=== PATIENT | male | born 1940 | race Caucasian/White ===

== ENCOUNTER 2018-01-26 18:26 | Emergency (ER) | payer BC, MEDICARE ==
[2018-01-26 19:43] LABS: Urine Appearance Clear; Urine Blood 3+ (Negative); Urine Color Yellow; Urine Ketones Negative (Negative); Urine Protein Negative (Negative); Urine Specific Gravity 1.011 (1.010-1.030); Urine Urobilinogen Negative (Negative)
[2018-01-26] MEDS ORDERED: Sulfamethox/Trimethoprim DS 800/160* TAB PO ONE ×2 (20:37→20:38)
[2018-01-26 21:25] VITALS: BP 143/79
--- NOTE | 2018-01-26 21:58 | ED ---
Farzaneh Crandall Edward, scribed for Carl Bowden MD on 01/26/18 at 2028 . GI/ HPI - HPI Summary HPI Summary: 77 y/o male presents to the ED c/o blood in urine 1x at around 16:30 today. Pt urinated 3x since then - lots of blood the first time, less blood the second and third times. This morning during urination pt states he may have noticed a small clot in his urine. PMHx enlarged prostate. Denies burning with urination today. Denies other pain. 3 years ago the pt had a similar episode; none since then. - History of Current Complaint Chief Complaint: EDGeneral Time Seen by Provider: 01/26/18 20:20 Stated Complaint: BLOOD IN URINE Hx Obtained From: Patient Onset/Duration: Started Hours Ago Timing: Intermittent - 3x Pain Intensity: 0 Associated Signs and Symptoms: Positive: Other: - Blood in urine - Allergy/Home Medications Allergies/Adverse Reactions: Allergies Allergy/AdvReac Type Severity Reaction Status Date / Time No Known Allergies Allergy Verified 01/16/15 19:46 Home Medications: Home Medications Metoprolol Tartrate TAB* [Lopressor TAB*] 50 mg PO BEDTIME 01/26/18 [History Confirmed 01/26/18] Pantoprazole TAB (NF) [Protonix TAB (NF)] 40 mg PO DAILY 01/26/18 [History Confirmed 01/26/18] Simvastatin (NF) [Zocor (NF)] 40 mg PO DAILY 01/26/18 [History Confirmed ] Tamsulosin CAP* [Flomax CAP*] 0.4 mg PO DAILY 01/26/18 [History Confirmed ] PMH/Surg Hx/FS Hx/Imm Hx Previously Healthy: No Cardiovascular History: Reports: Hx Hypercholesterolemia, Hx Hypertension, Hx Syncope GI History: Reports: Hx Gastroesophageal Reflux Disease History: Reports: Hx Benign Prostatic Hyperplasia Musculoskeletal History: Reports: Hx Back Problems, Hx Gout, Hx Scoliosis Sensory History: Reports: Hx Contacts or Glasses Opthamlomology History: Reports: Hx Contacts or Glasses - Surgical History Surgery Procedure, Year, and Place: CARDIAC STENT x1 about 2001 Infectious Disease History: No Infectious Disease History: Denies: Traveled Outside the [place] in Last 30 Days - Family History Known Family History: Positive: Cardiac Disease, Other - Parkinson's (father), breast CA (mother), "bone CA" (father) - Social History Alcohol Use: Weekly Hx Substance Use: No Substance Use Type: Reports: None Smoking Status (MU): Current Every Day Smoker Type: Cigarettes Amount Used/How Often: 1 PPD Length of Time of Smoking/Using Tobacco: about 46 years Have You Smoked in the Last Year: Yes Review of Systems Constitutional: Negative Eyes: Negative ENT: Negative Cardiovascular: Negative Respiratory: Negative Gastrointestinal: Negative Positive: other - blood in urine. Negative: burning Musculoskeletal: Negative Skin: Negative Neurological: Negative Psychological: Normal All Other Systems Reviewed And Are Negative: Yes Physical Exam Triage Information Reviewed: Yes Vital Signs On Initial Exam: Initial Vitals Temp Pulse Resp BP Pulse Ox 98.0 F 68 18 179/75 97 01/26/18 18:47 01/26/18 18:47 01/26/18 18:47 01/26/18 18:47 01/26/18 18:47 Vital Signs Reviewed: Yes Appearance: Positive: Well-Appearing, No Pain Distress Skin: Positive: Warm, Skin Color Reflects Adequate Perfusion, Dry Head/Face: Positive: Normal Head/Face Inspection Eyes: Positive: EOMI, IVETT ENT: Positive: Normal ENT inspection Neck: Positive: Supple, Nontender Respiratory/Lung Sounds: Positive: Clear to Auscultation, Breath Sounds Present Cardiovascular: Positive: RRR Abdomen Description: Positive: Nontender, Soft. Negative: CVA Tenderness (R), CVA Tenderness (L) Bowel Sounds: Positive: Present Male Genital Exam: Positive: Other - Penis and urethra are non-tender. There is no blood on the penis.. Negative: Testicular Tenderness (R), Testicular Tenderness (L) Musculoskeletal: Positive: Normal, Strength/ROM Intact Neurological: Positive: Sensory/Motor Intact, Alert, Oriented to Person Place, Time Psychiatric: Positive: Affect/Mood Appropriate Diagnostics - Vital Signs Vital Signs Temp Pulse Resp BP Pulse Ox 01/26/18 18:47 98.0 F 68 18 179/75 97 - Laboratory Lab Results: Lab Results 01/26/18 Range/Units 19:14 Urine Color Yellow Urine Appearance Clear Urine pH 6.0 (5-9) Ur Specific [place] 1.011 (1.010-1.030) Urine Protein Negative (Negative) Urine Ketones Negative (Negative) Urine Blood 3+ A (Negative) Urine Nitrate Negative (Negative) Urine Bilirubin Negative (Negative) Urine Urobilinogen Negative (Negative) Ur Leukocyte Esterase Negative (Negative) Urine WBC (Auto) Absent (Absent) Urine RBC (Auto) 3+(>10/hpf) A (Absent) Urine Bacteria Absent (Absent) Urine Glucose Negative (Negative) Lab Statement: Any lab studies that have been ordered have been reviewed, and results considered in the medical decision making process. GIGU Course/Dx - Course Course Of Treatment: NO PAIN, NO DIFFICULTY URINATING, NO FEVER. IN THE ED, THE URINE HAD A SMALL AMOUNT OF BLOOD WITHOUT CLOTS. DISCUSSED EVALUATION OF HEMATURIA WITH THE PATIENT. HE SEES UROLOGY THROUGH [place]. AT THIS TIME, THE PLAN IS TO TREAT WITH ABX AND CLOSE F/U WITH UROLOGY; RETURN TO ED IF WORSE. - Diagnoses Provider Diagnoses: Hematuria Discharge - Sign-Out/Discharge Documenting (check all that apply): Discharge/Admit/Transfer - Discharge Plan Condition: Stable Disposition: HOME Prescriptions: Sulfamethox/Trimethoprim DS* [Bactrim DS 800/160 TAB*] 1 tab PO BID #26 tab Patient Education Materials: Hematuria (ED) Referrals: Smiley Loyd MD [Primary Care Provider] - Additional Instructions: FOLLOW UP WITH YOUR PRIMARY CARE DOCTOR AND UROLOGIST. DRINK PLENTY OF WATER. RETURN TO THE EMERGENCY DEPARTMENT FOR ANY WORSENING OF YOUR CONDITION; PAIN, FEVER, YOU ARE UNABLE TO URINATE, YOU FEEL ILL OR QUESTIONS OR CONCERNS. - Billing Disposition and Condition Condition: STABLE Disposition: Home The documentation as recorded by the Farzaneh erickson Edward accurately reflects the service I personally performed and the decisions made by me, Carl Bowden MD.
== END 2018-01-26 21:23 | disposition home or self-care (01) ==
LOC: ED 18:26
DX: R31.9 Hematuria, unspecified (principal); E78.00 Pure hypercholesterolemia, unspecified; I10 Essential (primary) hypertension; K21.9 Gastro-esophageal reflux disease without esophagitis; N40.0 Benign prostatic hyperplasia without lower urinary tract symptoms; M41.9 Scoliosis, unspecified; Z95.5 Presence of coronary angioplasty implant and graft; Z82.49 Family history of ischemic heart disease and other diseases of the circulatory system; Z82.0 Family history of epilepsy and other diseases of the nervous system; Z80.3 Family history of malignant neoplasm of breast; Z80.8 Family history of malignant neoplasm of other organs or systems; F17.210 Nicotine dependence, cigarettes, uncomplicated
CPT/HCPCS: 81003; 81015; 87086; 99282; A9270-GY

== ENCOUNTER 2018-02-22 21:19 | Emergency (ER) | payer MEDICARE, OTHER ==
[2018-02-22 21:36] VITALS: BP 150/81
--- NOTE | 2018-02-22 21:55 | UC ---
Dental HPI - HPI Summary HPI Summary: This is georgina Nathan documenting for attending Ana María Conroy MD. This patient is a 77 year old M presenting to [facility] with a chief complaint of dental pain in his bottom left canine since a few weeks ago. The patient reports that the pain worsened today. The patient rates the pain 7/10 in severity. Symptoms aggravated by eating. Symptoms alleviated by nothing. Patient denies shortness of breath, chest pain, or difficulty swallowing. The patient reports that he has been taking aleve and rinsing his mouth with salt water. Patient has hx of HTN, HCL, and multiple MIs s/p stent placement . The patient reports that he takes Protonix, ASA, Flomax, and HCL medication. Patient notes he has regular dentist. - History of Current Complaint Chief Complaint: UCDentalProblem Stated Complaint: DENTAL COMPLAINT Time Seen by Provider: 02/22/18 21:46 Hx Obtained From: Patient Onset/Duration: Gradual Onset, Lasting Weeks, Still Present, Worse Since - today Severity: Moderate Pain Intensity: 7 Pain Scale Used: 0-10 Numeric Aggravating Factor(s): Nothing Alleviating Factor(s): Nothing - Allergies/Home Medications Allergies/Adverse Reactions: Allergies Allergy/AdvReac Type Severity Reaction Status Date / Time No Known Allergies Allergy Verified 01/16/15 19:46 Home Medications: Home Medications Naproxen Sodium [Aleve] 02/22/18 [History] PMH/Surg Hx/FS Hx/Imm Hx Previously Healthy: Yes Other Endocrine History: negative Cardiovascular History: Hypertension, Myocardial Infarction, Other - HCL Other Cardiovascular History: hyperlipidemia Other Respiratory History: negative Other GI/ History: negative Other Neurological History: negative Other Psychological History: negative Other Cancer History: negative - Surgical History Surgical History: Yes Surgery Procedure, Year, and Place: CARDIAC STENT x1 about 2001 - Family History Known Family History: Positive: Cardiac Disease, Other - Parkinson's (father), breast CA (mother), "bone CA" (father) - Social History Alcohol Use: Weekly Substance Use Type: None Smoking Status (MU): Heavy Every Day Tobacco Smoker Type: Cigarettes Amount Used/How Often: 1 PPD Length of Time of Smoking/Using Tobacco: about 46 years Have You Smoked in the Last Year: Yes Household Exposure Type: Cigarettes - Immunization History Most Recent Tetanus Shot: unknown Most Recent Pneumonia Vaccination: unknown if ever Review of Systems Constitutional: Negative - negative fever Skin: Negative Eyes: Negative ENT: Dental Pain - bottom left canine Respiratory: Negative - negative shortness of breath Cardiovascular: Negative - negative chest pain Gastrointestinal: Negative Genitourinary: Negative Motor: Negative Neurovascular: Negative Musculoskeletal: Negative Neurological: Negative Psychological: Negative Is Patient Immunocompromised?: No All Other Systems Reviewed And Are Negative: Yes Physical Exam - Summary Physical Exam Summary: Appearance: Well-Appearing, No Pain Distress, Well-Nourished Eyes: conjunctiva clear, no discharge ENT: Hearing grossly normal, no muffled/hoarse voice. Lower jaw left canine tender to slight touch and manipulation, it is discolored with caries, all of the teeth behind it had been removed. Gingiva does not appear significantly swollen or erythematous. Ears have a lot of wax but patient declined irrigation , TM not visualized bilaterally No pharyngeal erythema or exudates. Neck: Normal, Supple Respiratory/Lung Sounds: Lungs clear, Normal breath sounds, No respiratory distress, No accessory muscle use Cardiovascular: RRR, No murmur Abdomen: Nontender, Soft, no guarding, not distended Bowel Sounds: Present Musculoskeletal: Normal Neurological: Alert, muscle tone normal Psychiatric:Normal, age appropriate behavior Skin: Normal, Warm, Dry, Normal color Triage Information Reviewed: Yes Vital Signs: Initial Vital Signs Temp 98.4 F 02/22/18 21:31 Pulse 66 02/22/18 21:31 Resp 16 02/22/18 21:31 BP 150/81 02/22/18 21:31 Pulse Ox 95 02/22/18 21:31 Vital Signs Reviewed: Yes Dental Complaint Course/Dx - Course Course Of Treatment: During the visit today, we discussed the findings and further plan. I will prescribe the medication to the pharmacy . He will follow up with his dentist in [place]. Patient expressed understanding . - Differential Dx/Diagnosis Differential Diagnosis/Dx: Dental Abscess Provider Diagnoses: pulpitis. dental caries Discharge - Sign-Out/Discharge Documenting (check all that apply): Patient Departure - Discharge Plan Condition: Stable Disposition: HOME Prescriptions: Amoxicillin/Clavulanate TAB* [Augmentin TAB 875*] 875 mg PO BID 10 Days #20 tab Chlorhexidine MW 0.12% 473ML* [Peridex Mouth Wash 0.12%] 0.12 % MT BID #1 emperatriz Patient Education Materials: Dental Abscess (ED), Toothache (ED) Referrals: Smiley Loyd MD [Primary Care Provider] - Hira Clemente DDS [Other] - 3 Days Additional Instructions: Please start taking the medication as prescribed to the pharmacy . Follow up with your dentst in 2 - 3 days. Return to Urgent care / ER if symptoms get worse. - Billing Disposition and Condition Condition: STABLE Disposition: Home
[2018-02-22] MEDS ORDERED: Amoxicillin/Clavulanate TAB* 875 MG PO ONE (21:57)
== END 2018-02-22 22:15 | disposition home or self-care (01) ==
LOC: UCEAST 21:19
DX: K04.01 Reversible pulpitis (principal); K02.9 Dental caries, unspecified; I25.2 Old myocardial infarction; I10 Essential (primary) hypertension; E78.5 Hyperlipidemia, unspecified; Z95.5 Presence of coronary angioplasty implant and graft; F17.210 Nicotine dependence, cigarettes, uncomplicated
CPT/HCPCS: 99212; A9270-GY; G0463

== ENCOUNTER 2018-05-21 09:40 | Inpatient (IN) | payer MEDICARE ==
[2018-05-21] MEDS ORDERED: NS 0.9% 1000 ML* 2,000 ML IV ONE (10:18)
--- NOTE | 2018-05-21 10:28 | ED ---
Abdominal Pain/Male - HPI Summary HPI Summary: This patient is a 77 year old M presenting to [facility] accompanied by with a chief complaint of lower abd cramping that began approximately one month ago. The patient rates the pain 6/10 in severity. Symptoms aggravated by Miralax and phenazopyridine. Symptoms alleviated by bowel movements. Patient reports diarrhea, recent weight gain, SOB, and occasional anal pain upon urination. reports the patient being pale, shaky, and weak, with bilateral feet edema. Patient denies CP, headache, vomiting, and fever. Patient has been using over the counter stool softeners due to his difficulty producing a BM. Patient states that the pain began upon travel to [place]. Patient states he returned from [place] on 04/18/2018, and at that point he weighed 198 lb. He reports he now weights 211 lbs. Patient reports he has a history of an enlarged prostate and hemorrhoids. Patient states he saw his primary care for these symptoms and had a BP of 140/92 at that point. He reports that he saw his urologist at [place] (Dr. Albarado) for his enlarged prostate and was prescribed Finasteride with great results. Pt states he has had cystoscopy by Dr. Albarado and no cancer was noted. Patient states that he has not been taking his Miralax and phenzopyridine prescribed by Dr. Smiley Loyd, his PCP, because he feels these medications made the abdominal pain worse. Vital signs while in room: HR 61 bpm, BP 230/92, and O2 sat 93%. Home Medications Medication Instructions Recorded Confirmed Type Aspirin TAB* [Aspirin 325 MG TAB*] 325 mg PO DAILY 01/16/15 05/21/18 History Metoprolol Tartrate TAB* 25 mg PO BID 01/26/18 05/21/18 History [Lopressor TAB*] Pantoprazole TAB (NF) [Protonix 40 mg PO DAILY 01/26/18 05/21/18 History TAB (NF)] Simvastatin (NF) [Zocor (NF)] 40 mg PO DAILY 01/26/18 05/21/18 History Tamsulosin CAP* [Flomax CAP*] 0.4 mg PO DAILY 01/26/18 05/21/18 History Amoxicillin/Clavulanate TAB* 875 mg PO BID 10 Days #20 tab 02/22/18 05/21/18 Rx [Augmentin TAB 875*] Finasteride 5 mg PO DAILY 05/21/18 05/21/18 History Phenazopyridine 200 mg (NF) 200 mg PO TID 05/21/18 05/21/18 History Polyethylene Glycol 1 pkt PO DAILY 05/21/18 05/21/18 History - History of Current Complaint Chief Complaint: EDAbdPain Stated Complaint: CONSTIPATION/HEMROIDS/PROSTATE ISSUES Time Seen by Provider: 05/21/18 10:11 Hx Obtained From: Patient, Family/Jewel Bearing Broacher - Onset/Duration: Sudden Onset, Lasting Weeks, Still Present Timing: Constant Severity Initially: Moderate Severity Currently: Moderate Pain Intensity: 6 Pain Scale Used: 0-10 Numeric Location: Other - Lower abdomen Radiates: No Character: Dull Aggravating Factor(s): Other: - Miralax and phenazopyridine Alleviating Factor(s): Bowel Movement Associated Signs And Symptoms: Positive: Diarrhea, Other - Positive recent weight gain, SOB, and occasional anal pain upon urination, pallor, shakiness, weakness, bilateral feet edema. Negative CP, headache, vomiting, and fever - Allergies/Home Medications Allergies/Adverse Reactions: Allergies Allergy/AdvReac Type Severity Reaction Status Date / Time No Known Allergies Allergy Verified 05/21/18 10:31 Home Medications: Home Medications Finasteride 5 mg PO DAILY 05/21/18 [History Confirmed 05/21/18] Phenazopyridine 200 mg (NF) 200 mg PO TID 05/21/18 [History Confirmed 05/21/18] Polyethylene Glycol 1 pkt PO DAILY 05/21/18 [History Confirmed 05/21/18] PMH/Surg Hx/FS Hx/Imm Hx Previously Healthy: No Cardiovascular History: Reports: Hx Hypercholesterolemia, Hx Hypertension, Hx Syncope GI History: Reports: Hx Gastroesophageal Reflux Disease History: Reports: Hx Benign Prostatic Hyperplasia Musculoskeletal History: Reports: Hx Back Problems, Hx Gout, Hx Scoliosis Sensory History: Reports: Hx Contacts or Glasses Opthamlomology History: Reports: Hx Contacts or Glasses - Surgical History Surgery Procedure, Year, and Place: CARDIAC STENT x1 about 2001 Hx Anesthesia Reactions: No Infectious Disease History: No Infectious Disease History: Denies: Traveled Outside the [place] in Last 30 Days - Family History Known Family History: Positive: Cardiac Disease, Other - Parkinson's (father), breast CA (mother), "bone CA" (father) - Social History Occupation: Employed Full-time Lives: With Family Alcohol Use: Weekly Hx Substance Use: No Substance Use Type: Reports: None Hx Tobacco Use: Yes Smoking Status (MU): Heavy Every Day Tobacco Smoker Type: Cigarettes Amount Used/How Often: 1 PPD Length of Time of Smoking/Using Tobacco: about 46 years Have You Smoked in the Last Year: Yes Review of Systems Positive: Other - Positive pallor and shakiness. Negative: Fever Negative: Chest Pain Positive: Shortness Of Breath Positive: Abdominal Pain, Diarrhea, Other - Positive recent weight gain and anal pain. Negative: Vomiting Positive: other - BPH, nocturia Skin: Negative Positive: Weakness. Negative: Headache Psychological: Normal All Other Systems Reviewed And Are Negative: Yes Physical Exam - Summary Physical Exam Summary: Appearance: Well-appearing, moderate pain distress, well-nourished, hypertensive Skin: Warm, color reflects adequate perfusion, dry Head: Normal Head/Face inspection, atraumatic Eyes: Conjunctiva clear ENT: Normal inspection Neck: Supple, no nodes, no JVD Respiratory: Lungs clear, normal breath sounds, no respiratory distress, SOB with minimal exertion Cardio: RRR, No murmur, pulses normal, brisk capillary refill Abdomen: Soft, nontender, nondistended, no masses Bowel sounds: Present Musculoskeletal: Strength Intact/ROM intact, no calf tenderness, 2+ pitting edema Rectal Exam: TALON Hernández present as a motorcoach driver for rectal exam. External hemorrhoids nonthrombosed and not bleeding. Enlarged prostate without nodularity. No stool in vault, mucous sent for guaiac testing, and is guaiac neg. exam: circumcised male, testes descended bilat without masses or tenderness, no scrotal swelling. Psychological: Normal Neuro: Alert, muscle tone normal, no focal deficit Triage Information Reviewed: Yes Vital Signs On Initial Exam: Initial Vitals Temp Pulse Resp BP Pulse Ox 98.4 F 61 14 196/81 94 05/21/18 10:08 05/21/18 10:08 05/21/18 10:08 05/21/18 10:08 05/21/18 10:08 Vital Signs Reviewed: Yes Procedures - Procedure Summary Procedure Summary: 16 [place] Mesa catheter insertion: without resistant and without trauma upon first attempt via sterile technique and with insertion of 6 ml lidocaine gel into urethral meatus prior to insertion. Clear yellow urine began to drain. 1600 cc were collected and the catheter was clamped due to bladder spasms and pain. Catheterized urine sample sent for culture (in addition to voided specimen that was sent prior). Diagnostics - Vital Signs Vital Signs Temp Pulse Resp BP Pulse Ox 05/21/18 10:08 98.4 F 61 14 196/81 94 - Laboratory Result Diagrams: 05/21/18 10:34 05/21/18 21:39 Lab Statement: Any lab studies that have been ordered have been reviewed, and results considered in the medical decision making process. - Radiology CXR Radiology Interpretation Completed By: Radiologist Summary of Radiographic Findings: CXR reveals, per radiologist, findings suggestive of congestive heart failure. ED physician has reviewed this radiology report. - CT CT Abdomen and Pelvis CT Interpretation Completed By: Radiologist - note: CT done prior to insertion of mesa Summary of CT Findings: CT abdomen and pelvis reveals, per radiologist, 1. SMALL TO MODERATE SIZE BILATERAL PLEURAL EFFUSIONS. 2. MARKEDLY DISTENDED URINARY BLADDER AND MILD TO MODERATE GRADE BILATERAL HYDRONEPHROSIS WHICH APPEARS SECONDARY TO A MARKEDLY ENLARGED PROSTATE GLAND. THERE IS ALSO DIFFUSE THICKENING OF THE WALL OF THE URINARY BLADDER WHICH IS LIKELY SECONDARY TO HYPERTROPHY AND CHRONIC OUTLET OBSTRUCTION. 3. CHOLELITHIASIS WITHOUT EVIDENCE FOR ACUTE CHOLECYSTITIS. ED physician has reviewed this radiology report. - EKG 1026 Cardiac Rate: Bradycardia EKG Rhythm: Sinus Rhythm - 56 BPM Ectopy: None EKG Comparison: No Significant Change - Since 04/17/2016 Summary of EKG Findings: An EKG at 1026 reveals sinus dion 56 with nml AV/IV CT , nml QTc, and normal axis. No acute changes no change compared with 04/17/16 Re-Evaluation - Re-Evaluation First Eval Re-Evaluation Time: 11:28 Change: Unchanged Comment: No CP. He still has SOB at rest. Hes been advised of his abnormal labs and admission Second Eval Re-Evaluation Time: 12:05 Change: Unchanged Comment: Patient is having a BM and we will send a stool sample Third Eval Re-Evaluation Time: 13:30 Change: Improved Comment: 16 F coude catheter inserted via sterile technique without difficulty upon first attempt, and with return of clear yellow urine, after consult with Dr. Velez. Mesa clamped due to bladder spasms and pain after 1600 cc urine drained in minutes. Morphine 4mg IV given for pain with some relief. Abdominal Pain Fem Course/Dx - Course Course Of Treatment: This patient is a 77 year old M presenting to [facility] accompanied by with a chief complaint of lower abd cramping that began approximately one month ago. Physical Exam Findings: RN Betty present as a motorcoach driver for rectal exam. External hemorrhoids and enlarged prostate. 2+ pitting edema, SOB with minimal exertion. : normal circumcised male. An EKG at 1026 reveals sinus dion 56 with nml AV/IV CT, nml QTc, and normal axis. No acute changes no change compared with 04/17/16. CXR reveals, per radiologist, findings suggestive of congestive heart failure. CT abdomen and pelvis reveals, per radiologist, 1. SMALL TO MODERATE SIZE BILATERAL PLEURAL EFFUSIONS. 2. MARKEDLY DISTENDED URINARY BLADDER AND MILD TO MODERATE GRADE BILATERAL HYDRONEPHROSIS WHICH APPEARS SECONDARY TO A MARKEDLY ENLARGED PROSTATE GLAND. THERE IS ALSO DIFFUSE THICKENING OF THE WALL OF THE URINARY BLADDER WHICH IS LIKELY SECONDARY TO HYPERTROPHY AND CHRONIC OUTLET OBSTRUCTION. 3. CHOLELITHIASIS WITHOUT EVIDENCE FOR ACUTE CHOLECYSTITIS. Bloodwork and UA obtained. Bladder scan done post void shows volume greater than 1000cc. Second bladder scan done again post void and just prior to coude catheter insertion shows volume greater than 1000cc. In the ED course the patient was given Aspirin , Finasteride, fluids, lidocaine ge for insertion of mesa, Lopressor, Morphine , and Tamsulosin. New onset renal failure noted since 2016. Elevated BNP and CXR with CHF, will cancel hydration with IV fluids. Contrast for CT abdomen and pelvis will be given orally only due to new onset renal failure (creat 4.8). Consult with Dr. Blum (hospitalist) at 1203. She recommends a bladder scan and evaluation for urinary retention. Consult with Dr. Velez (urology) at 1242. He recommends 16F coude Mesa, preferably before the CT scan, which was inserted after CT completed. Consult with Dr. Blum (hospitalist) at 2665. She agrees to admit patient for further evaluation. The patient is agreeable with this plan. - Diagnoses Differential Diagnosis/HQI/PQRI: Benign Prostatic Hyperplasia, Diverticulitis, Ischemic Bowel, Prostatitis, Ureteral Stone, Urinary Tract Infection, Other - colitis Provider Diagnoses: Bilateral hydronephrosis, Acute urinary retention, Abdominal pain, Acute kidney injury, CHF (congestive heart failure), Diarrhea, Hypertension, poor control - Provider Notifications Discussed Care Of Patient With: Mikala Blum Time Discussed With Above Provider: 12:03 Instructed by Provider To: Other - Consult with Dr. Blum (hospitalist) at 1203. She recommends a bladder scan and evaluation for urinary retention. Consult with Dr. Velez (urology) at 1242. He recommends 16 [place] coude Mesa, preferably before the CT scan. Consult with Dr. Blum (hospitalist) at 1345. She agrees to admit patient for further evaluation. Discharge - Sign-Out/Discharge Documenting (check all that apply): Patient Departure - Admit to [facility] - Discharge Plan Condition: Stable Disposition: ADMITTED TO [facility] - Billing Disposition and Condition Condition: STABLE Disposition: Admitted to [facility] - Attestation Statements Document Initiated by Scribe: Yes Documenting Scribe: Rosalie Acuña Provider For Whom Billye is Documenting (Include Credential): Dr. Charisse Lauren MD Scribe Attestation: Rosalie Crandall, scribed for Dr. Charisse Lauren MD on 05/22/18 at 0314. Scribe Documentation Reviewed: Yes Provider Attestation: The documentation as recorded by the Rosalie erickson accurately reflects the service I personally performed and the decisions made by me, Dr. Charisse Lauren MD
[2018-05-21 10:47] LABS: ABS Basophils 0.1 10^3/ul (0-0.2); ABS Eosinophils 0.4 10^3/ul (0-0.6); ABS Lymphocytes 1.2 10^3/ul (1.0-4.8); ABS Monocytes 0.9 10^3/ul (0-0.8); ABS Neutrophils 9.6 10^3/ul (1.5-7.7); ABS Nucleated RBC 0 10^3/ul; Eosinophil % 3.5 % (0-6); Hematocrit 38 % (42-52); Hemoglobin 12.8 g/dl (14.0-18.0); Lymphocyte % 9.9 % (25-47); Mean Corpuscular HGB Conc 34 g/dl (31-36); Mean Corpuscular Hemoglobin 30 pg (27-31); Mean Corpuscular Volume 89 fL (80-94); Mean Platelet Volume 9.5 um3 (7.4-10.4); Nucleated Red Blood Cells % 0; Platelet Count 202 10^3/ul (150-450); Red Cell Distribution Width 14 % (10.5-15); White Blood Count 12.3 10^3/ul (3.5-10.8)
--- OUTSIDE RECORDS SUMMARY | 2018-05-21 10:52 | XMS REPORT | Continuity of Care Document ---
:1940 External Reference #:[id number] Author Name Roseann Pedro Care Team Providers Name Role Phone Smiley Loyd MD Primary Care Physician Unavailable Payers Type Date Identification Numbers Payment Provider Subscriber Effective: Policy Number: [id number] [employer] Faustino Morales 2017 PayID: [id number] [address] [address] [place] [address] Advance Directives Description No Information Available Problems Date Description Provider Status Onset: 12/28/2010 Hyperlipidemia Smiley Loyd M.D. Active Onset: 12/28/2010 Coronary arteriosclerosis Smiley Loyd M.D. 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 Active Onset: 03/23/2011 Cellulitis Ambrocio Lynn MD Active Family History Date Family Member(s) Problem(s) Comments General Diabetes Mellitus, II General Hypertension General Bladder Cancer General Lymphoma General Kidney Stones Father Diabetes Type 2 Father Hypertension Father Hyperlipidemia Father Heart Disease First Son Throat Cancer Social History Type Date Description Comments Sex Unknown Marital Status Tobacco Use Start: Unknown Current Cigarette Smoker 1 Pack Daily Tobacco Use Start: Unknown attempting to quit ETOH Use Occasionally consumes alcohol Recreational Drug Use Denies Drug Use Tobacco Use Start: Unknown Patient is a current smoker, smokes every day Smoking Status Reviewed: 06/22/17 Patient is a current smoker, smokes every day Allergies, Adverse Reactions, Alerts Date Description Reaction Status Severity Comments 12/28/2010 NKDA Active 08/16/2005 Nka Active Medications Medication Date Status Form Strength Qnty SIG Indications Ordering Provider Miralax 05/17/ Active Packet 3350NF 36uni 17 gms in K59.00 Smiley 2017 ts 8 oz h2o Gauss, every day M.D. as needed Phenazopyridine 05/17/ Active Tablets 200mg 30tab 1 tablet R30.0 Smiley HCL 2018 s 3x aday Ishuss, for 3 days M.D. Proctosol HC 05/10/ Active Cream 2.5% 28.35 apply to K64.9 Smiley 2017 0gm affected Gauss, area after M.D. bowel movements and as needed Amoxicillin 05/10/ Active Tablets 500mg 14tab 1 by mouth J20.9 Smiley 2017 s two times Gauss, a day M.D. Sildenafil 01/02/ Active Tablets 50mg 6tabs take 1 Smiley Citrate 2018 tablet if Gauss, needed as M.D. directed Pantoprazole 09/08/ Active Tablets DR 40mg 90tab take 1 Smiley Sodium 2009 s tablet Ishuss, daily M.D. Simvastatin 04/28/ Active Tablets 40mg 90tab take 1 E78.5 Smiley 2008 s tablet Ishuss, daily (max M.D. daily dose: 1 tablet) mdd 1 Metoprolol 03/26/ Active Tablets 50mg 90tab take Smiley Tartrate 2008 s one-half Evert, (07/26) M.DDebra tablet twice a day Asp 08/16/ Active Tablets 325mg 1 po qd Smiley 2005 Belkys Loyd Flomax / Active Capsules 0.4mg 90cap 1 po qd Anthony, 0000 s Sebas Finasteride / Active Tablets 5mg 1 by mouth Unknown 0000 every day Azithromycin 06/22/ Hx Tablets 250mg 6tabs 2 by mouth J02.9 Smiley 2016 - , 1 Evert, 07/06/ by mouth M.D. 2016 day 2 thru 5 Cephalexin 04/07/ Hx Capsules 500mg 14cap 1 by mouth L03.114 Smiley 2016 twice a Evert, 07/06/ day with M.D. 2017 food Azithromycin 04/22/ Hx Tablets 250mg 6tabs 2 by mouth J02.9 Smiley 2015 - today, 1 Evert, 04/07/ by mouth M.D. 2016 day 2 thru 5 Zithromax 03/03/ Hx Tablets 250mg 6pill 2 by mouth Ambrocio 2015 - day 1, 1 MD Leah 04/22/ by mouth 2015 every day x days 2-5 Amoxicillin/Clavu 02/25/ Hx Tablets 875-125mg 14tab 1 by mouth J20.9 Smiley lanate Potassium 2016 - s twice a Evert, 03/03/ day M.D. 2016 Flagyl 01/16/ Hx Tablets 500mg 1 by mouth Unknown 2015 - three 01/14/ times a 2016 day Ciprofloxacin HCL 01/16/ Hx Tablets 500mg 1 by mouth Unknown 2015 - twice a 01/26/ day 2014 Amoxicillin 04/10/ Hx Capsules 500mg 14cap 1 tablets 461.9 Smiley 2013 - s by mouth Evert, 01/21/ twice a M.D. 2014 day Amoxicillin 04/19/ Hx Capsules 250mg 30cap 1 po tid 462 Smiley 2012 - s Evert, 06/19/ M.D. 2012 Sulfamethoxazole/ 06/06/ Hx Tablets 800-160mg 30tab 1 po bid 599.70 Smiley Trimethoprim DS 2011 - s Evert, 07/10/ M.D. 2011 Azithromycin 05/25/ Hx Tablets 250mg 6tabs 2 po 465.8 Smiley 2011 - , 1 Evert, 06/06/ po day 2 M.D. 2012 thru 5 Keflex 04/06/ Hx Capsules 500mg 21cap 1 po tid 682.90 Smiley 2010 - s Evert, 07/07/ M.D. 2010 Bactrim DS 04/01/ Hx Tablets 800-160mg 14tab 1 po bid 682.90 Smiley 2010 - s Evert, 04/06/ M.D. 2011 Indomethacin 04/01/ Hx Capsules 50mg 30cap 1 po tid 274.90 Smiley 2010 - s with food Evert, 07/10/ prn M.DDebra 2012 Levaquin 03/23/ Hx Tablets 500mg 10tab 1 po qd Ambrocio 2010 - s MD Leah 2010 Amoxicillin 08/15/ Hx Tablets 500mg 20tab 1 po bid 462 Smiley 2009 - s Evert, 12/26/ M.D. 2009 Indomethacin 01/31/ Hx Capsules 25mg 20cap 1 po tid 274.9 Smiley 2008 - s with food Evert, 08/15/ prn foot M.D. 2009 pain Erythromycin Base 10/19/ Hx Tablets 500mg 20tab 1 PO bid 462 Smiley Enteric Coated 2006 - s Evert, 01/22/ M.D. 2007 Amoxicillin 08/17/ Hx Tablets 500mg 15tab 1 po bid 460.00 Smiley 2006 - s Evert, 09/21/ M.D. 2007 Lopressor 09/29/ Hx Tablets 50mg 50tab 1/2 po bid Smiley 2005 - s Evert, 06/26/ M.D. 2008 Lipitor 08/17/ Hx Tablets 20mg 90tab 1/2 tab po 272.4 Smiley 2005 - s qd Evert, M.D. 2008 Lipitor 08/16/ Hx Tablets 10mg 90tab 1 po qd Smiley 2006 - s Evert, 08/17/ M.D. 2005 Protonix 08/16/ Hx Tablets 40mg 90tab 1 po qd Smiley 2005 - s Evert, 06/26/ M.D. 2009 Viagra 08/16/ Hx Tablets 50mg 6tabs take 1 Smiley 2005 - tablet if Evert, as M.D. 2017 directed Lopressor 07/01/ Hx Tablets 25mg 180ta 1 po bid Smiley 2004 - bs Evert, 09/29/ M.DDebra 2005 Immunizations CPT Code Status Date Vaccine Lot # [id number] Given 06/22/2017 Influenza Virus (Afluria) Split Virus 3 Years Of Age And Older Q2035 Given 06/22/2017 Influenza Virus (Afluria) Split Virus 3 Years [id number] Of Age And Older Q2037 Given 07/16/2015 Influenza Vaccine (Fluvirin) 3 Years Of Age Or [id number] Older Q2036 Given 07/08/2014 Flulaval [id number] Given 07/08/2014 Pneumovax Polyvalent Inj Im [id number] Q2038 Given 04/19/2013 Influenza Vaccine (Fluzone) Administered Age 3 And Older [id number] Given 04/13/2012 Influenza Vaccine (Fluvirin) 3 Years Of Age Or Older [id number] Given 04/13/2012 Influenza Vaccine (Fluvirin) 3 Years Of Age Or [id number] Older Q2036 Given 04/01/2011 Flulaval [id number] Given 06/29/2010 Influenza Vaccine [id number] Given 04/20/2006 Influenza Vaccine [id number] Vital Signs Date Vital Result Comment 05/17/2018 10:38am BP Systolic 148 mmHg BP Diastolic 80 mmHg Heart Rate 66 /min Height 72 inches 6'0" Weight 214.00 lb BMI (Body Mass Index) 29.0 kg/m2 O2 % BldC Oximetry 92 % 05/10/2018 2:52pm BP Systolic 160 mmHg BP Diastolic 94 mmHg Heart Rate 60 /min Height 72 inches 6'0" Weight 213.00 lb BMI (Body Mass Index) 28.9 kg/m2 O2 % BldC Oximetry 95 % 01/02/2018 10:39am BP Systolic 128 mmHg BP Diastolic 68 mmHg Heart Rate 64 /min Respiratory Rate 18 /min Height 72 inches 6'0" Weight 213.00 lb BMI (Body Mass Index) 28.9 kg/m2 O2 % BldC Oximetry 94 % 07/06/2017 11:17am BP Systolic 144 mmHg BP Diastolic 70 mmHg Heart Rate 76 /min Respiratory Rate 18 /min Height 72 inches 6'0" Weight 201.00 lb BMI (Body Mass Index) 27.3 kg/m2 06/22/2017 3:27pm BP Systolic 160 mmHg BP Diastolic 84 mmHg Body Temperature 97.7 F Height 72 inches 6'0" Weight 201.00 lb BMI (Body Mass Index) 27.3 kg/m2 04/07/2017 10:43am BP Systolic 138 mmHg BP Diastolic 64 mmHg Height 69 inches 5'9" Weight 208.00 lb BMI (Body Mass Index) 30.7 kg/m2 01/10/2017 10:38am BP Systolic 118 mmHg BP Diastolic 68 mmHg Height 71 inches 5'11" Weight 214.00 lb BMI (Body Mass Index) 29.8 kg/m2 09/20/2016 2:35pm BP Systolic 140 mmHg BP Diastolic 80 mmHg Body Temperature 98.1 F 07/12/2016 11:31am BP Systolic 142 mmHg BP Diastolic 80 mmHg Height 70 inches 5'10" Weight 219.00 lb BMI (Body Mass Index) 31.4 kg/m2 04/22/2016 10:46am BP Systolic 140 mmHg BP Diastolic 70 mmHg Body Temperature 97.4 F Height 70 inches 5'10" Weight 212.00 lb BMI (Body Mass Index) 30.4 kg/m2 03/03/2016 8:47am BP Systolic 130 mmHg BP Diastolic 80 mmHg 02/26/2016 11:16am BP Systolic 120 mmHg BP Diastolic 60 mmHg Body Temperature 98.6 F 01/15/2016 11:02am BP Systolic 122 mmHg BP Diastolic 64 mmHg Height 70 inches 5'10" Weight 212.00 lb BMI (Body Mass Index) 30.4 kg/m2 07/16/2015 1:41pm BP Systolic 140 mmHg BP Diastolic 80 mmHg Height 70 inches 5'10" Weight 210.00 lb BMI (Body Mass Index) 30.1 kg/m2 01/21/2015 1:34pm BP Systolic 150 mmHg BP Diastolic 86 mmHg Height 70 inches 5'10" Weight 213.00 lb BMI (Body Mass Index) 30.6 kg/m2 01/06/2015 11:47am BP Systolic 136 mmHg BP Diastolic 70 mmHg Height 70 inches 5'10" Weight 216.00 lb BMI (Body Mass Index) 31.0 kg/m2 07/08/2014 1:44pm BP Systolic 126 mmHg BP Diastolic 66 mmHg Height 70 inches 5'10" Weight 219.00 lb BMI (Body Mass Index) 31.4 kg/m2 04/10/2014 11:26am BP Systolic 146 mmHg BP Diastolic 80 mmHg Body Temperature 97.0 F 01/14/2014 11:48am BP Systolic 114 mmHg BP Diastolic 70 mmHg Height 70 inches 5'10" Weight 217.00 lb BMI (Body Mass Index) 31.1 kg/m2 07/11/2013 11:25am BP Systolic 130 mmHg BP Diastolic 80 mmHg Height 70 inches 5'10" Weight 230.00 lb BMI (Body Mass Index) 33.0 kg/m2 04/19/2013 1:32pm BP Systolic 120 mmHg BP Diastolic 82 mmHg Body Temperature 98.5 F 01/08/2013 11:01am BP Systolic 130 mmHg BP Diastolic 78 mmHg Height 70 inches 5'10" Weight 232.00 lb BMI (Body Mass Index) 33.3 kg/m2 07/10/2012 10:45am BP Systolic 134 mmHg BP Diastolic 80 mmHg Height 70 inches 5'10" Weight 231.00 lb BMI (Body Mass Index) 33.1 kg/m2 06/06/2012 1:33pm BP Systolic 140 mmHg BP Diastolic 80 mmHg Body Temperature 98.4 F 05/25/2012 10:44am BP Systolic 130 mmHg BP Diastolic 70 mmHg Body Temperature 98.4 F 01/10/2012 10:54am BP Systolic 136 mmHg BP Diastolic 80 mmHg Height 71 inches 5'11" Weight 229.00 lb BMI (Body Mass Index) 31.9 kg/m2 07/07/2011 11:24am BP Systolic 130 mmHg BP Diastolic 72 mmHg Height 71 inches 5'11" Weight 231.00 lb BMI (Body Mass Index) 32.2 kg/m2 04/01/2011 11:36am BP Systolic 118 mmHg BP Diastolic 68 mmHg Height 71 inches 5'11" Weight 225.00 lb BMI (Body Mass Index) 31.4 kg/m2 03/23/2011 1:32pm BP Systolic 124 mmHg BP Diastolic 70 mmHg Body Temperature 97.6 F Height 71 inches 5'11" Weight 225.00 lb BMI (Body Mass Index) 31.4 kg/m2 12/28/2010 11:15am BP Systolic 124 mmHg BP Diastolic 62 mmHg Height 71 inches 5'11" Weight 229.00 lb BMI (Body Mass Index) 31.9 kg/m2 06/29/2010 10:42am BP Systolic 128 mmHg BP Diastolic 80 mmHg Weight 225.00 lb 12/25/2009 11:26am BP Systolic 122 mmHg BP Diastolic 64 mmHg Height 71 inches 5'11" Weight 225.00 lb BMI (Body Mass Index) 31.4 kg/m2 06/26/2009 10:34am BP Systolic 122 mmHg BP Diastolic 60 mmHg Weight 225.00 lb 12/26/2008 11:40am BP Systolic 130 mmHg BP Diastolic 76 mmHg Height 71 inches 5'11" Weight 225.00 lb BMI (Body Mass Index) 31.4 kg/m2 08/15/2008 10:43am BP Systolic 164 mmHg BP Diastolic 92 mmHg Height 71 inches 5'11" Weight 223.00 lb BMI (Body Mass Index) 31.1 kg/m2 02/21/2008 12:01pm BP Systolic 130 mmHg BP Diastolic 70 mmHg Height 71 inches 5'11" 02/01/2008 10:53am BP Systolic 128 mmHg BP Diastolic 84 mmHg Body Temperature 98.8 F Height 71 inches 5'11" 08/15/2007 10:40am BP Systolic 142 mmHg BP Diastolic 78 mmHg Height 71 inches 5'11" Weight 220.00 lb BMI (Body Mass Index) 30.7 kg/m2 02/14/2007 10:02am BP Systolic 130 mmHg BP Diastolic 78 mmHg Height 71 inches 5'11" Weight 222.00 lb BMI (Body Mass Index) 31.0 kg/m2 10/19/2006 12:45pm BP Systolic 124 mmHg BP Diastolic 70 mmHg Body Temperature 97.3 F Height 71 inches 5'11" Weight 226.00 lb BMI (Body Mass Index) 31.5 kg/m2 08/17/2006 10:20am BP Systolic 142 mmHg BP Diastolic 76 mmHg Height 71 inches 5'11" Weight 221.00 lb BMI (Body Mass Index) 30.8 kg/m2 04/20/2006 10:27am BP Systolic 144 mmHg BP Diastolic 84 mmHg Height 71 inches 5'11" Weight 222.00 lb BMI (Body Mass Index) 31.0 kg/m2 04/13/2006 11:14am BP Systolic 142 mmHg BP Diastolic 80 mmHg Height 71 inches 5'11" Weight 222.00 lb BMI (Body Mass Index) 31.0 kg/m2 02/15/2006 9:56am BP Systolic 142 mmHg BP Diastolic 86 mmHg Height 71 inches 5'11" Weight 224.00 lb BMI (Body Mass Index) 31.2 kg/m2 11/15/2005 9:56am BP Systolic 120 mmHg BP Diastolic 84 mmHg Height 71 inches 5'11" Weight 228.00 lb BMI (Body Mass Index) 31.8 kg/m2 08/17/2005 10:33am BP Systolic 140 mmHg BP Diastolic 84 mmHg Height 71 inches 5'11" Weight 227.00 lb BMI (Body Mass Index) 31.7 kg/m2 Results Test Date Facility Test Result H/L Range Note Urinalysis Profile 01/26/2018 [facility] Urine Color Yellow [address] [place] [address] [phone] Urine Appearance Clear Urine Specific [place] 1.011 1.010-1.030 Urine pH 6.0 5-9 Urine Urobilinogen Negative Negative Urine Ketones Negative Negative Urine Protein Negative Negative Urine Leukocytes Negative Negative Urine Blood 3+ Negative Urine Nitrite Negative Negative Urine Bilirubin Negative Negative Urine Glucose Negative Negative Urine White Blood Cell Absent Absent Urine Red Blood Cell 3+(>10/hpf) Absent Urine Bacteria Absent Absent Urine Culture And 01/26/2018 [facility] Experience Urine Culture SEE RESULT [address] [address] [phone] CBC W/ Diff & PLT 12/26/2017 [facility] WBC 9.3 3.8-[address] thous/L .8 [place] [address] [phone] RBC 5.46 mill/L 4.20-5.80 Hemoglobin 16.4 g/dL 13.2-17.1 Hematocrit 49.5 % 38.5-50.0 MCV 90.6 FL 80.0-100.0 MCH 30.1 pg 27.0-33.0 MCHC 33.2 g/dL 32.0-36.0 RDW 14.1 % 11.0-15.0 Platelet Count 216 thous/L 140-400 Platelet Sufficiency PENDING MPV 9.4 FL 7.5-12.5 Neutrophils,Absolute 6480 cells/L 2221-8152 Bands,Absolute PENDING Metamyelocytes,Absolute PENDING Myelocytes,Absolute PENDING Promyelocytes,Absolute PENDING Lymphocytes,Absolute 1730 cells/L 850-3900 Monocytes,Absolute 700 cells/L 200-950 Eosinophils,Absolute 370 cells/L 15-500 Basophils,Absolute 30 cells/L 0-200 Blast Cells,Absolute PENDING Nucleated RBC,Absolute PENDING Total Neutrophils,% 70 % 40-75 Bands,% PENDING Metamyelocytes,% PENDING Myelocytes,% PENDING Promyelocytes,% PENDING Total Lymphocytes,% 19 % 12-47 Monocytes,% 8 % 4-12 Eosinophils,% 4 % 0-4 Basophils,% 0 % 0-1 2 Blasts,% PENDING Nucleated RBC PENDING RBC Morphology PENDING Anisocytosis PENDING Poikilocytosis PENDING Microcytosis PENDING Macrocytosis PENDING Polychromasia PENDING Hypochromasia PENDING Target Cells PENDING Basophilic Stippling PENDING Comment PENDING Basic Metabolic Panel 12/26/2017 [facility] Sodium 140 mmol/L 135-[address] [place] [address] [phone] Potassium 4.5 mmol/L 3.5-5.3 Chloride 107 mmol/L 98-110 Carbon Dioxide 26 mmol/L 20-31 Calcium 9.5 mg/dL 8.6-10.3 Glucose 105 mg/dL High 65-99 3 Urea Nitrogen (BUN) 16 mg/dL 7-25 Creatinine 0.85 mg/dL 0.70-1.18 4 BUN/Creatinine Ratio 19.2 6-22 Egfr Non-Afr. Peruvian 85 ML/MIN/1.73M2 > Or=60 Egfr 99 ML/MIN/1.73M2 > Or=60 Lipid Panel 12/26/2017 [facility] Cholesterol 128 mg/dL <199 [address] [place] [address] [phone] HDL Cholesterol 25 mg/dL Low >40 Cholesterol/HDL Ratio 5.1 CALC High <5.0 LDL Chol,Calculated 80 mg/dL 0-100 5 Triglycerides 131 mg/dL <150 Non-HDL Cholesterol 104 mg/dL <130 6 CBC W/ Diff & PLT 06/22/2017 [facility] WBC 12.0 thous/L High 3.8-10.8 7 [address] [place] [address] [phone] RBC 5.69 mill/L 4.20-5.80 Hemoglobin 16.4 g/dL 13.2-17.1 Hematocrit 50.5 % High 38.5-50.0 MCV 88.8 FL 80.0-100.0 MCH 28.8 pg 27.0-33.0 MCHC 32.4 g/dL 32.0-36.0 RDW 14.4 % 11.0-15.0 Platelet Count 215 thous/L 140-400 Platelet Sufficiency NORMAL Normal MPV 9.4 FL 7.5-12.5 Neutrophils,Absolute 8840 cells/L High 8559-5807 Bands,Absolute PENDING Metamyelocytes,Absolute PENDING Myelocytes,Absolute PENDING Promyelocytes,Absolute PENDING Lymphocytes,Absolute 1680 cells/L 850-3900 Monocytes,Absolute 850 cells/L 200-950 Eosinophils,Absolute 550 cells/L High 15-500 Basophils,Absolute 50 cells/L 0-200 Blast Cells,Absolute PENDING Nucleated RBC,Absolute PENDING Total Neutrophils,% 74 % 40-75 Bands,% PENDING Metamyelocytes,% PENDING Myelocytes,% PENDING Promyelocytes,% PENDING Total Lymphocytes,% 14 % 12-47 Monocytes,% 7 % 4-12 Eosinophils,% 5 % High 0-4 Basophils,% 0 % 0-1 8 Blasts,% PENDING Nucleated RBC PENDING RBC Morphology NORMAL Anisocytosis PENDING Poikilocytosis PENDING Microcytosis PENDING Macrocytosis PENDING Polychromasia PENDING Hypochromasia PENDING Target Cells PENDING Basophilic Stippling PENDING Comment PENDING Basic Metabolic Panel 06/22/2017 [facility] Sodium 141 mmol/L 135-[address] [place] [address] [phone] Potassium 4.3 mmol/L 3.5-5.3 Chloride 105 mmol/L 98-110 Carbon Dioxide 29 mmol/L 20-31 Calcium 9.2 mg/dL 8.6-10.3 Glucose 98 mg/dL 65-99 9 Urea Nitrogen (BUN) 16 mg/dL 7-25 Creatinine 0.90 mg/dL 0.70-1.18 10 BUN/Creatinine Ratio 17.8 6-22 Egfr Non-Afr. Peruvian 84 ML/MIN/1.73M2 > Or=60 Egfr 97 ML/MIN/1.73M2 > Or=60 Lipid Panel 06/22/2017 [facility] Cholesterol 145 mg/dL <[address] [place] [address] [phone] HDL Cholesterol 25 mg/dL Low >40 Cholesterol/HDL Ratio 5.8 CALC High <5.0 LDL Chol,Calculated 97 mg/dL 0-100 11 Triglycerides 125 mg/dL <150 Non-HDL Cholesterol 119 mg/dL <130 12 Lipid Panel 01/04/2017 [facility] Cholesterol 128 mg/dL 125-[address] [place] [address] [phone] HDL Cholesterol 25 mg/dL Low > Or=40 Cholesterol/HDL Ratio 5.1 High < Or=5.0 LDL Chol,Calculated 72 mg/dL <130 13 Triglycerides 155 mg/dL High <150 Non-HDL Cholesterol 103 mg/dL 14 Laboratory test 01/04/2017 [facility] PSA,Total 5.6 NG/ML High < Or=4.0 [address] [place] [address] [phone] CBC W/ Diff & PLT 01/04/2017 [facility] WBC 12.9 High 3.8-10.[address] thous/[place] [address] [phone] RBC 5.62 mill/L 4.20-5.80 Hemoglobin 16.4 g/dL 13.2-17.1 Hematocrit 51.0 % High 38.5-50.0 MCV 90.8 FL 80.0-100.0 MCH 29.1 pg 27.0-33.0 MCHC 32.1 g/dL 32.0-36.0 RDW 14.8 % 11.0-15.0 Platelet Count 200 thous/L 140-400 Platelet Sufficiency PENDING MPV 9.6 FL 7.5-12.5 Neutrophils,Absolute 9740 cells/L High [phone] Bands,Absolute PENDING Metamyelocytes,Absolute PENDING Myelocytes,Absolute PENDING Promyelocytes,Absolute PENDING Lymphocytes,Absolute 1840 cells/L 850-3900 Monocytes,Absolute 760 cells/L 200-950 Eosinophils,Absolute 560 cells/L High 15-500 Basophils,Absolute 40 cells/L 0-200 Blast Cells,Absolute PENDING Nucleated RBC,Absolute PENDING Total Neutrophils,% 75 % 40-75 Bands,% PENDING Metamyelocytes,% PENDING Myelocytes,% PENDING Promyelocytes,% PENDING Total Lymphocytes,% 14 % 12-47 Monocytes,% 6 % 4-12 Eosinophils,% 4 % 0-4 Basophils,% 0 % 0-1 16 Blasts,% PENDING Nucleated RBC PENDING RBC Morphology PENDING Anisocytosis PENDING Poikilocytosis PENDING Microcytosis PENDING Macrocytosis PENDING Polychromasia PENDING Hypochromasia PENDING Target Cells PENDING Basophilic Stippling PENDING Comment PENDING Basic Metabolic Panel 01/04/2017 [facility] Sodium 140 mmol/L 135-[address] [place], [place] [address] [phone] Potassium 4.5 mmol/L 3.5-5.3 Chloride 108 mmol/L 98-110 Carbon Dioxide 25 mmol/L 20-31 Calcium 9.1 mg/dL 8.6-10.3 Glucose 105 mg/dL High 65-99 17 Urea Nitrogen 23 mg/dL 7-25 Creatinine 0.99 mg/dL 0.70-1.18 18 BUN/Creatinine Ratio 22.8 High 6-22 Egfr Non-Afr. Peruvian 75 ML/MIN/1.73M2 > Or=60 Egfr 87 ML/MIN/1.73M2 > Or=60 CBC Auto Diff 04/17/2016 [facility]ual Experience White Blood 8.8 10^3/uL 3.5-10.[address] [place], [place] [id number] [phone] Red Blood Count 5.70 10^6/uL High 4.0-5.4 Hemoglobin 16.5 g/dL 14.0-18.0 Hematocrit 49 % 42-52 Mean Corpuscular Volume 86 fL 80-94 Mean Corpuscular Hemoglobin 29 pg 27-31 Mean Corpuscular HGB Conc 34 g/dL 31-36 Red Cell Distribution Width 14 % 10.5-15 Platelet Count 201 10^3/uL 150-450 Mean Platelet Volume 9 um3 7.4-10.4 Abs Neutrophils 5.0 10^3/uL 1.5-7.7 Abs Lymphocytes 2.3 10^3/uL 1.0-4.8 Abs Monocytes 0.7 10^3/uL 0-0.8 Abs Eosinophils 0.6 10^3/uL 0-0.6 Abs Basophils 0.1 10^3/uL 0-0.2 Abs Nucleated RBC 0 10^3/uL Granulocyte % 57.2 % 38-83 Lymphocyte % 26.6 % 25-47 Monocyte % 7.9 % 1-9 Eosinophil % 6.9 % High 0-6 Basophil % 1.4 % 0-2 Nucleated Red Blood Cells % 0 Comp Metabolic Panel 04/17/2016 [facility] Sodium 136 mmol/L [phone] [place] [address] [phone] Potassium 4.0 mmol/L 3.5-5.0 Chloride 104 mmol/L 101-111 Co2 Carbon Dioxide 26 mmol/L 22-32 Anion Gap 6 mmol/L 2-11 Glucose 89 mg/dL 70-100 Blood Urea Nitrogen 17 mg/dL 6-24 Creatinine 0.89 mg/dL 0.67-1.17 BUN/Creatinine Ratio 19.1 8-20 Calcium 9.0 mg/dL 8.6-10.3 Total Protein 6.8 g/dL 6.4-8.9 Albumin 3.7 g/dL 3.2-5.2 Globulin 3.1 g/dL 2-4 Albumin/Globulin Ratio 1.2 1-3 Total Bilirubin 0.30 mg/dL 0.2-1.0 Alkaline Phosphatase 68 U/L 34-104 Alt 17 U/L 7-52 Ast 18 U/L 13-39 Egfr Non- 83.8 >60 Egfr 107.8 >60 19 Laboratory test 04/17/2016 Actual Experience Troponin I 0.00 ng/mL < 0.03 [address] [place] [address] [phone] CBC Auto Diff 02/27/2016 Actual Experience White Blood 18.2 High 3.5- 10.[address] Count 10^3/[place] [address] [phone] Red Blood Count 5.99 10^6/uL High 4.0-5.4 Hemoglobin 17.0 g/dL 14.0-18.0 Hematocrit 52 % 42-52 Mean Corpuscular Volume 86 fL 80-94 Mean Corpuscular Hemoglobin 28 pg 27-31 Mean Corpuscular HGB Conc 33 g/dL 31-36 Red Cell Distribution Width 14 % 10.5-15 Platelet Count 224 10^3/uL 150-450 Mean Platelet Volume 9 um3 7.4-10.4 Abs Neutrophils 15.5 10^3/uL High 1.5-7.7 Abs Lymphocytes 1.5 10^3/uL 1.0-4.8 Abs Monocytes 1.0 10^3/uL High 0-0.8 Abs Eosinophils 0.2 10^3/uL 0-0.6 Abs Basophils 0.1 10^3/uL 0-0.2 Abs Nucleated RBC 0.01 10^3/uL Granulocyte % 84.7 % High 38-83 Lymphocyte % 8.4 % Low 25-47 Monocyte % 5.3 % 1-9 Eosinophil % 1.2 % 0-6 Basophil % 0.4 % 0-2 Nucleated Red Blood Cells % 0.1 Urinalysis Profile 02/27/2016 [facility] Experience Urine Color Yellow 21 [address] [place] [address] [phone] Urine Appearance Clear Urine Specific [place] > 1.060 High 1.010-1.030 Urine pH 6.0 5-9 Urine Urobilinogen Negative Negative Urine Ketones Negative Negative Urine Protein Negative Negative Urine Leukocytes Negative Negative Urine Blood Negative Negative Urine Nitrite Negative Negative Urine Bilirubin Negative Negative Urine Glucose Negative Negative Laboratory test 02/27/2016 [facility]ual Experience Activated 28.9 26.0- 36.3 finding [facility] [place] [address] Thrombo Time [phone] Laboratory test 02/27/2016 Actual Experience Lactic Acid 0.9 mmol/L 0.5-2.0 22 finding [address] [place] [address] [phone] Comp Metabolic 02/27/2016 [facility]ual Experience Sodium 137 mmol/L 133- 145 Panel [address] [place] [address] [phone] Potassium 3.7 mmol/L 3.5-5.0 Chloride 106 mmol/L 101-111 Co2 Carbon Dioxide 23 mmol/L 22-32 Anion Gap 8 mmol/L 2-11 Glucose 120 mg/dL High 70-100 Blood Urea Nitrogen 15 mg/dL 6-24 Creatinine 0.86 mg/dL 0.67-1.17 BUN/Creatinine Ratio 17.4 8-20 Calcium 8.8 mg/dL 8.6-10.3 Total Protein 6.7 g/dL 6.4-8.9 Albumin 3.6 g/dL 3.2-5.2 Globulin 3.1 g/dL 2-4 Albumin/Globulin Ratio 1.2 1-3 Total Bilirubin 0.50 mg/dL 0.2-1.0 Alkaline Phosphatase 63 U/L 34-104 Alt 14 U/L 7-52 Ast 15 U/L 13-39 Egfr Non- 87.2 >60 Egfr 112.1 >60 23 Laboratory test finding 02/27/2016 Actual Experience Lipase 20 U/L 11.0-82.0 24 [address] [place] [address] [phone] Troponin I 0.00 ng/mL <0.03 25 Creatine Kinase 62 U/L 10-223 26 C Reactive Protein 12.50 mg/L High < 5.00 27 Myoglobin 36.7 ng/mL 17.4-105.7 28 Inr/Protime 02/27/2016 Actual Experience Inr 1.12 High 0.89-1.11 [address] [place] [address] [phone] Laboratory test 02/27/2016 Actual Experience B Type 141 High 29 finding 1129 [facility] Natriuretic pg/[place] [address] Peptide [phone] CKMB 02/27/2016 Actual Experience CKMB ng/mL 3.1 0.6-6.[address] [facility] [address] ng/[place] [address] [phone] CBC W/ Diff & 01/05/2016 [facility] WBC 10.1 3.8-10.[address] [place] [address] L [phone] RBC 5.71 mill/L 4.20-5.80 Hemoglobin 16.3 g/dL 13.2-17.1 Hematocrit 51.2 % High 38.5-50.0 MCV 89.6 FL 80.0-100.0 MCH 28.5 pg 27.0-33.0 MCHC 31.8 g/dL Low 32.0-36.0 RDW 14.2 % 11.0-15.0 Platelet Count 219 thous/L 140-400 Platelet Sufficiency PENDING MPV 9.6 FL 7.5-11.5 Neutrophils,Absolute 7100 cells/L 5756-9392 Bands,Absolute PENDING Metamyelocytes,Absolute PENDING Myelocytes,Absolute PENDING Promyelocytes,Absolute PENDING Lymphocytes,Absolute 1930 cells/L 850-3900 Monocytes,Absolute 600 cells/L 200-950 Eosinophils,Absolute 400 cells/L 15-500 Basophils,Absolute 30 cells/L 0-200 Blast Cells,Absolute PENDING Nucleated RBC,Absolute PENDING Total Neutrophils,% 71 % 40-75 Bands,% PENDING Metamyelocytes,% PENDING Myelocytes,% PENDING Promyelocytes,% PENDING Total Lymphocytes,% 19 % 12-47 Monocytes,% 6 % 4-12 Eosinophils,% 4 % 0-4 Basophils,% 0 % 0-1 30 Blasts,% PENDING Nucleated RBC PENDING RBC Morphology PENDING Anisocytosis PENDING Poikilocytosis PENDING Microcytosis PENDING Macrocytosis PENDING Polychromasia PENDING Hypochromasia PENDING Target Cells PENDING Basophilic Stippling PENDING Comment PENDING BMP W/O Egfr 01/05/2016 [facility] Sodium 140 mmol/L 135-[address] [place] [address] [phone] Potassium 4.6 mmol/L 3.5-5.3 Chloride 105 mmol/L 98-110 Carbon Dioxide 25 mmol/L 19-30 Calcium 9.3 mg/dL 8.6-10.3 Glucose 108 mg/dL High 65-99 31 Urea Nitrogen 17 mg/dL 7-25 Creatinine 0.95 mg/dL 0.70-1.18 32 BUN/Creatinine Ratio 17.9 6-22 Lipid Panel 01/05/2016 [facility] Cholesterol 129 mg/dL 125-[address] [place] [address] [phone] HDL Cholesterol 20 mg/dL Low > Or=40 Cholesterol/HDL Ratio 6.5 High < Or=5.0 LDL Chol,Calculated 65 mg/dL <130 33 Triglycerides 218 mg/dL High <150 Non-HDL Cholesterol 110 mg/dL 34 Laboratory test 01/05/2016 [facility] PSA,Total 4.9 NG/ML High < Or=4.0 [address] [place], [place] [id number] [phone] TSH & T4,Free 01/05/2016 [facility] TSH 1.98 mIU/L 0.40-4.[address] [place], [place] [id number] [phone] T4,Free 1.1 ng/dL 0.8-1.8 CBC Auto 01/16/2015 [facility] White Blood 21.7 10^3/uL High 4.8-10.[address] [place], [place] [id number] [phone] Red Blood Count 6.64 10^6/uL High 4.0-5.4 Hemoglobin 19.4 g/dL High 14.0-18.0 Hematocrit 60 % High 42-52 Mean Corpuscular Volume 90 fL 80-94 Mean Corpuscular Hemoglobin 29 pg 27-31 Mean Corpuscular HGB Conc 32 g/dL 31-36 Red Cell Distribution Width 14 % 10.5-15 Platelet Count 268 10^3/uL 150-450 Mean Platelet Volume 9 um3 7.4-10.4 Abs Neutrophils 19.0 10^3/uL High 1.5-7.7 Abs Lymphocytes 1.6 10^3/uL 1.0-4.8 Abs Monocytes 0.9 10^3/uL High 0-0.8 Abs Eosinophils 0.1 10^3/uL 0-0.6 Abs Basophils 0.1 10^3/uL 0-0.2 Abs Nucleated RBC 0.01 10^3/uL Comp Metabolic Panel 01/16/2015 [facility] Sodium 138 mmol/L [phone] [place] [address] [phone] Potassium 3.7 mmol/L 3.5-5.0 Chloride 104 mmol/L 101-111 Co2 Carbon Dioxide 26 mmol/L 22-32 Anion Gap 8 mmol/L 2-11 Glucose 105 mg/dL High 70-100 Blood Urea Nitrogen 16 mg/dL 6-24 Creatinine 1.18 mg/dL High 0.67-1.17 BUN/Creatinine Ratio 13.6 8-20 Calcium 9.4 mg/dL 8.6-10.3 Total Protein 7.3 g/dL 6.4-8.9 Albumin 4.1 g/dL 3.2-5.2 Globulin 3.2 g/dL 2-4 Albumin/Globulin Ratio 1.3 1-3 Total Bilirubin 0.50 mg/dL 0.2-1.0 Alkaline Phosphatase 79 U/L 34-104 Alt 14 U/L 7-52 Ast 16 U/L 13-39 Egfr Non- 60.7 >60 Egfr 78.0 >60 36 Laboratory test finding 01/16/2015 [facility] Lipase 20 U/L 11.0-82.0 [facility] [place] [address] [phone] Troponin I 0.00 ng/mL <0.03 37 C Reactive Protein 6.72 mg/L High < 5.00 38 Manual Differential 01/16/2015 [facility] Immature 20 % High 0- 9 [facility] [place] [address] [phone] Neutrophil % 75 % 38-83 Band % 20 % High 0-8 Lymphocytes % 2 % Low 25-47 Monocytes % 1 % 0-13 Eosinophils % 1 % 0-6 Reactive Lymph % 1 % 0-6 RBC Morphology Normal Normal Laboratory test 01/16/2015 [facility] Lactic Acid 1.4 mmol/L 0.5-2.2 39 finding [address] [place] [address] [phone] Urinalysis 01/16/2015 [facility] Urine Color Yellow Profile [address] [place] [address] [phone] Urine Appearance Cloudy Urine Specific [place] 1.026 1.010-1.030 Urine pH 5.0 5-9 Urine Urobilinogen Negative Negative Urine Ketones Trace Negative Urine Protein Negative Negative Urine Leukocytes Negative Negative Urine Blood Negative Negative Urine Nitrite Negative Negative Urine Bilirubin Negative Negative Urine Glucose Negative Negative BMP W/O Egfr 12/30/2014 [facility] Sodium 140 mmol/L 135-[address] [place] [address] [phone] Potassium 4.7 mmol/L 3.5-5.3 Chloride 108 mmol/L 98-110 Carbon Dioxide 23 mmol/L 19-30 Calcium 8.9 mg/dL 8.6-10.3 Glucose 100 mg/dL High 65-99 40 Urea Nitrogen 18 mg/dL 7-25 Creatinine 0.94 mg/dL 0.70-1.18 41 BUN/Creatinine Ratio 19.4 6-22 Lipid Panel 12/30/2014 [facility] Cholesterol 147 mg/dL 125-[address] [place] [address] [phone] HDL Cholesterol 27 mg/dL Low > Or=40 Cholesterol/HDL Ratio 5.4 High < Or=5.0 LDL Chol,Calculated 84 mg/dL <130 42 Triglycerides 178 mg/dL High <150 Non-HDL Cholesterol 120 mg/dL 43 Hepatic Function 12/30/2014 [facility] Alkaline Phosphatase 76 U/L 40- [address] [place] [address] [phone] Ast 17 U/L 10-35 Alt 16 U/L 9-46 Bilirubin,Total 0.4 mg/dL 0.2-1.2 Bilirubin,Direct 0.1 mg/dL < Or=0.2 Protein,Total 6.6 g/dL 6.1-8.1 Albumin 3.7 g/dL 3.6-5.1 Globulin,Calculated 2.9 g/dL 1.9-3.7 A/G Ratio 1.3 1.0-2.5 CBC W/ Diff & PLT 12/30/2014 [facility] WBC 11.4 thous/L High 3.8-10.[address] [place] [address] [phone] RBC 5.51 mill/L 4.20-5.80 Hemoglobin 16.2 g/dL 13.2-17.1 Hematocrit 49.7 % 38.5-50.0 MCV 90.2 FL 80.0-100.0 MCH 29.4 pg 27.0-33.0 MCHC 32.6 g/dL 32.0-36.0 RDW 14.4 % 11.0-15.0 Platelet Count 202 thous/L 140-400 Platelet Sufficiency PENDING MPV 10.3 FL 7.5-11.5 Neutrophils,Absolute 8470 cells/L High [phone] Bands,Absolute PENDING Metamyelocytes,Absolute PENDING Myelocytes,Absolute PENDING Promyelocytes,Absolute PENDING Lymphocytes,Absolute 1670 cells/L 850-3900 Monocytes,Absolute 740 cells/L 200-950 Eosinophils,Absolute 480 cells/L 15-500 Basophils,Absolute 30 cells/L 0-200 Blast Cells,Absolute PENDING Nucleated RBC,Absolute PENDING Total Neutrophils,% 74 % Not Established Bands,% PENDING Metamyelocytes,% PENDING Myelocytes,% PENDING Promyelocytes,% PENDING Total Lymphocytes,% 15 % Not Established Monocytes,% 7 % Not Established Eosinophils,% 4 % Not Established Basophils,% 0 % Not Established Blasts,% PENDING Nucleated RBC PENDING RBC Morphology PENDING Anisocytosis PENDING Poikilocytosis PENDING Microcytosis PENDING Macrocytosis PENDING Polychromasia PENDING Hypochromasia PENDING Target Cells PENDING Basophilic Stippling PENDING Comment PENDING Laboratory test 12/30/2014 [facility] PSA,Total 4.8 NG/ML High 0.0-4.0 [address] [place] [address] [phone] BMP W/O Egfr 01/07/2014 [facility] Sodium 141 mmol/L 135-[address] [place] [address] [phone] Potassium 4.3 mmol/L 3.5-5.3 Chloride 107 mmol/L 98-110 Carbon Dioxide 25 mmol/L 19-30 Calcium 9.1 mg/dL 8.6-10.3 Glucose 108 mg/dL High 65-99 46 Urea Nitrogen 13 mg/dL 7-25 Creatinine 0.91 mg/dL 0.70-1.18 47 BUN/Creatinine Ratio 14.2 6-22 Laboratory test 01/07/2014 [facility] Direct LDL 77 mg/dL <130 [address] [place] [address] [phone] BMP W/O Egfr 06/27/2013 [facility] Sodium 139 mmol/L 135-[address] [place] [address] [phone] Potassium 4.8 mmol/L 3.5-5.3 Chloride 106 mmol/L 98-110 Carbon Dioxide 23 mmol/L 19-30 Calcium 8.9 mg/dL 8.6-10.3 Glucose 103 mg/dL High 65-99 49 Urea Nitrogen 18 mg/dL 7-25 Creatinine 0.90 mg/dL 0.70-1.18 50 BUN/Creatinine Ratio 19.6 6-22 CBC W/ Diff & PLT 06/27/2013 [facility] WBC 8.4 thous/L 3.8-10.[address] [place] [address] [phone] RBC 5.80 mill/L 4.20-5.80 Hemoglobin 16.3 g/dL 13.2-17.1 Hematocrit 50.4 % High 38.5-50.0 MCV 87.0 FL 80.0-100.0 MCH 28.1 pg 27.0-33.0 MCHC 32.3 g/dL 32.0-36.0 RDW 14.2 % 11.0-15.0 Platelet Count 194 thous/L 140-400 Neutrophils,Absolute 5670 cells/L 5209-4723 Lymphocytes,Absolute 1680 cells/L 850-3900 Monocytes,Absolute 570 cells/L 200-950 Eosinophils,Absolute 470 cells/L 15-500 Basophils,Absolute 30 cells/L 0-200 Total Neutrophils,% 67 % 38-80 Total Lymphocytes,% 20 % 15-49 Monocytes,% 7 % 0-13 Eosinophils,% 6 % 0-8 Basophils,% 0 % 0-2 Laboratory test finding 06/27/2013 [facility] Direct LDL 91 mg/dL <130 51 [address] [facility] [address] [phone] Laboratory test finding 12/25/2012 [facility] Direct LDL 73 mg/dL <[address] [place], [place] [address] [phone] Glucose 110 mg/dL High 65-99 53 BMP W/O Egfr 07/05/2012 [facility] Sodium 140 mmol/L 135-[address] [place], [place] [id number] [phone] Potassium 4.7 mmol/L 3.5-5.3 Chloride 107 mmol/L 98-110 Carbon Dioxide 26 mmol/L 21-33 Calcium 9.2 mg/dL 8.6-10.3 Glucose 104 mg/dL High 65-99 54 Urea Nitrogen 22 mg/dL 7-25 Creatinine 0.96 mg/dL 0.70-1.25 55 BUN/Creatinine Ratio 22.5 High 6-22 CBC W/ Diff & PLT 07/05/2012 [facility] WBC 8.9 thous/L 3.8-10.[address] [place], [place] [address] [phone] RBC 5.63 mill/L 4.20-5.80 Hemoglobin 16.8 g/dL 13.2-17.1 Hematocrit 49.5 % 38.5-50.0 MCV 87.9 FL 80.0-100.0 MCH 29.8 pg 27.0-33.0 MCHC 33.9 g/dL 32.0-36.0 RDW 14.2 % 11.0-15.0 Platelet Count 204 thous/L 140-400 Neutrophils,Absolute 5730 cells/L 7636-9067 Lymphocytes,Absolute 1930 cells/L 850-3900 Monocytes,Absolute 680 cells/L 200-950 Eosinophils,Absolute 480 cells/L 15-500 Basophils,Absolute 70 cells/L 0-200 Total Neutrophils,% 64 % 38-80 Total Lymphocytes,% 22 % 15-49 Monocytes,% 8 % 0-13 Eosinophils,% 5 % 0-8 Basophils,% 1 % 0-2 Laboratory test 07/05/2012 [facility] Direct LDL 88 mg/dL <130 [address] [place] [address] [phone] Culture,Urine,Voided 06/06/2012 [facility] Source URINE-CLEAN [address] CATC <[place] [address] NOTE> [phone] Final Report (SEE NOTE) 58 Laboratory 01/03/2012 [facility] LDL Cholesterol,Direct 93 mg/dL <130 59 test finding [address] [place] [address] [phone] Hepatic 06/30/2011 [facility] Alkaline Phosphatase 95 U/L 40-115 Function Panel [address] [place] [address] [phone] Ast 16 U/L 10-35 Alt 18 U/L 9-60 Bilirubin,Total 0.4 mg/dL 0.2-1.2 Bilirubin,Direct 0.1 mg/dL < Or=0.2 Protein,Total 6.7 g/dL 6.2-8.3 Albumin 4.2 g/dL 3.6-5.1 Globulin,Calculated 2.5 g/dL 2.1-3.7 A/G Ratio 1.6 1.0-2.1 CBC W/ Diff & PLT 06/30/2011 [facility] WBC 10.3 thous/L 3.8-10.[address] [place] [address] [phone] RBC 5.63 mill/L 4.20-5.80 Hemoglobin 16.7 g/dL 13.2-17.1 Hematocrit 50.0 % 38.5-50.0 MCV 88.9 FL 80.0-100.0 MCH 29.7 pg 27.0-33.0 MCHC 33.5 g/dL 32.0-36.0 RDW 14.3 % 11.0-15.0 Platelet Count 203 thous/L 140-400 Neutrophils,Absolute 6930 cells/L 7473-3898 Lymphocytes,Absolute 2040 cells/L 850-3900 Monocytes,Absolute 640 cells/L 200-950 Eosinophils,Absolute 580 cells/L High 15-500 Basophils,Absolute 60 cells/L 0-200 Total Neutrophils,% 68 % 38-80 Total Lymphocytes,% 20 % 15-49 Monocytes,% 6 % 0-13 Eosinophils,% 6 % 0-8 Basophils,% 1 % 0-2 Laboratory test 06/30/2011 [facility] PSA,Total 2.8 NG/ML 0.0-4.0 [address] [place] [address] [phone] Basic Metabolic Panel 06/30/2011 [facility] Sodium 139 mmol/L 135-[address] [place] [address] [phone] Potassium 4.9 mmol/L 3.5-5.3 Chloride 104 mmol/L 98-110 Carbon Dioxide 28 mmol/L 21-33 Calcium 9.3 mg/dL 8.6-10.2 Glucose 103 mg/dL High 65-99 61 Urea Nitrogen 17 mg/dL 7-25 Creatinine 0.98 mg/dL 0.76-1.46 BUN/Creatinine Ratio 17.8 6-22 Egfr Non-Afr. Peruvian 79 ML/MIN/1.73M2 > Or=60 Egfr 91 ML/MIN/1.73M2 > Or=60 Laboratory 06/30/2011 [facility] LDL Cholesterol,Direct 75 mg/dL <130 62 test finding [address] [place] [address] [phone] Laboratory 12/22/2010 [facility] Cholesterol 137 125-200 test finding [address] mg/dL [place], [place] [id number] [phone] LDL Cholesterol,Direct 80 mg/dL <130 63 HDL Cholesterol 24 mg/dL Low > Or=40 Triglycerides 206 mg/dL High <150 TSH & T4,Free 06/16/2010 [facility] TSH,3RD 1.37 mIU/L 0.40-4.[address] [place] [address] [phone] T4,Free 1.1 ng/dL 0.8-1.8 Basic Metabolic Panel 06/16/2010 [facility] Sodium 140 mmol/L 135-[address] [place] [address] [phone] Potassium 4.8 mmol/L 3.5-5.3 Chloride 104 mmol/L 98-110 Carbon Dioxide 27 mmol/L 21-33 Calcium 9.3 mg/dL 8.6-10.2 Glucose 106 mg/dL High 65-99 64 Urea Nitrogen 14 mg/dL 7-25 Creatinine 1.08 mg/dL 0.76-1.46 BUN/Creatinine Ratio 13.2 6-22 Egfr Non-Afr. Peruvian >60 ML/MIN/1.73M2 > Or=60 Egfr >60 ML/MIN/1.73M2 > Or=60 CBC W/ Diff & PLT 06/16/2010 [facility] WBC 9.7 thous/L 3.8-10.8 [address] [facility] [facility] [address] [phone] RBC 5.61 mill/L 4.20-5.80 Hemoglobin 16.7 g/dL 13.2-17.1 Hematocrit 50.0 % 38.5-50.0 MCV 89.2 FL 80.0-100.0 MCH 29.9 pg 27.0-33.0 MCHC 33.5 g/dL 32.0-36.0 RDW 14.1 % 11.0-15.0 Platelet Count 224 thous/L 140-400 Platelet Sufficiency NORMAL Normal Neutrophils,Absolute 6360 cells/L 1761-7312 Bands,Absolute DNR cells/L 0-750 Metamyelocytes,Absolute DNR cells/L 0 Myelocytes,Absolute DNR cells/L 0 Promyelocytes,Absolute DNR cells/L 0 Lymphocytes,Absolute 1830 cells/L 850-3900 Monocytes,Absolute 590 cells/L 200-950 Eosinophils,Absolute 910 cells/L High 15-500 Basophils,Absolute 60 cells/L 0-200 Blast Cells,Absolute DNR cells/L 0 Nucleated RBC,Absolute DNR cells/L 0 Total Neutrophils,% 65 % 38-80 Bands,% DNR % 0-10 Metamyelocytes,% DNR % Myelocytes,% DNR % Promyelocytes,% DNR % Total Lymphocytes,% 19 % 15-49 Monocytes,% 6 % 0-13 Eosinophils,% 9 % 0-8 Basophils,% 1 % 0-2 Blasts,% DNR % Nucleated RBC DNR /100WBC 0 RBC Morphology NORMAL Anisocytosis DNR Poikilocytosis DNR Microcytosis DNR Macrocytosis DNR Polychromasia DNR Hypochromasia DNR Target Cells DNR Basophilic Stippling DNR Comment DNR Lipid Panel 06/16/2010 [facility] Cholesterol 138 mg/dL 125-200 [address] [place] [address] [phone] HDL Cholesterol 25 mg/dL Low > Or=40 Cholesterol/HDL Ratio 5.5 High < Or=5.0 LDL Chol,Calculated 75 mg/dL <130 65 Triglycerides 189 mg/dL High <150 Hepatic Function 06/16/2010 [facility] Alkaline Phosphatase 85 U/L 40- [address] [place] [address] [phone] Ast 21 U/L 10-35 Alt 19 U/L 9-60 Bilirubin,Total 0.4 mg/dL 0.2-1.2 Bilirubin,Direct 0.1 mg/dL < Or=0.2 Protein,Total 6.5 g/dL 6.2-8.3 Albumin 4.0 g/dL 3.6-5.1 Globulin,Calculated 2.5 g/dL 2.1-3.7 A/G Ratio 1.6 1.0-2.1 Laboratory test finding 02/20/2010 [facility] CK 67 U /L 26-[address] [place] [address] [phone] Troponin-I 0.0 NG/ML 0.0-0.6 66 Laboratory test finding 02/19/2010 [facility] CK 53 U /L 26-[address] [place] [address] [phone] Troponin-I 0.1 NG/ML 0.0-0.6 67 Basic Metabolic 02/19/2010 [facility] Glucose 136 mg/ dL High 76-[address] [place] [address] [phone] BUN 17 mg/dL 5-23 Creatinine 1.0 mg/dL 0.5-1.4 Glom Filtration Rate, Estimate >60 mL/min >60 If >60 mL/min >60 68 BUN/Creat 17.0 Sodium 139 mEq/L 136-145 Potassium 3.9 mEq/L 3.5-5.1 Chloride 104 mEq/L 98-107 Carbon Dioxide 28 mEq/L 21-32 Anion Gap 11 mEq/L 8-16 Calcium 8.8 mg/dL 8.5-10.1 Laboratory test finding 02/19/2010 [facility] CK 73 U /L 26-[address] [place] [address] [phone] Troponin-I 0.0 NG/ML 0.0-0.6 69 CBS W/Automated 02/19/2010 [facility] White Blood 11.1 K/uL High 3.4-10.[address] [place] [address] [phone] Red Blood Count 5.82 M/uL High 4.20-5.80 Hemoglobin 17.0 gm/dL 12.8-17.0 Hematocrit 49.4 % High 38.0-48.0 Mean Cell Volume 84.9 fl 80.0-96.0 Mean Corpuscular HGB 29.2 pg 27.0-33.0 Mean Corpuscular HGB Conc 34.4 g/dL 31.7-36.0 Platelet Count 224 K/uL 150-400 Red Cell Distri Width %CV 14.0 % 11.6-15.8 Mean Platelet Volume 9.9 fL 6.6-10.6 Neut% 66.5 % 33.0-73.0 Lymph % 20.8 % 17.0-56.0 [place] % 7.4 % 0.0-10.0 Eo% 4.9 % 0.0-5.0 Bas% 0.4 % 0.1-1.0 Neut# 7.4 K/uL High 1.8-7.0 Lymph # 2.3 K/uL 1.2-4.0 [place] # 0.8 K/uL High 0.0-0.6 Eos # 0.5 K/uL 0.0-0.5 Baso # 0.0 K/uL Low 0.1-0.2 Red Cell Distri Width SD 43 fl 36-51 Laboratory test 02/19/2010 [facility] Magnesium 2.0 mg/dL 1.7-2.[address] [place] [address] [phone] Protime 02/19/2010 [facility] Protime 14.2 seconds 11.7-15.[address] [place] [address] [phone] Inr 1.1 0.8-1.2 70 Laboratory test 02/19/2010 [facility] Act Partial 29.7 23.4-37.4 [address] [place] [address] [phone] Lipid Panel 12/15/2009 [facility] Cholesterol 139 mg/dL 125-200 [address] [place] [address] [phone] HDL Cholesterol 26 mg/dL Low > Or=40 Triglycerides 173 mg/dL High <150 Cholesterol/HDL Ratio 5.3 High < Or=5.0 LDL Chol,Calculated 78 mg/dL <130 72 CBC W/ Diff & PLT 06/12/2009 [facility] WBC 8.4 thous/L 3.8-10.[address] [place] [address] [phone] RBC 5.93 mill/L High 4.20-5.80 Hemoglobin 17.2 g/dL High 13.2-17.1 Hematocrit 51.6 % High 38.5-50.0 MCV 86.9 FL 80.0-100.0 MCH 28.9 pg 27.0-33.0 MCHC 33.3 g/dL 32.0-36.0 RDW 14.1 % 11.0-15.0 Platelet Count 214 thous/L 140-400 Platelet Sufficiency NORMAL Normal Neutrophils,Absolute 5430 cells/L 7570-6386 Bands,Absolute DNR cells/L 0-750 Metamyelocytes,Absolute DNR cells/L 0 Myelocytes,Absolute DNR cells/L 0 Promyelocytes,Absolute DNR cells/L 0 Lymphocytes,Absolute 1890 cells/L 850-3900 Monocytes,Absolute 620 cells/L 200-950 Eosinophils,Absolute 390 cells/L 15-500 Basophils,Absolute 40 cells/L 0-200 Blast Cells,Absolute DNR cells/L 0 Nucleated RBC,Absolute DNR cells/L 0 Total Neutrophils,% 65 % 38-80 Bands,% DNR % 0-10 Metamyelocytes,% DNR % Myelocytes,% DNR % Promyelocytes,% DNR % Total Lymphocytes,% 23 % 15-49 Monocytes,% 7 % 0-13 Eosinophils,% 5 % 0-8 Basophils,% 0 % 0-2 Blasts,% DNR % Nucleated RBC DNR /100WBC 0 RBC Morphology NORMAL Anisocytosis DNR Poikilocytosis DNR Microcytosis DNR Macrocytosis DNR Polychromasia DNR Hypochromasia DNR Target Cells DNR Basophilic Stippling DNR Comment DNR Basic Metabolic Panel 06/12/2009 [facility] Sodium 139 mmol/L 135-[address] [place] [address] [phone] Potassium 4.8 mmol/L 3.5-5.3 Chloride 103 mmol/L 98-110 Carbon Dioxide 25 mmol/L 21-33 Calcium 9.7 mg/dL 8.6-10.2 Glucose 102 mg/dL High 65-99 73 Urea Nitrogen 18 mg/dL 7-25 Creatinine 1.12 mg/dL 0.76-1.46 BUN/Creatinine Ratio 16.1 6-22 Egfr Non-Afr. Peruvian >60 ML/MIN/1.73M2 > Or=60 Egfr >60 ML/MIN/1.73M2 > Or=60 Hepatic Function 06/12/2009 [facility] Alkaline Phosphatase 96 U/L 40- [address] [place] [address] [phone] Ast 20 U/L 10-35 Alt 20 U/L 9-60 Bilirubin,Total 0.5 mg/dL 0.2-1.2 Bilirubin,Direct 0.1 mg/dL < Or=0.2 Protein,Total 7.3 g/dL 6.2-8.3 Albumin 4.3 g/dL 3.6-5.1 Globulin,Calculated 3.0 g/dL 2.1-3.7 A/G Ratio 1.4 1.0-2.1 Lipid Panel 06/12/2009 [facility] Cholesterol 164 mg/dL 125-[address] [place] [address] [phone] HDL Cholesterol 28 mg/dL Low > Or=40 Cholesterol/HDL Ratio 5.9 High < Or=5.0 LDL Chol,Calculated 93 mg/dL <130 74 Triglycerides 213 mg/dL High <150 Laboratory test 12/12/2008 [facility] Creatine 191 U/L 44-[address] Kinase,[place] [address] [phone] Lipid Panel 12/12/2008 [facility] Cholesterol 153 mg/dL 125-[address] [place] [address] [phone] HDL Cholesterol 25 mg/dL Low > Or=40 Cholesterol/HDL Ratio 6.1 High < Or=5.0 LDL Chol,Calculated 75 mg/dL <130 75 Triglycerides 267 mg/dL High <150 Hepatic Function 12/12/2008 [facility] Alkaline Phosphatase 82 U/L 40- 115 Panel [address] [id number] [phone] Ast 20 U/L 10-35 Alt 19 U/L 9-60 Bilirubin,Total 0.4 mg/dL 0.2-1.2 Bilirubin,Direct 0.1 mg/dL < Or=0.2 Protein,Total 6.9 g/dL 6.2-8.3 Albumin 4.1 g/dL 3.6-5.1 Globulin,Calculated 2.8 g/dL 2.1-3.7 A/G Ratio 1.4 1.0-2.1 CBC W/ Diff & PLT 08/07/2008 [facility] WBC 8.8 thous/L 3.8-10.8 [address] [place] [address] [phone] RBC 5.87 mill/L High 4.20-5.80 Hemoglobin 17.1 g/dL 13.2-17.1 Hematocrit 49.6 % 38.5-50.0 MCV 84.5 FL 80.0-100.0 MCH 29.1 pg 27.0-33.0 MCHC 34.5 g/dL 32.0-36.0 RDW 14.2 % 11.0-15.0 Platelet Count 246 thous/L 140-400 Platelet Sufficiency NORMAL Normal Neutrophils,Absolute 5150 cells/L 8370-7517 Bands,Absolute DNR cells/L 0-750 Metamyelocytes,Absolute DNR cells/L 0 Myelocytes,Absolute DNR cells/L 0 Promyelocytes,Absolute DNR cells/L 0 Lymphocytes,Absolute 2120 cells/L 850-3900 Monocytes,Absolute 880 cells/L 200-950 Eosinophils,Absolute 550 cells/L High 15-500 Basophils,Absolute 140 cells/L 0-200 Blast Cells,Absolute DNR cells/L 0 Nucleated RBC,Absolute DNR cells/L 0 Total Neutrophils,% 58 % 38-80 Bands,% DNR % 0-10 Metamyelocytes,% DNR % Myelocytes,% DNR % Promyelocytes,% DNR % Total Lymphocytes,% 24 % 15-49 Monocytes,% 10 % 0-13 Eosinophils,% 6 % 0-8 Basophils,% 2 % 0-2 Blasts,% DNR % Nucleated RBC DNR /100WBC 0 RBC Morphology NORMAL Anisocytosis DNR Poikilocytosis DNR Microcytosis DNR Macrocytosis DNR Polychromasia DNR Hypochromasia DNR Target Cells DNR Basophilic Stippling DNR Comment DNR Basic Metabolic Panel 08/07/2008 [facility] Sodium 140 mmol/L 135-[address] [place], [place] [id number] [phone] Potassium 4.9 mmol/L 3.5-5.3 Chloride 105 mmol/L 98-110 Carbon Dioxide 29 mmol/L 21-33 Calcium 9.6 mg/dL 8.6-10.2 Glucose 94 mg/dL 65-99 76 Urea Nitrogen 17 mg/dL 7-25 Creatinine 1.03 mg/dL 0.50-1.30 BUN/Creatinine Ratio 16.8 6-22 Egfr Non-Afr. Peruvian >60 ML/MIN/1.73M2 > Or=60 Egfr >60 ML/MIN/1.73M2 > Or=60 TSH & T4,Free 08/07/2008 [facility] TSH,3RD 1.92 mU/L 0.40-4.[address] [place], [place] [id number] [phone] T4,Free 1.1 ng/dL 0.8-1.8 Lipid Panel 08/07/2008 [facility] Cholesterol 145 mg/dL 125-[address] [place], [place] [id number] [phone] HDL Cholesterol 29 mg/dL Low > Or=40 Triglycerides 168 mg/dL High <150 Cholesterol/HDL Ratio 5.0 < Or=5.0 LDL Chol,Calculated 82 mg/dL <130 77 Lipid Panel 01/30/2008 [facility] Cholesterol 147 mg/dL 125-[address] [facility]. [place], [place] [id number] [phone] HDL Cholesterol 30 mg/dL Low > Or=40 78 Cholesterol/HDL Ratio 4.9 < Or=5.0 LDL Chol,Calculated 86 mg/dL <130 79 Triglycerides 153 mg/dL High <150 Hepatic Function 01/30/2008 [facility] Alkaline Phosphatase 86 U/L 40- 115 Panel [address] [facility]. [place], [place] [id number] [phone] Ast 19 U/L 10-35 Alt 19 U/L 9-60 Bilirubin,Total 0.4 mg/dL 0.2-1.2 Bilirubin,Direct 0.1 mg/dL < Or=0.2 Protein,Total 6.8 g/dL 6.2-8.3 Albumin 3.9 g/dL 3.6-5.1 Globulin,Calculated 2.9 g/dL 2.1-3.7 A/G Ratio 1.4 1.0-2.1 CBC W/ Diff & PLT 08/01/2007 [facility] WBC 9.9 thous/L 3.8-10.[address] [facility]. [place], [place] [id number] [phone] RBC 5.85 mill/L High 4.20-5.80 Hemoglobin 16.5 g/dL 13.2-17.1 Hematocrit 49.7 % 38.5-50.0 MCV 85.0 FL 80.0-100.0 MCH 28.2 pg 27.0-33.0 MCHC 33.2 g/dL 32.0-36.0 RDW 14.1 % 11.0-15.0 Platelet Count 264 thous/L 140-400 Platelet Sufficiency NORMAL Normal Neutrophils,Absolute 6720 cells/L [phone] Bands,Absolute DNR cells/L 0-750 Metamyelocytes,Absolute DNR cells/L 0 Myelocytes,Absolute DNR cells/L 0 Promyelocytes,Absolute DNR cells/L 0 Lymphocytes,Absolute 2030 cells/L 850-3900 Monocytes,Absolute 690 cells/L 200-950 Eosinophils,Absolute 460 cells/L 15-500 Basophils,Absolute 50 cells/L 0-200 Blast Cells,Absolute DNR cells/L 0 Nucleated RBC,Absolute DNR cells/L 0 Total Neutrophils,% 68 % 38-80 Bands,% DNR % 0-10 Metamyelocytes,% DNR % Myelocytes,% DNR % Promyelocytes,% DNR % Total Lymphocytes,% 20 % 15-49 Monocytes,% 7 % 0-13 Eosinophils,% 5 % 0-8 Basophils,% 0 % 0-2 Blasts,% DNR % Nucleated RBC DNR /100WBC 0 RBC Morphology NORMAL Anisocytosis DNR Poikilocytosis DNR Microcytosis DNR Macrocytosis DNR Polychromasia DNR Hypochromasia DNR Target Cells DNR Basophilic Stippling DNR Comment DNR Lipid Panel 08/01/2007 [facility] Cholesterol 162 mg/dL 125-[address] [place] [address] [phone] HDL Cholesterol 24 mg/dL Low > Or=40 80 Cholesterol/HDL Ratio 6.8 High < Or=5.0 LDL Chol,Calculated 103 mg/dL <130 81 Triglycerides 173 mg/dL High <150 TSH & T4,Free 08/01/2007 [facility] TSH,3RD 1.34 mU/L 0.40-4.[address] [place] [address] [phone] T4,Free 1.1 ng/dL 0.8-1.8 Basic Metabolic Panel 08/01/2007 [facility] Sodium 139 mmol/L 135-[address] [place] [address] [phone] Potassium 4.9 mmol/L 3.5-5.3 Chloride 106 mmol/L 98-110 Carbon Dioxide 28 mmol/L 21-33 Calcium 9.3 mg/dL 8.6-10.2 Glucose 106 mg/dL High 65-99 82 Urea Nitrogen 18 mg/dL 7-25 Creatinine 1.09 mg/dL 0.50-1.30 BUN/Creatinine Ratio 16.2 6-22 Egfr Non-Afr. Peruvian >60 ML/MIN/1.7 > Or=60 Egfr >60 ML/MIN/1.7 > Or=60 Basic Metabolic Panel 08/03/2006 [facility] Sodium 140 mmol/L 135-[address] [place] [address] [phone] Potassium 4.6 mmol/L 3.5-5.3 Chloride 104 mmol/L 98-110 Carbon Dioxide 31 mmol/L 21-33 Calcium 9.6 mg/dL 8.5-10.4 Glucose 105 mg/dL High 65-99 83 Urea Nitrogen 12 mg/dL 7-25 Creatinine 1.0 mg/dL 0.5-1.4 BUN/Creatinine Ratio 11.8 6-25 GFR Estimated >60 ML/MIN/1.7 >59 84 Lipid Panel 08/03/2006 [facility] Cholesterol 166 mg/dL <200 [address] [facility] [place], [place] [id number] [phone] HDL Cholesterol 25 mg/dL Low >40 85 Triglycerides 214 mg/dL High <150 Cholesterol/HDL Ratio 6.6 High <5.0 LDL Chol,Calculated 98 mg/dL <130 86 CBC W/ Diff & PLT 08/03/2006 [facility] WBC 10.6 thous/L 3.8-10.8 [address] [place] [address] [phone] RBC 5.86 mill/L High 4.20-5.80 Hemoglobin 16.8 g/dL 13.2-17.1 Hematocrit 49.5 % 38.5-50.0 MCV 84.4 FL 80.0-100.0 MCH 28.7 pg 27.0-33.0 MCHC 34.0 g/dL 32.0-36.0 RDW 14.5 % 11.0-15.0 Platelet Count 259 thous/L 140-400 Platelet Sufficiency NORMAL Normal Neutrophils,Absolute 7120 cells/L 7765-7086 Bands,Absolute DNR cells/L 0-750 Metamyelocytes,Absolute DNR cells/L 0 Myelocytes,Absolute DNR cells/L 0 Promyelocytes,Absolute DNR cells/L 0 Lymphocytes,Absolute 2170 cells/L 850-3900 Monocytes,Absolute 730 cells/L 200-950 Eosinophils,Absolute 540 cells/L High 15-500 Basophils,Absolute 70 cells/L 0-200 Blast Cells,Absolute DNR cells/L 0 Nucleated RBC,Absolute DNR cells/L 0 Total Neutrophils,% 67 % 38-80 Bands,% DNR % 0-10 Metamyelocytes,% DNR % Myelocytes,% DNR % Promyelocytes,% DNR % Total Lymphocytes,% 20 % 15-49 Monocytes,% 7 % 0-13 Eosinophils,% 5 % 0-8 Basophils,% 1 % 0-2 Blasts,% DNR % Nucleated RBC DNR /100WBC 0 RBC Morphology NORMAL Anisocytosis DNR Poikilocytosis DNR Microcytosis DNR Macrocytosis DNR Polychromasia DNR Hypochromasia DNR Target Cells DNR Basophilic Stippling DNR Comment DNR Lipid Panel 02/08/2006 [facility] Cholesterol 155 mg/dL <[address] [facility] [address] [phone] HDL Cholesterol 26 mg/dL Low >40 87 Triglycerides 199 mg/dL High <150 Cholesterol/HDL Ratio 6.0 High <5.0 LDL Chol,Calculated 89 mg/dL <130 88 Hepatic Function 02/08/2006 [facility] Alkaline Phosphatase 99 U/L 20- 125 Panel [address] [place] [address] [phone] Ast 17 U/L 3-50 Alt 16 U/L 3-60 Bilirubin,Total 0.3 mg/dL 0.2-1.5 Bilirubin,Direct 0.1 mg/dL 0.0-0.3 Protein,Total 6.8 g/dL 6.0-8.3 Albumin 4.0 g/dL 3.2-4.6 Basic Metabolic Panel 08/06/2005 [facility] Sodium 141 mmol/L 135-146 [address] [place] [address] [phone] Potassium 5.2 mmol/L 3.5-5.3 Chloride 107 mmol/L 98-110 Carbon Dioxide 20 mmol/L Low 21-33 Calcium 9.4 mg/dL 8.5-10.4 Glucose 99 mg/dL 65-99 89 Urea Nitrogen 18 mg/dL 7-25 Creatinine 1.1 mg/dL 0.5-1.4 BUN/Creatinine Ratio 17.1 6-25 GFR Estimated >60 ML/MIN/1.7 >59 90 CBC W/ Diff & PLT 08/06/2005 [facility] WBC 10.1 thous/L 3.8-10.8 6 [place] [address] [phone] RBC 6.15 mill/L High 4.20-5.80 Hemoglobin 17.2 g/dL High 13.2-17.1 Hematocrit 51.9 % High 38.5-50.0 MCV 84.4 FL 80.0-100.0 MCH 28.0 pg 27.0-33.0 MCHC 33.2 g/dL 32.0-36.0 RDW 14.6 % 11.0-15.0 Platelet Count 274 thous/L 140-400 Platelet Sufficiency NORMAL Neutrophils,Absolute 6850 cells/L 4638-4954 Bands,Absolute DNR cells/L 0-750 Metamyelocytes,Absolute DNR cells/L 0 Myelocytes,Absolute DNR cells/L 0 Promyelocytes,Absolute DNR cells/L 0 Lymphocytes,Absolute 1890 cells/L 850-3900 Monocytes,Absolute 560 cells/L 200-950 Eosinophils,Absolute 770 cells/L High 15-500 Basophils,Absolute 30 cells/L 0-200 Blast Cells,Absolute DNR cells/L 0 Nucleated RBC,Absolute DNR cells/L 0 Total Neutrophils,% 67 % 38-80 Bands,% DNR % 0-10 Metamyelocytes,% DNR % Myelocytes,% DNR % Promyelocytes,% DNR % Total Lymphocytes,% 19 % 15-49 Monocytes,% 6 % 0-13 Eosinophils,% 8 % 0-8 Basophils,% 0 % 0-2 Blasts,% DNR % Nucleated RBC DNR /100WBC 0 RBC Morphology NORMAL Anisocytosis DNR Poikilocytosis DNR Microcytosis DNR Macrocytosis DNR Polychromasia DNR Hypochromasia DNR Target Cells DNR Basophilic Stippling DNR Lipid Panel 08/06/2005 [facility] Cholesterol 168 mg/dL <200 [address] [facility] [place] [address] [phone] HDL Cholesterol 27 mg/dL Low >40 91 Triglycerides 153 mg/dL High <150 Cholesterol/HDL Ratio 6.2 High <5.0 LDL Chol,Calculated 110 mg/dL <130 92 Laboratory test 08/06/2005 [facility] PSA,Total 2.3 NG/ML 0.0-4.0 [address] [place] [address] Medicare [phone] TSH 1.31 mU/L 0.40-5.50 1 SEE RESULT BELOW Name: FAUSTINO MORALES : [address]: Carl Bowden MD Acct: [id number] Unit: [id number] AGE: 77 Location: ED Re01/26/18 SEX: M Status: DEP ER SPEC: [id number] MARIJA: 01/26/[address]: Carl Bowden MD REQ: [id number] RECD: 01/26/18 STATUS: ALETA BONE DR: Smiley Loyd MD _ SOURCE: URINE SPDESC: ORDERED: Urine Culture Procedure Result Reported Site Urine Culture Final 01/27/18- 1709 ML No Growth (<1,000 CFU/mL) * - Main Lab . END OF REPORT DEPARTMENT OF PATHOLOGY, [address] [place] [address] Jeyson Lloyd M.D. Director [facility] # [id number] 2 Relative blood cell counts (%) should be compared with absolute cell counts (cells/mcL). Relative counts may not be clinically meaningful if the absolute count of one or more cell type is decreased. Reference ranges for relative cell counts derived from: A Manual of Laboratory and Diagnostics Tests, 9th Ed, [employer], 2015. Pediatric Reference Intervals, 7th Ed, [employer], 2011. 3 GLUCOSE REFERENCE RANGE BASED ON FASTING SPECIMEN. 4 The upper reference limit for Creatinine is approximately 13% higher for people identified as -Peruvian. 5 LDL-C is now calculated using the Jac-Spain calculation, which is a validated novel method providing better accuracy than the Friedewald equation in the estimation of LDL-C. Jac SS et al.SUBHA.2013;310(19):8852-7344 Desirable range <100 mg/dL for primary prevention; <70 mg/dL for patients with CHD or diabetic patients with >or=2 CHD risk factors. For additional information, please refer to http://education.Okan/faq/KEF475(This link is being provided for informational/educational purposes only.) 6 For patients with diabetes plus 1 major ASCVD risk factor, treating to a non-HDL-C goal of <100 mg/dL (LDL-C of <70 mg/ dL) is considered a therapeutic option. 7 FASTING 8 Relative blood cell counts (%) should be compared with absolute cell counts (cells/mcL). Relative counts may not be clinically meaningful if the absolute count of one or more cell type is decreased. Reference ranges for relative cell counts derived from: A Manual of Laboratory and Diagnostics Tests, 9th Ed, [employer], 2015. Pediatric Reference Intervals, 7th Ed, [employer], 2011. 9 GLUCOSE REFERENCE RANGE BASED ON FASTING SPECIMEN. 10 The upper reference limit for Creatinine is approximately 13% higher for people identified as -Peruvian. 11 LDL-C is now calculated using the Jac-Spain calculation, which is a validated novel method providing better accuracy than the Friedewald equation in the estimation of LDL-C. Jac GREENBERG et al.SUBHA.2013;310(19):7177-2267 (http://[employer].Okan/faq/OSU264) Desirable range <100 mg/dL for patients with CHD or Diabetes and <70 mg/dL for Diabetic patients with known heart disease 12 For patients with diabetes plus 1 major ASCVD risk factor, treating to a non-HDL-C goal of <100 mg/dL (LDL-C of <70 mg/ dL) is considered a therapeutic option. 13 LDL-CHOLESTEROL RISK CATEGORY* GOAL VERY HIGH (E.G. DIABETES + CVD) <70 MG/DL HIGH (DIABETICS; CHD RISK EQUIVALENTS) <100 MG/DL MODERATELY HIGH (MULTIPLE(2+) RISK FACTORS) <130 MG/DL 0 TO 1 RISK FACTORS <160 MG/DL * NCEP REPORT. CIRCULATION 2004; 110: [phone] 14 Target for non-HDL cholesterol is 30 mg/dL higher than LDL cholesterol target. 15 The total PSA value from this assay system is standardized against the WHO standard. The test result will be approximately 20% lower when compared to the equimolar-standardized total PSA (Dani Heide). Comparison of serial PSA results should be interpreted with this fact in mind. This test was performed using the Siemens chemiluminescent method. Values obtained from different assay methods be used interchangeably. PSA levels, regardless of value, should not be interpreted as absolute evidence of the presence or absence of disease. 16 Relative blood cell counts (%) should be compared with absolute cell counts (cells/mcL). Relative counts may not be clinically meaningful if the absolute count of one or more cell type is decreased. Reference ranges for relative cell counts derived from: A Manual of Laboratory and Diagnostics Tests, 9th Ed, [employer], 2015. Pediatric Reference Intervals, 7th Ed, [facility] Press, 2011. 17 GLUCOSE REFERENCE RANGE BASED ON FASTING SPECIMEN. 18 The upper reference limit for Creatinine is approximately 13% higher for people identified as -Peruvian. 19 Because ethnic data is not always readily available, this report includes an eGFR for both -Americans and non- Americans. The National Kidney Disease Education Program (NKDEP) does not endorse the use of the MDRD equation for patients that are not between the ages of 18 and 70, are , have extremes of body size, muscle mass, or nutritional status, or are non- or non-. According to the National Kidney Foundation, irrespective of diagnosis, the stage of the disease is based on the level of kidney function: Stage Description GFR(mL/min/1.73 m(2)) 1 Kidney damage with normal or decreased GFR 90 2 Kidney damage with mild decrease in GFR 60-89 3 Moderate decrease in GFR 30-59 4 Severe decrease in GFR 15-29 5 Kidney failure <15 (or dialysis) 20 Reference Range and Interpretation: TnI (ng/mL) Interpretation Less Than 0.03 ng/mL Not supportive of diagnosis of MA 0.03 - 0.50 ng/mL Indeterminate: suggest serial studies if clinically indicated. Greater than 0.5 ng/mL Consistent with diagnosis of MA 21 CORRECTING 22 [facility] Severe Sepsis and Septic Shock Management Bundle Measure requires all lactic acids initially measuring >2.0 mmol/L be repeated. 23 Because ethnic data is not always readily available, this report includes an eGFR for both -Americans and non- Americans. The National Kidney Disease Education Program (NKDEP) does not endorse the use of the MDRD equation for patients that are not between the ages of 18 and 70, are , have extremes of body size, muscle mass, or nutritional status, or are non- or non-. According to the National Kidney Foundation, irrespective of diagnosis, the stage of the disease is based on the level of kidney function: Stage Description GFR(mL/min/1.73 m(2)) 1 Kidney damage with normal or decreased GFR 90 2 Kidney damage with mild decrease in GFR 60-89 3 Moderate decrease in GFR 30-59 4 Severe decrease in GFR 15-29 5 Kidney failure <15 (or dialysis) 24 CORRECTING 25 Reference Range and Interpretation: TnI (ng/mL) Interpretation Less Than 0.03 ng/mL Not supportive of diagnosis of MA 0.03 - 0.50 ng/mL Indeterminate: suggest serial studies if clinically indicated. Greater than 0.5 ng/mL Consistent with diagnosis of MA 26 CORRECTING 27 Acute inflammation: >10.00 28 CORRECTING 29 >100 to <200 pg/mL: likely compensated congestive heart failure (CHF) 200 to 400 pg/mL: likely moderate CHF >400 pg/mL: likely moderate to severe CHF 30 Relative blood cell counts (%) should be compared with absolute cell counts (cells/mcL). Relative counts may not be clinically meaningful if the absolute count of one or more cell type is decreased. Reference ranges for relative cell counts derived from: A Manual of Laboratory and Diagnostics Tests, 9th Ed, [employer], 2015. Pediatric Reference Intervals, 7th Ed, [employer], 2011. 31 GLUCOSE REFERENCE RANGE BASED ON FASTING SPECIMEN. 32 The upper reference limit for Creatinine is approximately 13% higher for people identified as -Peruvian. 33 LDL-CHOLESTEROL RISK CATEGORY* GOAL VERY HIGH (E.G. DIABETES + CVD) <70 MG/DL HIGH (DIABETICS; CHD RISK EQUIVALENTS) <100 MG/DL MODERATELY HIGH (MULTIPLE(2+) RISK FACTORS) <130 MG/DL 0 TO 1 RISK FACTORS <160 MG/DL * NCEP REPORT. CIRCULATION 2004; 110: 227-239 34 Target for non-HDL cholesterol is 30 mg/dL higher than LDL cholesterol target. 35 THIS TEST WAS PERFORMED USING THE SIEMENS CHEMILUMINESCENT METHOD. VALUES OBTAINED FROM DIFFERENT ASSAY METHODS CANNOT BE USED INTERCHANGEABLY. PSA LEVELS, REGARDLESS OF VALUE, SHOULD NOT BE INTERPRETED ABSOLUTE EVIDENCE OF THE PRESENCE OR ABSENCE OF DISEASE. 36 Because ethnic data is not always readily available, this report includes an eGFR for both -Americans and non- Americans. The National Kidney Disease Education Program (NKDEP) does not endorse the use of the MDRD equation for patients that are not between the ages of 18 and 70, are , have extremes of body size, muscle mass, or nutritional status, or are non- or non-. According to the National Kidney Foundation, irrespective of diagnosis, the stage of the disease is based on the level of kidney function: Stage Description GFR(mL/min/1.73 m(2)) 1 Kidney damage with normal or decreased GFR 90 2 Kidney damage with mild decrease in GFR 60-89 3 Moderate decrease in GFR 30-59 4 Severe decrease in GFR 15-29 5 Kidney failure <15 (or dialysis) 37 Reference Range and Interpretation: TnI (ng/mL) Interpretation Less Than 0.03 ng/mL Not supportive of diagnosis of MA 0.03 - 0.50 ng/mL Indeterminate: suggest serial studies if clinically indicated. Greater than 0.5 ng/mL Consistent with diagnosis of MA 38 Acute inflammation: >10.00 39 CEE IN ED NOTIFIED NEED TO COLLECT NARVAEZ TUBE 1705 40 GLUCOSE REFERENCE RANGE BASED ON FASTING SPECIMEN. 41 The upper reference limit for Creatinine is approximately 13% higher for people identified as -Peruvian. 42 LDL-CHOLESTEROL RISK CATEGORY* GOAL VERY HIGH (E.G. DIABETES + CVD) <70 MG/DL HIGH (DIABETICS; CHD RISK EQUIVALENTS) <100 MG/DL MODERATELY HIGH (MULTIPLE(2+) RISK FACTORS) <130 MG/DL 0 TO 1 RISK FACTORS <160 MG/DL * NCEP REPORT. CIRCULATION 2004; 110: 227-239 43 Target for non-HDL cholesterol is 30 mg/dL higher than LDL cholesterol target. 44 THIS TEST WAS PERFORMED USING THE SIEMENS CHEMILUMINESCENT METHOD. VALUES OBTAINED FROM DIFFERENT ASSAY METHODS CANNOT BE USED INTERCHANGEABLY. PSA LEVELS, REGARDLESS OF VALUE, SHOULD NOT BE INTERPRETED ABSOLUTE EVIDENCE OF THE PRESENCE OR ABSENCE OF DISEASE. 45 FASTING 46 GLUCOSE REFERENCE RANGE BASED ON FASTING SPECIMEN. 47 The upper reference limit for Creatinine is approximately 13% higher for people identified as -Peruvian. 48 LDL-CHOLESTEROL RISK CATEGORY* GOAL VERY HIGH (E.G. DIABETES + CVD) <70 MG/DL HIGH (DIABETICS; CHD RISK EQUIVALENTS) <100 MG/DL MODERATELY HIGH (MULTIPLE(2+) RISK FACTORS) <130 MG/DL 0 TO 1 RISK FACTORS <160 MG/DL * NCEP REPORT. CIRCULATION 2004; 110: 227-239 49 GLUCOSE REFERENCE RANGE BASED ON FASTING SPECIMEN. 50 The upper reference limit for Creatinine is approximately 13% higher for people identified as -Peruvian. 51 LDL-CHOLESTEROL RISK CATEGORY* GOAL VERY HIGH (E.G. DIABETES + CVD) <70 MG/DL HIGH (DIABETICS; CHD RISK EQUIVALENTS) <100 MG/DL MODERATELY HIGH (MULTIPLE(2+) RISK FACTORS) <130 MG/DL 0 TO 1 RISK FACTORS <160 MG/DL * NCEP REPORT. CIRCULATION 2004; 110: 227-239 52 LDL-CHOLESTEROL RISK CATEGORY* GOAL VERY HIGH (E.G. DIABETES + CVD) <70 MG/DL HIGH (DIABETICS; CHD RISK EQUIVALENTS) <100 MG/DL MODERATELY HIGH (MULTIPLE(2+) RISK FACTORS) <130 MG/DL 0 TO 1 RISK FACTORS <160 MG/DL * NCEP REPORT. CIRCULATION 2004; 110: 227-239 53 GLUCOSE REFERENCE RANGE BASED ON FASTING SPECIMEN. 54 GLUCOSE REFERENCE RANGE BASED ON FASTING SPECIMEN. 55 The upper reference limit for Creatinine is approximately 13% higher for people identified as -Peruvian. 56 LDL-CHOLESTEROL RISK CATEGORY* GOAL VERY HIGH (E.G. DIABETES + CVD) <70 MG/DL HIGH (DIABETICS; CHD RISK EQUIVALENTS) <100 MG/DL MODERATELY HIGH (MULTIPLE(2+) RISK FACTORS) <130 MG/DL 0 TO 1 RISK FACTORS <160 MG/DL * NCEP REPORT. CIRCULATION 2004; 110: 227-239 57 URINE-CLEAN CATCH 58 NO GROWTH 59 LDL-CHOLESTEROL RISK CATEGORY* GOAL VERY HIGH (E.G. DIABETES + CVD) <70 MG/DL HIGH (DIABETICS; CHD RISK EQUIVALENTS) <100 MG/DL MODERATELY HIGH (MULTIPLE(2+) RISK FACTORS) <130 MG/DL 0 TO 1 RISK FACTORS <160 MG/DL * NCEP REPORT. CIRCULATION 2004; 110: [phone] 60 THIS TEST WAS PERFORMED USING THE SIEMENS CHEMILUMINESCENT METHOD. VALUES OBTAINED FROM DIFFERENT ASSAY METHODS CANNOT BE USED INTERCHANGEABLY. PSA LEVELS, REGARDLESS OF VALUE, SHOULD NOT BE INTERPRETED ABSOLUTE EVIDENCE OF THE PRESENCE OR ABSENCE OF DISEASE. 61 GLUCOSE REFERENCE RANGE BASED ON FASTING SPECIMEN. 62 LDL-CHOLESTEROL RISK CATEGORY* GOAL VERY HIGH (E.G. DIABETES + CVD) <70 MG/DL HIGH (DIABETICS; CHD RISK EQUIVALENTS) <100 MG/DL MODERATELY HIGH (MULTIPLE(2+) RISK FACTORS) <130 MG/DL 0 TO 1 RISK FACTORS <160 MG/DL * NCEP REPORT. CIRCULATION 2004; 110: 227-239 63 LDL-CHOLESTEROL RISK CATEGORY* GOAL VERY HIGH (E.G. DIABETES + CVD) <70 MG/DL HIGH (DIABETICS; CHD RISK EQUIVALENTS) <100 MG/DL MODERATELY HIGH (MULTIPLE(2+) RISK FACTORS) <130 MG/DL 0 TO 1 RISK FACTORS <160 MG/DL * NCEP REPORT. CIRCULATION 2004; 110: 227-239 64 GLUCOSE REFERENCE RANGE BASED ON FASTING SPECIMEN. 65 LDL-CHOLESTEROL RISK CATEGORY* GOAL VERY HIGH (E.G. DIABETES + CVD) <70 MG/DL HIGH (DIABETICS; CHD RISK EQUIVALENTS) <100 MG/DL MODERATELY HIGH (MULTIPLE(2+) RISK FACTORS) <130 MG/DL 0 TO 1 RISK FACTORS <160 MG/DL * NCEP REPORT. CIRCULATION 2004; 110: 227-239 66 0 - 0.6 NG/ML: NO EVIDENCE OF MYOCARDIAL INJURY 0.7 - 1.5 NG/ML: MILD ELEVATION, SUGGESTING POSSIBLE MYOCARDIAL INJURY > 1.5 NG/ML: CONSISTENT WITH MYOCARDIAL INJURY 67 0 - 0.6 NG/ML: NO EVIDENCE OF MYOCARDIAL INJURY 0.7 - 1.5 NG/ML: MILD ELEVATION, SUGGESTING POSSIBLE MYOCARDIAL INJURY > 1.5 NG/ML: CONSISTENT WITH MYOCARDIAL INJURY 68 Note: Persistent reduction for 3 months or more in an eGFR <60 mL/min/1.73 m2 defines CKD. Patients with eGFR values >/=60 mL/min/1.73 m2 may also have CKD if evidence of persistent proteinuria is present. The original MDRD equation for estimated GFR is not valid for patients less than 18 years of age. Additional information may be found at www.kdoqi.org. 69 0 - 0.6 NG/ML: NO EVIDENCE OF MYOCARDIAL INJURY 0.7 - 1.5 NG/ML: MILD ELEVATION, SUGGESTING POSSIBLE MYOCARDIAL INJURY > 1.5 NG/ML: CONSISTENT WITH MYOCARDIAL INJURY 70 THERAPEUTIC INR RANGE: 2.0 - 3.0 DVT, Pulmonary embolus, prophylaxis against venous thrombosis or systemic embolization in high risk patients. 2.5 - 3.5 Mechanical heart valves 71 QUERY: Anticoagulant Therapy? QUERY: Date of Last Dose: QUERY: Time of Last Dose: 72 LDL-CHOLESTEROL RISK CATEGORY* GOAL VERY HIGH (E.G. DIABETES + CVD) <70 MG/DL HIGH (DIABETICS; CHD RISK EQUIVALENTS) <100 MG/DL MODERATELY HIGH (MULTIPLE(2+) RISK FACTORS) <130 MG/DL 0 TO 1 RISK FACTORS <160 MG/DL * NCEP REPORT. CIRCULATION 2004; 110: 227-239 73 GLUCOSE REFERENCE RANGE BASED ON FASTING SPECIMEN. 74 LDL-CHOLESTEROL RISK CATEGORY* GOAL VERY HIGH (E.G. DIABETES + CVD) <70 MG/DL HIGH (DIABETICS; CHD RISK EQUIVALENTS) <100 MG/DL MODERATELY HIGH (MULTIPLE(2+) RISK FACTORS) <130 MG/DL 0 TO 1 RISK FACTORS <160 MG/DL * NCEP REPORT. CIRCULATION 2004; 110: 227-239 75 LDL-CHOLESTEROL RISK CATEGORY* GOAL VERY HIGH (E.G. DIABETES + CVD) <70 MG/DL HIGH (DIABETICS; CHD RISK EQUIVALENTS) <100 MG/DL MODERATELY HIGH (MULTIPLE(2+) RISK FACTORS) <130 MG/DL 0 TO 1 RISK FACTORS <160 MG/DL * NCEP REPORT. CIRCULATION 2004; 110: 227-239 76 GLUCOSE REFERENCE RANGE BASED ON FASTING SPECIMEN. 77 LDL-CHOLESTEROL RISK CATEGORY* GOAL VERY HIGH (E.G. DIABETES + CVD) <70 MG/DL HIGH (DIABETICS; CHD RISK EQUIVALENTS) <100 MG/DL MODERATELY HIGH (MULTIPLE(2+) RISK FACTORS) <130 MG/DL 0 TO 1 RISK FACTORS <160 MG/DL * NCEP REPORT. CIRCULATION 2004; 110: 227-239 78 HDL REFERENCE RANGES ADULTS (20 YEARS & OLDER) DESIRABLE: > OR=60 MG/DL HIGHER RISK: <40 MG/DL 79 LDL-CHOLESTEROL RISK CATEGORY* GOAL VERY HIGH (E.G. DIABETES + CVD) <70 MG/DL HIGH (DIABETICS; CHD RISK EQUIVALENTS) <100 MG/DL MODERATELY HIGH (MULTIPLE(2+) RISK FACTORS) <130 MG/DL 0 TO 1 RISK FACTORS <160 MG/DL * NCEP REPORT. CIRCULATION 2004; 110: 227-239 80 HDL REFERENCE RANGES ADULTS (20 YEARS & OLDER) DESIRABLE: > OR=60 MG/DL HIGHER RISK: <40 MG/DL 81 LDL-CHOLESTEROL RISK CATEGORY* GOAL VERY HIGH (E.G. DIABETES + CVD) <70 MG/DL HIGH (DIABETICS; CHD RISK EQUIVALENTS) <100 MG/DL MODERATELY HIGH (MULTIPLE(2+) RISK FACTORS) <130 MG/DL 0 TO 1 RISK FACTORS <160 MG/DL * NCEP REPORT. CIRCULATION 2004; 110: 227-239 82 GLUCOSE REFERENCE RANGE BASED ON FASTING SPECIMEN. 83 GLUCOSE REFERENCE RANGE BASED ON FASTING SPECIMEN. 84 THE GFR ESTIMATE IS NOT ADJUSTED FOR RACE, IF THE PATIENT RACE IS -CONGOLESE, THE GFR ESTIMATE MUST BE MULTIPLIED BY A FACTOR OF 1.21. 85 HDL REFERENCE RANGES ADULTS (20 YEARS & OLDER) DESIRABLE: > OR=60 MG/DL HIGHER RISK: <40 MG/DL 86 LDL-CHOLESTEROL RISK CATEGORY* GOAL VERY HIGH (E.G. DIABETES + CVD) <70 MG/DL HIGH (DIABETICS; CHD RISK EQUIVALENTS) <100 MG/DL MODERATELY HIGH (MULTIPLE(2+) RISK FACTORS) <130 MG/DL 0 TO 1 RISK FACTORS <160 MG/DL * NCEP REPORT. CIRCULATION 2004; 110: 227-239 87 HDL REFERENCE RANGES ADULTS (20 YEARS & OLDER) DESIRABLE: > OR=60 MG/DL HIGHER RISK: <40 MG/DL 88 LDL-CHOLESTEROL RISK CATEGORY* GOAL VERY HIGH (E.G. DIABETES + CVD) <70 MG/DL HIGH (DIABETICS; CHD RISK EQUIVALENTS) <100 MG/DL MODERATELY HIGH (MULTIPLE(2+) RISK FACTORS) <130 MG/DL 0 TO 1 RISK FACTORS <160 MG/DL * NCEP REPORT. CIRCULATION 2004; 110: 227-239 89 GLUCOSE REFERENCE RANGE BASED ON FASTING SPECIMEN. 90 THE GFR ESTIMATE IS NOT ADJUSTED FOR RACE, IF THE PATIENT'S RACE IS -CONGOLESE, THE GFR ESTIMATE MUST BE MULTIPLIED BY A FACTOR OF 1.21. 91 HDL REFERENCE RANGES ADULTS (20 YEARS & OLDER) DESIRABLE: > OR=60 MG/DL HIGHER RISK: <40 MG/DL 92 LDL-CHOLESTEROL RISK CATEGORY* GOAL VERY HIGH (E.G. DIABETES + CVD) <70 MG/DL HIGH (DIABETICS; CHD RISK EQUIVALENTS) <100 MG/DL MODERATELY HIGH (MULTIPLE(2+) RISK FACTORS) <130 MG/DL 0 TO 1 RISK FACTORS <160 MG/DL * NCEP REPORT. CIRCULATION 2004; 110: 227-239 93 PSA VALUES FROM DIFFERENT ASSAY METHODS CANNOT BE USED INTERCHANGEABLY. THIS ASSAY WAS PERFORMED USING THE JASMINE CHEMILUMINESCENCE METHOD. Procedures Date Code Description Status 06/22/2017 43622 EKG-Tracing & Report Completed 07/05/2016 95684 EKG-Tracing & Report Completed 06/30/2016 83225 Non-Invcorrotid/Comp /Bilat Study Completed 06/30/2016 94163 Echocardiography Completed 07/10/2015 52104 EKG-Tracing & Report Completed 07/08/2015 20634 Non-Invcorrotid/Comp /Bilat Study Completed 07/08/2015 36269 Echocardiography Completed 06/27/2014 83666 EKG-Tracing & Report Completed 06/26/2014 73925 Holter Monitor Office Completed 06/25/2014 98158 Non-Invcorrotid/Comp /Bilat Study Completed 06/25/2014 11242 Echocardiography Completed 06/27/2013 07856 EKG-Tracing & Report Completed 06/25/2013 59213 Echocardiography Completed 06/25/2013 90817 Non-Invcorrotid/Comp /Bilat Study Completed 07/06/2012 58607 Non-Invcorrotid/Comp /Bilat Study Completed 07/06/2012 62374 Echocardiography Completed 07/05/2012 42858 EKG-Tracing & Report Completed 06/30/2011 03853 Non-Invcorrotid/Comp /Bilat Study Completed 06/30/2011 16702 Echocardiography Completed 06/30/2011 15950 EKG-Tracing & Report Completed 06/17/2010 56064 Non-Invcorrotid/Comp /Bilat Study Completed 06/17/2010 61449 Echocardiography Completed 06/16/2010 01060 Holter Monitor Office Completed 06/16/2010 00270 EKG-Tracing & Report Completed 06/12/2009 84738 Holter Monitor Office Completed 06/12/2009 01915 EKG-Tracing & Report Completed 06/10/2009 36441 Echocardiography Completed 06/10/2009 07112 Non-Invcorrotid/Comp /Bilat Study Completed 08/07/2008 25071 EKG-Tracing & Report Completed 07/30/2008 11438 Non-Invcorrotid/Comp /Bilat Study Completed 07/30/2008 98769 Doppler/ECHO Completed 07/30/2008 08084 ECHO-2D W/Wo M-Mode Completed 01/30/2008 33135 PFT Evaluation Completed 08/01/2007 68788 EKG-Tracing & Report Completed 07/27/2007 85732 Non-Invcorrotid/Comp /Bilat Study Completed 07/27/2007 17874 Doppler Color Flow Velocity Completed 07/27/2007 99188 Doppler/ECHO Completed 07/27/2007 10271 ECHO-2D W/Wo M-Mode Completed 08/03/2006 58204 EKG-Tracing & Report Completed 08/03/2006 41130 ECHO-2D W/Wo M-Mode Completed 08/03/2006 13406 Doppler/ECHO Completed 08/03/2006 10178 Doppler Color Flow Velocity Completed 08/03/2006 88390 Non-Invcorrotid/Comp /Bilat Study Completed 11/15/2005 29407 Spirometry Graphic Record/Max Voluntary Vent Completed 08/06/2005 70138 Spirometry Graphic Record/Max Voluntary Vent Completed 08/06/2005 88386 PVR-Atrerial Study Completed 08/06/2005 50207 Holter Monitor Office Completed 08/06/2005 65395 EKG-Tracing & Report Completed 08/04/2005 60708 Non-Invcorrotid/Comp /Bilat Study Completed 08/04/2005 11020 Doppler Color Flow Velocity Completed 08/04/2005 01668 Doppler/ECHO Completed 08/04/2005 31034 ECHO-2D W/Wo M-Mode Completed 06/23/2005 16527 Spirometry Graphic Record/Max Voluntary Vent Completed Encounters Type Date Location Provider Dx Diagnosis Office Visit 05/10/2018 Main Office Smiley Loyd M.D. K64.9 Unspecified 2:45p hemorrhoids J20.9 Acute bronchitis, unspecified Office Visit 01/02/2018 10:30a Main Office Smiley Loyd E78.2 Mixed hyperlipidemia M.D. I11.9 Hypertensive heart disease without heart failure Office Visit 07/06/2017 11:30a Main Office [facility] John8.2 Mixed hyperlipidemia M.D. I11.9 Hypertensive heart disease without heart failure Office Visit 06/22/2017 3:30p Main Office Smiley Loyd J02.9 Acute pharyngitis, M.D. unspecified Office Visit 04/07/2017 10:45a Main Office Smiley Loyd, L03.114 Cellulitis of left M.D. upper limb Office Visit 01/10/2017 10:30a [facility] John8.5 Hyperlipidemia, M.D. unspecified I25.10 Athscl heart disease of [place] coronary artery w/o ang pctrs I11.9 Hypertensive heart disease without heart failure N40.0 Benign prostatic hyperplasia without lower urinry tract symp M54.16 Radiculopathy, lumbar region Office Visit 09/20/2016 2:30p Main Office Smiley Loyd J02.0 Streptococcal M.D. pharyngitis Office Visit 07/12/2016 11:00a Main Office Smiley Loyd E78.5 Hyperlipidemia, M.D. unspecified I34.0 Nonrheumatic mitral (valve) insufficiency I25.10 Athscl heart disease of [place] coronary artery w/o ang pctrs I11.9 Hypertensive heart disease without heart failure Office Visit 04/22/2016 10:45a Main Office Smiley Loyd J02.9 Acute pharyngitis, M.D. unspecified Office Visit 03/03/2016 8:15a Main Office Ambrocio Lynn MD J20.9 Acute bronchitis, unspecified E78.5 Hyperlipidemia, unspecified Office Visit 02/26/2016 11:00a Main Office Smiley Loyd J20.9 Acute bronchitis, M.D. unspecified Office Visit 01/15/2016 10:45a Main Office Smiley Loyd, E78.5 Hyperlipidemia, M.D. unspecified I25.10 Athscl heart disease of [place] coronary artery w/o ang pctrs I11.9 Hypertensive heart disease without heart failure Office Visit 07/16/2015 1:30p Main Office Smiley Loyd, E78.5 Hyperlipidemia, M.D. unspecified I25.10 Athscl heart disease of [place] coronary artery w/o [facility] pctrs I11.9 Hypertensive heart disease without heart failure M15.9 Polyosteoarthritis, unspecified Z23 Encounter for immunization Office Visit 01/21/2015 1:45p Main Office Smiley Loyd M.D. 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 Unspec 414.01 Coronary Atherosclerosis [place] 402.10 Hypertensive Heart Disease Benign W/O Heart Failure Office Visit 07/08/2014 2:00p Main Office Smiley Loyd, 272.4 Hyperlipidemia Other M.D. Unspec 414.01 Coronary Atherosclerosis [place] 402.10 Hypertensive Heart Disease Benign W/O Heart Failure V04.81 Need For Prophylactic Vaccination & Inoculation/Influenza V03.82 Streptococcus Pneumoniae Vaccination Spec Other Office Visit 04/10/2014 11:45a Main Office Smiley Loyd, 460.00 Upper Respiratory M.D. Infection 461.9 Sinusitis Acute Unspec Office Visit 01/14/2014 11:30a Main Office Smiley Loyd, 414.01 Coronary M.D. Atherosclerosis [place] 402.10 Hypertensive Heart Disease Benign W/O Heart Failure 272.4 Hyperlipidemia Other Unspec Office Visit 07/11/2013 11:30a Main Office Smiley Loyd M.D. 424.0 Mitral Valve Disorder 414.01 Coronary Atherosclerosis [place] 402.10 Hypertensive Heart Disease Benign W/O Heart Failure 272.4 Hyperlipidemia Other Unspec Office Visit 04/19/2013 1:30p Main Office Smiley Loyd M.D. 462 Pharyngitis Acute V04.81 Need For Prophylactic Vaccination & Inoculation/Influenza Office Visit 01/08/2013 10:30a Main Office Smiley Loyd 272.4 Hyperlipidemia Other M.D. Unspec 414.01 Coronary Atherosclerosis [place] 402.10 Hypertensive Heart Disease Benign W/O Heart Failure Office Visit 07/10/2012 10:30a Main Office Smiley Loyd 272.4 Hyperlipidemia Other M.D. Unspec 424.0 Mitral Valve Disorder 414.01 Coronary Atherosclerosis [place] 402.10 Hypertensive Heart Disease Benign W/O Heart Failure Office Visit 06/06/2012 1:45p Main Office Smiley Loyd 599.70 Hematuria M.D. Office Visit 05/25/2012 10:30a Main Office Smiley Loyd 465.8 Upper Respiratory M.D. Infections Acute Other Multiple Sites 305.1 Tobacco Use Disorder Office Visit 01/10/2012 10:45a Main Office Smiley Loyd, 272.4 Hyperlipidemia Other M.D. Unspec 414.01 Coronary Atherosclerosis [place] 402.10 Hypertensive Heart Disease Benign W/O Heart Failure 715.90 Degenerative Joint Disease Gen[place] Or Localzd Site Unspec 682.90 Cellulitis Office Visit 07/07/2011 10:30a Main Office Smiley Loyd, 272.4 Hyperlipidemia Other M.D. Unspec 414.01 Coronary Atherosclerosis [place] 274.90 Gout 402.10 Hypertensive Heart Disease Benign W/O Heart Failure 715.90 Degenerative Joint Disease [place] Or Localzd Site Unspec 682.90 Cellulitis V70.0 Examination General Medical Routine AT Health Care Facility Office Visit 04/01/2011 11:00a Main Office Smiley Loyd M.D. 682.90 Cellulitis 274.90 Gout 272.4 Hyperlipidemia Other Unspec 414.01 Coronary Atherosclerosis [place] 402.10 Hypertensive Heart Disease Benign W/O Heart Failure 715.90 Degenerative Joint Disease Gen[place] Or Localzd Site Unspec V04.81 Need For Prophylactic Vaccination & Inoculation/Influenza Office Visit 03/23/2011 1:45p Main Office Ambrocio Lynn MD 682.90 Cellulitis 272.4 Hyperlipidemia Other Unspec GENERAL General Office Visit 12/28/2010 10:30a Main Office Smiley Loyd, 272.4 Hyperlipidemia Other M.D. Unspec 414.01 Coronary Atherosclerosis [place] 402.10 Hypertensive Heart Disease Benign W/O Heart Failure 715.90 Degenerative Joint Disease [place] Or Localzd Site Unspec Office Visit 06/29/2010 10:30a Main Office Smiley Loyd, 272.4 Hyperlipidemia Other M.D. Unspec 414.01 Coronary Atherosclerosis [place] 402.10 Hypertensive Heart Disease Benign W/O Heart Failure 715.90 Degenerative Joint Disease Gen[place] Or Localzd Site Unspec V04.81 Need For Prophylactic Vaccination & Inoculation/Influenza Office Visit 12/25/2009 10:45a Main Office Smiley Loyd 272.4 Hyperlipidemia Other M.D. Unspec 414.01 Coronary Atherosclerosis [place] Office Visit 06/26/2009 10:30a Main Office Smiley Loyd 272.4 Hyperlipidemia Other M.D. Unspec 414.01 Coronary Atherosclerosis [place] 402.10 Hypertensive Heart Disease Benign W/O Heart Failure Office Visit 12/26/2008 11:00a Main Office Smiley Lody, 272.4 Hyperlipidemia Other M.D. Unspec 414.01 Coronary Atherosclerosis [place] 402.10 Hypertensive Heart Disease Benign W/O Heart Failure Office Visit 08/15/2008 10:30a Main Office Smiley Loyd 272.4 Hyperlipidemia Other M.D. Unspec 414.01 Coronary Atherosclerosis [place] 402.10 Hypertensive Heart Disease Benign W/O Heart Failure 462 Pharyngitis Acute Office Visit 02/21/2008 11:30a Main Office Smiley Loyd M.D. 496 Chronic Obstructive Pulmonary Disease 414.01 Coronary Atherosclerosis [place] 402.10 Hypertensive Heart Disease Benign W/O Heart Failure 272.4 Hyperlipidemia Other Unspec 272.40 Hyperlipidemia Office Visit 02/01/2008 10:45a Main Office Smiley Loyd M.D. 274.9 Gout Unspec Office Visit 08/15/2007 10:30a Main Office Smiley Loyd M.D. V15.82 History Personal Tobacco Use 414.01 Coronary Atherosclerosis [place] 402.10 Hypertensive Heart Disease Benign W/O Heart Failure 272.40 Hyperlipidemia Office Visit 02/14/2007 10:15a Main Office Smiley Loyd 402.10 Hypertensive Heart M.D. Disease Benign W/O Heart Failure 272.40 Hyperlipidemia 530.81 Esophageal Reflux Office Visit 10/19/2006 1:30p Main Office Smiley Loyd M.D. 462 Pharyngitis Acute Office Visit 08/17/2006 10:15a Main Office Smiley Loyd M.D. 272.40 Hyperlipidemia 414.01 Coronary Atherosclerosis [place] 402.10 Hypertensive Heart Disease Benign W/O Heart Failure 496 Chronic Obstructive Pulmonary Disease V15.82 History Personal Tobacco Use 305.1 Tobacco Use Disorder 460.00 Upper Respiratory Infection Office Visit 04/13/2006 10:45a Main Office Smiley Loyd 569.89 Intestine Disorders M.D. Other Office Visit 02/15/2006 10:00a Main Office Smiley Loyd 414.01 Coronary M.D. Atherosclerosis [place] 496 Chronic Obstructive Pulmonary Disease 272.40 Hyperlipidemia Office Visit 11/15/2005 10:00a Main Office Smiley Loyd M.D. 496 Chronic Obstructive Pulmonary Disease 272.40 Hyperlipidemia 414.01 Coronary Atherosclerosis [place] Office Visit 08/17/2005 10:30a Main Office Smiley Loyd M.D. 272.40 Hyperlipidemia 496 Chronic Obstructive Pulmonary Disease 414.01 Coronary Atherosclerosis [place] Office Visit 05/20/2005 11:00a Main Office Paramjit Porras 49Eric Chronic Obstructive MD [place] Pul[facility] Disease Office Visit 12/24/2004 10:15a Main Office Smiley Loyd 414.01 Coronary M.D. Atherosclerosis [place] 272.40 Hyperlipidemia 715.90 Degenerative Joint Disease Genl[place] Or Localzd Site Unspec Office Visit 10/28/2004 11:45a Main Office Smiley Loyd 414.01 Coronary M.D. Atherosclerosis [place] Office Visit 07/27/2004 10:30a Main Office Smiley Loyd 462 Pharyngitis Acute M.D. Office Visit 06/25/2004 11:00a Main Office Smiley Loyd 414.01 Coronary M.D. Atherosclerosis [place] 530.81 Esophageal Reflux 272.40 Hyperlipidemia Plan of Treatment Future Appointment(s):06/26/2018 12:30 pm - Ultrasound at Main Pisksc0306/28/2018 8:30 am - Nurse at Main Ehviqd7807/10/2018 10:30 am - Smiley Loyd M.D. at Main Fnkymo6005/17/2018 - Smiley Loyd M.D.K59.00 Constipation, unspecifiedNew Medication:Miralax 3350 NF - 17 gms in 8 oz h2o every day as neededComments: continue with stool softener may need fiber supplement and laxative prnR30.0 DysuriaNew Medication:Phenazopyridine HCL 200 mg - 1 tablet 3x aday for 3 daysComments:discussed signs and symptoms of prostatitis and urged him to call if he has theses problems in meantime, discussed cranberry supplements and may try pyridium for dysuria
--- OUTSIDE RECORDS SUMMARY | 2018-05-21 10:53 | XMS REPORT | Continuity of Care Document ---
:1940 External Reference #:[id number] Author Name Smiley Loyd M.D. Address [address] [facility], [facility] [place] [address] Care Team Providers Name Role Phone Smiley Loyd MD Primary Care Physician Unavailable Payers Type Date Identification Numbers Payment Provider Subscriber Effective: Policy Number: [id number] Todays Options Faustino Morales 2017 PayID: [id number] [address] [phone] Advance Directives Description No Information Available Problems [...] [id number] 17 gms in K59.00 Smiley Wilson ts 8 oz h2o Evert, every day M.D. as needed Phenazopyridine 05/17/ Active Tablets 200mg 30tab 1 tablet R30.0 Smiley HCL 2018 s 3x aday Evert, for 3 days M.D. Proctosol HC 05/10/ Active Cream 2.5% 28.35 apply to K64.9 Smiley 2018 0gm affected Gauss, area after M.D. bowel movements and as needed Amoxicillin 05/10/ Active Tablets 500mg 14tab 1 by mouth J20.9 Smiley 2017 s two times Ishuss, a day M.D. Sildenafil 01/02/ Active Tablets 50mg 6tabs take 1 Smiley Citrate 2018 tablet if Gauss, needed as M.D. directed Pantoprazole 09/08/ Active Tablets DR 40mg 90tab take 1 Smiley Sodium 2009 s tablet Evert, daily M.D. Simvastatin 04/28/ Active Tablets 40mg 90tab take 1 E78.5 Smiley 2008 s tablet Evert, daily (max M.D. daily dose: 1 tablet) mdd 1 Metoprolol 03/26/ Active Tablets 50mg 90tab take Smiley Tartrate 2008 s one-half Evert, (07/26) M.DDebra tablet twice a day Asp 08/16/ Active Tablets 325mg 1 po qd Smiley 2005 Belkys Loyd Flomax / Active Capsules 0.4mg 90cap 1 po qd Anthony, 0000 s Arnold Finasteride / Active Tablets 5mg 1 by mouth Unknown 0000 every day Azithromycin 06/22/ Hx Tablets 250mg 6tabs 2 by mouth J02.9 Smiley 2016 - today, 1 Evert, 07/06/ by mouth M.D. 2016 day 2 thru 5 Cephalexin 04/07/ Hx Capsules 500mg 14cap 1 by mouth L03.114 Smiley 2016 - s twice a Evert, 07/06/ day with M.D. 2017 food Azithromycin 04/22/ Hx Tablets 250mg 6tabs 2 by mouth J02.9 Smiley 2015 - today, 1 Evert, 04/07/ by mouth M.D. 2016 day 2 thru 5 Zithromax 03/03/ Hx Tablets 250mg 6pill 2 by mouth Ambrocio 2015 - day 1, 1 MD Leah 04/22/ by mouth 2016 every day x days 2-5 Amoxicillin/Clavu 02/25/ Hx Tablets 875-125mg 14tab 1 by mouth J20.9 Smiley lanate Potassium 2016 - s twice a Evert, 03/03/ day M.D. 2016 Flagyl 01/16/ Hx Tablets 500mg 1 by mouth Unknown 2015 - three 01/14/ times a 2016 day Ciprofloxacin HCL 01/16/ Hx Tablets 500mg 1 by mouth Unknown 2014 - twice a 01/26/ day 2014 Amoxicillin 04/10/ Hx Capsules 500mg 14cap 1 tablets 461.9 Smiley 2013 - s by mouth Evert, 01/21/ twice a M.D. 2014 day Amoxicillin 04/19/ Hx Capsules 250mg 30cap 1 po tid 462 Smiley 2012 - s Evert, 06/19/ M.D. 2012 Sulfamethoxazole/ 06/06/ Hx Tablets 800-160mg 30tab 1 po bid 599.70 Smiley Trimethoprim DS 2011 - Evert, 07/10/ M.D. 2011 Azithromycin 05/25/ Hx Tablets 250mg 6tabs 2 po 465.8 Smiley 2011 - , 1 Evert, 06/06/ po day 2 M.D. 2012 thru 5 Keflex 04/06/ Hx Capsules 500mg 21cap 1 po tid 682.90 Smiley 2010 - s Evert, 07/07/ M.D. 2011 Bactrim DS 04/01/ Hx Tablets 800-160mg 14tab 1 po bid 682.90 Smiley 2010 - s Evert, 04/06/ M.D. 2010 Indomethacin 04/01/ Hx Capsules 50mg 30cap 1 po tid 274.90 Smiley 2010 - s with food Evert, 07/10/ prn M.D. 2012 Levaquin 03/23/ Hx Tablets 500mg 10tab 1 po qd Ambrocio 2010 Melisa s MD Leah 2010 Amoxicillin 08/15/ Hx [...] bid 460.00 Smiley 2006 - s Evert, M.D. 2007 Lopressor 09/29/ Hx Tablets 50mg 50tab 1/2 po bid Smiley 2005 - s Evert, M.D. 2009 Lipitor 08/17/ Hx Tablets 20mg 90tab 1/2 tab po 272.4 Smiley 2005 - s qd Evert, M.D. 2008 Lipitor 08/16/ Hx Tablets 10mg 90tab 1 po qd Smiley 2005 - s Evert, M.D. 2005 Protonix 08/16/ Hx Tablets 40mg 90tab 1 po qd Smiley 2005 - s Evert, 06/26/ M.D. 2009 Viagra 08/16/ Hx Tablets 50mg 6tabs take 1 Smiley 2005 - tablet if Evert, as M.D. 2017 directed Lopressor 07/01/ Hx Tablets 25mg 180ta 1 po bid Smiley 2004 - bs Evert, M.D. 2005 Immunizations CPT Code Status Date Vaccine Lot # [id number] Given 06/22/2017 Influenza Virus (Afluria) Split Virus 3 Years Of Age And Older Q2035 Given 06/22/2017 Influenza Virus (Afluria) Split Virus 3 Years [id number] Of Age And Older Q2037 Given 07/16/2015 Influenza Vaccine (Fluvirin) 5 Years Of Age Or [id number] Older Q2036 Given 07/08/2014 Flulaval [id number] Given 07/08/2014 Pneumovax Polyvalent Inj Im [id number] Q2038 Given 04/19/2013 Influenza Vaccine (Fluzone) Administered Age 3 And Older Q2037 Given 04/13/2012 Influenza Vaccine (Fluvirin) 3 Years Of Age Or Older Q2037 Given 04/13/2012 Influenza Vaccine (Fluvirin) 5 Years Of Age Or [id number] Older Q2036 Given 04/01/2011 Flulaval [id number] Given 06/29/2010 Influenza Vaccine [id number] Given 04/20/2006 Influenza Vaccine [id number] Vital Signs Date Vital Result Comment 05/17/2018 [...] Result H/L Range Note Urinalysis Profile 01/26/2018 [facility] Urine Color Yellow [address] [place] [address] [phone] Urine Appearance Clear Urine Specific [place] 1.011 1.010-1.030 Urine pH 6.0 5-9 Urine Urobilinogen Negative Negative Urine Ketones Negative Negative Urine Protein Negative Negative Urine Leukocytes Negative Negative Urine Blood 3+ Negative Urine Nitrite Negative Negative Urine Bilirubin Negative Negative Urine Glucose Negative Negative Urine White Blood Cell Absent Absent Urine Red Blood Cell 3+(>10/hpf) Absent Urine Bacteria Absent Absent Urine Culture And 01/26/2018 [facility] Urine Culture SEE RESULT [address] [place] [address] [phone] CBC W/ Diff & PLT 12/26/2017 [facility] WBC 9.3 3.8-[address] thous/L .8 [place] [address] [phone] RBC 5.46 mill/L 4.20-5.80 Hemoglobin 16.4 g/dL 13.2-17.1 Hematocrit 49.5 % 38.5-50.0 MCV 90.6 FL 80.0-100.0 MCH 30.1 pg 27.0-33.0 MCHC 33.2 g/dL 32.0-36.0 RDW 14.1 % 11.0-15.0 Platelet Count 216 thous/L 140-400 Platelet Sufficiency PENDING MPV 9.4 FL 7.5-12.5 Neutrophils,Absolute 6480 cells/L [phone] Bands,Absolute PENDING Metamyelocytes,Absolute PENDING Myelocytes,Absolute PENDING Promyelocytes,Absolute [...] [facility] Sodium 140 mmol/L 135-[address] [place] [address] [phone] Potassium 4.5 mmol/L 3.5-5.3 Chloride 107 mmol/L 98-110 Carbon Dioxide 26 mmol/L 20-31 Calcium 9.5 mg/dL 8.6-10.3 Glucose 105 mg/dL High 65-99 3 Urea Nitrogen (BUN) 16 mg/dL 7-25 Creatinine 0.85 mg/dL 0.70-1.18 4 BUN/Creatinine Ratio 19.2 6-22 Egfr Non-Afr. Barbadian 85 ML/MIN/1.73M2 > Or=60 Egfr 99 ML/MIN/1.73M2 > Or=60 Lipid Panel 12/26/2017 [facility] Cholesterol 128 mg/dL <[address] [place], [place] [id number] [phone] HDL Cholesterol 25 mg/dL Low >40 Cholesterol/HDL Ratio 5.1 CALC High <5.0 LDL Chol,Calculated 80 mg/dL 0-100 5 Triglycerides 131 mg/dL <150 Non-HDL Cholesterol 104 mg/dL <130 6 CBC W/ Diff & PLT 06/22/2017 [facility] WBC 12.0 thous/L High 3.8-10.8 [address] [place] [address] [phone] RBC 5.69 mill/L 4.20-5.80 Hemoglobin 16.4 g/dL 13.2-17.1 Hematocrit 50.5 % High 38.5-50.0 MCV 88.8 FL 80.0-100.0 MCH 28.8 pg 27.0-33.0 MCHC 32.4 g/dL 32.0-36.0 RDW 14.4 % 11.0-15.0 Platelet Count 215 thous/L 140-400 Platelet Sufficiency NORMAL Normal MPV 9.4 FL 7.5-12.5 Neutrophils,Absolute 8840 cells/L High [phone] Bands,Absolute PENDING Metamyelocytes,Absolute PENDING Myelocytes,Absolute PENDING Promyelocytes,Absolute [...] [facility] Sodium 141 mmol/L 135-[address] [place] [address] [phone] Potassium 4.3 mmol/L 3.5-5.3 Chloride 105 mmol/L 98-110 Carbon Dioxide 29 mmol/L 20-31 Calcium 9.2 mg/dL 8.6-10.3 Glucose 98 mg/dL 65-99 9 Urea Nitrogen (BUN) 16 mg/dL 7-25 Creatinine 0.90 mg/dL 0.70-1.18 10 BUN/Creatinine Ratio 17.8 6-22 Egfr Non-Afr. Barbadian 84 ML/MIN/1.73M2 > Or=60 Egfr 97 ML/MIN/1.73M2 > Or=60 Lipid Panel 06/22/2017 [facility] Cholesterol 145 mg/dL <[address] [place] [address] [phone] HDL Cholesterol 25 mg/dL Low >40 Cholesterol/HDL Ratio 5.8 CALC High <5.0 LDL Chol,Calculated 97 mg/dL 0-100 11 Triglycerides 125 mg/dL <150 Non-HDL Cholesterol 119 mg/dL <130 12 Lipid Panel 01/04/2017 [facility] Cholesterol 128 mg/dL 125-[address] [place] [address] [phone] HDL Cholesterol 25 mg/dL Low > Or=40 Cholesterol/HDL Ratio 5.1 High < Or=5.0 LDL Chol,Calculated 72 mg/dL <130 13 Triglycerides 155 mg/dL High <150 Non-HDL Cholesterol 103 mg/dL 14 Laboratory test 01/04/2017 [facility] PSA,Total 5.6 NG/ML High < Or=4.0 [address] [place] [address] [phone] CBC W/ Diff & PLT 01/04/2017 [facility] WBC 12.9 High 3.8-10.[address] thous/[place] [address] [phone] RBC 5.62 mill/L 4.20-5.80 Hemoglobin 16.4 g/dL 13.2-17.1 Hematocrit 51.0 % High 38.5-50.0 MCV 90.8 FL 80.0-100.0 MCH 29.1 pg 27.0-33.0 MCHC 32.1 g/dL 32.0-36.0 RDW 14.8 % 11.0-15.0 Platelet Count 200 thous/L 140-400 Platelet Sufficiency PENDING MPV 9.6 FL 7.5-12.5 Neutrophils,Absolute 9740 cells/L High 4582-9373 Bands,Absolute PENDING Metamyelocytes,Absolute PENDING Myelocytes,Absolute PENDING Promyelocytes,Absolute [...] [facility] Sodium 140 mmol/L 135-146 [address] [place], [place] [address] [phone] Potassium 4.5 mmol/L 3.5-5.3 Chloride 108 mmol/L 98-110 Carbon Dioxide 25 mmol/L 20-31 Calcium 9.1 mg/dL 8.6-10.3 Glucose 105 mg/dL High 65-99 17 Urea Nitrogen 23 mg/dL 7-25 Creatinine 0.99 mg/dL 0.70-1.18 18 BUN/Creatinine Ratio 22.8 High 6-22 Egfr Non-Afr. Barbadian 75 ML/MIN/1.73M2 > Or=60 Egfr 87 ML/MIN/1.73M2 > Or=60 CBC Auto Diff 04/17/2016 [facility] White Blood 8.8 10^3/uL 3.5-10.8 [address] [facility] [place] [address] [phone] Red Blood Count 5.70 10^6/uL High 4.0-5.4 [...] Cells % 0 Comp Metabolic Panel 04/17/2016 [facility] Sodium 136 mmol/L [phone] [place] [address] [phone] Potassium 4.0 mmol/L 3.5-5.0 Chloride 104 mmol/L [...] Egfr 107.8 >60 19 Laboratory test 04/17/2016 [facility] Troponin I 0.00 ng/mL < 0.03 20 finding [address] [place] [address] [phone] CBC Auto Diff 02/27/2016 [facility] White Blood 18.2 High 3.5- 10.[address] Count 10^3/[place] [address] [phone] Red Blood Count 5.99 10^6/uL High 4.0-5.4 [...] Blood Cells % 0.1 Urinalysis Profile 02/27/2016 [facility] Urine Color Yellow 21 [address] [place] [address] [phone] Urine Appearance Clear Urine Specific [place] > 1.060 High 1.010-1.030 Urine pH 6.0 5-9 Urine Urobilinogen Negative Negative Urine Ketones Negative Negative Urine Protein Negative Negative Urine Leukocytes Negative Negative Urine Blood Negative Negative Urine Nitrite Negative Negative Urine Bilirubin Negative Negative Urine Glucose Negative Negative Laboratory test 02/27/2016 [facility] Activated 28.9 26.0- 36.[address] [place] [address] Thrombo Time [phone] Laboratory test 02/27/2016 [facility] Lactic Acid 0.9 mmol/L 0.5-2.0 22 finding [address] [place], [place] [id number] [phone] Comp Metabolic 02/27/2016 [facility] Sodium 137 mmol/L 133- 145 Panel [address] [place] [address] [phone] Potassium 3.7 mmol/L 3.5-5.0 Chloride 106 mmol/L [...] 112.1 >60 23 Laboratory test finding 02/27/2016 [facility] Lipase 20 U/L 11.0-82.0 24 [address] [place] [address] [phone] Troponin I 0.00 ng/mL <0.03 25 Creatine Kinase 62 U/L 10-223 26 C Reactive Protein 12.50 mg/L High < 5.00 27 Myoglobin 36.7 ng/mL 17.4-105.7 28 Inr/Protime 02/27/2016 [facility] Inr 1.12 High 0.89-1.11 [address] [facility] [place] [address] [phone] Laboratory test 02/27/2016 [facility] B Type 141 High [address] [place] [address] AVE Natriuretic pg/[place] [address] Peptide [phone] CKMB 02/27/2016 [facility] ng/mL 3.1 0.6-6.[address] ng/[place] [address] [phone] CBC W/ Diff & 01/05/2016 [facility] WBC 10.1 3.8-10.[address] thous/ [place] [address] L [phone] RBC 5.71 mill/L 4.20-5.80 Hemoglobin 16.3 g/dL 13.2-17.1 Hematocrit 51.2 % High 38.5-50.0 MCV 89.6 FL 80.0-100.0 MCH 28.5 pg 27.0-33.0 MCHC 31.8 g/dL Low 32.0-36.0 RDW 14.2 % 11.0-15.0 Platelet Count 219 thous/L 140-400 Platelet Sufficiency PENDING MPV 9.6 FL 7.5-11.5 Neutrophils,Absolute 7100 cells/L [phone] Bands,Absolute PENDING Metamyelocytes,Absolute PENDING Myelocytes,Absolute PENDING Promyelocytes,Absolute [...] [facility] Sodium 140 mmol/L 135-[address] [place] [address] [phone] Potassium 4.6 mmol/L 3.5-5.3 Chloride 105 mmol/L 98-110 Carbon Dioxide 25 mmol/L 19-30 Calcium 9.3 mg/dL 8.6-10.3 Glucose 108 mg/dL High 65-99 31 Urea Nitrogen 17 mg/dL 7-25 Creatinine 0.95 mg/dL 0.70-1.18 32 BUN/Creatinine Ratio 17.9 6-22 Lipid Panel 01/05/2016 [facility] Cholesterol 129 mg/dL 125-[address] [place], [place] [address] [phone] HDL Cholesterol 20 mg/dL Low > Or=40 Cholesterol/HDL Ratio 6.5 High < Or=5.0 LDL Chol,Calculated 65 mg/dL <130 33 Triglycerides 218 mg/dL High <150 Non-HDL Cholesterol 110 mg/dL 34 Laboratory test 01/05/2016 [facility] PSA,Total 4.9 NG/ML High < Or=4.0 [address] [place] [address] [phone] TSH & T4,Free 01/05/2016 [facility] TSH 1.98 mIU/L 0.40-4.[address] [place] [address] [phone] T4,Free 1.1 ng/dL 0.8-1.8 CBC Auto 01/16/2015 [facility] White Blood 21.7 10^3/uL High 4.8-10.[address] [place] [address] [phone] Red Blood Count 6.64 10^6/uL High 4.0-5.4 [...] RBC 0.01 10^3/uL Comp Metabolic Panel 01/16/2015 [facility] Sodium 138 mmol/L [phone] [place] [address] [phone] Potassium 3.7 mmol/L 3.5-5.0 Chloride 104 mmol/L [...] 78.0 >60 36 Laboratory test finding 01/16/2015 [facility] Lipase 20 U/L 11.0-82.0 [address] [place] [address] [phone] Troponin I 0.00 ng/mL <0.03 37 C Reactive Protein 6.72 mg/L High < 5.00 38 Manual Differential 01/16/2015 [facility] Immature 20 % High 0- 9 [address] [facility] [place] [address] [phone] Neutrophil % 75 % 38-83 Band % 20 % High 0-8 Lymphocytes % 2 % Low 25-47 Monocytes % 1 % 0-13 Eosinophils % 1 % 0-6 Reactive Lymph % 1 % 0-6 RBC Morphology Normal Normal Laboratory test 01/16/2015 [facility] Lactic Acid 1.4 mmol/L 0.5-2.2 39 finding [address] [place] [address] [phone] Urinalysis 01/16/2015 [facility] Urine Color Yellow Profile [address] [place] [address] [phone] Urine Appearance Cloudy Urine Specific [place] 1.026 1.010-1.030 Urine pH 5.0 5-9 Urine Urobilinogen Negative Negative Urine Ketones Trace Negative Urine Protein Negative Negative Urine Leukocytes Negative Negative Urine Blood Negative Negative Urine Nitrite Negative Negative Urine Bilirubin Negative Negative Urine Glucose Negative Negative BMP W/O Egfr 12/30/2014 [facility] Sodium 140 mmol/L 135-146 [address] [place] [address] [phone] Potassium 4.7 mmol/L 3.5-5.3 Chloride 108 mmol/L 98-110 Carbon Dioxide 23 mmol/L 19-30 Calcium 8.9 mg/dL 8.6-10.3 Glucose 100 mg/dL High 65-99 40 Urea Nitrogen 18 mg/dL 7-25 Creatinine 0.94 mg/dL 0.70-1.18 41 BUN/Creatinine Ratio 19.4 6-22 Lipid Panel 12/30/2014 [facility] Cholesterol 147 mg/dL 125-200 [address] [place] [address] [phone] HDL Cholesterol 27 mg/dL Low > Or=40 Cholesterol/HDL Ratio 5.4 High < Or=5.0 LDL Chol,Calculated 84 mg/dL <130 42 Triglycerides 178 mg/dL High <150 Non-HDL Cholesterol 120 mg/dL 43 Hepatic Function 12/30/2014 [facility] Alkaline Phosphatase 76 U/L 40- 115 Panel [address] [place] [address] [phone] Ast 17 U/L 10-35 Alt 16 U/L 9-46 Bilirubin,Total 0.4 mg/dL 0.2-1.2 Bilirubin,Direct 0.1 mg/dL < Or=0.2 Protein,Total 6.6 g/dL 6.1-8.1 Albumin 3.7 g/dL 3.6-5.1 Globulin,Calculated 2.9 g/dL 1.9-3.7 A/G Ratio 1.3 1.0-2.5 CBC W/ Diff & PLT 12/30/2014 [facility] WBC 11.4 thous/L High 3.8-10.[address] [place] [address] [phone] RBC 5.51 mill/L 4.20-5.80 Hemoglobin 16.2 g/dL 13.2-17.1 Hematocrit 49.7 % 38.5-50.0 MCV 90.2 FL 80.0-100.0 MCH 29.4 pg 27.0-33.0 MCHC 32.6 g/dL 32.0-36.0 RDW 14.4 % 11.0-15.0 Platelet Count 202 thous/L 140-400 Platelet Sufficiency PENDING MPV 10.3 FL 7.5-11.5 Neutrophils,Absolute 8470 cells/L High [phone] Bands,Absolute PENDING Metamyelocytes,Absolute PENDING Myelocytes,Absolute PENDING Promyelocytes,Absolute [...] 4.8 NG/ML High 0.0-4.0 [address] [place] [address] [phone] BMP W/O Egfr 01/07/2014 [facility] Sodium 141 mmol/L 135-[address] [place] [address] [phone] Potassium 4.3 mmol/L 3.5-5.3 Chloride 107 mmol/L 98-110 Carbon Dioxide 25 mmol/L 19-30 Calcium 9.1 mg/dL 8.6-10.3 Glucose 108 mg/dL High 65-99 46 Urea Nitrogen 13 mg/dL 7-25 Creatinine 0.91 mg/dL 0.70-1.18 47 BUN/Creatinine Ratio 14.2 6-22 Laboratory test 01/07/2014 [facility] Direct LDL 77 mg/dL <130 48 [facility] [address] [facility] [place] [address] [phone] BMP W/O Egfr 06/27/2013 [facility] Sodium 139 mmol/L 135-146 [address] [place] [address] [phone] Potassium 4.8 mmol/L 3.5-5.3 Chloride 106 mmol/L 98-110 Carbon Dioxide 23 mmol/L 19-30 Calcium 8.9 mg/dL 8.6-10.3 Glucose 103 mg/dL High 65-99 49 Urea Nitrogen 18 mg/dL 7-25 Creatinine 0.90 mg/dL 0.70-1.18 50 BUN/Creatinine Ratio 19.6 6-22 CBC W/ Diff & PLT 06/27/2013 [facility] WBC 8.4 thous/L 3.8-10.8 [address] [facility] [place], [place] [address] [phone] RBC 5.80 mill/L 4.20-5.80 Hemoglobin 16.3 g/dL 13.2-17.1 Hematocrit 50.4 % High 38.5-50.0 MCV 87.0 FL 80.0-100.0 MCH 28.1 pg 27.0-33.0 MCHC 32.3 g/dL 32.0-36.0 RDW 14.2 % 11.0-15.0 Platelet Count 194 thous/L 140-400 Neutrophils,Absolute 5670 cells/L [phone] Lymphocytes,Absolute 1680 cells/L [phone] Monocytes,Absolute 570 cells/L 200-950 Eosinophils,Absolute 470 cells/L 15-500 Basophils,Absolute 30 cells/L 0-200 Total Neutrophils,% 67 % 38-80 Total Lymphocytes,% 20 % 15-49 Monocytes,% 7 % 0-13 Eosinophils,% 6 % 0-8 Basophils,% 0 % 0-2 Laboratory test finding 06/27/2013 [facility] Direct LDL 91 mg/dL <130 51 [address] [place] [address] [phone] Laboratory test finding 12/25/2012 [facility] Direct LDL 73 mg/dL <130 52 [address] [place] [address] [phone] Glucose 110 mg/dL High 65-99 53 BMP W/O Egfr 07/05/2012 [facility] Sodium 140 mmol/L 135-146 [address] [place] [address] [phone] Potassium 4.7 mmol/L 3.5-5.3 Chloride 107 mmol/L 98-110 Carbon Dioxide 26 mmol/L 21-33 Calcium 9.2 mg/dL 8.6-10.3 Glucose 104 mg/dL High 65-99 54 Urea Nitrogen 22 mg/dL 7-25 Creatinine 0.96 mg/dL 0.70-1.25 55 BUN/Creatinine Ratio 22.5 High 6-22 CBC W/ Diff & PLT 07/05/2012 [facility] WBC 8.9 thous/L 3.8-10.8 [address] [place] [address] [phone] RBC 5.63 mill/L 4.20-5.80 Hemoglobin 16.8 g/dL 13.2-17.1 Hematocrit 49.5 % 38.5-50.0 MCV 87.9 FL 80.0-100.0 MCH 29.8 pg 27.0-33.0 MCHC 33.9 g/dL 32.0-36.0 RDW 14.2 % 11.0-15.0 Platelet Count 204 thous/L 140-400 Neutrophils,Absolute 5730 cells/L [phone] Lymphocytes,Absolute 1930 cells/L 850-3900 Monocytes,Absolute 680 cells/L 200-950 Eosinophils,Absolute 480 cells/L 15-500 Basophils,Absolute 70 cells/L 0-200 Total Neutrophils,% 64 % 38-80 Total Lymphocytes,% 22 % 15-49 Monocytes,% 8 % 0-13 Eosinophils,% 5 % 0-8 Basophils,% 1 % 0-2 Laboratory test 07/05/2012 [facility] Direct LDL 88 mg/dL <130 56 finding [address] [place] [address] [phone] Culture,Urine,Voided 06/06/2012 [facility] Source URINE-CLEAN [address] CAT[place] <[place] [address] NOTE> [phone] Final Report (SEE NOTE) 58 Laboratory 01/03/2012 [facility] LDL Cholesterol,Direct 93 mg/dL <130 59 test finding [address] [place], [place] [address] [phone] Hepatic 06/30/2011 [facility] Alkaline Phosphatase 95 U/L 40-115 Function Panel [address] [place], [place] [address] [phone] Ast 16 U/L 10-35 Alt 18 U/L 9-60 Bilirubin,Total 0.4 mg/dL 0.2-1.2 Bilirubin,Direct 0.1 mg/dL < Or=0.2 Protein,Total 6.7 g/dL 6.2-8.3 Albumin 4.2 g/dL 3.6-5.1 Globulin,Calculated 2.5 g/dL 2.1-3.7 A/G Ratio 1.6 1.0-2.1 CBC W/ Diff & PLT 06/30/2011 [facility] WBC 10.3 thous/L 3.8-10.[address] [place], [place] [address] [phone] RBC 5.63 mill/L 4.20-5.80 Hemoglobin 16.7 g/dL 13.2-17.1 Hematocrit 50.0 % 38.5-50.0 MCV 88.9 FL 80.0-100.0 MCH 29.7 pg 27.0-33.0 MCHC 33.5 g/dL 32.0-36.0 RDW 14.3 % 11.0-15.0 Platelet Count 203 thous/L 140-400 Neutrophils,Absolute 6930 cells/L 4325-5324 Lymphocytes,Absolute 2040 cells/L [phone] Monocytes,Absolute 640 cells/L 200-950 Eosinophils,Absolute 580 cells/L High 15-500 Basophils,Absolute 60 cells/L 0-200 Total Neutrophils,% 68 % 38-80 Total Lymphocytes,% 20 % 15-49 Monocytes,% 6 % 0-13 Eosinophils,% 6 % 0-8 Basophils,% 1 % 0-2 Laboratory test 06/30/2011 [facility] PSA,Total 2.8 NG/ML 0.0-4.0 [address] [place], [place] [address] [phone] Basic Metabolic Panel 06/30/2011 [facility] Sodium 139 mmol/L 135-[address] [place] [address] [phone] Potassium 4.9 mmol/L 3.5-5.3 Chloride 104 mmol/L 98-110 Carbon Dioxide 28 mmol/L 21-33 Calcium 9.3 mg/dL 8.6-10.2 Glucose 103 mg/dL High 65-99 61 Urea Nitrogen 17 mg/dL 7-25 Creatinine 0.98 mg/dL 0.76-1.46 BUN/Creatinine Ratio 17.8 6-22 Egfr Non-Afr. Barbadian 79 ML/MIN/1.73M2 > Or=60 Egfr 91 ML/MIN/1.73M2 > Or=60 Laboratory 06/30/2011 [facility] LDL Cholesterol,Direct 75 mg/dL <130 62 test finding [address] [place] [address] [phone] Laboratory 12/22/2010 [facility] Cholesterol 137 125-200 test finding [address] mg/dL [place], [place] [address] [phone] LDL Cholesterol,Direct 80 mg/dL <130 63 HDL Cholesterol 24 mg/dL Low > Or=40 Triglycerides 206 mg/dL High <150 TSH & T4,Free 06/16/2010 [facility] TSH,3RD 1.37 mIU/L 0.40-4.[address] [place] [address] [phone] T4,Free 1.1 ng/dL 0.8-1.8 Basic Metabolic Panel 06/16/2010 [facility] Sodium 140 mmol/L 135-[address] [place] [address] [phone] Potassium 4.8 mmol/L 3.5-5.3 Chloride 104 mmol/L 98-110 Carbon Dioxide 27 mmol/L 21-33 Calcium 9.3 mg/dL 8.6-10.2 Glucose 106 mg/dL High 65-99 64 Urea Nitrogen 14 mg/dL 7-25 Creatinine 1.08 mg/dL 0.76-1.46 BUN/Creatinine Ratio 13.2 6-22 Egfr Non-Afr. Barbadian >60 ML/MIN/1.73M2 > Or=60 Egfr >60 ML/MIN/1.73M2 > Or=60 CBC W/ Diff & PLT 06/16/2010 [facility] WBC 9.7 thous/L 3.8-10.[address] [place] [address] [phone] RBC 5.61 mill/L 4.20-5.80 Hemoglobin 16.7 g/dL 13.2-17.1 Hematocrit 50.0 % 38.5-50.0 MCV 89.2 FL 80.0-100.0 MCH 29.9 pg 27.0-33.0 MCHC 33.5 g/dL 32.0-36.0 RDW 14.1 % 11.0-15.0 Platelet Count 224 thous/L 140-400 Platelet Sufficiency NORMAL Normal Neutrophils,Absolute 6360 cells/L [phone] Bands,Absolute DNR cells/L 0-750 Metamyelocytes,Absolute DNR cells/L [...] [facility] Cholesterol 138 mg/dL 125-[address] [place] [address] [phone] HDL Cholesterol 25 mg/dL Low > Or=40 Cholesterol/HDL Ratio 5.5 High < Or=5.0 LDL Chol,Calculated 75 mg/dL <130 65 Triglycerides 189 mg/dL High <150 Hepatic Function 06/16/2010 [facility] Alkaline Phosphatase 85 U/L 40- [address] [place] [address] [phone] Ast 21 U/L 10-35 Alt 19 U/L 9-60 Bilirubin,Total 0.4 mg/dL 0.2-1.2 Bilirubin,Direct 0.1 mg/dL < Or=0.2 Protein,Total 6.5 g/dL 6.2-8.3 Albumin 4.0 g/dL 3.6-5.1 Globulin,Calculated 2.5 g/dL 2.1-3.7 A/G Ratio 1.6 1.0-2.1 Laboratory test finding 02/20/2010 [facility] CK 67 U /L 26-[address] [place] [address] [phone] Troponin-I 0.0 NG/ML 0.0-0.6 66 Laboratory test finding 02/19/2010 [facility] CK 53 U /L 26-[address] [place] [address] [phone] Troponin-I 0.1 NG/ML 0.0-0.6 67 Basic Metabolic 02/19/2010 [facility] Glucose 136 mg/ dL High 76-[address] [place] [address] [phone] BUN 17 mg/dL 5-23 Creatinine 1.0 mg/dL 0.5-1.4 Glom Filtration Rate, Estimate >60 mL/min >60 If >60 mL/min >60 68 BUN/Creat 17.0 Sodium 139 mEq/L 136-145 Potassium 3.9 mEq/L 3.5-5.1 Chloride 104 mEq/L 98-107 Carbon Dioxide 28 mEq/L 21-32 Anion Gap 11 mEq/L 8-16 Calcium 8.8 mg/dL 8.5-10.1 Laboratory test finding 02/19/2010 [facility] CK 73 U /L 26-[address] [place], [place] [id number] [phone] Troponin-I 0.0 NG/ML 0.0-0.6 69 CBS W/Automated 02/19/2010 [facility] White Blood 11.1 K/uL High 3.4-10.[address] Count [place], [place] [id number] [phone] Red Blood Count 5.82 M/uL High 4.20-5.80 Hemoglobin 17.0 gm/dL 12.8-17.0 Hematocrit 49.4 % High 38.0-48.0 Mean Cell Volume 84.9 fl 80.0-96.0 Mean Corpuscular HGB 29.2 pg 27.0-33.0 Mean Corpuscular HGB Conc 34.4 g/dL 31.7-36.0 Platelet Count 224 K/uL 150-400 Red Cell Distri Width %CV 14.0 % 11.6-15.8 Mean Platelet Volume 9.9 fL 6.6-10.6 Neut% 66.5 % 33.0-73.0 Lymph % 20.8 % 17.0-56.0 [place] % 7.4 % 0.0-10.0 Eo% 4.9 % 0.0-5.0 Bas% 0.4 % 0.1-1.0 Neut# 7.4 K/uL High 1.8-7.0 Lymph # 2.3 K/uL 1.2-4.0 [place] # 0.8 K/uL High 0.0-0.6 Eos # 0.5 K/uL 0.0-0.5 Baso # 0.0 K/uL Low 0.1-0.2 Red Cell Distri Width SD 43 fl 36-51 Laboratory test 02/19/2010 [facility] Magnesium 2.0 mg/dL 1.7-2.[address] [place], [place] [id number] [phone] Protime 02/19/2010 [facility] Protime 14.2 seconds 11.7-15.[address] [place], [place] [id number] [phone] Inr 1.1 0.8-1.2 70 Laboratory test 02/19/2010 [facility] Act Partial 29.7 23.4-37.4 [address] [place] [address] [phone] Lipid Panel 12/15/2009 [facility] Cholesterol 139 mg/dL 125-[address] [place], [place] [id number] [phone] HDL Cholesterol 26 mg/dL Low > Or=40 Triglycerides 173 mg/dL High <150 Cholesterol/HDL Ratio 5.3 High < Or=5.0 LDL Chol,Calculated 78 mg/dL <130 72 CBC W/ Diff & PLT 06/12/2009 [facility] WBC 8.4 thous/L 3.8-10.[address] [place] [address] [phone] RBC 5.93 mill/L High 4.20-5.80 Hemoglobin 17.2 g/dL High 13.2-17.1 Hematocrit 51.6 % High 38.5-50.0 MCV 86.9 FL 80.0-100.0 MCH 28.9 pg 27.0-33.0 MCHC 33.3 g/dL 32.0-36.0 RDW 14.1 % 11.0-15.0 Platelet Count 214 thous/L 140-400 Platelet Sufficiency NORMAL Normal Neutrophils,Absolute 5430 cells/L 8821-6745 Bands,Absolute DNR cells/L 0-750 Metamyelocytes,Absolute DNR cells/L [...] [facility] Sodium 139 mmol/L 135-[address] [place] [address] [phone] Potassium 4.8 mmol/L 3.5-5.3 Chloride 103 mmol/L 98-110 Carbon Dioxide 25 mmol/L 21-33 Calcium 9.7 mg/dL 8.6-10.2 Glucose 102 mg/dL High 65-99 73 Urea Nitrogen 18 mg/dL 7-25 Creatinine 1.12 mg/dL 0.76-1.46 BUN/Creatinine Ratio 16.1 6-22 Egfr Non-Afr. Barbadian >60 ML/MIN/1.73M2 > Or=60 Egfr >60 ML/MIN/1.73M2 > Or=60 Hepatic Function 06/12/2009 [facility] Alkaline Phosphatase 96 U/L 40- [address] [place] [address] [phone] Ast 20 U/L 10-35 Alt 20 U/L 9-60 Bilirubin,Total 0.5 mg/dL 0.2-1.2 Bilirubin,Direct 0.1 mg/dL < Or=0.2 Protein,Total 7.3 g/dL 6.2-8.3 Albumin 4.3 g/dL 3.6-5.1 Globulin,Calculated 3.0 g/dL 2.1-3.7 A/G Ratio 1.4 1.0-2.1 Lipid Panel 06/12/2009 [facility] Cholesterol 164 mg/dL 125-[address] [place] [address] [phone] HDL Cholesterol 28 mg/dL Low > Or=40 Cholesterol/HDL Ratio 5.9 High < Or=5.0 LDL Chol,Calculated 93 mg/dL <130 74 Triglycerides 213 mg/dL High <150 Laboratory test 12/12/2008 [facility] Creatine 191 U/L 44-[address] Kinase,[place] [address] [phone] Lipid Panel 12/12/2008 [facility] Cholesterol 153 mg/dL 125-[address] [place], [place] [id number] [phone] HDL Cholesterol 25 mg/dL Low > Or=40 Cholesterol/HDL Ratio 6.1 High < Or=5.0 LDL Chol,Calculated 75 mg/dL <130 75 Triglycerides 267 mg/dL High <150 Hepatic Function 12/12/2008 [facility] Alkaline Phosphatase 82 U/L 40- 115 Panel 6 [facility] [place] [address] [phone] Ast 20 U/L 10-35 Alt 19 U/L 9-60 Bilirubin,Total 0.4 mg/dL 0.2-1.2 Bilirubin,Direct 0.1 mg/dL < Or=0.2 Protein,Total 6.9 g/dL 6.2-8.3 Albumin 4.1 g/dL 3.6-5.1 Globulin,Calculated 2.8 g/dL 2.1-3.7 A/G Ratio 1.4 1.0-2.1 CBC W/ Diff & PLT 08/07/2008 [facility] WBC 8.8 thous/L 3.8-10.8 6 [facility] [place] [address] [phone] RBC 5.87 mill/L High 4.20-5.80 Hemoglobin 17.1 g/dL 13.2-17.1 Hematocrit 49.6 % 38.5-50.0 MCV 84.5 FL 80.0-100.0 MCH 29.1 pg 27.0-33.0 MCHC 34.5 g/dL 32.0-36.0 RDW 14.2 % 11.0-15.0 Platelet Count 246 thous/L 140-400 Platelet Sufficiency NORMAL Normal Neutrophils,Absolute 5150 cells/L [phone] Bands,Absolute DNR cells/L 0-750 Metamyelocytes,Absolute DNR cells/L [...] [facility] Sodium 140 mmol/L 135-[address] [place], [place] [address] [phone] Potassium 4.9 mmol/L 3.5-5.3 Chloride 105 mmol/L 98-110 Carbon Dioxide 29 mmol/L 21-33 Calcium 9.6 mg/dL 8.6-10.2 Glucose 94 mg/dL 65-99 76 Urea Nitrogen 17 mg/dL 7-25 Creatinine 1.03 mg/dL 0.50-1.30 BUN/Creatinine Ratio 16.8 6-22 Egfr Non-Afr. Barb[place] >60 ML/MIN/1.73M2 > Or=60 Egfr >60 ML/MIN/1.73M2 > Or=60 TSH & T4,Free 08/07/2008 [facility] TSH,3RD 1.92 mU/L 0.40-4.[address] [place], [place] [id number] [phone] T4,Free 1.1 ng/dL 0.8-1.8 Lipid Panel 08/07/2008 [facility] Cholesterol 145 mg/dL 125-[address] [place], [place] [address] [phone] HDL Cholesterol 29 mg/dL Low > Or=40 Triglycerides 168 mg/dL High <150 Cholesterol/HDL Ratio 5.0 < Or=5.0 LDL Chol,Calculated 82 mg/dL <130 77 Lipid Panel 01/30/2008 [facility] Cholesterol 147 mg/dL 125-[address] [place], [place] [address] [phone] HDL Cholesterol 30 mg/dL Low > Or=40 78 Cholesterol/HDL Ratio 4.9 < Or=5.0 LDL Chol,Calculated 86 mg/dL <130 79 Triglycerides 153 mg/dL High <150 Hepatic Function 01/30/2008 [facility] Alkaline Phosphatase 86 U/L 40- 115 Panel 6 [place] [address] [phone] Ast 19 U/L 10-35 Alt 19 U/L 9-60 Bilirubin,Total 0.4 mg/dL 0.2-1.2 Bilirubin,Direct 0.1 mg/dL < Or=0.2 Protein,Total 6.8 g/dL 6.2-8.3 Albumin 3.9 g/dL 3.6-5.1 Globulin,Calculated 2.9 g/dL 2.1-3.7 A/G Ratio 1.4 1.0-2.1 CBC W/ Diff & PLT 08/01/2007 [facility] WBC 9.9 thous/L 3.8-10.8 6 [place] [address] [phone] RBC 5.85 mill/L High 4.20-5.80 Hemoglobin 16.5 g/dL 13.2-17.1 Hematocrit 49.7 % 38.5-50.0 MCV 85.0 FL 80.0-100.0 MCH 28.2 pg 27.0-33.0 MCHC 33.2 g/dL 32.0-36.0 RDW 14.1 % 11.0-15.0 Platelet Count 264 thous/L 140-400 Platelet Sufficiency NORMAL Normal Neutrophils,Absolute 6720 cells/L 7868-6981 Bands,Absolute DNR cells/L 0-750 Metamyelocytes,Absolute DNR cells/L [...] [facility] Cholesterol 162 mg/dL 125-[address] [place] [address] [phone] HDL Cholesterol 24 mg/dL Low > Or=40 80 Cholesterol/HDL Ratio 6.8 High < Or=5.0 LDL Chol,Calculated 103 mg/dL <130 81 Triglycerides 173 mg/dL High <150 TSH & T4,Free 08/01/2007 [facility] TSH,3RD 1.34 mU/L 0.40-4.[address] [place] [address] [phone] T4,Free 1.1 ng/dL 0.8-1.8 Basic Metabolic Panel 08/01/2007 [facility] Sodium 139 mmol/L 135-[address] [place] [address] [phone] Potassium 4.9 mmol/L 3.5-5.3 Chloride 106 mmol/L 98-110 Carbon Dioxide 28 mmol/L 21-33 Calcium 9.3 mg/dL 8.6-10.2 Glucose 106 mg/dL High 65-99 82 Urea Nitrogen 18 mg/dL 7-25 Creatinine 1.09 mg/dL 0.50-1.30 BUN/Creatinine Ratio 16.2 6-22 Egfr Non-Afr. Barb[place] >60 ML/MIN/1.7 > Or=60 Egfr >60 ML/MIN/1.7 > Or=60 Basic Metabolic Panel 08/03/2006 [facility] Sodium 140 mmol/L 135-[address] [place] [address] [phone] Potassium 4.6 mmol/L 3.5-5.3 Chloride 104 mmol/L 98-110 Carbon Dioxide 31 mmol/L 21-33 Calcium 9.6 mg/dL 8.5-10.4 Glucose 105 mg/dL High 65-99 83 Urea Nitrogen 12 mg/dL 7-25 Creatinine 1.0 mg/dL 0.5-1.4 BUN/Creatinine Ratio 11.8 6-25 GFR Estimated >60 ML/MIN/1.7 >59 84 Lipid Panel 08/03/2006 [facility] Cholesterol 166 mg/dL <[address] [place], [place] [address] [phone] HDL Cholesterol 25 mg/dL Low >40 85 Triglycerides 214 mg/dL High <150 Cholesterol/HDL Ratio 6.6 High <5.0 LDL Chol,Calculated 98 mg/dL <130 86 CBC W/ Diff & PLT 08/03/2006 [facility] WBC 10.6 thous/L 3.8-10.8 [address] [place], [place] [address] [phone] RBC 5.86 mill/L High 4.20-5.80 Hemoglobin 16.8 g/dL 13.2-17.1 Hematocrit 49.5 % 38.5-50.0 MCV 84.4 FL 80.0-100.0 MCH 28.7 pg 27.0-33.0 MCHC 34.0 g/dL 32.0-36.0 RDW 14.5 % 11.0-15.0 Platelet Count 259 thous/L 140-400 Platelet Sufficiency NORMAL Normal Neutrophils,Absolute 7120 cells/L 1165-6953 Bands,Absolute DNR cells/L 0-750 Metamyelocytes,Absolute DNR cells/L [...] [facility] Cholesterol 155 mg/dL <200 [address] [place] [address] [phone] HDL Cholesterol 26 mg/dL Low >40 87 Triglycerides 199 mg/dL High <150 Cholesterol/HDL Ratio 6.0 High <5.0 LDL Chol,Calculated 89 mg/dL <130 88 Hepatic Function 02/08/2006 [facility] Alkaline Phosphatase 99 U/L 20- 125 Panel 6 [place] [address] [phone] Ast 17 U/L 3-50 Alt 16 U/L 3-60 Bilirubin,Total 0.3 mg/dL 0.2-1.5 Bilirubin,Direct 0.1 mg/dL 0.0-0.3 Protein,Total 6.8 g/dL 6.0-8.3 Albumin 4.0 g/dL 3.2-4.6 Basic Metabolic Panel 08/06/2005 [facility] Sodium 141 mmol/L 135-146 [address] [place] [address] [phone] Potassium 5.2 mmol/L 3.5-5.3 Chloride 107 mmol/L 98-110 Carbon Dioxide 20 mmol/L Low 21-33 Calcium 9.4 mg/dL 8.5-10.4 Glucose 99 mg/dL 65-99 89 Urea Nitrogen 18 mg/dL 7-25 Creatinine 1.1 mg/dL 0.5-1.4 BUN/Creatinine Ratio 17.1 6-25 GFR Estimated >60 ML/MIN/1.7 >59 90 CBC W/ Diff & PLT 08/06/2005 [facility] WBC 10.1 thous/L 3.8-10.8 6 [place] [address] [phone] RBC 6.15 mill/L High 4.20-5.80 Hemoglobin 17.2 g/dL High 13.2-17.1 Hematocrit 51.9 % High 38.5-50.0 MCV 84.4 FL 80.0-100.0 MCH 28.0 pg 27.0-33.0 MCHC 33.2 g/dL 32.0-36.0 RDW 14.6 % 11.0-15.0 Platelet Count 274 thous/L 140-400 Platelet Sufficiency NORMAL Neutrophils,Absolute 6850 cells/L 4257-6748 Bands,Absolute DNR cells/L 0-750 Metamyelocytes,Absolute DNR cells/L [...] [facility] Cholesterol 168 mg/dL <[address] [place] [address] [phone] HDL Cholesterol 27 mg/dL Low >40 91 Triglycerides 153 mg/dL High <150 Cholesterol/HDL Ratio 6.2 High <5.0 LDL Chol,Calculated 110 mg/dL <130 92 Laboratory test 08/06/2005 [facility] PSA,Total 2.3 NG/ML 0.0-4.0 [address] Screening [place], [place] [id number] Medicare [phone] TSH 1.31 mU/L 0.40-5.50 1 SEE RESULT BELOW Name: FAUSTINO MORALES : [address]: Carl Bowden MD Acct: [id number] Unit: [id number] AGE: 77 Location: ED Re01/26/18 SEX: M Status: DEP ER SPEC: [id number] MARIJA: 01/26/[address] [facility] [address]: Carl Bowden MD REQ: [id number] RECD: 01/26/18 STATUS: ALETA BONE DR: Smiley Loyd MD _ SOURCE: URINE SPDESC: ORDERED: Urine Culture Procedure Result Reported Site Urine Culture Final 01/27/18- 1709 ML No Growth (<1,000 CFU/mL) * ML - Main Lab . END OF REPORT DEPARTMENT OF PATHOLOGY, [address] [place] [address] Jeyson Lloyd M.D. Director [facility] # [id number] 2 Relative blood cell counts (%) should [...] approximately 13% higher for people identified as -Barbadian. 5 LDL-C is now calculated using the Jac-Spain calculation, which is a validated novel method providing better accuracy than the Friedewald equation in the estimation of LDL-C. Jac SS et al.SUBHA.2013;310(19):8551-1277 Desirable range <100 mg/dL for primary prevention; <70 mg/dL for patients with CHD or diabetic patients with >or=2 CHD risk factors. For additional information, please refer to http://education.Instabug/faq/CGL942(This link is being provided for informational/educational purposes [...] approximately 13% higher for people identified as -Barbadian. 11 LDL-C is now calculated using the Mary calculation, which is a validated novel method providing better accuracy than the Friedewald equation in the estimation of LDL-C. Jac GREENBERG et al.SUBHA.2013;310(19):6047-7367 (http://CleanScapes.Instabug/faq/PZC004) Desirable range <100 mg/dL for patients with [...] Garces, 2015. Pediatric Reference Intervals, 7th Ed, [facility] [employer], 2011. 17 GLUCOSE REFERENCE RANGE BASED ON FASTING SPECIMEN. 18 The upper reference limit for Creatinine is approximately 13% higher for people identified as -Barbadian. 19 Because ethnic data is not always [...] 0.03 ng/mL Not supportive of diagnosis of [place] 0.03 - 0.50 ng/mL Indeterminate: suggest serial studies if clinically indicated. Greater than 0.5 ng/mL Consistent with diagnosis of [place] 21 CORRECTING 22 [facility] Severe Sepsis and Septic Shock Management Bundle [...] 0.03 ng/mL Not supportive of diagnosis of [place] 0.03 - 0.50 ng/mL Indeterminate: suggest serial studies if clinically indicated. Greater than 0.5 ng/mL Consistent with diagnosis of [place] 26 CORRECTING 27 Acute inflammation: >10.00 28 [...] Garces, 2015. Pediatric Reference Intervals, 7th Ed, [facility], 2011. 31 GLUCOSE REFERENCE RANGE BASED ON FASTING SPECIMEN. 32 The upper reference limit for Creatinine is approximately 13% higher for people identified as -Barbadian. 33 LDL-CHOLESTEROL RISK CATEGORY* GOAL VERY HIGH [...] 0.03 ng/mL Not supportive of diagnosis of [place] 0.03 - 0.50 ng/mL Indeterminate: suggest serial studies if clinically indicated. Greater than 0.5 ng/mL Consistent with diagnosis of [place] 38 Acute inflammation: >10.00 39 CEE IN ED NOTIFIED NEED TO COLLECT NARVAEZ TUBE 1705 40 GLUCOSE REFERENCE RANGE BASED ON FASTING SPECIMEN. 41 The upper reference limit for Creatinine is approximately 13% higher for people identified as -Barbadian. 42 LDL-CHOLESTEROL RISK CATEGORY* GOAL VERY HIGH [...] approximately 13% higher for people identified as -Barbadian. 48 LDL-CHOLESTEROL RISK CATEGORY* GOAL VERY HIGH [...] approximately 13% higher for people identified as -Barbadian. 51 LDL-CHOLESTEROL RISK CATEGORY* GOAL VERY HIGH [...] approximately 13% higher for people identified as -Barbadian. 56 LDL-CHOLESTEROL RISK CATEGORY* GOAL VERY HIGH [...] FOR RACE, IF THE PATIENT RACE IS -ECUADOREAN, THE GFR ESTIMATE MUST BE MULTIPLIED BY [...] FOR RACE, IF THE PATIENT'S RACE IS -ECUADOREAN, THE GFR ESTIMATE MUST BE MULTIPLIED BY [...] METHOD. Procedures Date Code Description Status 06/22/2017 49751 EKG-Tracing & Report Completed 07/05/2016 71159 EKG-Tracing & Report Completed 06/30/2016 62509 Non-Invcorrotid/Comp /Bilat Study Completed 06/30/2016 55133 Echocardiography Completed 07/10/2015 09370 EKG-Tracing & Report Completed 07/08/2015 57486 Non-Invcorrotid/Comp /Bilat Study Completed 07/08/2015 09472 Echocardiography Completed 06/27/2014 53047 EKG-Tracing & Report Completed 06/26/2014 67033 Holter Monitor Office Completed 06/25/2014 97401 Non-Invcorrotid/Comp /Bilat Study Completed 06/25/2014 70162 Echocardiography Completed 06/27/2013 76613 EKG-Tracing & Report Completed 06/25/2013 97063 Echocardiography Completed 06/25/2013 73651 Non-Invcorrotid/Comp /Bilat Study Completed 07/06/2012 90326 Non-Invcorrotid/Comp /Bilat Study Completed 07/06/2012 50499 Echocardiography Completed 07/05/2012 18807 EKG-Tracing & Report Completed 06/30/2011 28698 Non-Invcorrotid/Comp /Bilat Study Completed 06/30/2011 92439 Echocardiography Completed 06/30/2011 80991 EKG-Tracing & Report Completed 06/17/2010 42632 Non-Invcorrotid/Comp /Bilat Study Completed 06/17/2010 29285 Echocardiography Completed 06/16/2010 34101 Holter Monitor Office Completed 06/16/2010 07058 EKG-Tracing & Report Completed 06/12/2009 33716 Holter Monitor Office Completed 06/12/2009 85317 EKG-Tracing & Report Completed 06/10/2009 80351 Echocardiography Completed 06/10/2009 71613 Non-Invcorrotid/Comp /Bilat Study Completed 08/07/2008 05626 EKG-Tracing & Report Completed 07/30/2008 41709 Non-Invcorrotid/Comp /Bilat Study Completed 07/30/2008 57060 Doppler/ECHO Completed 07/30/2008 01497 ECHO-2D W/Wo M-Mode Completed 01/30/2008 31384 PFT Evaluation Completed 08/01/2007 39750 EKG-Tracing & Report Completed 07/27/2007 96114 Non-Invcorrotid/Comp /Bilat Study Completed 07/27/2007 71404 Doppler Color Flow Velocity Completed 07/27/2007 66884 Doppler/ECHO Completed 07/27/2007 87058 ECHO-2D W/Wo M-Mode Completed 08/03/2006 94668 EKG-Tracing & Report Completed 08/03/2006 87236 ECHO-2D W/Wo M-Mode Completed 08/03/2006 25533 Doppler/ECHO Completed 08/03/2006 05408 Doppler Color Flow Velocity Completed 08/03/2006 13771 Non-Invcorrotid/Comp /Bilat Study Completed 11/15/2005 72893 Spirometry Graphic Record/Max Voluntary Vent Completed 08/06/2005 65384 Spirometry Graphic Record/Max Voluntary Vent Completed 08/06/2005 09273 PVR-Atrerial Study Completed 08/06/2005 06629 Holter Monitor Office Completed 08/06/2005 52842 EKG-Tracing & Report Completed 08/04/2005 22376 Non-Invcorrotid/Comp /Bilat Study Completed 08/04/2005 37078 Doppler Color Flow Velocity Completed 08/04/2005 92690 Doppler/ECHO Completed 08/04/2005 46857 ECHO-2D W/Wo M-Mode Completed 06/23/2005 69663 Spirometry Graphic Record/Max Voluntary Vent Completed Encounters [...] limb Office Visit 01/10/2017 10:30a Main Office Smiley Loyd E78.5 Hyperlipidemia, M.D. unspecified I25.10 Athscl heart disease of [place] coronary artery w/o ang pctrs I11.9 Hypertensive heart disease without heart failure N40.0 Benign prostatic hyperplasia without lower urinry tract symp M54.16 Radiculopathy, lumbar region Office Visit 09/20/2016 2:30p Main Office Smiley Loyd J02.0 Streptococcal M.D. pharyngitis Office Visit 07/12/2016 11:00a Main Office Court John8.5 Hyperlipidemia, M.D. unspecified I34.0 Nonrheumatic mitral (valve) insufficiency I25.10 Athscl heart disease of [place] coronary artery w/o ang pctrs I11.9 Hypertensive heart disease without heart failure Office Visit 04/22/2016 10:45a Main Office Smiley Loyd, J02.9 Acute pharyngitis, M.D. unspecified Office Visit 03/03/2016 8:15a Main Office Ambrocio Lynn MD J20.9 Acute bronchitis, unspecified E78.5 Hyperlipidemia, unspecified Office Visit 02/26/2016 11:00a Main Office Smiley Loyd J20.9 Acute bronchitis, M.D. unspecified Office Visit 01/15/2016 10:45a Main Office Smiley Loyd E78.5 Hyperlipidemia, M.D. unspecified I25.10 Athscl heart disease of [place] coronary artery w/o ang pctrs I11.9 Hypertensive heart disease without heart failure Office Visit 07/16/2015 1:30p Main Office Smiley Loyd E78.5 Hyperlipidemia, M.D. unspecified I25.10 Athscl heart disease of [place] coronary artery w/o ang pctrs I11.9 Hypertensive heart disease without heart failure M15.9 Polyosteoarthritis, unspecified Z23 Encounter for immunization Office Visit 01/21/2015 1:45p Main Office Smiley Loyd M.D. 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 Unspec 414.01 Coronary Atherosclerosis [place] 402.10 Hypertensive Heart Disease Benign W/O Heart Failure Office Visit 07/08/2014 2:00p Main Office Smiley Loyd, 272.4 Hyperlipidemia Other M.D. Unspec 414.01 Coronary Atherosclerosis [place] 402.10 Hypertensive Heart Disease Benign W/O Heart Failure V04.81 Need For Prophylactic Vaccination & Inoculation/Influenza V03.82 Streptococcus Pneumoniae Vaccination Spec Other Office Visit 04/10/2014 11:45a Main Office Smiley Loyd, 460.00 Upper Respiratory M.D. Infection 461.9 Sinusitis Acute Unspec Office Visit 01/14/2014 11:30a Main Office Smiley Loyd, 414.01 Coronary M.D. Atherosclerosis [place] 402.10 Hypertensive Heart Disease Benign W/O Heart Failure 272.4 Hyperlipidemia Other Unspec Office Visit 07/11/2013 11:30a Main Office Smiley Loyd M.D. 424.0 Mitral Valve Disorder 414.01 Coronary Atherosclerosis [place] 402.10 Hypertensive Heart Disease Benign W/O Heart Failure 272.4 Hyperlipidemia Other Unspec Office Visit 04/19/2013 1:30p Main Office Smiley Loyd M.D. 462 Pharyngitis Acute V04.81 Need For Prophylactic Vaccination & Inoculation/Influenza Office Visit 01/08/2013 10:30a Main Office Smiley Loyd 272.4 Hyperlipidemia Other M.D. Unspec 414.01 Coronary Atherosclerosis [place] 402.10 Hypertensive Heart Disease Benign W/O Heart Failure Office Visit 07/10/2012 10:30a Main Office Smiley Loyd 272.4 Hyperlipidemia Other M.D. Unspec 424.0 Mitral Valve Disorder 414.01 Coronary Atherosclerosis [place] 402.10 Hypertensive Heart Disease Benign W/O Heart Failure Office Visit 06/06/2012 1:45p Main Office Smiley Loyd, 599.70 Hematuria M.D. Office Visit 05/25/2012 10:30a Main Office Smiley Loyd, 465.8 Upper Respiratory M.D. Infections Acute Other Multiple Sites 305.1 Tobacco Use Disorder Office Visit 01/10/2012 10:45a Main Office Smiley Loyd, 272.4 Hyperlipidemia Other M.D. Unspec 414.01 Coronary Atherosclerosis [place] 402.10 Hypertensive Heart Disease Benign W/O Heart Failure 715.90 Degenerative Joint Disease Genlzd Or Localzd Site Unspec 682.90 Cellulitis Office Visit 07/07/2011 10:30a Main Office Smiley Loyd, 272.4 Hyperlipidemia Other M.D. Unspec 414.01 Coronary Atherosclerosis [place] 274.90 Gout 402.10 Hypertensive Heart Disease Benign W/O Heart Failure 715.90 Degenerative Joint Disease Genlzd Or Localzd Site Unspec 682.90 Cellulitis V70.0 Examination General Medical Routine AT Health Care Facility Office Visit 04/01/2011 11:00a Main Office Smiley Loyd M.D. 682.90 Cellulitis 274.90 Gout 272.4 Hyperlipidemia Other Unspec 414.01 Coronary Atherosclerosis [place] 402.10 Hypertensive Heart Disease Benign W/O Heart Failure 715.90 Degenerative Joint Disease Genlzd Or Localzd Site Unspec V04.81 Need For Prophylactic Vaccination & Inoculation/Influenza Office Visit 03/23/2011 1:45p Main Office Ambrocio Lynn MD 682.90 Cellulitis 272.4 Hyperlipidemia Other Unspec GENERAL General Office Visit 12/28/2010 10:30a Main Office Smiley Loyd, 272.4 Hyperlipidemia Other M.D. Unspec 414.01 Coronary Atherosclerosis [place] 402.10 Hypertensive Heart Disease Benign W/O Heart Failure 715.90 Degenerative Joint Disease Genlzd Or Localzd Site Unspec Office Visit 06/29/2010 10:30a Main Office Smiley Loyd, 272.4 Hyperlipidemia Other M.D. Unspec 414.01 Coronary Atherosclerosis [place] 402.10 Hypertensive Heart Disease Benign W/O Heart Failure 715.90 Degenerative Joint Disease Genlzd Or Localzd Site Unspec V04.81 Need For Prophylactic Vaccination & Inoculation/Influenza Office Visit 12/25/2009 10:45a Main Office Smiley Loyd, 272.4 Hyperlipidemia Other M.D. Unspec 414.01 Coronary Atherosclerosis [place] Office Visit 06/26/2009 10:30a Main Office Smiley Loyd, 272.4 Hyperlipidemia Other M.D. Unspec 414.01 Coronary Atherosclerosis [place] 402.10 Hypertensive Heart Disease Benign W/O Heart Failure Office Visit 12/26/2008 11:00a Main Office Smiley Loyd, 272.4 Hyperlipidemia Other M.D. Unspec 414.01 Coronary Atherosclerosis [place] 402.10 Hypertensive Heart Disease Benign W/O Heart Failure Office Visit 08/15/2008 10:30a Main Office Smiley Loyd, 272.4 Hyperlipidemia Other M.D. Unspec 414.01 Coronary Atherosclerosis [place] 402.10 Hypertensive Heart Disease Benign W/O Heart Failure 462 Pharyngitis Acute Office Visit 02/21/2008 11:30a Main Office Smiley Loyd M.D. 496 Chronic Obstructive Pulmonary Disease 414.01 Coronary Atherosclerosis [place] 402.10 Hypertensive Heart Disease Benign W/O Heart Failure 272.4 Hyperlipidemia Other Unspec 272.40 Hyperlipidemia Office Visit 02/01/2008 10:45a Main Office Smiley Loyd M.D. 274.9 Gout Unspec Office Visit 08/15/2007 10:30a Main Office Smiley Loyd M.D. V15.82 History Personal Tobacco Use 414.01 Coronary Atherosclerosis [place] 402.10 Hypertensive Heart Disease Benign W/O Heart Failure 272.40 Hyperlipidemia Office Visit 02/14/2007 10:15a Main Office Smiley Loyd 402.10 Hypertensive Heart M.D. Disease Benign W/O Heart Failure 272.40 Hyperlipidemia 530.81 Esophageal Reflux Office Visit 10/19/2006 1:30p Main Office Smiley Loyd M.D. 462 Pharyngitis Acute Office Visit 08/17/2006 10:15a Main Office Smiley Loyd M.D. 272.40 Hyperlipidemia 414.01 Coronary Atherosclerosis [place] 402.10 Hypertensive Heart Disease Benign W/O Heart Failure 496 Chronic Obstructive Pulmonary Disease V15.82 History Personal Tobacco Use 305.1 Tobacco Use Disorder 460.00 Upper Respiratory Infection Office Visit 04/13/2006 10:45a Main Office Smiley Loyd, 569.89 Intestine Disorders M.D. Other Office Visit 02/15/2006 10:00a Main Office Smiley Loyd 414.01 Coronary M.D. Atherosclerosis [place] 496 Chronic Obstructive Pulmonary Disease 272.40 Hyperlipidemia Office Visit 11/15/2005 10:00a Main Office Smiley Loyd M.D. 496 Chronic Obstructive Pulmonary Disease 272.40 Hyperlipidemia 414.01 Coronary Atherosclerosis [place] Office Visit 08/17/2005 10:30a Main Office Smiley Loyd M.D. 272.40 Hyperlipidemia 496 Chronic Obstructive Pulmonary Disease 414.01 Coronary Atherosclerosis [place] Office Visit 05/20/2005 11:00a Main Office Paramjit Porras 49Eric Chronic Obstructive MD [place] Pulmonary Disease Office Visit 12/24/2004 10:15a Main Office Smiley Loyd 414.01 Coronary M.D. Atherosclerosis [place] 272.40 Hyperlipidemia 715.90 Degenerative Joint Disease Genlzd Or Localzd Site Unspec Office Visit 10/28/2004 11:45a Main Office Smiley Loyd 414.01 Coronary M.D. Atherosclerosis [place] Office Visit 07/27/2004 10:30a Main Office Anna John Pharyngitis Acute M.D. Office Visit 06/25/2004 11:00a Main Office Smiley Loyd 414.01 Coronary M.D. Atherosclerosis [place] 530.81 Esophageal Reflux 272.40 Hyperlipidemia Plan of Treatment Future Appointment(s):06/26/2018 12:30 pm - Ultrasound at Main Qjlhxd3406/28/2018 8:30 am - Nurse at Main Fdjzrx9607/10/2018 10:30 am - Smiley Loyd M.D. at Main Nbqbye2905/17/2018 - Smiley Loyd M.D.K59.00 Constipation, unspecifiedNew Medication:Miralax [...]
--- OUTSIDE RECORDS SUMMARY | 2018-05-21 10:54 | XMS REPORT | Continuity of Care Document ---
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 directed Pantoprazole 09/08/ Active Tablets DR 40mg 90tabs take 1 Smiley Sodium 2009 tablet Evert, daily M.D. Simvastatin 04/28/ Active Tablets 40mg 90tabs take 1 E78.5 Smiley 2008 tablet Evert, daily (max M.D. daily dose: 1 tablet) mdd 1 Metoprolol 03/26/ Active Tablets 50mg 90tabs take Smiley Tartrate 2008 one-half Evert (07/26) M.DDebra tablet twice a day Asp 08/16/ Active Tablets 325mg 1 po qd Smiley 2005 Belkys Loyd Flomax / Active Capsules 0.4mg 90caps 1 po qd Anthony, 0000 Arnold Finasteride / Active Tablets 5mg 1 by mouth Unknown 0000 every day Azithromycin 06/22/ Hx Tablets 250mg 6tabs 2 by mouth J02.9 Smiley 2016 - today, 1 Evert, 07/06/ by mouth M.DDebra 2016 day 2 thru 5 Cephalexin 04/07/ Hx Capsules 500mg 14caps 1 by mouth L03.114 Smiley 2016 - twice a Evert, 07/06/ day with M.DDebra 2017 food Azithromycin 04/22/ Hx Tablets 250mg 6tabs 2 by mouth J02.9 Smiley 2015 - today, 1 Evert, 04/07/ by mouth M.DDebra 2016 day 2 thru 5 Zithromax 03/03/ Hx Tablets 250mg 6pills 2 by mouth Russelyn 2015 - day 1, 1 MD Leah 04/22/ by mouth 2015 every day x days 2-5 Amoxicillin/Cla 02/25/ Hx Tablets 875-125mg 14tabs 1 by mouth J20.9 Smiley delgadoanate 2016 - twice a Gauss, Potassium 03/03/ day M.DDebra 2016 Flagyl 01/16/ Hx Tablets 500mg 1 by mouth Unknown 2015 - three 01/14/ times a 2015 day Ciprofloxacin 01/16/ Hx Tablets 500mg 1 by mouth Unknown HCL 2014 - twice a 01/26/ day 2014 Amoxicillin 04/10/ Hx Capsules 500mg 14caps 1 tablets 461.9 Smiley 2013 - by mouth Evert, 01/21/ twice a M.D. 2015 day Amoxicillin 04/19/ Hx Capsules 250mg 30caps 1 po tid 462 Smiley 2012 - Evert, 06/19/ M.D. 2012 Sulfamethoxazol 06/06/ Hx Tablets 800-160mg 30tabs 1 po bid 599.70 Smiley e/Trimethoprim 2011 - Evert, DS 07/10/ M.D. 2011 Azithromycin 05/25/ Hx Tablets 250mg 6tabs 2 po 465.8 Smiley 2011 - today, 1 Evert, 06/06/ po day 2 M.D. 2012 thru 5 Keflex 04/06/ Hx Capsules 500mg 21caps 1 po tid 682.90 Smiley 2010 - Evert, 07/07/ M.D. 2010 Bactrim DS 04/01/ Hx Tablets 800-160mg 14tabs 1 po bid 682.90 Smiley 2010 - Evert, 04/06/ M.D. 2010 Indomethacin 04/01/ Hx Capsules 50mg 30caps 1 po tid 274.90 Smiley 2010 - with food Evert, 07/10/ prn M.D. 2012 Levaquin 03/23/ Hx Tablets 500mg 10tabs 1 po qd Ambrocio 2010 - MD Leah 2010 Amoxicillin 08/15/ Hx Tablets 500mg 20tabs 1 po bid 462 Smiley 2009 - Evert, 12/26/ M.D. 2009 Indomethacin 01/31/ Hx Capsules 25mg 20caps 1 po tid 274.9 Smiley 2008 - with food Evert, 08/15/ prn foot M.D. 2009 pain Erythromycin 10/19/ Hx Tablets 500mg 20tabs 1 PO bid 462 Smiley [facility] 2007 - Evert, Coated 01/22/ M.D. 2007 Amoxicillin 08/17/ Hx Tablets 500mg 15tabs 1 po bid 460.00 Smiley 2007 - Evert, 09/21/ M.D. 2007 Lopressor 09/29/ Hx Tablets 50mg 50tabs 1/2 po bid Smiley 2006 - Evert, 06/26/ M.D. 2009 Lipitor 08/17/ Hx Tablets 20mg 90tabs 1/2 tab po 272.4 Smiley 2006 - qd Evert, 08/15/ M.D. 2009 Lipitor 08/16/ Hx Tablets 10mg 90tabs 1 po qd Smiley 2005 - Evert, 08/17/ M.D. 2006 Protonix 08/16/ Hx Tablets 40mg 90tabs 1 po qd Smiley 2005 - Evert, 06/26/ M.D. 2009 Viagra 08/16/ Hx Tablets 50mg 6tabs take 1 Smiley 2005 - tablet if Evert, as M.D. 2018 directed Lopressor 07/01/ Hx Tablets 25mg 180tab 1 po bid Smiley 2004 - s Evert, 09/29/ M.DDebra 2005 Immunizations CPT Code Status Date Vaccine Lot # [id number] Given 06/22/2017 Influenza Virus (Afluria) Split Virus 3 Years Of Age And Older Q2035 Given 06/22/2017 Influenza Virus (Afluria) Split Virus 3 Years [id number] Of Age And Older Q2037 Given 07/16/2015 Influenza Vaccine (Fluvirin) 5 Years Of Age Or [id number] Older Q2036 Given 07/08/2014 Flulaval [id number] Given 07/08/2014 Pneumovax Polyvalent Inj Im [id number] Q2038 Given 04/19/2013 Influenza Vaccine (Fluzone) Administered Age 3 And Older Q2037 Given 04/13/2012 Influenza Vaccine (Fluvirin) 3 Years Of Age Or Older Q2037 Given 04/13/2012 Influenza Vaccine (Fluvirin) 5 Years Of Age Or [id number] Older Q2036 Given 04/01/2011 Flulaval [id number] Given 06/29/2010 Influenza Vaccine [id number] Given 04/20/2006 Influenza Vaccine [id number] Vital Signs Date Vital Result Comment 05/17/2018 [...] Result H/L Range Note Urinalysis Profile 01/26/2018 [facility] Urine Color Yellow [address] [place] [address] [phone] Urine Appearance Clear Urine Specific [place] 1.011 1.010-1.030 Urine pH 6.0 5-9 Urine Urobilinogen Negative Negative Urine Ketones Negative Negative Urine Protein Negative Negative Urine Leukocytes Negative Negative Urine Blood 3+ Negative Urine Nitrite Negative Negative Urine Bilirubin Negative Negative Urine Glucose Negative Negative Urine White Blood Cell Absent Absent Urine Red Blood Cell 3+(>10/hpf) Absent Urine Bacteria Absent Absent Urine Culture And 01/26/2018 [facility] Urine Culture SEE RESULT [address] [place] [address] [phone] CBC W/ Diff & PLT 12/26/2017 [facility] WBC 9.3 3.8-[address] thous/L .8 [place] [address] [phone] RBC 5.46 mill/L 4.20-5.80 Hemoglobin 16.4 g/dL 13.2-17.1 Hematocrit 49.5 % 38.5-50.0 MCV 90.6 FL 80.0-100.0 MCH 30.1 pg 27.0-33.0 MCHC 33.2 g/dL 32.0-36.0 RDW 14.1 % 11.0-15.0 Platelet Count 216 thous/L 140-400 Platelet Sufficiency PENDING MPV 9.4 FL 7.5-12.5 Neutrophils,Absolute 6480 cells/L 9973-5483 Bands,Absolute PENDING Metamyelocytes,Absolute PENDING Myelocytes,Absolute PENDING Promyelocytes,Absolute [...] [facility] Sodium 140 mmol/L 135-146 [address] [place] [address] [phone] Potassium 4.5 mmol/L 3.5-5.3 Chloride 107 mmol/L 98-110 Carbon Dioxide 26 mmol/L 20-31 Calcium 9.5 mg/dL 8.6-10.3 Glucose 105 mg/dL High 65-99 3 Urea Nitrogen (BUN) 16 mg/dL 7-25 Creatinine 0.85 mg/dL 0.70-1.18 4 BUN/Creatinine Ratio 19.2 6-22 Egfr Non-Afr. Hong Konger 85 ML/MIN/1.73M2 > Or=60 Egfr 99 ML/MIN/1.73M2 > Or=60 Lipid Panel 12/26/2017 [facility] Cholesterol 128 mg/dL <199 [address] [place] [address] [phone] HDL Cholesterol 25 mg/dL Low >40 Cholesterol/HDL Ratio 5.1 CALC High <5.0 LDL Chol,Calculated 80 mg/dL 0-100 5 Triglycerides 131 mg/dL <150 Non-HDL Cholesterol 104 mg/dL <130 6 CBC W/ Diff & PLT 06/22/2017 [facility] WBC 12.0 thous/L High 3.8-10.8 7 [address] [place] [address] [phone] RBC 5.69 mill/L 4.20-5.80 Hemoglobin 16.4 g/dL 13.2-17.1 Hematocrit 50.5 % High 38.5-50.0 MCV 88.8 FL 80.0-100.0 MCH 28.8 pg 27.0-33.0 MCHC 32.4 g/dL 32.0-36.0 RDW 14.4 % 11.0-15.0 Platelet Count 215 thous/L 140-400 Platelet Sufficiency NORMAL Normal MPV 9.4 FL 7.5-12.5 Neutrophils,Absolute 8840 cells/L High [phone] Bands,Absolute PENDING Metamyelocytes,Absolute PENDING Myelocytes,Absolute PENDING Promyelocytes,Absolute [...] [facility] Sodium 141 mmol/L 135-146 [address] [place] [address] [phone] Potassium 4.3 mmol/L 3.5-5.3 Chloride 105 mmol/L 98-110 Carbon Dioxide 29 mmol/L 20-31 Calcium 9.2 mg/dL 8.6-10.3 Glucose 98 mg/dL 65-99 9 Urea Nitrogen (BUN) 16 mg/dL 7-25 Creatinine 0.90 mg/dL 0.70-1.18 10 BUN/Creatinine Ratio 17.8 6-22 Egfr Non-Afr. [place]er 84 ML/MIN/1.73M2 > Or=60 Egfr 97 ML/MIN/1.73M2 > Or=60 Lipid Panel 06/22/2017 [facility] Cholesterol 145 mg/dL <[address] [place] [address] [phone] HDL Cholesterol 25 mg/dL Low >40 Cholesterol/HDL Ratio 5.8 CALC High <5.0 LDL Chol,Calculated 97 mg/dL 0-100 11 Triglycerides 125 mg/dL <150 Non-HDL Cholesterol 119 mg/dL <130 12 Lipid Panel 01/04/2017 [facility] Cholesterol 128 mg/dL 125-[address] [place] [address] [phone] HDL Cholesterol 25 mg/dL Low > Or=40 Cholesterol/HDL Ratio 5.1 High < Or=5.0 LDL Chol,Calculated 72 mg/dL <130 13 Triglycerides 155 mg/dL High <150 Non-HDL Cholesterol 103 mg/dL 14 Laboratory test 01/04/2017 [facility] PSA,Total 5.6 NG/ML High < Or=4.0 [address] [place] [address] [phone] CBC W/ Diff & PLT 01/04/2017 [facility] WBC 12.9 High 3.8-10.[address] thous/[place] [address] [phone] RBC 5.62 mill/L 4.20-5.80 Hemoglobin 16.4 g/dL 13.2-17.1 Hematocrit 51.0 % High 38.5-50.0 MCV 90.8 FL 80.0-100.0 MCH 29.1 pg 27.0-33.0 MCHC 32.1 g/dL 32.0-36.0 RDW 14.8 % 11.0-15.0 Platelet Count 200 thous/L 140-400 Platelet Sufficiency PENDING MPV 9.6 FL 7.5-12.5 Neutrophils,Absolute 9740 cells/L High 1482-4121 Bands,Absolute PENDING Metamyelocytes,Absolute PENDING Myelocytes,Absolute PENDING Promyelocytes,Absolute [...] [facility] Sodium 140 mmol/L 135-[address] [place] [address] [phone] Potassium 4.5 mmol/L 3.5-5.3 Chloride 108 mmol/L 98-110 Carbon Dioxide 25 mmol/L 20-31 Calcium 9.1 mg/dL 8.6-10.3 Glucose 105 mg/dL High 65-99 17 Urea Nitrogen 23 mg/dL 7-25 Creatinine 0.99 mg/dL 0.70-1.18 18 BUN/Creatinine Ratio 22.8 High 6-22 Egfr Non-Afr. [place]er 75 ML/MIN/1.73M2 > Or=60 Egfr 87 ML/MIN/1.73M2 > Or=60 CBC Auto Diff 04/17/2016 [facility] White Blood 8.8 10^3/uL 3.5-10.[address] [place], [place] [id number] [phone] Red Blood Count 5.70 10^6/uL High 4.0-5.4 [...] Cells % 0 Comp Metabolic Panel 04/17/2016 [facility] Sodium 136 mmol/L [phone] [place] [address] [phone] Potassium 4.0 mmol/L 3.5-5.0 Chloride 104 mmol/L [...] Egfr 107.8 >60 19 Laboratory test 04/17/2016 [facility] Troponin I 0.00 ng/mL < 0.03 20 finding [address] [place] [address] [phone] CBC Auto Diff 02/27/2016 [facility] White Blood 18.2 High 3.5- 10.[address] Count 10^3/[place] [address] [phone] Red Blood Count 5.99 10^6/uL High 4.0-5.4 [...] Blood Cells % 0.1 Urinalysis Profile 02/27/2016 [facility] Urine Color Yellow 21 [address] [place] [address] [phone] Urine Appearance Clear Urine Specific [place] > 1.060 High 1.010-1.030 Urine pH 6.0 5-9 Urine Urobilinogen Negative Negative Urine Ketones Negative Negative Urine Protein Negative Negative Urine Leukocytes Negative Negative Urine Blood Negative Negative Urine Nitrite Negative Negative Urine Bilirubin Negative Negative Urine Glucose Negative Negative Laboratory test 02/27/2016 [facility] Activated 28.9 26.0- 36.3 finding [address] [place] [address] Thrombo Time [phone] Laboratory test 02/27/2016 [facility] Lactic Acid 0.9 mmol/L 0.5-2.0 22 finding [facility] [place] [address] [phone] Comp Metabolic 02/27/2016 [facility] Sodium 137 mmol/L 133- 145 Panel [facility] [place] [address] [phone] Potassium 3.7 mmol/L 3.5-5.0 Chloride 106 mmol/L [...] 112.1 >60 23 Laboratory test finding 02/27/2016 [facility] Lipase 20 U/L 11.0-82.[address] [place], [place] [address] [phone] Troponin I 0.00 ng/mL <0.03 25 Creatine Kinase 62 U/L 10-223 26 C Reactive Protein 12.50 mg/L High < 5.00 27 Myoglobin 36.7 ng/mL 17.4-105.7 28 Inr/Protime 02/27/2016 [facility] Inr 1.12 High 0.89-1.[address] [place], [place] [id number] [phone] Laboratory test 02/27/2016 [facility] B Type 141 High [address] Natriuretic pg/[place] [address] Peptide [phone] CKMB 02/27/2016 [facility] CKMB ng/mL 3.1 0.6-6.3 [facility] ng/[place] [address] [phone] CBC W/ Diff & 01/05/2016 [facility] WBC 10.1 3.8-10.[address] [place]/ [place] [address] L [phone] RBC 5.71 mill/L 4.20-5.80 Hemoglobin 16.3 g/dL 13.2-17.1 Hematocrit 51.2 % High 38.5-50.0 MCV 89.6 FL 80.0-100.0 MCH 28.5 pg 27.0-33.0 MCHC 31.8 g/dL Low 32.0-36.0 RDW 14.2 % 11.0-15.0 Platelet Count 219 thous/L 140-400 Platelet Sufficiency PENDING MPV 9.6 FL 7.5-11.5 Neutrophils,Absolute 7100 cells/L 4027-1275 Bands,Absolute PENDING Metamyelocytes,Absolute PENDING Myelocytes,Absolute PENDING Promyelocytes,Absolute [...] [facility] Sodium 140 mmol/L 135-[address] [place] [address] [phone] Potassium 4.6 mmol/L 3.5-5.3 Chloride 105 mmol/L 98-110 Carbon Dioxide 25 mmol/L 19-30 Calcium 9.3 mg/dL 8.6-10.3 Glucose 108 mg/dL High 65-99 31 Urea Nitrogen 17 mg/dL 7-25 Creatinine 0.95 mg/dL 0.70-1.18 32 BUN/Creatinine Ratio 17.9 6-22 Lipid Panel 01/05/2016 [facility] Cholesterol 129 mg/dL 125-[address] [place] [address] [phone] HDL Cholesterol 20 mg/dL Low > Or=40 Cholesterol/HDL Ratio 6.5 High < Or=5.0 LDL Chol,Calculated 65 mg/dL <130 33 Triglycerides 218 mg/dL High <150 Non-HDL Cholesterol 110 mg/dL 34 Laboratory test 01/05/2016 [facility] PSA,Total 4.9 NG/ML High < Or=4.0 [address] [place] [address] [phone] TSH & T4,Free 01/05/2016 [facility] TSH 1.98 mIU/L 0.40-4.[address] [place] [address] [phone] T4,Free 1.1 ng/dL 0.8-1.8 CBC Auto 01/16/2015 [facility] White Blood 21.7 10^3/uL High 4.8-10.[address] [place] [address] [phone] Red Blood Count 6.64 10^6/uL High 4.0-5.4 [...] RBC 0.01 10^3/uL Comp Metabolic Panel 01/16/2015 [facility] Sodium 138 mmol/L [phone] [place] [address] [phone] Potassium 3.7 mmol/L 3.5-5.0 Chloride 104 mmol/L [...] 78.0 >60 36 Laboratory test finding 01/16/2015 [facility] Lipase 20 U/L 11.0-82.0 [facility] [place] [address] [phone] Troponin I 0.00 ng/mL <0.03 37 C Reactive Protein 6.72 mg/L High < 5.00 38 Manual Differential 01/16/2015 [facility] Immature 20 % High 0- 9 [address] [facility] [place] [address] [phone] Neutrophil % 75 % 38-83 Band % 20 % High 0-8 Lymphocytes % 2 % Low 25-47 Monocytes % 1 % 0-13 Eosinophils % 1 % 0-6 Reactive Lymph % 1 % 0-6 RBC Morphology Normal Normal Laboratory test 01/16/2015 [facility] Lactic Acid 1.4 mmol/L 0.5-2.2 39 finding [facility] [place] [address] [phone] Urinalysis 01/16/2015 [facility] Urine Color Yellow Profile [facility] [place] [address] [phone] Urine Appearance Cloudy Urine Specific [place] 1.026 1.010-1.030 Urine pH 5.0 5-9 Urine Urobilinogen Negative Negative Urine Ketones Trace Negative Urine Protein Negative Negative Urine Leukocytes Negative Negative Urine Blood Negative Negative Urine Nitrite Negative Negative Urine Bilirubin Negative Negative Urine Glucose Negative Negative BMP W/O Egfr 12/30/2014 [facility] Sodium 140 mmol/L 135-146 [address] [facility] [place] [address] [phone] Potassium 4.7 mmol/L 3.5-5.3 Chloride 108 mmol/L 98-110 Carbon Dioxide 23 mmol/L 19-30 Calcium 8.9 mg/dL 8.6-10.3 Glucose 100 mg/dL High 65-99 40 Urea Nitrogen 18 mg/dL 7-25 Creatinine 0.94 mg/dL 0.70-1.18 41 BUN/Creatinine Ratio 19.4 6-22 Lipid Panel 12/30/2014 [facility] Cholesterol 147 mg/dL 125-200 [address] [place] [address] [phone] HDL Cholesterol 27 mg/dL Low > Or=40 Cholesterol/HDL Ratio 5.4 High < Or=5.0 LDL Chol,Calculated 84 mg/dL <130 42 Triglycerides 178 mg/dL High <150 Non-HDL Cholesterol 120 mg/dL 43 Hepatic Function 12/30/2014 [facility] Alkaline Phosphatase 76 U/L 40- 115 Panel [address] [place] [address] [phone] Ast 17 U/L 10-35 Alt 16 U/L 9-46 Bilirubin,Total 0.4 mg/dL 0.2-1.2 Bilirubin,Direct 0.1 mg/dL < Or=0.2 Protein,Total 6.6 g/dL 6.1-8.1 Albumin 3.7 g/dL 3.6-5.1 Globulin,Calculated 2.9 g/dL 1.9-3.7 A/G Ratio 1.3 1.0-2.5 CBC W/ Diff & PLT 12/30/2014 [facility] WBC 11.4 thous/L High 3.8-10.8 [address] [place] [address] [phone] RBC 5.51 mill/L 4.20-5.80 Hemoglobin 16.2 g/dL 13.2-17.1 Hematocrit 49.7 % 38.5-50.0 MCV 90.2 FL 80.0-100.0 MCH 29.4 pg 27.0-33.0 MCHC 32.6 g/dL 32.0-36.0 RDW 14.4 % 11.0-15.0 Platelet Count 202 thous/L 140-400 Platelet Sufficiency PENDING MPV 10.3 FL 7.5-11.5 Neutrophils,Absolute 8470 cells/L High [phone] Bands,Absolute PENDING Metamyelocytes,Absolute PENDING Myelocytes,Absolute PENDING Promyelocytes,Absolute [...] 4.8 NG/ML High 0.0-4.0 [address] [place], [place] [address] [phone] BMP W/O Egfr 01/07/2014 [facility] Sodium 141 mmol/L 135-[address] [place] [address] [phone] Potassium 4.3 mmol/L 3.5-5.3 Chloride 107 mmol/L 98-110 Carbon Dioxide 25 mmol/L 19-30 Calcium 9.1 mg/dL 8.6-10.3 Glucose 108 mg/dL High 65-99 46 Urea Nitrogen 13 mg/dL 7-25 Creatinine 0.91 mg/dL 0.70-1.18 47 BUN/Creatinine Ratio 14.2 6-22 Laboratory test 01/07/2014 [facility] Direct LDL 77 mg/dL <130 [address] [place] [address] [phone] BMP W/O Egfr 06/27/2013 [facility] Sodium 139 mmol/L 135-[address] [place] [address] [phone] Potassium 4.8 mmol/L 3.5-5.3 Chloride 106 mmol/L 98-110 Carbon Dioxide 23 mmol/L 19-30 Calcium 8.9 mg/dL 8.6-10.3 Glucose 103 mg/dL High 65-99 49 Urea Nitrogen 18 mg/dL 7-25 Creatinine 0.90 mg/dL 0.70-1.18 50 BUN/Creatinine Ratio 19.6 6-22 CBC W/ Diff & PLT 06/27/2013 [facility] WBC 8.4 thous/L 3.8-10.[address] [place] [address] [phone] RBC 5.80 mill/L 4.20-5.80 Hemoglobin 16.3 g/dL 13.2-17.1 Hematocrit 50.4 % High 38.5-50.0 MCV 87.0 FL 80.0-100.0 MCH 28.1 pg 27.0-33.0 MCHC 32.3 g/dL 32.0-36.0 RDW 14.2 % 11.0-15.0 Platelet Count 194 thous/L 140-400 Neutrophils,Absolute 5670 cells/L [phone] Lymphocytes,Absolute 1680 cells/L 850-3900 Monocytes,Absolute 570 cells/L 200-950 Eosinophils,Absolute 470 cells/L 15-500 Basophils,Absolute 30 cells/L 0-200 Total Neutrophils,% 67 % 38-80 Total Lymphocytes,% 20 % 15-49 Monocytes,% 7 % 0-13 Eosinophils,% 6 % 0-8 Basophils,% 0 % 0-2 Laboratory test finding 06/27/2013 [facility] Direct LDL 91 mg/dL <130 [address] [place] [address] [phone] Laboratory test finding 12/25/2012 [facility] Direct LDL 73 mg/dL <130 52 [address] [facility] [place] [address] [phone] Glucose 110 mg/dL High 65-99 53 BMP W/O Egfr 07/05/2012 [facility] Sodium 140 mmol/L 135-146 [address] [facility] [place] [address] [phone] Potassium 4.7 mmol/L 3.5-5.3 Chloride 107 mmol/L 98-110 Carbon Dioxide 26 mmol/L 21-33 Calcium 9.2 mg/dL 8.6-10.3 Glucose 104 mg/dL High 65-99 54 Urea Nitrogen 22 mg/dL 7-25 Creatinine 0.96 mg/dL 0.70-1.25 55 BUN/Creatinine Ratio 22.5 High 6-22 CBC W/ Diff & PLT 07/05/2012 [facility] WBC 8.9 thous/L 3.8-10.[address] [place] [address] [phone] RBC 5.63 mill/L 4.20-5.80 Hemoglobin 16.8 g/dL 13.2-17.1 Hematocrit 49.5 % 38.5-50.0 MCV 87.9 FL 80.0-100.0 MCH 29.8 pg 27.0-33.0 MCHC 33.9 g/dL 32.0-36.0 RDW 14.2 % 11.0-15.0 Platelet Count 204 thous/L 140-400 Neutrophils,Absolute 5730 cells/L 6424-0077 Lymphocytes,Absolute 1930 cells/L 850-3900 Monocytes,Absolute 680 cells/L 200-950 Eosinophils,Absolute 480 cells/L 15-500 Basophils,Absolute 70 cells/L 0-200 Total Neutrophils,% 64 % 38-80 Total Lymphocytes,% 22 % 15-49 Monocytes,% 8 % 0-13 Eosinophils,% 5 % 0-8 Basophils,% 1 % 0-2 Laboratory test 07/05/2012 [facility] LDL 88 mg/dL <130 [address] [place] [address] [phone] Culture,Urine,Voided 06/06/2012 [facility] Source URINE-CLEAN [address] [place] <[place] [address] NOTE> [phone] Final Report (SEE NOTE) 58 Laboratory 01/03/2012 [facility] LDL Cholesterol,Direct 93 mg/dL <130 59 test finding [address] [place], [place] [address] [phone] Hepatic 06/30/2011 [facility] Alkaline Phosphatase 95 U/L 40-115 Function Panel [address] [place] [address] [phone] Ast 16 U/L 10-35 Alt 18 U/L 9-60 Bilirubin,Total 0.4 mg/dL 0.2-1.2 Bilirubin,Direct 0.1 mg/dL < Or=0.2 Protein,Total 6.7 g/dL 6.2-8.3 Albumin 4.2 g/dL 3.6-5.1 Globulin,Calculated 2.5 g/dL 2.1-3.7 A/G Ratio 1.6 1.0-2.1 CBC W/ Diff & PLT 06/30/2011 [facility] WBC 10.3 thous/L 3.8-10.[address] [place] [address] [phone] RBC 5.63 mill/L 4.20-5.80 Hemoglobin 16.7 g/dL 13.2-17.1 Hematocrit 50.0 % 38.5-50.0 MCV 88.9 FL 80.0-100.0 MCH 29.7 pg 27.0-33.0 MCHC 33.5 g/dL 32.0-36.0 RDW 14.3 % 11.0-15.0 Platelet Count 203 thous/L 140-400 Neutrophils,Absolute 6930 cells/L 0309-3184 Lymphocytes,Absolute 2040 cells/L 850-3900 Monocytes,Absolute 640 cells/L 200-950 Eosinophils,Absolute 580 cells/L High 15-500 Basophils,Absolute 60 cells/L 0-200 Total Neutrophils,% 68 % 38-80 Total Lymphocytes,% 20 % 15-49 Monocytes,% 6 % 0-13 Eosinophils,% 6 % 0-8 Basophils,% 1 % 0-2 Laboratory test 06/30/2011 [facility] PSA,Total 2.8 NG/ML 0.0-4.0 [address] [place] [address] [phone] Basic Metabolic Panel 06/30/2011 [facility] Sodium 139 mmol/L 135-[address] [place] [address] [phone] Potassium 4.9 mmol/L 3.5-5.3 Chloride 104 mmol/L 98-110 Carbon Dioxide 28 mmol/L 21-33 Calcium 9.3 mg/dL 8.6-10.2 Glucose 103 mg/dL High 65-99 61 Urea Nitrogen 17 mg/dL 7-25 Creatinine 0.98 mg/dL 0.76-1.46 BUN/Creatinine Ratio 17.8 6-22 Egfr Non-Afr. [place]er 79 ML/MIN/1.73M2 > Or=60 Egfr 91 ML/MIN/1.73M2 > Or=60 Laboratory 06/30/2011 [facility] LDL Cholesterol,Direct 75 mg/dL <130 62 test finding [address] [place] [address] [phone] Laboratory 12/22/2010 [facility] Cholesterol 137 125-200 test finding [address] mg/[place] [address] [phone] LDL Cholesterol,Direct 80 mg/dL <130 63 HDL Cholesterol 24 mg/dL Low > Or=40 Triglycerides 206 mg/dL High <150 TSH & T4,Free 06/16/2010 [facility] TSH,3RD 1.37 mIU/L 0.40-4.[address] [place] [address] [phone] T4,Free 1.1 ng/dL 0.8-1.8 Basic Metabolic Panel 06/16/2010 [facility] Sodium 140 mmol/L 135-[address] [place] [address] [phone] Potassium 4.8 mmol/L 3.5-5.3 Chloride 104 mmol/L 98-110 Carbon Dioxide 27 mmol/L 21-33 Calcium 9.3 mg/dL 8.6-10.2 Glucose 106 mg/dL High 65-99 64 Urea Nitrogen 14 mg/dL 7-25 Creatinine 1.08 mg/dL 0.76-1.46 BUN/Creatinine Ratio 13.2 6-22 Egfr Non-Afr. [place] >60 ML/MIN/1.73M2 > Or=60 Egfr >60 ML/MIN/1.73M2 > Or=60 CBC W/ Diff & PLT 06/16/2010 [facility] WBC 9.7 thous/L 3.8-10.[address] [place] [address] [phone] RBC 5.61 mill/L 4.20-5.80 Hemoglobin 16.7 g/dL 13.2-17.1 Hematocrit 50.0 % 38.5-50.0 MCV 89.2 FL 80.0-100.0 MCH 29.9 pg 27.0-33.0 MCHC 33.5 g/dL 32.0-36.0 RDW 14.1 % 11.0-15.0 Platelet Count 224 thous/L 140-400 Platelet Sufficiency NORMAL Normal Neutrophils,Absolute 6360 cells/L 4726-4304 Bands,Absolute DNR cells/L 0-750 Metamyelocytes,Absolute DNR cells/L [...] [facility] Cholesterol 138 mg/dL 125-200 [address] [place], [place] [id number] [phone] HDL Cholesterol 25 mg/dL Low > Or=40 Cholesterol/HDL Ratio 5.5 High < Or=5.0 LDL Chol,Calculated 75 mg/dL <130 65 Triglycerides 189 mg/dL High <150 Hepatic Function 06/16/2010 [facility] Alkaline Phosphatase 85 U/L 40- 115 Panel [address] [place] [address] [phone] Ast 21 U/L 10-35 Alt 19 U/L 9-60 Bilirubin,Total 0.4 mg/dL 0.2-1.2 Bilirubin,Direct 0.1 mg/dL < Or=0.2 Protein,Total 6.5 g/dL 6.2-8.3 Albumin 4.0 g/dL 3.6-5.1 Globulin,Calculated 2.5 g/dL 2.1-3.7 A/G Ratio 1.6 1.0-2.1 Laboratory test finding 02/20/2010 [facility] CK 67 U /L 26-[address] [place], [place] [id number] [phone] Troponin-I 0.0 NG/ML 0.0-0.6 66 Laboratory test finding 02/19/2010 [facility] CK 53 U /L 26-[address] [place] [address] [phone] Troponin-I 0.1 NG/ML 0.0-0.6 67 Basic Metabolic 02/19/2010 [facility] Glucose 136 mg/ dL High 76-[address] [place], [place] [id number] [phone] BUN 17 mg/dL 5-23 Creatinine 1.0 mg/dL 0.5-1.4 Glom Filtration Rate, Estimate >60 mL/min >60 If >60 mL/min >60 68 BUN/Creat 17.0 Sodium 139 mEq/L 136-145 Potassium 3.9 mEq/L 3.5-5.1 Chloride 104 mEq/L 98-107 Carbon Dioxide 28 mEq/L 21-32 Anion Gap 11 mEq/L 8-16 Calcium 8.8 mg/dL 8.5-10.1 Laboratory test finding 02/19/2010 [facility] CK 73 U /L 26-[address] [place] [address] [phone] Troponin-I 0.0 NG/ML 0.0-0.6 69 CBS W/Automated 02/19/2010 [facility] White Blood 11.1 K/uL High 3.4-10.[address] [place] [address] [phone] Red Blood Count 5.82 M/uL High 4.20-5.80 Hemoglobin 17.0 gm/dL 12.8-17.0 Hematocrit 49.4 % High 38.0-48.0 Mean Cell Volume 84.9 fl 80.0-96.0 Mean Corpuscular HGB 29.2 pg 27.0-33.0 Mean Corpuscular HGB Conc 34.4 g/dL 31.7-36.0 Platelet Count 224 K/uL 150-400 Red Cell Distri Width %CV 14.0 % 11.6-15.8 Mean Platelet Volume 9.9 fL 6.6-10.6 Neut% 66.5 % 33.0-73.0 Lymph % 20.8 % 17.0-56.0 [place] % 7.4 % 0.0-10.0 Eo% 4.9 % 0.0-5.0 Bas% 0.4 % 0.1-1.0 Neut# 7.4 K/uL High 1.8-7.0 Lymph # 2.3 K/uL 1.2-4.0 [place] # 0.8 K/uL High 0.0-0.6 Eos # 0.5 K/uL 0.0-0.5 Baso # 0.0 K/uL Low 0.1-0.2 Red Cell Distri Width SD 43 fl 36-51 Laboratory test 02/19/2010 [facility] Magnesium 2.0 mg/dL 1.7-2.[address] [place] [address] [phone] Protime 02/19/2010 [facility] Protime 14.2 seconds 11.7-15.[address] [place] [address] [phone] Inr 1.1 0.8-1.2 70 Laboratory test 02/19/2010 [facility] Act Partial 29.7 23.4-37.4 [address] [place] [address] [phone] Lipid Panel 12/15/2009 [facility] Cholesterol 139 mg/dL 125-[address] [place] [address] [phone] HDL Cholesterol 26 mg/dL Low > Or=40 Triglycerides 173 mg/dL High <150 Cholesterol/HDL Ratio 5.3 High < Or=5.0 LDL Chol,Calculated 78 mg/dL <130 72 CBC W/ Diff & PLT 06/12/2009 [facility] WBC 8.4 thous/L 3.8-10.8 [address] [place] [address] [phone] RBC 5.93 mill/L High 4.20-5.80 Hemoglobin 17.2 g/dL High 13.2-17.1 Hematocrit 51.6 % High 38.5-50.0 MCV 86.9 FL 80.0-100.0 MCH 28.9 pg 27.0-33.0 MCHC 33.3 g/dL 32.0-36.0 RDW 14.1 % 11.0-15.0 Platelet Count 214 thous/L 140-400 Platelet Sufficiency NORMAL Normal Neutrophils,Absolute 5430 cells/L 3758-8212 Bands,Absolute DNR cells/L 0-750 Metamyelocytes,Absolute DNR cells/L [...] [facility] Sodium 139 mmol/L 135-146 [address] [place] [address] [phone] Potassium 4.8 mmol/L 3.5-5.3 Chloride 103 mmol/L 98-110 Carbon Dioxide 25 mmol/L 21-33 Calcium 9.7 mg/dL 8.6-10.2 Glucose 102 mg/dL High 65-99 73 Urea Nitrogen 18 mg/dL 7-25 Creatinine 1.12 mg/dL 0.76-1.46 BUN/Creatinine Ratio 16.1 6-22 Egfr Non-Afr. [place] >60 ML/MIN/1.73M2 > Or=60 Egfr >60 ML/MIN/1.73M2 > Or=60 Hepatic Function 06/12/2009 [facility] Alkaline Phosphatase 96 U/L 40- [address] [place], [place] [id number] [phone] Ast 20 U/L 10-35 Alt 20 U/L 9-60 Bilirubin,Total 0.5 mg/dL 0.2-1.2 Bilirubin,Direct 0.1 mg/dL < Or=0.2 Protein,Total 7.3 g/dL 6.2-8.3 Albumin 4.3 g/dL 3.6-5.1 Globulin,Calculated 3.0 g/dL 2.1-3.7 A/G Ratio 1.4 1.0-2.1 Lipid Panel 06/12/2009 [facility] Cholesterol 164 mg/dL 125-[address] [place] [address] [phone] HDL Cholesterol 28 mg/dL Low > Or=40 Cholesterol/HDL Ratio 5.9 High < Or=5.0 LDL Chol,Calculated 93 mg/dL <130 74 Triglycerides 213 mg/dL High <150 Laboratory test 12/12/2008 [facility] Creatine 191 U/L 44-[address] Kinase,Total [place], [place] [id number] [phone] Lipid Panel 12/12/2008 [facility] Cholesterol 153 mg/dL 125-[address] [place] [address] [phone] HDL Cholesterol 25 mg/dL Low > Or=40 Cholesterol/HDL Ratio 6.1 High < Or=5.0 LDL Chol,Calculated 75 mg/dL <130 75 Triglycerides 267 mg/dL High <150 Hepatic Function 12/12/2008 [facility] Alkaline Phosphatase 82 U/L 40- [address] [place] [address] [phone] Ast 20 U/L 10-35 Alt 19 U/L 9-60 Bilirubin,Total 0.4 mg/dL 0.2-1.2 Bilirubin,Direct 0.1 mg/dL < Or=0.2 Protein,Total 6.9 g/dL 6.2-8.3 Albumin 4.1 g/dL 3.6-5.1 Globulin,Calculated 2.8 g/dL 2.1-3.7 A/G Ratio 1.4 1.0-2.1 CBC W/ Diff & PLT 08/07/2008 [facility] WBC 8.8 thous/L 3.8-10.[address] [place] [address] [phone] RBC 5.87 mill/L High 4.20-5.80 Hemoglobin 17.1 g/dL 13.2-17.1 Hematocrit 49.6 % 38.5-50.0 MCV 84.5 FL 80.0-100.0 MCH 29.1 pg 27.0-33.0 MCHC 34.5 g/dL 32.0-36.0 RDW 14.2 % 11.0-15.0 Platelet Count 246 thous/L 140-400 Platelet Sufficiency NORMAL Normal Neutrophils,Absolute 5150 cells/L 1149-2781 Bands,Absolute DNR cells/L 0-750 Metamyelocytes,Absolute DNR cells/L [...] [facility] Sodium 140 mmol/L 135-[address] [place] [address] [phone] Potassium 4.9 mmol/L 3.5-5.3 Chloride 105 mmol/L 98-110 Carbon Dioxide 29 mmol/L 21-33 Calcium 9.6 mg/dL 8.6-10.2 Glucose 94 mg/dL 65-99 76 Urea Nitrogen 17 mg/dL 7-25 Creatinine 1.03 mg/dL 0.50-1.30 BUN/Creatinine Ratio 16.8 6-22 Egfr Non-Afr. [place] >60 ML/MIN/1.73M2 > Or=60 Egfr >60 ML/MIN/1.73M2 > Or=60 TSH & T4,Free 08/07/2008 [facility] TSH,3RD 1.92 mU/L 0.40-4.[address] [place] [address] [phone] T4,Free 1.1 ng/dL 0.8-1.8 Lipid Panel 08/07/2008 [facility] Cholesterol 145 mg/dL 125-[address] [place] [address] [phone] HDL Cholesterol 29 mg/dL Low > Or=40 Triglycerides 168 mg/dL High <150 Cholesterol/HDL Ratio 5.0 < Or=5.0 LDL Chol,Calculated 82 mg/dL <130 77 Lipid Panel 01/30/2008 [facility] Cholesterol 147 mg/dL 125-[address] [place] [address] [phone] HDL Cholesterol 30 mg/dL Low > Or=40 78 Cholesterol/HDL Ratio 4.9 < Or=5.0 LDL Chol,Calculated 86 mg/dL <130 79 Triglycerides 153 mg/dL High <150 Hepatic Function 01/30/2008 [facility] Alkaline Phosphatase 86 U/L 40- [address] [place] [address] [phone] Ast 19 U/L 10-35 Alt 19 U/L 9-60 Bilirubin,Total 0.4 mg/dL 0.2-1.2 Bilirubin,Direct 0.1 mg/dL < Or=0.2 Protein,Total 6.8 g/dL 6.2-8.3 Albumin 3.9 g/dL 3.6-5.1 Globulin,Calculated 2.9 g/dL 2.1-3.7 A/G Ratio 1.4 1.0-2.1 CBC W/ Diff & PLT 08/01/2007 [facility] WBC 9.9 thous/L 3.8-10.[address] [place] [address] [phone] RBC 5.85 mill/L High 4.20-5.80 Hemoglobin 16.5 g/dL 13.2-17.1 Hematocrit 49.7 % 38.5-50.0 MCV 85.0 FL 80.0-100.0 MCH 28.2 pg 27.0-33.0 MCHC 33.2 g/dL 32.0-36.0 RDW 14.1 % 11.0-15.0 Platelet Count 264 thous/L 140-400 Platelet Sufficiency NORMAL Normal Neutrophils,Absolute 6720 cells/L 8166-4735 Bands,Absolute DNR cells/L 0-750 Metamyelocytes,Absolute DNR cells/L [...] [facility] Cholesterol 162 mg/dL 125-[address] [place] [address] [phone] HDL Cholesterol 24 mg/dL Low > Or=40 80 Cholesterol/HDL Ratio 6.8 High < Or=5.0 LDL Chol,Calculated 103 mg/dL <130 81 Triglycerides 173 mg/dL High <150 TSH & T4,Free 08/01/2007 [facility] TSH,3RD 1.34 mU/L 0.40-4.[address] [place] [address] [phone] T4,Free 1.1 ng/dL 0.8-1.8 Basic Metabolic Panel 08/01/2007 [facility] Sodium 139 mmol/L 135-[address] [place] [address] [phone] Potassium 4.9 mmol/L 3.5-5.3 Chloride 106 mmol/L 98-110 Carbon Dioxide 28 mmol/L 21-33 Calcium 9.3 mg/dL 8.6-10.2 Glucose 106 mg/dL High 65-99 82 Urea Nitrogen 18 mg/dL 7-25 Creatinine 1.09 mg/dL 0.50-1.30 BUN/Creatinine Ratio 16.2 6-22 Egfr Non-Afr. [place] >60 ML/MIN/1.7 > Or=60 Egfr >60 ML/MIN/1.7 > Or=60 Basic Metabolic Panel 08/03/2006 [facility] Sodium 140 mmol/L 135-[address] [place] [address] [phone] Potassium 4.6 mmol/L 3.5-5.3 Chloride 104 mmol/L 98-110 Carbon Dioxide 31 mmol/L 21-33 Calcium 9.6 mg/dL 8.5-10.4 Glucose 105 mg/dL High 65-99 83 Urea Nitrogen 12 mg/dL 7-25 Creatinine 1.0 mg/dL 0.5-1.4 BUN/Creatinine Ratio 11.8 6-25 GFR Estimated >60 ML/MIN/1.7 >59 84 Lipid Panel 08/03/2006 [facility] Cholesterol 166 mg/dL <[address] [place] [address] [phone] HDL Cholesterol 25 mg/dL Low >40 85 Triglycerides 214 mg/dL High <150 Cholesterol/HDL Ratio 6.6 High <5.0 LDL Chol,Calculated 98 mg/dL <130 86 CBC W/ Diff & PLT 08/03/2006 [facility] WBC 10.6 thous/L 3.8-10.8 [address] [place] [address] [phone] RBC 5.86 mill/L High 4.20-5.80 Hemoglobin 16.8 g/dL 13.2-17.1 Hematocrit 49.5 % 38.5-50.0 MCV 84.4 FL 80.0-100.0 MCH 28.7 pg 27.0-33.0 MCHC 34.0 g/dL 32.0-36.0 RDW 14.5 % 11.0-15.0 Platelet Count 259 thous/L 140-400 Platelet Sufficiency NORMAL Normal Neutrophils,Absolute 7120 cells/L 9927-5747 Bands,Absolute DNR cells/L 0-750 Metamyelocytes,Absolute DNR cells/L [...] [facility] Cholesterol 155 mg/dL <200 [address] [facility] [place], [place] [address] [phone] HDL Cholesterol 26 mg/dL Low >40 87 Triglycerides 199 mg/dL High <150 Cholesterol/HDL Ratio 6.0 High <5.0 LDL Chol,Calculated 89 mg/dL <130 88 Hepatic Function 02/08/2006 [facility] Alkaline Phosphatase 99 U/L 20- 125 Panel [address] [facility] [place] [address] [phone] Ast 17 U/L 3-50 Alt 16 U/L 3-60 Bilirubin,Total 0.3 mg/dL 0.2-1.5 Bilirubin,Direct 0.1 mg/dL 0.0-0.3 Protein,Total 6.8 g/dL 6.0-8.3 Albumin 4.0 g/dL 3.2-4.6 Basic Metabolic Panel 08/06/2005 [facility] Sodium 141 mmol/L 135-146 [address] [place] [place] [address] [phone] Potassium 5.2 mmol/L 3.5-5.3 Chloride 107 mmol/L 98-110 Carbon Dioxide 20 mmol/L Low 21-33 Calcium 9.4 mg/dL 8.5-10.4 Glucose 99 mg/dL 65-99 89 Urea Nitrogen 18 mg/dL 7-25 Creatinine 1.1 mg/dL 0.5-1.4 BUN/Creatinine Ratio 17.1 6-25 GFR Estimated >60 ML/MIN/1.7 >59 90 CBC W/ Diff & PLT 08/06/2005 [facility] WBC 10.1 thous/L 3.8-10.8 [address] [facility] [place] [address] [phone] RBC 6.15 mill/L High 4.20-5.80 Hemoglobin 17.2 g/dL High 13.2-17.1 Hematocrit 51.9 % High 38.5-50.0 MCV 84.4 FL 80.0-100.0 MCH 28.0 pg 27.0-33.0 MCHC 33.2 g/dL 32.0-36.0 RDW 14.6 % 11.0-15.0 Platelet Count 274 thous/L 140-400 Platelet Sufficiency NORMAL Neutrophils,Absolute 6850 cells/L 4980-4394 Bands,Absolute DNR cells/L 0-750 Metamyelocytes,Absolute DNR cells/L [...] [facility] Cholesterol 168 mg/dL <[address] [place] [address] [phone] HDL Cholesterol 27 mg/dL Low >40 91 Triglycerides 153 mg/dL High <150 Cholesterol/HDL Ratio 6.2 High <5.0 LDL Chol,Calculated 110 mg/dL <130 92 Laboratory test 08/06/2005 [facility] PSA,Total 2.3 NG/ML 0.0-4.0 [address] [place] [address] Medicare [phone] TSH 1.31 mU/L 0.40-5.50 1 SEE RESULT BELOW Name: FAUSTINO MORALES : [address]: Carl Bowden MD Acct: [id number] Unit: [id number] AGE: 77 Location: ED Re01/26/18 SEX: M Status: DEP ER SPEC: [id number] MARIJA: 01/26/[address] [facility] [address]: Carl Bowden MD REQ: [id number] RECD: 01/26/18 STATUS: ALETA BONE DR: Smiley Loyd MD _ [facility]: ORDERED: Urine Culture Procedure Result Reported Site Urine Culture Final 01/27/18- 1709 ML No Growth (<1,000 CFU/mL) * ML - Main Lab . END OF REPORT DEPARTMENT OF PATHOLOGY, [address] [place] [address] Jeyson Lloyd M.D. Director [facility] # [id number] 2 Relative blood cell counts (%) should [...] approximately 13% higher for people identified as -[place]. 5 LDL-C is now calculated using the Jac-Spain calculation, which is a validated novel method providing better accuracy than the Friedewald equation in the estimation of LDL-C. Jac SS et al.SUBHA.2013;310(19):2727-6104 Desirable range <100 mg/dL for primary prevention; <70 mg/dL for patients with CHD or diabetic patients with >or=2 CHD risk factors. For additional information, please refer to http://eblizz.Life800.Metaforic/faq/CCO911(This link is being provided for informational/educational purposes [...] Garces, 2015. Pediatric Reference Intervals, 7th Ed, [employer], 2011. 9 GLUCOSE REFERENCE RANGE BASED ON FASTING SPECIMEN. 10 The upper reference limit for Creatinine is approximately 13% higher for people identified as -[place]. 11 LDL-C is now calculated using the Jac-Spain calculation, which is a validated novel method providing better accuracy than the Friedewald equation in the estimation of LDL-C. Jac SS et al.SUBHA.2013;310(19):4704-2211 (http://eblizz.Deitek Systems/faq/QPN926) Desirable range <100 mg/dL for patients with [...] compared to the equimolar-standardized total PSA (Dani [place]). Comparison of serial PSA results should be [...] Reference Intervals, 7th Ed, [employer], 2011. 17 GLUCOSE REFERENCE RANGE BASED ON FASTING SPECIMEN. 18 The upper reference limit for Creatinine is approximately 13% higher for people identified as -[place]. 19 Because ethnic data is not always [...] 0.03 ng/mL Not supportive of diagnosis of OR 0.03 - 0.50 ng/mL Indeterminate: suggest serial studies if clinically indicated. Greater than 0.5 ng/mL Consistent with diagnosis of OR [address] [facility] Severe Sepsis and Septic Shock Management [...] 0.03 ng/mL Not supportive of diagnosis of OR 0.03 - 0.50 ng/mL Indeterminate: suggest serial studies if clinically indicated. Greater than 0.5 ng/mL Consistent with diagnosis of OR 26 CORRECTING 27 Acute inflammation: >10.00 28 [...] Garces, 2015. Pediatric Reference Intervals, 7th Ed, [facility] Press, 2011. 31 GLUCOSE REFERENCE RANGE BASED ON FASTING SPECIMEN. 32 The upper reference limit for Creatinine is approximately 13% higher for people identified as -[place]. 33 LDL-CHOLESTEROL RISK CATEGORY* GOAL VERY HIGH [...] 0.03 ng/mL Not supportive of diagnosis of OR 0.03 - 0.50 ng/mL Indeterminate: suggest serial studies if clinically indicated. Greater than 0.5 ng/mL Consistent with diagnosis of OR 38 Acute inflammation: >10.00 39 CEE IN ED NOTIFIED NEED TO COLLECT NARVAEZ TUBE 1705 40 GLUCOSE REFERENCE RANGE BASED ON FASTING SPECIMEN. 41 The upper reference limit for Creatinine is approximately 13% higher for people identified as -[place]. 42 LDL-CHOLESTEROL RISK CATEGORY* GOAL VERY HIGH [...] approximately 13% higher for people identified as -[place]. 48 LDL-CHOLESTEROL RISK CATEGORY* GOAL VERY HIGH [...] approximately 13% higher for people identified as -[place]. 51 LDL-CHOLESTEROL RISK CATEGORY* GOAL VERY HIGH [...] approximately 13% higher for people identified as -[place]. 56 LDL-CHOLESTEROL RISK CATEGORY* GOAL VERY HIGH [...] FOR RACE, IF THE PATIENT RACE IS -[place], THE GFR ESTIMATE MUST BE MULTIPLIED BY [...] FOR RACE, IF THE PATIENT'S RACE IS -[place], THE GFR ESTIMATE MUST BE MULTIPLIED BY [...] METHOD. Procedures Date Code Description Status 06/22/2017 14713 EKG-Tracing & Report Completed 07/05/2016 05184 EKG-Tracing & Report Completed 06/30/2016 69465 Non-Invcorrotid/Comp /Bilat Study Completed 06/30/2016 42576 Echocardiography Completed 07/10/2015 67447 EKG-Tracing & Report Completed 07/08/2015 47171 Non-Invcorrotid/Comp /Bilat Study Completed 07/08/2015 11976 Echocardiography Completed 06/27/2014 65510 EKG-Tracing & Report Completed 06/26/2014 69837 Holter Monitor Office Completed 06/25/2014 01498 Non-Invcorrotid/Comp /Bilat Study Completed 06/25/2014 71237 Echocardiography Completed 06/27/2013 83377 EKG-Tracing & Report Completed 06/25/2013 35480 Echocardiography Completed 06/25/2013 03662 Non-Invcorrotid/Comp /Bilat Study Completed 07/06/2012 01976 Non-Invcorrotid/Comp /Bilat Study Completed 07/06/2012 57066 Echocardiography Completed 07/05/2012 85778 EKG-Tracing & Report Completed 06/30/2011 13897 Non-Invcorrotid/Comp /Bilat Study Completed 06/30/2011 36431 Echocardiography Completed 06/30/2011 69936 EKG-Tracing & Report Completed 06/17/2010 69907 Non-Invcorrotid/Comp /Bilat Study Completed 06/17/2010 50285 Echocardiography Completed 06/16/2010 03015 Holter Monitor Office Completed 06/16/2010 81741 EKG-Tracing & Report Completed 06/12/2009 34124 Holter Monitor Office Completed 06/12/2009 94156 EKG-Tracing & Report Completed 06/10/2009 34474 Echocardiography Completed 06/10/2009 03411 Non-Invcorrotid/Comp /Bilat Study Completed 08/07/2008 31207 EKG-Tracing & Report Completed 07/30/2008 24578 Non-Invcorrotid/Comp /Bilat Study Completed 07/30/2008 02200 Doppler/ECHO Completed 07/30/2008 46755 ECHO-2D W/Wo M-Mode Completed 01/30/2008 87272 PFT Evaluation Completed 08/01/2007 20384 EKG-Tracing & Report Completed 07/27/2007 49650 Non-Invcorrotid/Comp /Bilat Study Completed 07/27/2007 39554 Doppler Color Flow Velocity Completed 07/27/2007 92085 Doppler/ECHO Completed 07/27/2007 29374 ECHO-2D W/Wo M-Mode Completed 08/03/2006 12330 EKG-Tracing & Report Completed 08/03/2006 11471 ECHO-2D W/Wo M-Mode Completed 08/03/2006 75450 Doppler/ECHO Completed 08/03/2006 38450 Doppler Color Flow Velocity Completed 08/03/2006 09703 Non-Invcorrotid/Comp /Bilat Study Completed 11/15/2005 20732 Spirometry Graphic Record/Max Voluntary Vent Completed 08/06/2005 18601 Spirometry Graphic Record/Max Voluntary Vent Completed 08/06/2005 09742 PVR-Atrerial Study Completed 08/06/2005 57089 Holter Monitor Office Completed 08/06/2005 90797 EKG-Tracing & Report Completed 08/04/2005 78483 Non-Invcorrotid/Comp /Bilat Study Completed 08/04/2005 44523 Doppler Color Flow Velocity Completed 08/04/2005 15915 Doppler/ECHO Completed 08/04/2005 88565 ECHO-2D W/Wo M-Mode Completed 06/23/2005 47673 Spirometry Graphic Record/Max Voluntary Vent Completed Encounters Type Date Location Provider Dx Diagnosis Office Visit 05/10/2018 Main Office Smiley Loyd M.D. K64.9 Unspecified 2:45p hemorrhoids J20.9 Acute bronchitis, unspecified Office Visit 01/02/2018 10:30a Main Office Smiley Loyd E78.2 Mixed hyperlipidemia M.D. I11.9 Hypertensive heart disease without heart failure Office Visit 07/06/2017 11:30a Main Office Smiley Loyd E78.2 Mixed hyperlipidemia M.D. I11.9 Hypertensive heart disease without heart failure Office Visit 06/22/2017 3:30p Main Office Smiley Loyd J02.9 Acute pharyngitis, M.D. unspecified Office Visit 04/07/2017 10:45a Main Office Smiley Loyd L03.114 Cellulitis of left M.D. upper limb Office Visit 01/10/2017 10:30a Main Office Smiley Loyd E78.5 Hyperlipidemia, M.D. unspecified I25.10 Athscl heart disease of [place] coronary artery w/o ang pctrs I11.9 Hypertensive heart disease without heart failure N40.0 Benign prostatic hyperplasia without lower urinry tract symp M54.16 Radiculopathy, lumbar region Office Visit 09/20/2016 2:30p Main Office Smiley Loyd J02.0 Streptococcal M.D. pharyngitis Office Visit 07/12/2016 11:00a Main Office Smiley Loyd E78.5 Hyperlipidemia, M.D. unspecified I34.0 Nonrheumatic mitral (valve) insufficiency I25.10 Athscl heart disease of [place] coronary artery w/o ang pctrs I11.9 Hypertensive heart disease without heart failure Office Visit 04/22/2016 10:45a Main Office Smiley Loyd J02.9 Acute pharyngitis, M.D. unspecified Office Visit 03/03/2016 8:15a Main Office Ambrocio Lynn MD J20.9 Acute bronchitis, unspecified E78.5 Hyperlipidemia, unspecified Office Visit 02/26/2016 11:00a Main Office Smiley Loyd, J20.9 Acute bronchitis, M.D. unspecified Office Visit 01/15/2016 10:45a Main Office mSiley Loyd, E78.5 Hyperlipidemia, M.D. unspecified I25.10 Athscl heart disease of [place] coronary artery w/o ang pctrs I11.9 Hypertensive heart disease without heart failure Office Visit 07/16/2015 1:30p Main Office Smiley Loyd, E78.5 Hyperlipidemia, M.D. unspecified I25.10 Athscl heart disease of [place] coronary artery w/o ang pctrs I11.9 Hypertensive heart disease without heart failure M15.9 Polyosteoarthritis, unspecified Z23 Encounter for immunization Office Visit 01/21/2015 1:45p Main Office Smiley Loyd M.D. 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 Unspec 414.01 Coronary Atherosclerosis [place] 402.10 Hypertensive Heart Disease Benign W/O Heart Failure Office Visit 07/08/2014 2:00p Main Office Smiley Loyd, 272.4 Hyperlipidemia Other M.D. Unspec 414.01 Coronary Atherosclerosis [place] 402.10 Hypertensive Heart Disease Benign W/O Heart Failure V04.81 Need For Prophylactic Vaccination & Inoculation/Influenza V03.82 Streptococcus Pneumoniae Vaccination Spec Other Office Visit 04/10/2014 11:45a Main Office Smiley Loyd, 460.00 Upper Respiratory M.D. Infection 461.9 Sinusitis Acute Unspec Office Visit 01/14/2014 11:30a Main Office Smiley Loyd, 414.01 Coronary M.D. Atherosclerosis [place] 402.10 Hypertensive Heart Disease Benign W/O Heart Failure 272.4 Hyperlipidemia Other Unspec Office Visit 07/11/2013 11:30a Main Office Smiley Loyd M.D. 424.0 Mitral Valve Disorder 414.01 Coronary Atherosclerosis [place] 402.10 Hypertensive Heart Disease Benign W/O Heart Failure 272.4 Hyperlipidemia Other Unspec Office Visit 04/19/2013 1:30p Main Office Smiley Loyd M.D. 462 Pharyngitis Acute V04.81 Need For Prophylactic Vaccination & Inoculation/Influenza Office Visit 01/08/2013 10:30a Main Office Smiley Loyd, 272.4 Hyperlipidemia Other M.D. Unspec 414.01 Coronary Atherosclerosis [place] 402.10 Hypertensive Heart Disease Benign W/O Heart Failure Office Visit 07/10/2012 10:30a Main Office Smiley Loyd, 272.4 Hyperlipidemia Other M.D. Unspec 424.0 Mitral Valve Disorder 414.01 Coronary Atherosclerosis [place] 402.10 Hypertensive Heart Disease Benign W/O Heart Failure Office Visit 06/06/2012 1:45p Main Office Smiley Loyd, 599.70 Hematuria M.D. Office Visit 05/25/2012 10:30a Main Office Smiley Loyd, 465.8 Upper Respiratory M.D. Infections Acute Other Multiple Sites 305.1 Tobacco Use Disorder Office Visit 01/10/2012 10:45a Main Office Smiley Loyd, 272.4 Hyperlipidemia Other M.D. Unspec 414.01 Coronary Atherosclerosis [place] 402.10 Hypertensive Heart Disease Benign W/O Heart Failure 715.90 Degenerative Joint Disease Genlzd Or Localzd Site Unspec 682.90 Cellulitis Office Visit 07/07/2011 10:30a Main Office Smiley Loyd, 272.4 Hyperlipidemia Other M.D. Unspec 414.01 Coronary Atherosclerosis [place] 274.90 Gout 402.10 Hypertensive Heart Disease Benign W/O Heart Failure 715.90 Degenerative Joint Disease Genlzd Or Localzd Site Unspec 682.90 Cellulitis V70.0 Examination General Medical Routine AT Health Care Facility Office Visit 04/01/2011 11:00a Main Office Smiley Loyd M.D. 682.90 Cellulitis 274.90 Gout 272.4 Hyperlipidemia Other Unspec 414.01 Coronary Atherosclerosis [place] 402.10 Hypertensive Heart Disease Benign W/O Heart Failure 715.90 Degenerative Joint Disease Genlzd Or Localzd Site Unspec V04.81 Need For Prophylactic Vaccination & Inoculation/Influenza Office Visit 03/23/2011 1:45p Main Office Ambrocio Lynn MD 682.90 Cellulitis 272.4 Hyperlipidemia Other Unspec GENERAL General Office Visit 12/28/2010 10:30a Main Office Smiley Loyd, 272.4 Hyperlipidemia Other M.D. Unspec 414.01 Coronary Atherosclerosis [place] 402.10 Hypertensive Heart Disease Benign W/O Heart Failure 715.90 Degenerative Joint Disease Genlzd Or Localzd Site Unspec Office Visit 06/29/2010 10:30a Main Office Smiley Gauss, 272.4 Hyperlipidemia Other M.D. Unspec 414.01 Coronary Atherosclerosis [place] 402.10 Hypertensive Heart Disease Benign W/O Heart Failure 715.90 Degenerative Joint Disease Genlzd Or Localzd Site Unspec V04.81 Need For Prophylactic Vaccination & Inoculation/Influenza Office Visit 12/25/2009 10:45a Main Office Smiley Loyd 272.4 Hyperlipidemia Other M.D. Unspec 414.01 Coronary Atherosclerosis [place] Office Visit 06/26/2009 10:30a Main Office Smiley Loyd 272.4 Hyperlipidemia Other M.D. Unspec 414.01 Coronary Atherosclerosis [place] 402.10 Hypertensive Heart Disease Benign W/O Heart Failure Office Visit 12/26/2008 11:00a Main Office Smiley Loyd 272.4 Hyperlipidemia Other M.D. Unspec 414.01 Coronary Atherosclerosis [place] 402.10 Hypertensive Heart Disease Benign W/O Heart Failure Office Visit 08/15/2008 10:30a Main Office Smiley Loyd 272.4 Hyperlipidemia Other M.D. Unspec 414.01 Coronary Atherosclerosis [place] 402.10 Hypertensive Heart Disease Benign W/O Heart Failure 462 Pharyngitis Acute Office Visit 02/21/2008 11:30a Main Office Smiley Loyd M.D. 496 Chronic Obstructive Pulmonary Disease 414.01 Coronary Atherosclerosis [place] 402.10 Hypertensive Heart Disease Benign W/O Heart Failure 272.4 Hyperlipidemia Other Unspec 272.40 Hyperlipidemia Office Visit 02/01/2008 10:45a Main Office Smiley Loyd M.D. 274.9 Gout Unspec Office Visit 08/15/2007 10:30a Main Office Smiley Loyd M.D. V15.82 History Personal Tobacco Use 414.01 Coronary Atherosclerosis [place] 402.10 Hypertensive Heart Disease Benign W/O Heart Failure 272.40 Hyperlipidemia Office Visit 02/14/2007 10:15a Main Office Smiley Loyd 402.10 Hypertensive Heart M.D. Disease Benign W/O Heart Failure 272.40 Hyperlipidemia 530.81 Esophageal Reflux Office Visit 10/19/2006 1:30p Main Office Smiley Loyd M.D. 462 Pharyngitis Acute Office Visit 08/17/2006 10:15a Main Office Smiley Loyd M.D. 272.40 Hyperlipidemia 414.01 Coronary Atherosclerosis [place] 402.10 Hypertensive Heart Disease Benign W/O Heart Failure 496 Chronic Obstructive Pulmonary Disease V15.82 History Personal Tobacco Use 305.1 Tobacco Use Disorder 460.00 Upper Respiratory Infection Office Visit 04/13/2006 10:45a Main Office Smiley Loyd, 569.89 Intestine Disorders M.D. Other Office Visit 02/15/2006 10:00a Main Office Smiley Loyd, 414.01 Coronary M.D. Atherosclerosis [place] 496 Chronic Obstructive Pulmonary Disease 272.40 Hyperlipidemia Office Visit 11/15/2005 10:00a Main Office Smiley Loyd M.D. 496 Chronic Obstructive Pulmonary Disease 272.40 Hyperlipidemia 414.01 Coronary Atherosclerosis [place] Office Visit 08/17/2005 10:30a Main Office Smiley Loyd M.D. 272.40 Hyperlipidemia 496 Chronic Obstructive Pulmonary Disease 414.01 Coronary Atherosclerosis [place] Office Visit 05/20/2005 11:00a Main Office Paramjit Porras 49Eric Chronic Obstructive MD [place] Pul[facility] Disease Office Visit 12/24/2004 10:15a Main Office Smiley Loyd 414.01 Coronary M.D. Atherosclerosis [place] 272.40 Hyperlipidemia 715.90 Degenerative Joint Disease [facility] Localzd Site Unspec Office Visit 10/28/2004 11:45a Main Office Smiley Loyd 414.01 Coronary M.D. Atherosclerosis [place] Office Visit 07/27/2004 10:30a Main Office Smiley Loyd, 462 Pharyngitis Acute M.D. Office Visit 06/25/2004 11:00a Main Office Smiley Loyd 414.01 Coronary M.D. Atherosclerosis [place] 530.81 Esophageal Reflux 272.40 Hyperlipidemia Plan of Treatment Future Appointment(s):06/26/2018 12:30 pm - Ultrasound at Main Xqpots8006/28/2018 8:30 am - Nurse at Main Gavska9607/10/2018 10:30 am - Smiley Loyd M.D. at Main Office
--- OUTSIDE RECORDS SUMMARY | 2018-05-21 10:55 | XMS REPORT | Continuity of Care Document ---
:1940 External Reference #:[id number] Author Name Roseann Pedro Care Team Providers Name Role Phone Smiley Loyd MD Primary Care Physician Unavailable Payers Type Date Identification Numbers Payment Provider Subscriber Effective: Policy Number: [id number] Todays Options Faustino Morales 2017 PayID: [id number] [address] [address] [place] [address] Advance Directives Description No Information Available Problems [...] Smiley 2017 two times Ishuss, a day M.D. Sildenafil [...] today, 1 Evert, 07/06/ by mouth M.D. 2017 day 2 thru 5 Cephalexin 04/07/ Hx [...] 875-125mg 14tabs 1 by mouth J20.9 Smiley vulanate 2016 - twice a Gauss, Potassium 03/03/ day M.DDebra 2016 Flagyl 01/16/ Hx Tablets 500mg 1 by mouth Unknown 2015 - three 01/14/ times a 2016 day Ciprofloxacin 01/16/ Hx Tablets 500mg 1 [...] 272.4 Smiley 2006 - qd Evert, 08/15/ M.DDebra 2009 Lipitor 08/16/ Hx Tablets 10mg 90tabs 1 po qd Smiley 2005 - Evert, M.Annika. 2005 Protonix 08/16/ Hx Tablets 40mg 90tabs 1 po qd Smiley 2005 - Evert, 06/26/ M.D. 2009 Viagra 08/16/ Hx Tablets 50mg 6tabs take 1 Smiley 2005 - tablet if Evert, as M.D. 2017 directed Lopressor 07/01/ Hx Tablets 25mg 180tab 1 po bid Smiley 2005 - s Evert, 09/29/ M.DDebra 2005 Immunizations CPT Code Status Date Vaccine Lot # [id number] Given 06/22/2017 Influenza Virus (Afluria) Split Virus 3 Years Of Age And Older Q2035 Given 06/22/2017 Influenza Virus (Afluria) Split Virus 3 Years [id number] Of Age And Older Q2037 Given 07/16/2015 Influenza Vaccine (Fluvirin) 5 Years Of Age Or [id number] Older Q2036 Given 07/08/2014 Flulaval [id number] Given 07/08/2014 Pneumovax Polyvalent Inj Im [id number] Q2038 Given 04/19/2013 Influenza Vaccine (Fluzone) Administered Age 3 And Older Q2037 Given 04/13/2012 Influenza Vaccine (Fluvirin) 3 Years Of Age Or Older Q2037 Given 04/13/2012 Influenza Vaccine (Fluvirin) 5 Years Of Age Or [id number] Older Q2036 Given 04/01/2011 Flulaval [id number] Given 06/29/2010 Influenza Vaccine [id number] 24674 Given 04/20/2006 Influenza Vaccine [id number] Vital Signs Date Vital Result Comment 05/10/2018 2:52pm BP Systolic 160 mmHg BP [...] Result H/L Range Note Urinalysis Profile 01/26/2018 [facility] Urine Color Yellow [address] [place] [address] [phone] Urine Appearance Clear Urine Specific Stevinson 1.011 1.010-1.030 Urine pH 6.0 5-9 Urine Urobilinogen Negative Negative Urine Ketones Negative Negative Urine Protein Negative Negative Urine Leukocytes Negative Negative Urine Blood 3+ Negative Urine Nitrite Negative Negative Urine Bilirubin Negative Negative Urine Glucose Negative Negative Urine White Blood Cell Absent Absent Urine Red Blood Cell 3+(>10/hpf) Absent Urine Bacteria Absent Absent Urine Culture And 01/26/2018 [facility] Urine Culture SEE RESULT [address] [place] [address] [phone] CBC W/ Diff & PLT 12/26/2017 [facility] WBC 9.3 3.8-[address] thous/L .8 [place] [address] [phone] RBC 5.46 mill/L 4.20-5.80 Hemoglobin 16.4 g/dL 13.2-17.1 Hematocrit 49.5 % 38.5-50.0 MCV 90.6 FL 80.0-100.0 MCH 30.1 pg 27.0-33.0 MCHC 33.2 g/dL 32.0-36.0 RDW 14.1 % 11.0-15.0 Platelet Count 216 thous/L 140-400 Platelet Sufficiency PENDING MPV 9.4 FL 7.5-12.5 Neutrophils,Absolute 6480 cells/L [phone] Bands,Absolute PENDING Metamyelocytes,Absolute PENDING Myelocytes,Absolute PENDING Promyelocytes,Absolute [...] [facility] Sodium 140 mmol/L 135-[address] [place] [address] [phone] Potassium 4.5 mmol/L 3.5-5.3 Chloride 107 mmol/L 98-110 Carbon Dioxide 26 mmol/L 20-31 Calcium 9.5 mg/dL 8.6-10.3 Glucose 105 mg/dL High 65-99 3 Urea Nitrogen (BUN) 16 mg/dL 7-25 Creatinine 0.85 mg/dL 0.70-1.18 4 BUN/Creatinine Ratio 19.2 6-22 Egfr Non-Afr. [place] 85 ML/MIN/1.73M2 > Or=60 Egfr 99 ML/MIN/1.73M2 > Or=60 Lipid Panel 12/26/2017 [facility] Cholesterol 128 mg/dL <199 [address] [facility] [place] [address] [phone] HDL Cholesterol 25 mg/dL Low >40 Cholesterol/HDL Ratio 5.1 CALC High <5.0 LDL Chol,Calculated 80 mg/dL 0-100 5 Triglycerides 131 mg/dL <150 Non-HDL Cholesterol 104 mg/dL <130 6 CBC W/ Diff & PLT 06/22/2017 [facility] WBC 12.0 thous/L High 3.8-10.8 7 [address] [facility] [place] [address] [phone] RBC 5.69 mill/L 4.20-5.80 Hemoglobin 16.4 g/dL 13.2-17.1 Hematocrit 50.5 % High 38.5-50.0 MCV 88.8 FL 80.0-100.0 MCH 28.8 pg 27.0-33.0 MCHC 32.4 g/dL 32.0-36.0 RDW 14.4 % 11.0-15.0 Platelet Count 215 thous/L 140-400 Platelet Sufficiency NORMAL Normal MPV 9.4 FL 7.5-12.5 Neutrophils,Absolute 8840 cells/L High 6929-2689 Bands,Absolute PENDING Metamyelocytes,Absolute PENDING Myelocytes,Absolute PENDING Promyelocytes,Absolute [...] [facility] Sodium 141 mmol/L 135-146 [address] [place], [place] [id number] [phone] Potassium 4.3 mmol/L 3.5-5.3 Chloride 105 mmol/L 98-110 Carbon Dioxide 29 mmol/L 20-31 Calcium 9.2 mg/dL 8.6-10.3 Glucose 98 mg/dL 65-99 9 Urea Nitrogen (BUN) 16 mg/dL 7-25 Creatinine 0.90 mg/dL 0.70-1.18 10 BUN/Creatinine Ratio 17.8 6-22 Egfr Non-Afr. [place] 84 ML/MIN/1.73M2 > Or=60 Egfr 97 ML/MIN/1.73M2 > Or=60 Lipid Panel 06/22/2017 [facility] Cholesterol 145 mg/dL <[address] [place] [address] [phone] HDL Cholesterol 25 mg/dL Low >40 Cholesterol/HDL Ratio 5.8 CALC High <5.0 LDL Chol,Calculated 97 mg/dL 0-100 11 Triglycerides 125 mg/dL <150 Non-HDL Cholesterol 119 mg/dL <130 12 Lipid Panel 01/04/2017 [facility] Cholesterol 128 mg/dL 125-[address] [place] [address] [phone] HDL Cholesterol 25 mg/dL Low > Or=40 Cholesterol/HDL Ratio 5.1 High < Or=5.0 LDL Chol,Calculated 72 mg/dL <130 13 Triglycerides 155 mg/dL High <150 Non-HDL Cholesterol 103 mg/dL 14 Laboratory test 01/04/2017 [facility] PSA,Total 5.6 NG/ML High < Or=4.0 [address] [place] [address] [phone] CBC W/ Diff & PLT 01/04/2017 [facility] WBC 12.9 High 3.8-10.[address] thous/[place] [address] [phone] RBC 5.62 mill/L 4.20-5.80 Hemoglobin 16.4 g/dL 13.2-17.1 Hematocrit 51.0 % High 38.5-50.0 MCV 90.8 FL 80.0-100.0 MCH 29.1 pg 27.0-33.0 MCHC 32.1 g/dL 32.0-36.0 RDW 14.8 % 11.0-15.0 Platelet Count 200 thous/L 140-400 Platelet Sufficiency PENDING MPV 9.6 FL 7.5-12.5 Neutrophils,Absolute 9740 cells/L High 5015-8501 Bands,Absolute PENDING Metamyelocytes,Absolute PENDING Myelocytes,Absolute PENDING Promyelocytes,Absolute [...] [facility] Sodium 140 mmol/L 135-[address] [place] [address] [phone] Potassium 4.5 mmol/L 3.5-5.3 Chloride 108 mmol/L 98-110 Carbon Dioxide 25 mmol/L 20-31 Calcium 9.1 mg/dL 8.6-10.3 Glucose 105 mg/dL High 65-99 17 Urea Nitrogen 23 mg/dL 7-25 Creatinine 0.99 mg/dL 0.70-1.18 18 BUN/Creatinine Ratio 22.8 High 6-22 Egfr Non-Afr. [place] 75 ML/MIN/1.73M2 > Or=60 Egfr 87 ML/MIN/1.73M2 > Or=60 CBC Auto Diff 04/17/2016 [email or web address] White Blood 8.8 10^3/uL 3.5-10.[address] [place], [place] [id number] [phone] Red Blood Count 5.70 10^6/uL High 4.0-5.4 [...] Cells % 0 Comp Metabolic Panel 04/17/2016 [facility] Sodium 136 mmol/L 102-100 [address] [place] [address] [phone] Potassium 4.0 mmol/L 3.5-5.0 Chloride 104 mmol/L [...] Egfr 107.8 >60 19 Laboratory test 04/17/2016 [facility] Troponin I 0.00 ng/mL < 0.03 [address] [place] [address] [phone] CBC Auto Diff 02/27/2016 [facility] White Blood 18.2 High 3.5- 10.[address] [place] [address] Count 10^3/[place] [address] [phone] Red Blood Count 5.99 10^6/uL High 4.0-5.4 [...] Blood Cells % 0.1 Urinalysis Profile 02/27/2016 [facility] Urine Color Yellow 21 [address] [place] [address] [phone] Urine Appearance Clear Urine Specific Stevinson > 1.060 High 1.010-1.030 Urine pH 6.0 5-9 Urine Urobilinogen Negative Negative Urine Ketones Negative Negative Urine Protein Negative Negative Urine Leukocytes Negative Negative Urine Blood Negative Negative Urine Nitrite Negative Negative Urine Bilirubin Negative Negative Urine Glucose Negative Negative Laboratory test 02/27/2016 [facility] Activated 28.9 26.0- 36.3 finding [address] [facility] [place] [address] Thrombo Time [phone] Laboratory test 02/27/2016 [facility] Lactic Acid 0.9 mmol/L 0.5-2.0 22 finding [address] [place] [address] [phone] Comp Metabolic 02/27/2016 [facility] Sodium 137 mmol/L 133- 145 Panel [address] [place] [address] [phone] Potassium 3.7 mmol/L 3.5-5.0 Chloride 106 mmol/L [...] 112.1 >60 23 Laboratory test finding 02/27/2016 [facility] Lipase 20 U/L 11.0-82.0 24 [address] [address] [phone] Troponin I 0.00 ng/mL <0.03 25 Creatine Kinase 62 U/L 10-223 26 C Reactive Protein 12.50 mg/L High < 5.00 27 Myoglobin 36.7 ng/mL 17.4-105.7 28 Inr/Protime 02/27/2016 [facility] Inr 1.12 High 0.89-1.11 [facility] [place] [address] [phone] Laboratory test 02/27/2016 [facility] B Type 141 High [address] Natriuretic pg/[place] [address] Peptide [phone] CKMB 02/27/2016 [facility] CKMB ng/mL 3.1 0.6-6.[address] ng/[place] [address] [phone] CBC W/ Diff & 01/05/2016 [facility] WBC 10.1 3.8-10.[address]T [address] [facility] [place] [address] L [phone] RBC 5.71 mill/L 4.20-5.80 Hemoglobin 16.3 g/dL 13.2-17.1 Hematocrit 51.2 % High 38.5-50.0 MCV 89.6 FL 80.0-100.0 MCH 28.5 pg 27.0-33.0 MCHC 31.8 g/dL Low 32.0-36.0 RDW 14.2 % 11.0-15.0 Platelet Count 219 thous/L 140-400 Platelet Sufficiency PENDING MPV 9.6 FL 7.5-11.5 Neutrophils,Absolute 7100 cells/L [phone] Bands,Absolute PENDING Metamyelocytes,Absolute PENDING Myelocytes,Absolute PENDING Promyelocytes,Absolute [...] [facility] Sodium 140 mmol/L 135-146 [address] [place] [address] [phone] Potassium 4.6 mmol/L 3.5-5.3 Chloride 105 mmol/L 98-110 Carbon Dioxide 25 mmol/L 19-30 Calcium 9.3 mg/dL 8.6-10.3 Glucose 108 mg/dL High 65-99 31 Urea Nitrogen 17 mg/dL 7-25 Creatinine 0.95 mg/dL 0.70-1.18 32 BUN/Creatinine Ratio 17.9 6-22 Lipid Panel 01/05/2016 [facility] Cholesterol 129 mg/dL 125-200 [address] [place], [place] [address] [phone] HDL Cholesterol 20 mg/dL Low > Or=40 Cholesterol/HDL Ratio 6.5 High < Or=5.0 LDL Chol,Calculated 65 mg/dL <130 33 Triglycerides 218 mg/dL High <150 Non-HDL Cholesterol 110 mg/dL 34 Laboratory test 01/05/2016 [facility] PSA,Total 4.9 NG/ML High < Or=4.0 [address] [place] [address] [phone] TSH & T4,Free 01/05/2016 [facility] TSH 1.98 mIU/L 0.40-4.[address] [place] [address] [phone] T4,Free 1.1 ng/dL 0.8-1.8 CBC Auto 01/16/2015 [facility] White Blood 21.7 10^3/uL High 4.8-10.[address] [place] [address] [phone] Red Blood Count 6.64 10^6/uL High 4.0-5.4 [...] RBC 0.01 10^3/uL Comp Metabolic Panel 01/16/2015 [facility] Sodium 138 mmol/L [phone] [place] [address] [phone] Potassium 3.7 mmol/L 3.5-5.0 Chloride 104 mmol/L [...] 78.0 >60 36 Laboratory test finding 01/16/2015 [facility] Lipase 20 U/L 11.0-82.[address] [place] [address] [phone] Troponin I 0.00 ng/mL <0.03 37 C Reactive Protein 6.72 mg/L High < 5.00 38 Manual Differential 01/16/2015 [facility] Immature 20 % High 0- [address] [place] [address] [place] [address] [phone] Neutrophil % 75 % 38-83 Band % 20 % High 0-8 Lymphocytes % 2 % Low 25-47 Monocytes % 1 % 0-13 Eosinophils % 1 % 0-6 Reactive Lymph % 1 % 0-6 RBC Morphology Normal Normal Laboratory test 01/16/2015 [facility] Lactic Acid 1.4 mmol/L 0.5-2.2 [address] [place] [address] [phone] Urinalysis 01/16/2015 [facility] Urine Color Yellow Profile [address] [place] [address] [phone] Urine Appearance Cloudy Urine Specific Stevinson 1.026 1.010-1.030 Urine pH 5.0 5-9 Urine Urobilinogen Negative Negative Urine Ketones Trace Negative Urine Protein Negative Negative Urine Leukocytes Negative Negative Urine Blood Negative Negative Urine Nitrite Negative Negative Urine Bilirubin Negative Negative Urine Glucose Negative Negative BMP W/O Egfr 12/30/2014 [facility] Sodium 140 mmol/L 135-[address] [place] [address] [phone] Potassium 4.7 mmol/L 3.5-5.3 Chloride 108 mmol/L 98-110 Carbon Dioxide 23 mmol/L 19-30 Calcium 8.9 mg/dL 8.6-10.3 Glucose 100 mg/dL High 65-99 40 Urea Nitrogen 18 mg/dL 7-25 Creatinine 0.94 mg/dL 0.70-1.18 41 BUN/Creatinine Ratio 19.4 6-22 Lipid Panel 12/30/2014 [facility] Cholesterol 147 mg/dL 125-[address] [place] [address] [phone] HDL Cholesterol 27 mg/dL Low > Or=40 Cholesterol/HDL Ratio 5.4 High < Or=5.0 LDL Chol,Calculated 84 mg/dL <130 42 Triglycerides 178 mg/dL High <150 Non-HDL Cholesterol 120 mg/dL 43 Hepatic Function 12/30/2014 [facility] Alkaline Phosphatase 76 U/L 40- 115 Panel [address] [place] [address] [phone] Ast 17 U/L 10-35 Alt 16 U/L 9-46 Bilirubin,Total 0.4 mg/dL 0.2-1.2 Bilirubin,Direct 0.1 mg/dL < Or=0.2 Protein,Total 6.6 g/dL 6.1-8.1 Albumin 3.7 g/dL 3.6-5.1 Globulin,Calculated 2.9 g/dL 1.9-3.7 A/G Ratio 1.3 1.0-2.5 CBC W/ Diff & PLT 12/30/2014 [facility] WBC 11.4 thous/L High 3.8-10.8 [address] [facility] [facility] [place] [address] [phone] RBC 5.51 mill/L 4.20-5.80 Hemoglobin 16.2 g/dL 13.2-17.1 Hematocrit 49.7 % 38.5-50.0 MCV 90.2 FL 80.0-100.0 MCH 29.4 pg 27.0-33.0 MCHC 32.6 g/dL 32.0-36.0 RDW 14.4 % 11.0-15.0 Platelet Count 202 thous/L 140-400 Platelet Sufficiency PENDING MPV 10.3 FL 7.5-11.5 Neutrophils,Absolute 8470 cells/L High 1332-1911 Bands,Absolute PENDING Metamyelocytes,Absolute PENDING Myelocytes,Absolute PENDING Promyelocytes,Absolute [...] 4.8 NG/ML High 0.0-4.0 [address] [place] [address] [phone] [facility] W/O Egfr 01/07/2014 [facility] Sodium 141 mmol/L 135-146 [address] [place] [address] [phone] Potassium 4.3 mmol/L 3.5-5.3 Chloride 107 mmol/L 98-110 Carbon Dioxide 25 mmol/L 19-30 Calcium 9.1 mg/dL 8.6-10.3 Glucose 108 mg/dL High 65-99 46 Urea Nitrogen 13 mg/dL 7-25 Creatinine 0.91 mg/dL 0.70-1.18 47 BUN/Creatinine Ratio 14.2 6-22 Laboratory test 01/07/2014 [facility] Direct LDL 77 mg/dL <130 48 finding [address] [place] [address] [phone] BMP W/O Egfr 06/27/2013 [facility] Sodium 139 mmol/L 135-[address] [place] [address] [phone] Potassium 4.8 mmol/L 3.5-5.3 Chloride 106 mmol/L 98-110 Carbon Dioxide 23 mmol/L 19-30 Calcium 8.9 mg/dL 8.6-10.3 Glucose 103 mg/dL High 65-99 49 Urea Nitrogen 18 mg/dL 7-25 Creatinine 0.90 mg/dL 0.70-1.18 50 BUN/Creatinine Ratio 19.6 6-22 CBC W/ Diff & PLT 06/27/2013 [facility] WBC 8.4 thous/L 3.8-10.8 [address] [place] [address] [phone] RBC 5.80 mill/L 4.20-5.80 Hemoglobin 16.3 g/dL 13.2-17.1 Hematocrit 50.4 % High 38.5-50.0 MCV 87.0 FL 80.0-100.0 MCH 28.1 pg 27.0-33.0 MCHC 32.3 g/dL 32.0-36.0 RDW 14.2 % 11.0-15.0 Platelet Count 194 thous/L 140-400 Neutrophils,Absolute 5670 cells/L 7173-3390 Lymphocytes,Absolute 1680 cells/L 850-3900 Monocytes,Absolute 570 cells/L 200-950 Eosinophils,Absolute 470 cells/L 15-500 Basophils,Absolute 30 cells/L 0-200 Total Neutrophils,% 67 % 38-80 Total Lymphocytes,% 20 % 15-49 Monocytes,% 7 % 0-13 Eosinophils,% 6 % 0-8 Basophils,% 0 % 0-2 Laboratory test finding 06/27/2013 [facility] Direct LDL 91 mg/dL <130 51 [address] [place] [address] [phone] Laboratory test finding 12/25/2012 [facility] Direct LDL 73 mg/dL <130 52 [address] [place] [address] [phone] Glucose 110 mg/dL High 65-99 53 BMP W/O Egfr 07/05/2012 [facility] Sodium 140 mmol/L 135-146 [address] [place] [address] [phone] Potassium 4.7 mmol/L 3.5-5.3 Chloride 107 mmol/L 98-110 Carbon Dioxide 26 mmol/L 21-33 Calcium 9.2 mg/dL 8.6-10.3 Glucose 104 mg/dL High 65-99 54 Urea Nitrogen 22 mg/dL 7-25 Creatinine 0.96 mg/dL 0.70-1.25 55 BUN/Creatinine Ratio 22.5 High 6-22 CBC W/ Diff & PLT 07/05/2012 [facility] WBC 8.9 thous/L 3.8-10.[address] [place] [address] [phone] RBC 5.63 mill/L 4.20-5.80 Hemoglobin 16.8 g/dL 13.2-17.1 Hematocrit 49.5 % 38.5-50.0 MCV 87.9 FL 80.0-100.0 MCH 29.8 pg 27.0-33.0 MCHC 33.9 g/dL 32.0-36.0 RDW 14.2 % 11.0-15.0 Platelet Count 204 thous/L 140-400 Neutrophils,Absolute 5730 cells/L 2219-6715 Lymphocytes,Absolute 1930 cells/L 850-3900 Monocytes,Absolute 680 cells/L 200-950 Eosinophils,Absolute 480 cells/L 15-500 Basophils,Absolute 70 cells/L 0-200 Total Neutrophils,% 64 % 38-80 Total Lymphocytes,% 22 % 15-49 Monocytes,% 8 % 0-13 Eosinophils,% 5 % 0-8 Basophils,% 1 % 0-2 Laboratory test 07/05/2012 [facility] Direct LDL 88 mg/dL <130 [address] [place] [address] [phone] Culture,Urine,Voided 06/06/2012 [facility] Source URINE-CLEAN [address] [place] <[place] [address] NOTE> [phone] Final Report (SEE NOTE) 58 Laboratory 01/03/2012 [facility] LDL Cholesterol,Direct 93 mg/dL <130 59 test finding [address] [place], [place] [address] [phone] Hepatic 06/30/2011 [facility] Alkaline Phosphatase 95 U/L 40-115 Function Panel [address] [place], [place] [id number] [phone] Ast 16 U/L 10-35 Alt 18 U/L 9-60 Bilirubin,Total 0.4 mg/dL 0.2-1.2 Bilirubin,Direct 0.1 mg/dL < Or=0.2 Protein,Total 6.7 g/dL 6.2-8.3 Albumin 4.2 g/dL 3.6-5.1 Globulin,Calculated 2.5 g/dL 2.1-3.7 A/G Ratio 1.6 1.0-2.1 CBC W/ Diff & PLT 06/30/2011 [facility] WBC 10.3 thous/L 3.8-10.[address] [place] [address] [phone] RBC 5.63 mill/L 4.20-5.80 Hemoglobin 16.7 g/dL 13.2-17.1 Hematocrit 50.0 % 38.5-50.0 MCV 88.9 FL 80.0-100.0 MCH 29.7 pg 27.0-33.0 MCHC 33.5 g/dL 32.0-36.0 RDW 14.3 % 11.0-15.0 Platelet Count 203 thous/L 140-400 Neutrophils,Absolute 6930 cells/L 4684-9165 Lymphocytes,Absolute 2040 cells/L 850-3900 Monocytes,Absolute 640 cells/L 200-950 Eosinophils,Absolute 580 cells/L High 15-500 Basophils,Absolute 60 cells/L 0-200 Total Neutrophils,% 68 % 38-80 Total Lymphocytes,% 20 % 15-49 Monocytes,% 6 % 0-13 Eosinophils,% 6 % 0-8 Basophils,% 1 % 0-2 Laboratory test 06/30/2011 [facility] PSA,Total 2.8 NG/ML 0.0-4.0 60 finding [address] [place] [address] [phone] Basic Metabolic Panel 06/30/2011 [facility] Sodium 139 mmol/L 135-[address] [place] [address] [phone] Potassium 4.9 mmol/L 3.5-5.3 Chloride 104 mmol/L 98-110 Carbon Dioxide 28 mmol/L 21-33 Calcium 9.3 mg/dL 8.6-10.2 Glucose 103 mg/dL High 65-99 61 Urea Nitrogen 17 mg/dL 7-25 Creatinine 0.98 mg/dL 0.76-1.46 BUN/Creatinine Ratio 17.8 6-22 Egfr Non-Afr. [place] 79 ML/MIN/1.73M2 > Or=60 Egfr 91 ML/MIN/1.73M2 > Or=60 Laboratory 06/30/2011 [facility] LDL Cholesterol,Direct 75 mg/dL <130 62 test finding [address] [place] [address] [phone] Laboratory 12/22/2010 [facility] Cholesterol 137 125-200 test finding [address] [place] mg/[place] [address] [phone] LDL Cholesterol,Direct 80 mg/dL <130 63 HDL Cholesterol 24 mg/dL Low > Or=40 Triglycerides 206 mg/dL High <150 TSH & T4,Free 06/16/2010 [facility] TSH,3RD 1.37 mIU/L 0.40-4.[address] [place] [address] [phone] T4,Free 1.1 ng/dL 0.8-1.8 Basic Metabolic Panel 06/16/2010 [facility] Sodium 140 mmol/L 135-[address] [place] [address] [phone] Potassium 4.8 mmol/L 3.5-5.3 Chloride 104 mmol/L 98-110 Carbon Dioxide 27 mmol/L 21-33 Calcium 9.3 mg/dL 8.6-10.2 Glucose 106 mg/dL High 65-99 64 Urea Nitrogen 14 mg/dL 7-25 Creatinine 1.08 mg/dL 0.76-1.46 BUN/Creatinine Ratio 13.2 6-22 Egfr Non-Afr. [place] >60 ML/MIN/1.73M2 > Or=60 Egfr >60 ML/MIN/1.73M2 > Or=60 CBC W/ Diff & PLT 06/16/2010 [facility] WBC 9.7 thous/L 3.8-10.[address] [place] [address] [phone] RBC 5.61 mill/L 4.20-5.80 Hemoglobin 16.7 g/dL 13.2-17.1 Hematocrit 50.0 % 38.5-50.0 MCV 89.2 FL 80.0-100.0 MCH 29.9 pg 27.0-33.0 MCHC 33.5 g/dL 32.0-36.0 RDW 14.1 % 11.0-15.0 Platelet Count 224 thous/L 140-400 Platelet Sufficiency NORMAL Normal Neutrophils,Absolute 6360 cells/L 4087-8978 Bands,Absolute DNR cells/L 0-750 Metamyelocytes,Absolute DNR cells/L [...] [facility] Cholesterol 138 mg/dL 125-200 [address] [place], [place] [address] [phone] HDL Cholesterol 25 mg/dL Low > Or=40 Cholesterol/HDL Ratio 5.5 High < Or=5.0 LDL Chol,Calculated 75 mg/dL <130 65 Triglycerides 189 mg/dL High <150 Hepatic Function 06/16/2010 [facility] Alkaline Phosphatase 85 U/L 40- 115 Panel [address] [place], [place] [address] [phone] Ast 21 U/L 10-35 Alt 19 U/L 9-60 Bilirubin,Total 0.4 mg/dL 0.2-1.2 Bilirubin,Direct 0.1 mg/dL < Or=0.2 Protein,Total 6.5 g/dL 6.2-8.3 Albumin 4.0 g/dL 3.6-5.1 Globulin,Calculated 2.5 g/dL 2.1-3.7 A/G Ratio 1.6 1.0-2.1 Laboratory test finding 02/20/2010 [facility] CK 67 U /L 26-[address] [place] [address] [phone] Troponin-I 0.0 NG/ML 0.0-0.6 66 Laboratory test finding 02/19/2010 [facility] CK 53 U /L 26-[address] [place], [place] [address] [phone] Troponin-I 0.1 NG/ML 0.0-0.6 67 Basic Metabolic 02/19/2010 [facility] Glucose 136 mg/ dL High 76-[address] [place] [address] [phone] BUN 17 mg/dL 5-23 Creatinine 1.0 mg/dL 0.5-1.4 Glom Filtration Rate, Estimate >60 mL/min >60 If >60 mL/min >60 68 BUN/Creat 17.0 Sodium 139 mEq/L 136-145 Potassium 3.9 mEq/L 3.5-5.1 Chloride 104 mEq/L 98-107 Carbon Dioxide 28 mEq/L 21-32 Anion Gap 11 mEq/L 8-16 Calcium 8.8 mg/dL 8.5-10.1 Laboratory test finding 02/19/2010 [facility] CK 73 U /L 26-[address] [place] [address] [phone] Troponin-I 0.0 NG/ML 0.0-0.6 69 CBS W/Automated 02/19/2010 [facility] White Blood 11.1 K/uL High 3.4-10.[address] [place] [address] [phone] Red Blood Count 5.82 M/uL High 4.20-5.80 Hemoglobin 17.0 gm/dL 12.8-17.0 Hematocrit 49.4 % High 38.0-48.0 Mean Cell Volume 84.9 fl 80.0-96.0 Mean Corpuscular HGB 29.2 pg 27.0-33.0 Mean Corpuscular HGB Conc 34.4 g/dL 31.7-36.0 Platelet Count 224 K/uL 150-400 Red Cell Distri Width %CV 14.0 % 11.6-15.8 Mean Platelet Volume 9.9 fL 6.6-10.6 Neut% 66.5 % 33.0-73.0 Lymph % 20.8 % 17.0-56.0 [place] % 7.4 % 0.0-10.0 Eo% 4.9 % 0.0-5.0 Bas% 0.4 % 0.1-1.0 Neut# 7.4 K/uL High 1.8-7.0 Lymph # 2.3 K/uL 1.2-4.0 [place] # 0.8 K/uL High 0.0-0.6 Eos # 0.5 K/uL 0.0-0.5 Baso # 0.0 K/uL Low 0.1-0.2 Red Cell Distri Width SD 43 fl 36-51 Laboratory test 02/19/2010 [facility] Magnesium 2.0 mg/dL 1.7-2.[address] [place] [address] [phone] Protime 02/19/2010 [facility] Protime 14.2 seconds 11.7-15.[address] [place] [address] [phone] Inr 1.1 0.8-1.2 70 Laboratory test 02/19/2010 [facility] Act Partial 29.7 23.4-37.4 [address] [place] [address] [phone] Lipid Panel 12/15/2009 [facility] Cholesterol 139 mg/dL 125-[address] [place] [address] [phone] HDL Cholesterol 26 mg/dL Low > Or=40 Triglycerides 173 mg/dL High <150 Cholesterol/HDL Ratio 5.3 High < Or=5.0 LDL Chol,Calculated 78 mg/dL <130 72 CBC W/ Diff & PLT 06/12/2009 [facility] WBC 8.4 thous/L 3.8-10.[address] [place] [address] [phone] RBC 5.93 mill/L High 4.20-5.80 Hemoglobin 17.2 g/dL High 13.2-17.1 Hematocrit 51.6 % High 38.5-50.0 MCV 86.9 FL 80.0-100.0 MCH 28.9 pg 27.0-33.0 MCHC 33.3 g/dL 32.0-36.0 RDW 14.1 % 11.0-15.0 Platelet Count 214 thous/L 140-400 Platelet Sufficiency NORMAL Normal Neutrophils,Absolute 5430 cells/L [phone] Bands,Absolute DNR cells/L 0-750 Metamyelocytes,Absolute DNR cells/L [...] [facility] Sodium 139 mmol/L 135-146 [address] [place] [address] [phone] Potassium 4.8 mmol/L 3.5-5.3 Chloride 103 mmol/L 98-110 Carbon Dioxide 25 mmol/L 21-33 Calcium 9.7 mg/dL 8.6-10.2 Glucose 102 mg/dL High 65-99 73 Urea Nitrogen 18 mg/dL 7-25 Creatinine 1.12 mg/dL 0.76-1.46 BUN/Creatinine Ratio 16.1 6-22 Egfr Non-Afr. [place] >60 ML/MIN/1.73M2 > Or=60 Egfr >60 ML/MIN/1.73M2 > Or=60 Hepatic Function 06/12/2009 [facility] Alkaline Phosphatase 96 U/L 40- [address] [place] [address] [phone] Ast 20 U/L 10-35 Alt 20 U/L 9-60 Bilirubin,Total 0.5 mg/dL 0.2-1.2 Bilirubin,Direct 0.1 mg/dL < Or=0.2 Protein,Total 7.3 g/dL 6.2-8.3 Albumin 4.3 g/dL 3.6-5.1 Globulin,Calculated 3.0 g/dL 2.1-3.7 A/G Ratio 1.4 1.0-2.1 Lipid Panel 06/12/2009 [facility] Cholesterol 164 mg/dL 125-[address] [place], [place] [id number] [phone] HDL Cholesterol 28 mg/dL Low > Or=40 Cholesterol/HDL Ratio 5.9 High < Or=5.0 LDL Chol,Calculated 93 mg/dL <130 74 Triglycerides 213 mg/dL High <150 Laboratory test 12/12/2008 [facility] Creatine 191 U/L 44-196 finding [address] Kinase,Total [place], [place] [id number] [phone] Lipid Panel 12/12/2008 [facility] Cholesterol 153 mg/dL 125-[address] [place] [address] [phone] HDL Cholesterol 25 mg/dL Low > Or=40 Cholesterol/HDL Ratio 6.1 High < Or=5.0 LDL Chol,Calculated 75 mg/dL <130 75 Triglycerides 267 mg/dL High <150 Hepatic Function 12/12/2008 [facility] Alkaline Phosphatase 82 U/L 40- 115 Panel [address] [place] [address] [phone] Ast 20 U/L 10-35 Alt 19 U/L 9-60 Bilirubin,Total 0.4 mg/dL 0.2-1.2 Bilirubin,Direct 0.1 mg/dL < Or=0.2 Protein,Total 6.9 g/dL 6.2-8.3 Albumin 4.1 g/dL 3.6-5.1 Globulin,Calculated 2.8 g/dL 2.1-3.7 A/G Ratio 1.4 1.0-2.1 CBC W/ Diff & PLT 08/07/2008 [facility] WBC 8.8 thous/L 3.8-10.[address] [place], [place] [id number] [phone] RBC 5.87 mill/L High 4.20-5.80 Hemoglobin 17.1 g/dL 13.2-17.1 Hematocrit 49.6 % 38.5-50.0 MCV 84.5 FL 80.0-100.0 MCH 29.1 pg 27.0-33.0 MCHC 34.5 g/dL 32.0-36.0 RDW 14.2 % 11.0-15.0 Platelet Count 246 thous/L 140-400 Platelet Sufficiency NORMAL Normal Neutrophils,Absolute 5150 cells/L 3750-8820 Bands,Absolute DNR cells/L 0-750 Metamyelocytes,Absolute DNR cells/L [...] [facility] Sodium 140 mmol/L 135-[address] [place] [address] [phone] Potassium 4.9 mmol/L 3.5-5.3 Chloride 105 mmol/L 98-110 Carbon Dioxide 29 mmol/L 21-33 Calcium 9.6 mg/dL 8.6-10.2 Glucose 94 mg/dL 65-99 76 Urea Nitrogen 17 mg/dL 7-25 Creatinine 1.03 mg/dL 0.50-1.30 BUN/Creatinine Ratio 16.8 6-22 Egfr Non-Afr. [place] >60 ML/MIN/1.73M2 > Or=60 Egfr >60 ML/MIN/1.73M2 > Or=60 TSH & T4,Free 08/07/2008 [facility] TSH,3RD 1.92 mU/L 0.40-4.[address] [place] [address] [phone] T4,Free 1.1 ng/dL 0.8-1.8 Lipid Panel 08/07/2008 [facility] Cholesterol 145 mg/dL 125-[address] [place] [address] [phone] HDL Cholesterol 29 mg/dL Low > Or=40 Triglycerides 168 mg/dL High <150 Cholesterol/HDL Ratio 5.0 < Or=5.0 LDL Chol,Calculated 82 mg/dL <130 77 Lipid Panel 01/30/2008 [facility] Cholesterol 147 mg/dL 125-[address] [place] [address] [phone] HDL Cholesterol 30 mg/dL Low > Or=40 78 Cholesterol/HDL Ratio 4.9 < Or=5.0 LDL Chol,Calculated 86 mg/dL <130 79 Triglycerides 153 mg/dL High <150 Hepatic Function 01/30/2008 [facility] Alkaline Phosphatase 86 U/L 40- 115 Panel [address] [place] [address] [phone] Ast 19 U/L 10-35 Alt 19 U/L 9-60 Bilirubin,Total 0.4 mg/dL 0.2-1.2 Bilirubin,Direct 0.1 mg/dL < Or=0.2 Protein,Total 6.8 g/dL 6.2-8.3 Albumin 3.9 g/dL 3.6-5.1 Globulin,Calculated 2.9 g/dL 2.1-3.7 A/G Ratio 1.4 1.0-2.1 CBC W/ Diff & PLT 08/01/2007 [facility] WBC 9.9 thous/L 3.8-10.8 [address] [facility] [address] [phone] RBC 5.85 mill/L High 4.20-5.80 Hemoglobin 16.5 g/dL 13.2-17.1 Hematocrit 49.7 % 38.5-50.0 MCV 85.0 FL 80.0-100.0 MCH 28.2 pg 27.0-33.0 MCHC 33.2 g/dL 32.0-36.0 RDW 14.1 % 11.0-15.0 Platelet Count 264 thous/L 140-400 Platelet Sufficiency NORMAL Normal Neutrophils,Absolute 6720 cells/L 9790-0148 Bands,Absolute DNR cells/L 0-750 Metamyelocytes,Absolute DNR cells/L [...] [facility] Cholesterol 162 mg/dL 125-200 [address] [facility] [place] [address] [phone] HDL Cholesterol 24 mg/dL Low > Or=40 80 Cholesterol/HDL Ratio 6.8 High < Or=5.0 LDL Chol,Calculated 103 mg/dL <130 81 Triglycerides 173 mg/dL High <150 TSH & T4,Free 08/01/2007 [facility] TSH,3RD 1.34 mU/L 0.40-4.[address] [place] [address] [phone] T4,Free 1.1 ng/dL 0.8-1.8 Basic Metabolic Panel 08/01/2007 [facility] Sodium 139 mmol/L 135-[address] [place] [address] [phone] Potassium 4.9 mmol/L 3.5-5.3 Chloride 106 mmol/L 98-110 Carbon Dioxide 28 mmol/L 21-33 Calcium 9.3 mg/dL 8.6-10.2 Glucose 106 mg/dL High 65-99 82 Urea Nitrogen 18 mg/dL 7-25 Creatinine 1.09 mg/dL 0.50-1.30 BUN/Creatinine Ratio 16.2 6-22 Egfr Non-Afr. [place] >60 ML/MIN/1.7 > Or=60 Egfr >60 ML/MIN/1.7 > Or=60 Basic Metabolic Panel 08/03/2006 [facility] Sodium 140 mmol/L 135-[address] [place] [address] [phone] Potassium 4.6 mmol/L 3.5-5.3 Chloride 104 mmol/L 98-110 Carbon Dioxide 31 mmol/L 21-33 Calcium 9.6 mg/dL 8.5-10.4 Glucose 105 mg/dL High 65-99 83 Urea Nitrogen 12 mg/dL 7-25 Creatinine 1.0 mg/dL 0.5-1.4 BUN/Creatinine Ratio 11.8 6-25 GFR Estimated >60 ML/MIN/1.7 >59 84 Lipid Panel 08/03/2006 [facility] Cholesterol 166 mg/dL <[address] [place] [address] [phone] HDL Cholesterol 25 mg/dL Low >40 85 Triglycerides 214 mg/dL High <150 Cholesterol/HDL Ratio 6.6 High <5.0 LDL Chol,Calculated 98 mg/dL <130 86 CBC W/ Diff & PLT 08/03/2006 [facility] WBC 10.6 thous/L 3.8-10.[address] [place] [address] [phone] RBC 5.86 mill/L High 4.20-5.80 Hemoglobin 16.8 g/dL 13.2-17.1 Hematocrit 49.5 % 38.5-50.0 MCV 84.4 FL 80.0-100.0 MCH 28.7 pg 27.0-33.0 MCHC 34.0 g/dL 32.0-36.0 RDW 14.5 % 11.0-15.0 Platelet Count 259 thous/L 140-400 Platelet Sufficiency NORMAL Normal Neutrophils,Absolute 7120 cells/L 9907-1002 Bands,Absolute DNR cells/L 0-750 Metamyelocytes,Absolute DNR cells/L [...] [facility] Cholesterol 155 mg/dL <200 [address] [place] [address] [phone] HDL Cholesterol 26 mg/dL Low >40 87 Triglycerides 199 mg/dL High <150 Cholesterol/HDL Ratio 6.0 High <5.0 LDL Chol,Calculated 89 mg/dL <130 88 Hepatic Function 02/08/2006 [facility] Alkaline Phosphatase 99 U/L 20- 125 Panel [address] [place] [address] [phone] Ast 17 U/L 3-50 Alt 16 U/L 3-60 Bilirubin,Total 0.3 mg/dL 0.2-1.5 Bilirubin,Direct 0.1 mg/dL 0.0-0.3 Protein,Total 6.8 g/dL 6.0-8.3 Albumin 4.0 g/dL 3.2-4.6 Basic Metabolic Panel 08/06/2005 [facility] Sodium 141 mmol/L 135-146 [address] [place] [address] [phone] Potassium 5.2 mmol/L 3.5-5.3 Chloride 107 mmol/L 98-110 Carbon Dioxide 20 mmol/L Low 21-33 Calcium 9.4 mg/dL 8.5-10.4 Glucose 99 mg/dL 65-99 89 Urea Nitrogen 18 mg/dL 7-25 Creatinine 1.1 mg/dL 0.5-1.4 BUN/Creatinine Ratio 17.1 6-25 GFR Estimated >60 ML/MIN/1.7 >59 90 CBC W/ Diff & PLT 08/06/2005 [facility] WBC 10.1 thous/L 3.8-10.8 [address] [place] [address] [phone] RBC 6.15 mill/L High 4.20-5.80 Hemoglobin 17.2 g/dL High 13.2-17.1 Hematocrit 51.9 % High 38.5-50.0 MCV 84.4 FL 80.0-100.0 MCH 28.0 pg 27.0-33.0 MCHC 33.2 g/dL 32.0-36.0 RDW 14.6 % 11.0-15.0 Platelet Count 274 thous/L 140-400 Platelet Sufficiency NORMAL Neutrophils,Absolute 6850 cells/L 9243-5349 Bands,Absolute DNR cells/L 0-750 Metamyelocytes,Absolute DNR cells/L [...] [facility] Cholesterol 168 mg/dL <[address] [place] [address] [phone] HDL Cholesterol 27 mg/dL Low >40 91 Triglycerides 153 mg/dL High <150 Cholesterol/HDL Ratio 6.2 High <5.0 LDL Chol,Calculated 110 mg/dL <130 92 Laboratory test 08/06/2005 [facility] PSA,Total 2.3 NG/ML 0.0-4.0 [address] [place] [address] Medicare [phone] TSH 1.31 mU/L 0.40-5.50 1 SEE RESULT BELOW Name: FAUSTINO MORALES : [address]: Carl Bowden MD Acct: [id number] Unit: [id number] AGE: 77 Location: ED Re01/26/18 SEX: M Status: DEP ER SPEC: [id number] MARIJA: 01/26/18 [facility] DR: Carl Bowden MD REQ: [id number] RECD: 01/26/18 STATUS: COMP [facility] DR: Smiley Loyd MD _ SOURCE: URINE SPDESC: ORDERED: Urine Culture Procedure Result Reported Site Urine Culture Final 01/27/18- 1709 ML No Growth (<1,000 CFU/mL) * ML - [facility] . END OF REPORT DEPARTMENT OF PATHOLOGY, [address] [place] [address] Jeyson Lloyd M.D. Director [facility] # [id number] 2 Relative blood cell counts (%) should [...] approximately 13% higher for people identified as -[place]. 5 LDL-C is now calculated using the Jac-Spain calculation, which is a validated novel method providing better accuracy than the Friedewald equation in the estimation of LDL-C. Jac SS et al.SUBHA.2013;310(19):6986-2039 Desirable range <100 mg/dL for primary prevention; <70 mg/dL for patients with CHD or diabetic patients with >or=2 CHD risk factors. For additional information, please refer to http://[employer].VoteIt/faq/YOM765(This link is being provided for informational/educational purposes [...] approximately 13% higher for people identified as -[place]. 11 LDL-C is now calculated using the Jac-Spain calculation, which is a validated novel method providing better accuracy than the Friedewald equation in the estimation of LDL-C. Jac SS et al.SUBHA.2013;310(19):9706-7914 (http://education.VoteIt/faq/ZBL024) Desirable range <100 mg/dL for patients with [...] compared to the equimolar-standardized total PSA (Dani Kilbourne). Comparison of serial PSA results should be [...] approximately 13% higher for people identified as -[place]. 19 Because ethnic data is not always [...] 0.03 ng/mL Not supportive of diagnosis of MS 0.03 - 0.50 ng/mL Indeterminate: suggest serial studies if clinically indicated. Greater than 0.5 ng/mL Consistent with diagnosis of MS 21 CORRECTING 22 [facility] Severe Sepsis and Septic Shock Management [...] 0.03 ng/mL Not supportive of diagnosis of MS 0.03 - 0.50 ng/mL Indeterminate: suggest serial studies if clinically indicated. Greater than 0.5 ng/mL Consistent with diagnosis of MS 26 CORRECTING 27 Acute inflammation: >10.00 28 [...] Garces, 2015. Pediatric Reference Intervals, 7th Ed, [facility] [employer], 2011. 31 GLUCOSE REFERENCE RANGE BASED ON FASTING SPECIMEN. 32 The upper reference limit for Creatinine is approximately 13% higher for people identified as -[place]. 33 LDL-CHOLESTEROL RISK CATEGORY* GOAL VERY HIGH [...] 0.03 ng/mL Not supportive of diagnosis of MS 0.03 - 0.50 ng/mL Indeterminate: suggest serial studies if clinically indicated. Greater than 0.5 ng/mL Consistent with diagnosis of MS 38 Acute inflammation: >10.00 39 CEE IN ED NOTIFIED NEED TO COLLECT NARVAEZ TUBE 1705 40 GLUCOSE REFERENCE RANGE BASED ON FASTING SPECIMEN. 41 The upper reference limit for Creatinine is approximately 13% higher for people identified as -[place]. 42 LDL-CHOLESTEROL RISK CATEGORY* GOAL VERY HIGH [...] approximately 13% higher for people identified as -[place]. 48 LDL-CHOLESTEROL RISK CATEGORY* GOAL VERY HIGH [...] approximately 13% higher for people identified as -[place]. 51 LDL-CHOLESTEROL RISK CATEGORY* GOAL VERY HIGH [...] approximately 13% higher for people identified as -[place]. 56 LDL-CHOLESTEROL RISK CATEGORY* GOAL VERY HIGH [...] FOR RACE, IF THE PATIENT RACE IS -DUTCH, THE GFR ESTIMATE MUST BE MULTIPLIED BY [...] FOR RACE, IF THE PATIENT'S RACE IS -DUTCH, THE GFR ESTIMATE MUST BE MULTIPLIED BY [...] INTERCHANGEABLY. THIS ASSAY WAS PERFORMED USING THE Gaopeng CHEMILUMINESCENCE METHOD. Procedures Date Code Description Status 06/22/2017 00195 EKG-Tracing & Report Completed 07/05/2016 05233 EKG-Tracing & Report Completed 06/30/2016 81627 Non-Invcorrotid/Comp /Bilat Study Completed 06/30/2016 07462 Echocardiography Completed 07/10/2015 56601 EKG-Tracing & Report Completed 07/08/2015 25573 Non-Invcorrotid/Comp /Bilat Study Completed 07/08/2015 05666 Echocardiography Completed 06/27/2014 10383 EKG-Tracing & Report Completed 06/26/2014 25908 Holter Monitor Office Completed 06/25/2014 82738 Non-Invcorrotid/Comp /Bilat Study Completed 06/25/2014 41658 Echocardiography Completed 06/27/2013 72502 EKG-Tracing & Report Completed 06/25/2013 17773 Echocardiography Completed 06/25/2013 76166 Non-Invcorrotid/Comp /Bilat Study Completed 07/06/2012 40405 Non-Invcorrotid/Comp /Bilat Study Completed 07/06/2012 33666 Echocardiography Completed 07/05/2012 36974 EKG-Tracing & Report Completed 06/30/2011 04585 Non-Invcorrotid/Comp /Bilat Study Completed 06/30/2011 35713 Echocardiography Completed 06/30/2011 99315 EKG-Tracing & Report Completed 06/17/2010 27858 Non-Invcorrotid/Comp /Bilat Study Completed 06/17/2010 66493 Echocardiography Completed 06/16/2010 27914 Holter Monitor Office Completed 06/16/2010 55011 EKG-Tracing & Report Completed 06/12/2009 86581 Holter Monitor Office Completed 06/12/2009 27979 EKG-Tracing & Report Completed 06/10/2009 10616 Echocardiography Completed 06/10/2009 02511 Non-Invcorrotid/Comp /Bilat Study Completed 08/07/2008 42981 EKG-Tracing & Report Completed 07/30/2008 62676 Non-Invcorrotid/Comp /Bilat Study Completed 07/30/2008 73933 Doppler/ECHO Completed 07/30/2008 33942 ECHO-2D W/Wo M-Mode Completed 01/30/2008 50533 PFT Evaluation Completed 08/01/2007 80394 EKG-Tracing & Report Completed 07/27/2007 36703 Non-Invcorrotid/Comp /Bilat Study Completed 07/27/2007 07413 Doppler Color Flow Velocity Completed 07/27/2007 97692 Doppler/ECHO Completed 07/27/2007 81436 ECHO-2D W/Wo M-Mode Completed 08/03/2006 88156 EKG-Tracing & Report Completed 08/03/2006 49003 ECHO-2D W/Wo M-Mode Completed 08/03/2006 85685 Doppler/ECHO Completed 08/03/2006 51720 Doppler Color Flow Velocity Completed 08/03/2006 60651 Non-Invcorrotid/Comp /Bilat Study Completed 11/15/2005 62665 Spirometry Graphic Record/Max Voluntary Vent Completed 08/06/2005 82922 Spirometry Graphic Record/Max Voluntary Vent Completed 08/06/2005 47490 PVR-Atrerial Study Completed 08/06/2005 19241 Holter Monitor Office Completed 08/06/2005 43743 EKG-Tracing & Report Completed 08/04/2005 16152 Non-Invcorrotid/Comp /Bilat Study Completed 08/04/2005 85270 Doppler Color Flow Velocity Completed 08/04/2005 07030 Doppler/ECHO Completed 08/04/2005 47237 ECHO-2D W/Wo M-Mode Completed 06/23/2005 39120 Spirometry Graphic Record/Max Voluntary Vent Completed Encounters Type Date Location Provider Dx Diagnosis Office Visit 01/02/2018 Main Office Smiley Loyd M.D. E78.2 Mixed hyperlipidemia 10:30a I11.9 Hypertensive heart disease without heart failure [...] M.D. unspecified I25.10 Athscl heart disease of [place] coronary artery w/o ang pctrs I11.9 Hypertensive heart disease without heart failure N40.0 Benign prostatic hyperplasia without lower urinry tract symp M54.16 Radiculopathy, lumbar region Office Visit 09/20/2016 2:30p Main Office Smiley Loyd J02.0 Streptococcal M.D. pharyngitis Office Visit 07/12/2016 11:00a Main Office Smiley Loyd E78.5 Hyperlipidemia, M.D. unspecified I34.0 Nonrheumatic mitral (valve) insufficiency I25.10 Athscl heart disease of [place] coronary artery w/o ang pctrs I11.9 Hypertensive [...] M.D. unspecified I25.10 Athscl heart disease of [place] coronary artery w/o ang pctrs I11.9 Hypertensive heart disease without heart failure Office Visit 07/16/2015 1:30p Main Office Smiley Loyd, E78.5 Hyperlipidemia, M.D. unspecified I25.10 Athscl heart disease of [place] coronary artery w/o ang pctrs I11.9 Hypertensive heart disease without heart failure M15.9 Polyosteoarthritis, unspecified Z23 Encounter for immunization Office Visit 01/21/2015 1:45p Main Office Smiley Loyd M.D. 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 Unspec 414.01 Coronary Atherosclerosis [place] 402.10 Hypertensive Heart Disease Benign W/O Heart Failure Office Visit 07/08/2014 2:00p Main Office Smiley Loyd 272.4 Hyperlipidemia Other M.D. Unspec 414.01 Coronary Atherosclerosis [place] 402.10 Hypertensive Heart Disease Benign W/O Heart Failure V04.81 Need For Prophylactic Vaccination & Inoculation/Influenza V03.82 Streptococcus Pneumoniae Vaccination Spec Other Office Visit 04/10/2014 11:45a Main Office Smiley Loyd, 460.00 Upper Respiratory M.D. Infection 461.9 Sinusitis Acute Unspec Office Visit 01/14/2014 11:30a Main Office Smiley Loyd 414.01 Coronary M.D. Atherosclerosis [place] 402.10 Hypertensive Heart Disease Benign W/O Heart Failure 272.4 Hyperlipidemia Other Unspec Office Visit 07/11/2013 11:30a Main Office Smiley Loyd M.D. 424.0 Mitral Valve Disorder 414.01 Coronary Atherosclerosis [place] 402.10 Hypertensive Heart Disease Benign W/O Heart Failure 272.4 Hyperlipidemia Other Unspec Office Visit 04/19/2013 1:30p Main Office Smiley Loyd M.D. 462 Pharyngitis Acute V04.81 Need For Prophylactic Vaccination & Inoculation/Influenza Office Visit 01/08/2013 10:30a Main Office Smiley Loyd 272.4 Hyperlipidemia Other M.D. Unspec 414.01 Coronary Atherosclerosis [place] 402.10 Hypertensive Heart Disease Benign W/O Heart Failure Office Visit 07/10/2012 10:30a Main Office Smiley Loyd 272.4 Hyperlipidemia Other M.D. Unspec 424.0 Mitral Valve Disorder 414.01 Coronary Atherosclerosis [place] 402.10 Hypertensive Heart Disease Benign W/O Heart Failure Office Visit 06/06/2012 1:45p Main Office Smiley Loyd, 599.70 Hematuria M.D. Office Visit 05/25/2012 10:30a Main Office Smiley Loyd, 465.8 Upper Respiratory M.D. Infections Acute Other Multiple Sites 305.1 Tobacco Use Disorder Office Visit 01/10/2012 10:45a Main Office Smiley Loyd, 272.4 Hyperlipidemia Other M.D. Unspec 414.01 Coronary Atherosclerosis [place] 402.10 Hypertensive Heart Disease Benign W/O Heart Failure 715.90 Degenerative Joint Disease Genlzd Or Localzd Site Unspec 682.90 Cellulitis Office Visit 07/07/2011 10:30a Main Office Smiley Loyd 272.4 Hyperlipidemia Other M.D. Unspec 414.01 Coronary Atherosclerosis [place] 274.90 Gout 402.10 Hypertensive Heart Disease Benign W/O Heart Failure 715.90 Degenerative Joint Disease Genlzd Or Localzd Site Unspec 682.90 Cellulitis V70.0 Examination General Medical Routine AT Health Care Facility Office Visit 04/01/2011 11:00a Main Office Smiley Loyd M.D. 682.90 Cellulitis 274.90 Gout 272.4 Hyperlipidemia Other Unspec 414.01 Coronary Atherosclerosis [place] 402.10 Hypertensive Heart Disease Benign W/O Heart Failure 715.90 Degenerative Joint Disease Genlzd Or Localzd Site Unspec V04.81 Need For Prophylactic Vaccination & Inoculation/Influenza Office Visit 03/23/2011 1:45p Main Office Ambrocio Lynn MD 682.90 Cellulitis 272.4 Hyperlipidemia Other Unspec GENERAL General Office Visit 12/28/2010 10:30a Main Office Smiley Loyd, 272.4 Hyperlipidemia Other M.D. Unspec 414.01 Coronary Atherosclerosis [place] 402.10 Hypertensive Heart Disease Benign W/O Heart Failure 715.90 Degenerative Joint Disease Genlzd Or Localzd Site Unspec Office Visit 06/29/2010 10:30a Main Office Smiley Loyd 272.4 Hyperlipidemia Other M.D. Unspec 414.01 Coronary Atherosclerosis [place] 402.10 Hypertensive Heart Disease Benign W/O Heart Failure 715.90 Degenerative Joint Disease Genlzd Or Localzd Site Unspec V04.81 Need For Prophylactic Vaccination & Inoculation/Influenza Office Visit 12/25/2009 10:45a Main Office Smiley Loyd 272.4 Hyperlipidemia Other M.D. Unspec 414.01 Coronary Atherosclerosis [place] Office Visit 06/26/2009 10:30a Main Office Smiley Loyd, 272.4 Hyperlipidemia Other M.D. Unspec 414.01 Coronary Atherosclerosis [place] 402.10 Hypertensive Heart Disease Benign W/O Heart Failure Office Visit 12/26/2008 11:00a Main Office Smiley Loyd, 272.4 Hyperlipidemia Other M.D. Unspec 414.01 Coronary Atherosclerosis [place] 402.10 Hypertensive Heart Disease Benign W/O Heart Failure Office Visit 08/15/2008 10:30a Main Office Smiley Loyd, 272.4 Hyperlipidemia Other M.D. Unspec 414.01 Coronary Atherosclerosis [place] 402.10 Hypertensive Heart Disease Benign W/O Heart Failure 462 Pharyngitis Acute Office Visit 02/21/2008 11:30a Main Office Smiley Loyd M.D. 496 Chronic Obstructive Pulmonary Disease 414.01 Coronary Atherosclerosis [place] 402.10 Hypertensive Heart Disease Benign W/O Heart Failure 272.4 Hyperlipidemia Other Unspec 272.40 Hyperlipidemia Office Visit 02/01/2008 10:45a Main Office Smiley Loyd M.D. 274.9 Gout Unspec Office Visit 08/15/2007 10:30a Main Office Smiley Loyd M.D. V15.82 History Personal Tobacco Use 414.01 Coronary Atherosclerosis [place] 402.10 Hypertensive Heart Disease Benign W/O Heart Failure 272.40 Hyperlipidemia Office Visit 02/14/2007 10:15a Main Office Smiley Loyd 402.10 Hypertensive Heart M.D. Disease Benign W/O Heart Failure 272.40 Hyperlipidemia 530.81 Esophageal Reflux Office Visit 10/19/2006 1:30p Main Office Smiley Loyd M.D. 462 Pharyngitis Acute Office Visit 08/17/2006 10:15a Main Office Smiley Loyd M.D. 272.40 Hyperlipidemia 414.01 Coronary Atherosclerosis [place] 402.10 Hypertensive Heart Disease Benign W/O Heart Failure 496 Chronic Obstructive Pulmonary Disease V15.82 History Personal Tobacco Use 305.1 Tobacco Use Disorder 460.00 Upper Respiratory Infection Office Visit 04/13/2006 10:45a Main Office Smiley Loyd 569.89 Intestine Disorders M.D. Other Office Visit 02/15/2006 10:00a Main Office Smiley Loyd 414.01 Coronary M.D. Atherosclerosis [place] 496 Chronic Obstructive Pulmonary Disease 272.40 Hyperlipidemia Office Visit 11/15/2005 10:00a Main Office Smiley Loyd M.D. 496 Chronic Obstructive Pulmonary Disease 272.40 Hyperlipidemia 414.01 Coronary Atherosclerosis [place] Office Visit 08/17/2005 10:30a Main Office Smiley Loyd M.D. 272.40 Hyperlipidemia 496 Chronic Obstructive Pulmonary Disease 414.01 Coronary Atherosclerosis [place] Office Visit 05/20/2005 11:00a Main Office Paramjit Porras 496 Chronic Obstructive MD Evert Pulmonary Disease Office Visit 12/24/2004 10:15a Main Office Smiley Loyd 414.01 Coronary M.D. Atherosclerosis [place] 272.40 Hyperlipidemia 715.90 Degenerative Joint Disease Genlzd Or Localzd Site Unspec Office Visit 10/28/2004 11:45a Main Office Smiley Loyd 414.01 Coronary M.D. Atherosclerosis [place] Office Visit 07/27/2004 10:30a Main Office Smiley Loyd, 462 Pharyngitis Acute M.D. Office Visit 06/25/2004 11:00a Main Office Smiley Loyd 414.01 Coronary M.D. Atherosclerosis [place] 530.81 Esophageal Reflux 272.40 Hyperlipidemia Plan of Treatment Future Appointment(s):06/26/2018 12:30 pm - Ultrasound at Main Yuyeog6106/28/2018 8:30 am - Nurse at Main [id number]/10/2018 10:30 am - Smiley Loyd M.D. at Main [place]umas0205/10/2018 - Smiley Loyd M.D.K64.9 Unspecified hemorrhoidsNew Medication: Proctosol HC 2.5 % - apply to affected area after bowel movements and as neededComments:discussed increasing water and fiber intake. may continue using stool softener. may also use sitz baths and witch aroldo. call if sx do not [id number] Acute bronchitis, unspecifiedNew Medication:Amoxicillin 500 mg - 1 by mouth two times a dayComments:Advise trest and fluids. To call office if wheezing worsens or sx persist
--- OUTSIDE RECORDS SUMMARY | 2018-05-21 10:56 | XMS REPORT | Continuity of Care Document ---
:1940 External Reference #:[id number] Author Name Janice Reilly Care Team Providers Name Role Phone Smiley Loyd MD Primary Care Physician Unavailable Payers Type Date Identification Numbers Payment Provider Subscriber Effective: Policy Number: [id number] Todays Options Faustino Morales 2017 PayID: [id number] [address] [address] [place] [address] Advance Directives Description No Information Available Problems [...] Form Strength Qnty SIG Indications Ordering Provider Sildenafil 01/02/ Active Tablets 50mg 6tabs take 1 Smiley Citrate 2017 tablet if Evert, needed as M.D. directed Pantoprazole 09/08/ Active Tablets DR 40mg 90tabs take 1 Smiley Sodium 2009 tablet Evert, daily M.DDebra Simvastatin 04/28/ Active Tablets 40mg 90tabs take [...] - twice a Evert, 07/06/ day with M.D. 2017 food Azithromycin 04/22/ Hx Tablets 250mg 6tabs 2 by mouth J02.9 Smiley 2015 - today, 1 Evert, 04/07/ by mouth M.D. 2016 day 2 thru 5 Zithromax 03/03/ Hx Tablets 250mg 6pills 2 by mouth Ambrocio 2015 - day 1, 1 MD Leah 04/22/ by mouth 2015 every day x days 2-5 Amoxicillin/Cla 02/25/ Hx Tablets 875-125mg 14tabs 1 by mouth J20.9 Smiley vulanate 2015 - twice a Evert, Potassium 03/03/ day M.D. 2016 Flagyl 01/16/ Hx Tablets 500mg 1 by mouth Unknown 2015 - three 01/14/ times a 2016 day Ciprofloxacin 01/16/ Hx Tablets 500mg 1 by mouth Unknown HCL 2015 - twice a 01/26/ day 2015 Amoxicillin 04/10/ Hx Capsules 500mg 14caps 1 tablets 461.9 Smiley 2014 - by mouth Ishuss, 01/21/ twice a M.D. 2014 day Amoxicillin 04/19/ Hx Capsules 250mg 30caps 1 po tid 462 Smiley 2012 - Evert, 06/19/ M.DDebra 2012 Sulfamethoxazol 06/06/ Hx Tablets 800-160mg 30tabs 1 po bid 599.70 Smiley e/Trimethoprim 2012 - Gastaci, DS 07/10/ M.D. 2012 Azithromycin 05/25/ Hx Tablets 250mg 6tabs 2 po 465.8 Smiley 2012 - today, 1 Gauss, 06/06/ po day 2 M.D. 2012 thru 5 Keflex 04/06/ Hx Capsules 500mg 21caps 1 po tid 682.90 Smiley 2010 - Evert, 07/07/ M.D. 2010 Bactrim DS 04/01/ Hx Tablets 800-160mg 14tabs 1 po bid 682.90 Smiley 2010 - Evert, 04/06/ M.D. 2010 Indomethacin 04/01/ Hx Capsules 50mg 30caps 1 po tid 274.90 Smiley 2010 - with food Evert, 07/10/ prn M.D. 2011 Levaquin 03/23/ Hx Tablets 500mg 10tabs 1 po qd Ambrocio 2010 - MD Leah 2010 Amoxicillin 08/15/ Hx Tablets 500mg 20tabs 1 po bid 462 Smiley 2008 - Evert, 12/26/ M.D. 2009 Indomethacin 01/31/ [...] 20mg 90tabs 1/2 tab po 272.4 Smiley 2005 - qd Evert, 08/15/ M.D. 2009 Lipitor 08/16/ Hx Tablets 10mg 90tabs 1 po qd Smiley 2006 - Evert, 08/17/ M.D. 2006 Protonix 08/16/ Hx Tablets 40mg 90tabs 1 po qd Smiley 2006 - Evert, 06/26/ M.D. 2009 Viagra 08/16/ Hx Tablets 50mg 6tabs take 1 Smiley 2005 - tablet if Evert, as MDamir 2017 directed Lopressor 07/01/ Hx Tablets 25mg 180tab 1 po bid Smiley 2005 - s Evert, 09/29/ Belkys 2005 Immunizations CPT Code Status Date Vaccine Lot # [id number] Given 06/22/2017 Influenza Virus (Afluria) Split Virus 3 Years Of Age And Older Q2035 Given 06/22/2017 Influenza Virus (Afluria) Split Virus 3 Years [id number] Of Age And Older Q2037 Given 07/16/2015 Influenza Vaccine (Fluvirin) 5 Years Of Age Or [id number] Older Q2036 Given 07/08/2014 Flulaval [id number] Given 07/08/2014 Pneumovax Polyvalent Inj Im [id number] Q2038 Given 04/19/2013 Influenza Vaccine (Fluzone) Administered Age 3 And Older Q2037 Given 04/13/2012 Influenza Vaccine (Fluvirin) 3 Years Of Age Or Older Q2037 Given 04/13/2012 Influenza Vaccine (Fluvirin) 5 Years Of Age Or [id number] Older Q2036 Given 04/01/2011 Flulaval [id number] Given 06/29/2010 Influenza Vaccine [id number] 71440 Given 04/20/2006 Influenza Vaccine [id number] Vital Signs Date Vital Result Comment 05/10/2018 [...] Result H/L Range Note Urinalysis Profile 01/26/2018 [facility] Urine Color Yellow [address] [place] [address] [phone] Urine Appearance Clear Urine Specific [place] 1.011 1.010-1.030 Urine pH 6.0 5-9 Urine Urobilinogen Negative Negative Urine Ketones Negative Negative Urine Protein Negative Negative Urine Leukocytes Negative Negative Urine Blood 3+ Negative Urine Nitrite Negative Negative Urine Bilirubin Negative Negative Urine Glucose Negative Negative Urine White Blood Cell Absent Absent Urine Red Blood Cell 3+(>10/hpf) Absent Urine Bacteria Absent Absent Urine Culture And 01/26/2018 [facility] Urine Culture SEE RESULT [address] [place] [address] [phone] CBC W/ Diff & PLT 12/26/2017 [facility] WBC 9.3 3.8-[address] thous/L .8 [place] [address] [phone] RBC 5.46 mill/L 4.20-5.80 Hemoglobin 16.4 g/dL 13.2-17.1 Hematocrit 49.5 % 38.5-50.0 MCV 90.6 FL 80.0-100.0 MCH 30.1 pg 27.0-33.0 MCHC 33.2 g/dL 32.0-36.0 RDW 14.1 % 11.0-15.0 Platelet Count 216 thous/L 140-400 Platelet Sufficiency PENDING MPV 9.4 FL 7.5-12.5 Neutrophils,Absolute 6480 cells/L 9714-8884 Bands,Absolute PENDING Metamyelocytes,Absolute PENDING Myelocytes,Absolute PENDING Promyelocytes,Absolute [...] [facility] Sodium 140 mmol/L 135-146 [address] [place] [address] [phone] Potassium 4.5 mmol/L 3.5-5.3 Chloride 107 mmol/L 98-110 Carbon Dioxide 26 mmol/L 20-31 Calcium 9.5 mg/dL 8.6-10.3 Glucose 105 mg/dL High 65-99 3 Urea Nitrogen (BUN) 16 mg/dL 7-25 Creatinine 0.85 mg/dL 0.70-1.18 4 BUN/Creatinine Ratio 19.2 6-22 Egfr Non-Afr. Danish 85 ML/MIN/1.73M2 > Or=60 Egfr 99 ML/MIN/1.73M2 > Or=60 Lipid Panel 12/26/2017 [facility] Cholesterol 128 mg/dL <199 [address] [place] [place] [address] [phone] HDL Cholesterol 25 mg/dL Low >40 Cholesterol/HDL Ratio 5.1 CALC High <5.0 LDL Chol,Calculated 80 mg/dL 0-100 5 Triglycerides 131 mg/dL <150 Non-HDL Cholesterol 104 mg/dL <130 6 CBC W/ Diff & PLT 06/22/2017 [facility] WBC 12.0 thous/L High 3.8-10.8 7 [address] [place] [address] [phone] RBC 5.69 mill/L 4.20-5.80 Hemoglobin 16.4 g/dL 13.2-17.1 Hematocrit 50.5 % High 38.5-50.0 MCV 88.8 FL 80.0-100.0 MCH 28.8 pg 27.0-33.0 MCHC 32.4 g/dL 32.0-36.0 RDW 14.4 % 11.0-15.0 Platelet Count 215 thous/L 140-400 Platelet Sufficiency NORMAL Normal MPV 9.4 FL 7.5-12.5 Neutrophils,Absolute 8840 cells/L High 2061-6633 Bands,Absolute PENDING Metamyelocytes,Absolute PENDING Myelocytes,Absolute PENDING Promyelocytes,Absolute [...] [facility] Sodium 141 mmol/L 135-146 [address] [place] [address] [phone] Potassium 4.3 mmol/L 3.5-5.3 Chloride 105 mmol/L 98-110 Carbon Dioxide 29 mmol/L 20-31 Calcium 9.2 mg/dL 8.6-10.3 Glucose 98 mg/dL 65-99 9 Urea Nitrogen (BUN) 16 mg/dL 7-25 Creatinine 0.90 mg/dL 0.70-1.18 10 BUN/Creatinine Ratio 17.8 6-22 Egfr Non-Afr. Danish 84 ML/MIN/1.73M2 > Or=60 Egfr 97 ML/MIN/1.73M2 > Or=60 Lipid Panel 06/22/2017 [facility] Cholesterol 145 mg/dL <199 [address] [place] [place] [address] [phone] HDL Cholesterol 25 mg/dL Low >40 Cholesterol/HDL Ratio 5.8 CALC High <5.0 LDL Chol,Calculated 97 mg/dL 0-100 11 Triglycerides 125 mg/dL <150 Non-HDL Cholesterol 119 mg/dL <130 12 Lipid Panel 01/04/2017 [facility] Cholesterol 128 mg/dL 125-[address] [place] [address] [phone] HDL Cholesterol 25 mg/dL Low > Or=40 Cholesterol/HDL Ratio 5.1 High < Or=5.0 LDL Chol,Calculated 72 mg/dL <130 13 Triglycerides 155 mg/dL High <150 Non-HDL Cholesterol 103 mg/dL 14 Laboratory test 01/04/2017 [facility] PSA,Total 5.6 NG/ML High < Or=4.0 [address] [place] [address] [phone] CBC W/ Diff & PLT 01/04/2017 [facility] WBC 12.9 High 3.8-10.[address] thous/[place] [address] [phone] RBC 5.62 mill/L 4.20-5.80 Hemoglobin 16.4 g/dL 13.2-17.1 Hematocrit 51.0 % High 38.5-50.0 MCV 90.8 FL 80.0-100.0 MCH 29.1 pg 27.0-33.0 MCHC 32.1 g/dL 32.0-36.0 RDW 14.8 % 11.0-15.0 Platelet Count 200 thous/L 140-400 Platelet Sufficiency PENDING MPV 9.6 FL 7.5-12.5 Neutrophils,Absolute 9740 cells/L High 8636-1251 Bands,Absolute PENDING Metamyelocytes,Absolute PENDING Myelocytes,Absolute PENDING Promyelocytes,Absolute [...] [facility] Sodium 140 mmol/L 135-[address] [place], [place] [address] [phone] Potassium 4.5 mmol/L 3.5-5.3 Chloride 108 mmol/L 98-110 Carbon Dioxide 25 mmol/L 20-31 Calcium 9.1 mg/dL 8.6-10.3 Glucose 105 mg/dL High 65-99 17 Urea Nitrogen 23 mg/dL 7-25 Creatinine 0.99 mg/dL 0.70-1.18 18 BUN/Creatinine Ratio 22.8 High 6-22 Egfr Non-Afr. Danish 75 ML/MIN/1.73M2 > Or=60 Egfr 87 ML/MIN/1.73M2 > Or=60 CBC Auto Diff 04/17/2016 [facility] White Blood 8.8 10^3/uL 3.5-10.[address] [place], [place] [id number] [phone] Red Blood Count 5.70 10^6/uL High 4.0-5.4 [...] Cells % 0 Comp Metabolic Panel 04/17/2016 [facility] Sodium 136 mmol/L [phone] [place] [address] [phone] Potassium 4.0 mmol/L 3.5-5.0 Chloride 104 mmol/L [...] Egfr 107.8 >60 19 Laboratory test 04/17/2016 [facility] Troponin I 0.00 ng/mL < 0.03 20 finding [facility] [place] [address] [phone] CBC Auto Diff 02/27/2016 [facility] White Blood 18.2 High 3.5- 10.[address] [place] [address] Count 10^3/[place] [address] [phone] Red Blood Count 5.99 10^6/uL High 4.0-5.4 [...] Blood Cells % 0.1 Urinalysis Profile 02/27/2016 [facility] Urine Color Yellow 21 [address] [place] [address] [phone] Urine Appearance Clear Urine Specific [place] > 1.060 High 1.010-1.030 Urine pH 6.0 5-9 Urine Urobilinogen Negative Negative Urine Ketones Negative Negative Urine Protein Negative Negative Urine Leukocytes Negative Negative Urine Blood Negative Negative Urine Nitrite Negative Negative Urine Bilirubin Negative Negative Urine Glucose Negative Negative Laboratory test 02/27/2016 [facility] Activated 28.9 26.0- 36.3 finding [address] [facility] [place] [address] Thrombo Time [phone] Laboratory test 02/27/2016 [facility] Lactic Acid 0.9 mmol/L 0.5-2.0 22 finding [address] [place] [address] [phone] Comp Metabolic 02/27/2016 [facility] Sodium 137 mmol/L 133- 145 Panel [address] [place] [address] [phone] Potassium 3.7 mmol/L 3.5-5.0 Chloride 106 mmol/L [...] 112.1 >60 23 Laboratory test finding 02/27/2016 [facility] Lipase 20 U/L 11.0-82.[address] [place] [address] [phone] Troponin I 0.00 ng/mL <0.03 25 Creatine Kinase 62 U/L 10-223 26 C Reactive Protein 12.50 mg/L High < 5.00 27 Myoglobin 36.7 ng/mL 17.4-105.7 28 Inr/Protime 02/27/2016 [facility] Inr 1.12 High 0.89-1.[address] [place], [place] [id number] [phone] Laboratory test 02/27/2016 [facility] B Type 141 High [address] Natriuretic pg/[place] [address] Peptide [phone] CKMB 02/27/2016 [facility] CKMB ng/mL 3.1 0.6-6.3 [facility] ng/[place] [address] [phone] CBC W/ Diff & 01/05/2016 [facility] WBC 10.1 3.8-10.8 PLT [address] [facility] [place] [place]/ [place] [address] L [phone] RBC 5.71 mill/L 4.20-5.80 Hemoglobin 16.3 g/dL 13.2-17.1 Hematocrit 51.2 % High 38.5-50.0 MCV 89.6 FL 80.0-100.0 MCH 28.5 pg 27.0-33.0 MCHC 31.8 g/dL Low 32.0-36.0 RDW 14.2 % 11.0-15.0 Platelet Count 219 thous/L 140-400 Platelet Sufficiency PENDING MPV 9.6 FL 7.5-11.5 Neutrophils,Absolute 7100 cells/L [phone] Bands,Absolute PENDING Metamyelocytes,Absolute PENDING Myelocytes,Absolute PENDING Promyelocytes,Absolute [...] [facility] Sodium 140 mmol/L 135-146 [address] [facility] [place] [address] [phone] Potassium 4.6 mmol/L 3.5-5.3 Chloride 105 mmol/L 98-110 Carbon Dioxide 25 mmol/L 19-30 Calcium 9.3 mg/dL 8.6-10.3 Glucose 108 mg/dL High 65-99 31 Urea Nitrogen 17 mg/dL 7-25 Creatinine 0.95 mg/dL 0.70-1.18 32 BUN/Creatinine Ratio 17.9 6-22 Lipid Panel 01/05/2016 [facility] Cholesterol 129 mg/dL 125-200 [address] [facility]. [place], [place] [address] [phone] HDL Cholesterol 20 mg/dL Low > Or=40 Cholesterol/HDL Ratio 6.5 High < Or=5.0 LDL Chol,Calculated 65 mg/dL <130 33 Triglycerides 218 mg/dL High <150 Non-HDL Cholesterol 110 mg/dL 34 Laboratory test 01/05/2016 [facility] PSA,Total 4.9 NG/ML High < Or=4.0 35 finding [address] [facility] [place] [address] [phone] TSH & T4,Free 01/05/2016 [facility] TSH 1.98 mIU/L 0.40-4.[address] [place], [place] [address] [phone] T4,Free 1.1 ng/dL 0.8-1.8 CBC Auto 01/16/2015 [facility] White Blood 21.7 10^3/uL High 4.8-10.[address] [place] [address] [phone] Red Blood Count 6.64 10^6/uL High 4.0-5.4 [...] RBC 0.01 10^3/uL Comp Metabolic Panel 01/16/2015 [facility] Sodium 138 mmol/L [phone] [place] [address] [phone] Potassium 3.7 mmol/L 3.5-5.0 Chloride 104 mmol/L [...] 78.0 >60 36 Laboratory test finding 01/16/2015 [facility] Lipase 20 U/L 11.0-82.[address] [place] [address] [phone] Troponin I 0.00 ng/mL <0.03 37 C Reactive Protein 6.72 mg/L High < 5.00 38 Manual Differential 01/16/2015 [facility] Immature 20 % High 0- [address] [place] [address] [place] [address] [phone] Neutrophil % 75 % 38-83 Band % 20 % High 0-8 Lymphocytes % 2 % Low 25-47 Monocytes % 1 % 0-13 Eosinophils % 1 % 0-6 Reactive Lymph % 1 % 0-6 RBC Morphology Normal Normal Laboratory test 01/16/2015 [facility] Lactic Acid 1.4 mmol/L 0.5-2.2 [address] [place] [address] [phone] Urinalysis 01/16/2015 [facility] Urine Color Yellow Profile [address] [place] [address] [phone] Urine Appearance Cloudy Urine Specific [place] 1.026 1.010-1.030 Urine pH 5.0 5-9 Urine Urobilinogen Negative Negative Urine Ketones Trace Negative Urine Protein Negative Negative Urine Leukocytes Negative Negative Urine Blood Negative Negative Urine Nitrite Negative Negative Urine Bilirubin Negative Negative Urine Glucose Negative Negative BMP W/O Egfr 12/30/2014 [facility] Sodium 140 mmol/L 135-146 [address] [place] [address] [phone] Potassium 4.7 mmol/L 3.5-5.3 Chloride 108 mmol/L 98-110 Carbon Dioxide 23 mmol/L 19-30 Calcium 8.9 mg/dL 8.6-10.3 Glucose 100 mg/dL High 65-99 40 Urea Nitrogen 18 mg/dL 7-25 Creatinine 0.94 mg/dL 0.70-1.18 41 BUN/Creatinine Ratio 19.4 6-22 Lipid Panel 12/30/2014 [facility] Cholesterol 147 mg/dL 125-200 6 [facility]. [place], [place] [address] [phone] HDL Cholesterol 27 mg/dL Low > Or=40 Cholesterol/HDL Ratio 5.4 High < Or=5.0 LDL Chol,Calculated 84 mg/dL <130 42 Triglycerides 178 mg/dL High <150 Non-HDL Cholesterol 120 mg/dL 43 Hepatic Function 12/30/2014 [facility] Alkaline Phosphatase 76 U/L 40- 115 Panel 6 [facility] [place] [address] [phone] Ast 17 U/L 10-35 Alt 16 U/L 9-46 Bilirubin,Total 0.4 mg/dL 0.2-1.2 Bilirubin,Direct 0.1 mg/dL < Or=0.2 Protein,Total 6.6 g/dL 6.1-8.1 Albumin 3.7 g/dL 3.6-5.1 Globulin,Calculated 2.9 g/dL 1.9-3.7 A/G Ratio 1.3 1.0-2.5 CBC W/ Diff & PLT 12/30/2014 [facility] WBC 11.4 thous/L High 3.8-10.8 [address] [place] [address] [phone] RBC 5.51 mill/L 4.20-5.80 Hemoglobin 16.2 g/dL 13.2-17.1 Hematocrit 49.7 % 38.5-50.0 MCV 90.2 FL 80.0-100.0 MCH 29.4 pg 27.0-33.0 MCHC 32.6 g/dL 32.0-36.0 RDW 14.4 % 11.0-15.0 Platelet Count 202 thous/L 140-400 Platelet Sufficiency PENDING MPV 10.3 FL 7.5-11.5 Neutrophils,Absolute 8470 cells/L High [phone] Bands,Absolute PENDING Metamyelocytes,Absolute PENDING Myelocytes,Absolute PENDING Promyelocytes,Absolute [...] 4.8 NG/ML High 0.0-4.0 [address] [place] [address] [phone] BMP W/O Egfr 01/07/2014 [facility] Sodium 141 mmol/L 135-146 [address] [place], [place] [address] [phone] Potassium 4.3 mmol/L 3.5-5.3 Chloride 107 mmol/L 98-110 Carbon Dioxide 25 mmol/L 19-30 Calcium 9.1 mg/dL 8.6-10.3 Glucose 108 mg/dL High 65-99 46 Urea Nitrogen 13 mg/dL 7-25 Creatinine 0.91 mg/dL 0.70-1.18 47 BUN/Creatinine Ratio 14.2 6-22 Laboratory test 01/07/2014 [facility] Direct LDL 77 mg/dL <130 48 finding [address] [place], [place] [address] [phone] BMP W/O Egfr 06/27/2013 [facility] Sodium 139 mmol/L 135-[address] [place], [place] [address] [phone] Potassium 4.8 mmol/L 3.5-5.3 Chloride 106 mmol/L 98-110 Carbon Dioxide 23 mmol/L 19-30 Calcium 8.9 mg/dL 8.6-10.3 Glucose 103 mg/dL High 65-99 49 Urea Nitrogen 18 mg/dL 7-25 Creatinine 0.90 mg/dL 0.70-1.18 50 BUN/Creatinine Ratio 19.6 6-22 CBC W/ Diff & PLT 06/27/2013 [facility] WBC 8.4 thous/L 3.8-10.8 [address] [facility] [place] [address] [phone] RBC 5.80 mill/L 4.20-5.80 Hemoglobin 16.3 g/dL 13.2-17.1 Hematocrit 50.4 % High 38.5-50.0 MCV 87.0 FL 80.0-100.0 MCH 28.1 pg 27.0-33.0 MCHC 32.3 g/dL 32.0-36.0 RDW 14.2 % 11.0-15.0 Platelet Count 194 thous/L 140-400 Neutrophils,Absolute 5670 cells/L [phone] Lymphocytes,Absolute 1680 cells/L [phone] Monocytes,Absolute 570 cells/L 200-950 Eosinophils,Absolute 470 cells/L 15-500 Basophils,Absolute 30 cells/L 0-200 Total Neutrophils,% 67 % 38-80 Total Lymphocytes,% 20 % 15-49 Monocytes,% 7 % 0-13 Eosinophils,% 6 % 0-8 Basophils,% 0 % 0-2 Laboratory test finding 06/27/2013 [facility] Direct LDL 91 mg/dL <130 51 [address] [facility] [place] [address] [phone] Laboratory test finding 12/25/2012 [facility] Direct LDL 73 mg/dL <130 52 [address] [place] [address] [phone] Glucose 110 mg/dL High 65-99 53 BMP W/O Egfr 07/05/2012 [facility] Sodium 140 mmol/L 135-146 [address] [place] [address] [phone] Potassium 4.7 mmol/L 3.5-5.3 Chloride 107 mmol/L 98-110 Carbon Dioxide 26 mmol/L 21-33 Calcium 9.2 mg/dL 8.6-10.3 Glucose 104 mg/dL High 65-99 54 Urea Nitrogen 22 mg/dL 7-25 Creatinine 0.96 mg/dL 0.70-1.25 55 BUN/Creatinine Ratio 22.5 High 6-22 CBC W/ Diff & PLT 07/05/2012 [facility] WBC 8.9 thous/L 3.8-10.8 [address] [facility] [place] [address] [phone] RBC 5.63 mill/L 4.20-5.80 Hemoglobin 16.8 g/dL 13.2-17.1 Hematocrit 49.5 % 38.5-50.0 MCV 87.9 FL 80.0-100.0 MCH 29.8 pg 27.0-33.0 MCHC 33.9 g/dL 32.0-36.0 RDW 14.2 % 11.0-15.0 Platelet Count 204 thous/L 140-400 Neutrophils,Absolute 5730 cells/L 8960-1308 Lymphocytes,Absolute 1930 cells/L 850-3900 Monocytes,Absolute 680 cells/L 200-950 Eosinophils,Absolute 480 cells/L 15-500 Basophils,Absolute 70 cells/L 0-200 Total Neutrophils,% 64 % 38-80 Total Lymphocytes,% 22 % 15-49 Monocytes,% 8 % 0-13 Eosinophils,% 5 % 0-8 Basophils,% 1 % 0-2 Laboratory test 07/05/2012 [facility] Direct LDL 88 mg/dL <130 [address] [place], [place] [address] [phone] Culture,Urine,Voided 06/06/2012 [facility] Source URINE-CLEAN [address] [facility] <[place] [address] NOTE> [phone] Final Report (SEE NOTE) 58 Laboratory 01/03/2012 [facility] LDL Cholesterol,Direct 93 mg/dL <130 59 test finding [address] [place] [address] [phone] Hepatic 06/30/2011 [facility] Alkaline Phosphatase 95 U/L 40-115 Function Panel [address] [place] [address] [phone] Ast 16 U/L 10-35 Alt 18 U/L 9-60 Bilirubin,Total 0.4 mg/dL 0.2-1.2 Bilirubin,Direct 0.1 mg/dL < Or=0.2 Protein,Total 6.7 g/dL 6.2-8.3 Albumin 4.2 g/dL 3.6-5.1 Globulin,Calculated 2.5 g/dL 2.1-3.7 A/G Ratio 1.6 1.0-2.1 CBC W/ Diff & PLT 06/30/2011 [facility] WBC 10.3 thous/L 3.8-10.8 [address] [facility] [place] [address] [phone] RBC 5.63 mill/L 4.20-5.80 Hemoglobin 16.7 g/dL 13.2-17.1 Hematocrit 50.0 % 38.5-50.0 MCV 88.9 FL 80.0-100.0 MCH 29.7 pg 27.0-33.0 MCHC 33.5 g/dL 32.0-36.0 RDW 14.3 % 11.0-15.0 Platelet Count 203 thous/L 140-400 Neutrophils,Absolute 6930 cells/L 8240-7664 Lymphocytes,Absolute 2040 cells/L 850-3900 Monocytes,Absolute 640 cells/L 200-950 Eosinophils,Absolute 580 cells/L High 15-500 Basophils,Absolute 60 cells/L 0-200 Total Neutrophils,% 68 % 38-80 Total Lymphocytes,% 20 % 15-49 Monocytes,% 6 % 0-13 Eosinophils,% 6 % 0-8 Basophils,% 1 % 0-2 Laboratory test 06/30/2011 [facility] PSA,Total 2.8 NG/ML 0.0-4.0 60 finding [address] [place] [address] [phone] Basic Metabolic Panel 06/30/2011 [facility] Sodium 139 mmol/L 135-146 [address] [place] [address] [phone] Potassium 4.9 mmol/L 3.5-5.3 Chloride 104 mmol/L 98-110 Carbon Dioxide 28 mmol/L 21-33 Calcium 9.3 mg/dL 8.6-10.2 Glucose 103 mg/dL High 65-99 61 Urea Nitrogen 17 mg/dL 7-25 Creatinine 0.98 mg/dL 0.76-1.46 BUN/Creatinine Ratio 17.8 6-22 Egfr Non-Afr. Danish 79 ML/MIN/1.73M2 > Or=60 Egfr 91 ML/MIN/1.73M2 > Or=60 Laboratory 06/30/2011 [facility] LDL Cholesterol,Direct 75 mg/dL <130 62 test finding 6 [place] [address] [phone] Laboratory 12/22/2010 [facility] Cholesterol 137 125-200 test finding [address] mg/[place] [address] [phone] LDL Cholesterol,Direct 80 mg/dL <130 63 HDL Cholesterol 24 mg/dL Low > Or=40 Triglycerides 206 mg/dL High <150 TSH & T4,Free 06/16/2010 [facility] TSH,3RD 1.37 mIU/L 0.40-4.[address] [place] [address] [phone] T4,Free 1.1 ng/dL 0.8-1.8 Basic Metabolic Panel 06/16/2010 [facility] Sodium 140 mmol/L 135-[address] [place] [address] [phone] Potassium 4.8 mmol/L 3.5-5.3 Chloride 104 mmol/L 98-110 Carbon Dioxide 27 mmol/L 21-33 Calcium 9.3 mg/dL 8.6-10.2 Glucose 106 mg/dL High 65-99 64 Urea Nitrogen 14 mg/dL 7-25 Creatinine 1.08 mg/dL 0.76-1.46 BUN/Creatinine Ratio 13.2 6-22 Egfr Non-Afr. Danish >60 ML/MIN/1.73M2 > Or=60 Egfr >60 ML/MIN/1.73M2 > Or=60 CBC W/ Diff & PLT 06/16/2010 [facility] WBC 9.7 thous/L 3.8-10.[address] [place] [address] [phone] RBC 5.61 mill/L 4.20-5.80 Hemoglobin 16.7 g/dL 13.2-17.1 Hematocrit 50.0 % 38.5-50.0 MCV 89.2 FL 80.0-100.0 MCH 29.9 pg 27.0-33.0 MCHC 33.5 g/dL 32.0-36.0 RDW 14.1 % 11.0-15.0 Platelet Count 224 thous/L 140-400 Platelet Sufficiency NORMAL Normal Neutrophils,Absolute 6360 cells/L 8456-5115 Bands,Absolute DNR cells/L 0-750 Metamyelocytes,Absolute DNR cells/L [...] [facility] Cholesterol 138 mg/dL 125-[address] [place], [place] [address] [phone] HDL Cholesterol 25 mg/dL Low > Or=40 Cholesterol/HDL Ratio 5.5 High < Or=5.0 LDL Chol,Calculated 75 mg/dL <130 65 Triglycerides 189 mg/dL High <150 Hepatic Function 06/16/2010 [facility] Alkaline Phosphatase 85 U/L 40- 115 Panel [address] [place] [address] [phone] Ast 21 U/L 10-35 Alt 19 U/L 9-60 Bilirubin,Total 0.4 mg/dL 0.2-1.2 Bilirubin,Direct 0.1 mg/dL < Or=0.2 Protein,Total 6.5 g/dL 6.2-8.3 Albumin 4.0 g/dL 3.6-5.1 Globulin,Calculated 2.5 g/dL 2.1-3.7 A/G Ratio 1.6 1.0-2.1 Laboratory test finding 02/20/2010 [facility] CK 67 U /L 26-[address] [place] [address] [phone] Troponin-I 0.0 NG/ML 0.0-0.6 66 Laboratory test finding 02/19/2010 [facility] CK 53 U /L 26-[address] [place] [address] [phone] Troponin-I 0.1 NG/ML 0.0-0.6 67 Basic Metabolic 02/19/2010 [facility] Glucose 136 mg/ dL High 76-[address] [place] [address] [phone] BUN 17 mg/dL 5-23 Creatinine 1.0 mg/dL 0.5-1.4 Glom Filtration Rate, Estimate >60 mL/min >60 If >60 mL/min >60 68 BUN/Creat 17.0 Sodium 139 mEq/L 136-145 Potassium 3.9 mEq/L 3.5-5.1 Chloride 104 mEq/L 98-107 Carbon Dioxide 28 mEq/L 21-32 Anion Gap 11 mEq/L 8-16 Calcium 8.8 mg/dL 8.5-10.1 Laboratory test finding 02/19/2010 [facility] CK 73 U /L 26-[address] [place] [address] [phone] Troponin-I 0.0 NG/ML 0.0-0.6 69 CBS W/Automated 02/19/2010 [facility] White Blood 11.1 K/uL High 3.4-10.[address] [place] [address] [phone] Red Blood Count 5.82 M/uL High 4.20-5.80 Hemoglobin 17.0 gm/dL 12.8-17.0 Hematocrit 49.4 % High 38.0-48.0 Mean Cell Volume 84.9 fl 80.0-96.0 Mean Corpuscular HGB 29.2 pg 27.0-33.0 Mean Corpuscular HGB Conc 34.4 g/dL 31.7-36.0 Platelet Count 224 K/uL 150-400 Red Cell Distri Width %CV 14.0 % 11.6-15.8 Mean Platelet Volume 9.9 fL 6.6-10.6 Neut% 66.5 % 33.0-73.0 Lymph % 20.8 % 17.0-56.0 Villalba % 7.4 % 0.0-10.0 Eo% 4.9 % 0.0-5.0 Bas% 0.4 % 0.1-1.0 Neut# 7.4 K/uL High 1.8-7.0 Lymph # 2.3 K/uL 1.2-4.0 Villalba # 0.8 K/uL High 0.0-0.6 Eos # 0.5 K/uL 0.0-0.5 Baso # 0.0 K/uL Low 0.1-0.2 Red Cell Distri Width SD 43 fl 36-51 Laboratory test 02/19/2010 [facility] Magnesium 2.0 mg/dL 1.7-2.[address] [place] [address] [phone] Protime 02/19/2010 [facility] Protime 14.2 seconds 11.7-15.[address] [place] [address] [phone] Inr 1.1 0.8-1.2 70 Laboratory test 02/19/2010 [facility] Act Partial 29.7 23.4-37.4 [address] [place] [address] [phone] Lipid Panel 12/15/2009 [facility] Cholesterol 139 mg/dL 125-[address] [place] [address] [phone] HDL Cholesterol 26 mg/dL Low > Or=40 Triglycerides 173 mg/dL High <150 Cholesterol/HDL Ratio 5.3 High < Or=5.0 LDL Chol,Calculated 78 mg/dL <130 72 CBC W/ Diff & PLT 06/12/2009 [facility] WBC 8.4 thous/L 3.8-10.[address] [place] [address] [phone] RBC 5.93 mill/L High 4.20-5.80 Hemoglobin 17.2 g/dL High 13.2-17.1 Hematocrit 51.6 % High 38.5-50.0 MCV 86.9 FL 80.0-100.0 MCH 28.9 pg 27.0-33.0 MCHC 33.3 g/dL 32.0-36.0 RDW 14.1 % 11.0-15.0 Platelet Count 214 thous/L 140-400 Platelet Sufficiency NORMAL Normal Neutrophils,Absolute 5430 cells/L 0916-1973 Bands,Absolute DNR cells/L 0-750 Metamyelocytes,Absolute DNR cells/L [...] [facility] Sodium 139 mmol/L 135-[address] [place], [place] [id number] [phone] Potassium 4.8 mmol/L 3.5-5.3 Chloride 103 mmol/L 98-110 Carbon Dioxide 25 mmol/L 21-33 Calcium 9.7 mg/dL 8.6-10.2 Glucose 102 mg/dL High 65-99 73 Urea Nitrogen 18 mg/dL 7-25 Creatinine 1.12 mg/dL 0.76-1.46 BUN/Creatinine Ratio 16.1 6-22 Egfr Non-Afr. Danish >60 ML/MIN/1.73M2 > Or=60 Egfr >60 ML/MIN/1.73M2 > Or=60 Hepatic Function 06/12/2009 [facility] Alkaline Phosphatase 96 U/L 40- 115 Panel [address] [place] [address] [phone] Ast 20 U/L 10-35 Alt 20 U/L 9-60 Bilirubin,Total 0.5 mg/dL 0.2-1.2 Bilirubin,Direct 0.1 mg/dL < Or=0.2 Protein,Total 7.3 g/dL 6.2-8.3 Albumin 4.3 g/dL 3.6-5.1 Globulin,Calculated 3.0 g/dL 2.1-3.7 A/G Ratio 1.4 1.0-2.1 Lipid Panel 06/12/2009 [facility] Cholesterol 164 mg/dL 125-[address] [place], [place] [id number] [phone] HDL Cholesterol 28 mg/dL Low > Or=40 Cholesterol/HDL Ratio 5.9 High < Or=5.0 LDL Chol,Calculated 93 mg/dL <130 74 Triglycerides 213 mg/dL High <150 Laboratory test 12/12/2008 [facility] Creatine 191 U/L 44-196 finding [address] Kinase,Total [place], [place] [id number] [phone] Lipid Panel 12/12/2008 [facility] Cholesterol 153 mg/dL 125-[address] [place], [place] [id number] [phone] HDL Cholesterol 25 mg/dL Low > Or=40 Cholesterol/HDL Ratio 6.1 High < Or=5.0 LDL Chol,Calculated 75 mg/dL <130 75 Triglycerides 267 mg/dL High <150 Hepatic Function 12/12/2008 [facility] Alkaline Phosphatase 82 U/L 40- 115 Panel [address] [place] [address] [phone] Ast 20 U/L 10-35 Alt 19 U/L 9-60 Bilirubin,Total 0.4 mg/dL 0.2-1.2 Bilirubin,Direct 0.1 mg/dL < Or=0.2 Protein,Total 6.9 g/dL 6.2-8.3 Albumin 4.1 g/dL 3.6-5.1 Globulin,Calculated 2.8 g/dL 2.1-3.7 A/G Ratio 1.4 1.0-2.1 CBC W/ Diff & PLT 08/07/2008 [facility] WBC 8.8 thous/L 3.8-10.[address] [place] [address] [phone] RBC 5.87 mill/L High 4.20-5.80 Hemoglobin 17.1 g/dL 13.2-17.1 Hematocrit 49.6 % 38.5-50.0 MCV 84.5 FL 80.0-100.0 MCH 29.1 pg 27.0-33.0 MCHC 34.5 g/dL 32.0-36.0 RDW 14.2 % 11.0-15.0 Platelet Count 246 thous/L 140-400 Platelet Sufficiency NORMAL Normal Neutrophils,Absolute 5150 cells/L 4098-5780 Bands,Absolute DNR cells/L 0-750 Metamyelocytes,Absolute DNR cells/L [...] [facility] Sodium 140 mmol/L 135-[address] [place] [address] [phone] Potassium 4.9 mmol/L 3.5-5.3 Chloride 105 mmol/L 98-110 Carbon Dioxide 29 mmol/L 21-33 Calcium 9.6 mg/dL 8.6-10.2 Glucose 94 mg/dL 65-99 76 Urea Nitrogen 17 mg/dL 7-25 Creatinine 1.03 mg/dL 0.50-1.30 BUN/Creatinine Ratio 16.8 6-22 Egfr Non-Afr. Danish >60 ML/MIN/1.73M2 > Or=60 Egfr >60 ML/MIN/1.73M2 > Or=60 TSH & T4,Free 08/07/2008 [facility] TSH,3RD 1.92 mU/L 0.40-4.[address] [place], [place] [id number] [phone] T4,Free 1.1 ng/dL 0.8-1.8 Lipid Panel 08/07/2008 [facility] Cholesterol 145 mg/dL 125-[address] [place], [place] [id number] [phone] HDL Cholesterol 29 mg/dL Low > Or=40 Triglycerides 168 mg/dL High <150 Cholesterol/HDL Ratio 5.0 < Or=5.0 LDL Chol,Calculated 82 mg/dL <130 77 Lipid Panel 01/30/2008 [facility] Cholesterol 147 mg/dL 125-[address] [place], [place] [address] [phone] HDL Cholesterol 30 mg/dL Low > Or=40 78 Cholesterol/HDL Ratio 4.9 < Or=5.0 LDL Chol,Calculated 86 mg/dL <130 79 Triglycerides 153 mg/dL High <150 Hepatic Function 01/30/2008 [facility] Alkaline Phosphatase 86 U/L 40- 115 Panel [address] [place], [place] [id number] [phone] Ast 19 U/L 10-35 Alt 19 U/L 9-60 Bilirubin,Total 0.4 mg/dL 0.2-1.2 Bilirubin,Direct 0.1 mg/dL < Or=0.2 Protein,Total 6.8 g/dL 6.2-8.3 Albumin 3.9 g/dL 3.6-5.1 Globulin,Calculated 2.9 g/dL 2.1-3.7 A/G Ratio 1.4 1.0-2.1 CBC W/ Diff & PLT 08/01/2007 [facility] WBC 9.9 thous/L 3.8-10.[address] [place] [address] [phone] RBC 5.85 mill/L High 4.20-5.80 Hemoglobin 16.5 g/dL 13.2-17.1 Hematocrit 49.7 % 38.5-50.0 MCV 85.0 FL 80.0-100.0 MCH 28.2 pg 27.0-33.0 MCHC 33.2 g/dL 32.0-36.0 RDW 14.1 % 11.0-15.0 Platelet Count 264 thous/L 140-400 Platelet Sufficiency NORMAL Normal Neutrophils,Absolute 6720 cells/L 7551-1107 Bands,Absolute DNR cells/L 0-750 Metamyelocytes,Absolute DNR cells/L [...] [facility] Cholesterol 162 mg/dL 125-200 [address] [place] [address] [phone] HDL Cholesterol 24 mg/dL Low > Or=40 80 Cholesterol/HDL Ratio 6.8 High < Or=5.0 LDL Chol,Calculated 103 mg/dL <130 81 Triglycerides 173 mg/dL High <150 TSH & T4,Free 08/01/2007 [facility] TSH,3RD 1.34 mU/L 0.40-4.[address] [place], [place] [id number] [phone] T4,Free 1.1 ng/dL 0.8-1.8 Basic Metabolic Panel 08/01/2007 [facility] Sodium 139 mmol/L 135-[address] [place] [address] [phone] Potassium 4.9 mmol/L 3.5-5.3 Chloride 106 mmol/L 98-110 Carbon Dioxide 28 mmol/L 21-33 Calcium 9.3 mg/dL 8.6-10.2 Glucose 106 mg/dL High 65-99 82 Urea Nitrogen 18 mg/dL 7-25 Creatinine 1.09 mg/dL 0.50-1.30 BUN/Creatinine Ratio 16.2 6-22 Egfr Non-Afr. Danish >60 ML/MIN/1.7 > Or=60 Egfr >60 ML/MIN/1.7 > Or=60 Basic Metabolic Panel 08/03/2006 [facility] Sodium 140 mmol/L 135-[address] [place] [address] [phone] Potassium 4.6 mmol/L 3.5-5.3 Chloride 104 mmol/L 98-110 Carbon Dioxide 31 mmol/L 21-33 Calcium 9.6 mg/dL 8.5-10.4 Glucose 105 mg/dL High 65-99 83 Urea Nitrogen 12 mg/dL 7-25 Creatinine 1.0 mg/dL 0.5-1.4 BUN/Creatinine Ratio 11.8 6-25 GFR Estimated >60 ML/MIN/1.7 >59 84 Lipid Panel 08/03/2006 [facility] Cholesterol 166 mg/dL <[address] [place] [address] [phone] HDL Cholesterol 25 mg/dL Low >40 85 Triglycerides 214 mg/dL High <150 Cholesterol/HDL Ratio 6.6 High <5.0 LDL Chol,Calculated 98 mg/dL <130 86 CBC W/ Diff & PLT 08/03/2006 [facility] WBC 10.6 thous/L 3.8-10.8 [address] [place] [address] [phone] RBC 5.86 mill/L High 4.20-5.80 Hemoglobin 16.8 g/dL 13.2-17.1 Hematocrit 49.5 % 38.5-50.0 MCV 84.4 FL 80.0-100.0 MCH 28.7 pg 27.0-33.0 MCHC 34.0 g/dL 32.0-36.0 RDW 14.5 % 11.0-15.0 Platelet Count 259 thous/L 140-400 Platelet Sufficiency NORMAL Normal Neutrophils,Absolute 7120 cells/L 4712-1845 Bands,Absolute DNR cells/L 0-750 Metamyelocytes,Absolute DNR cells/L [...] [facility] Cholesterol 155 mg/dL <200 6 [place], [place] [address] [phone] HDL Cholesterol 26 mg/dL Low >40 87 Triglycerides 199 mg/dL High <150 Cholesterol/HDL Ratio 6.0 High <5.0 LDL Chol,Calculated 89 mg/dL <130 88 Hepatic Function 02/08/2006 [facility] Alkaline Phosphatase 99 U/L 20- 125 Panel 6 [place], [place] [address] [phone] Ast 17 U/L 3-50 Alt 16 U/L 3-60 Bilirubin,Total 0.3 mg/dL 0.2-1.5 Bilirubin,Direct 0.1 mg/dL 0.0-0.3 Protein,Total 6.8 g/dL 6.0-8.3 Albumin 4.0 g/dL 3.2-4.6 Basic Metabolic Panel 08/06/2005 [facility] Sodium 141 mmol/L 135-146 [address] [place] [address] [phone] Potassium 5.2 mmol/L 3.5-5.3 Chloride 107 mmol/L 98-110 Carbon Dioxide 20 mmol/L Low 21-33 Calcium 9.4 mg/dL 8.5-10.4 Glucose 99 mg/dL 65-99 89 Urea Nitrogen 18 mg/dL 7-25 Creatinine 1.1 mg/dL 0.5-1.4 BUN/Creatinine Ratio 17.1 6-25 GFR Estimated >60 ML/MIN/1.7 >59 90 CBC W/ Diff & PLT 08/06/2005 [facility] WBC 10.1 thous/L 3.8-10.8 [address] [place] [address] [phone] RBC 6.15 mill/L High 4.20-5.80 Hemoglobin 17.2 g/dL High 13.2-17.1 Hematocrit 51.9 % High 38.5-50.0 MCV 84.4 FL 80.0-100.0 MCH 28.0 pg 27.0-33.0 MCHC 33.2 g/dL 32.0-36.0 RDW 14.6 % 11.0-15.0 Platelet Count 274 thous/L 140-400 Platelet Sufficiency NORMAL Neutrophils,Absolute 6850 cells/L 6756-2988 Bands,Absolute DNR cells/L 0-750 Metamyelocytes,Absolute DNR cells/L [...] [facility] Cholesterol 168 mg/dL <[address] [place] [address] [phone] HDL Cholesterol 27 mg/dL Low >40 91 Triglycerides 153 mg/dL High <150 Cholesterol/HDL Ratio 6.2 High <5.0 LDL Chol,Calculated 110 mg/dL <130 92 Laboratory test 08/06/2005 [facility] PSA,Total 2.3 NG/ML 0.0-4.0 [address] [place] [address] Medicare [phone] TSH 1.31 mU/L 0.40-5.50 1 SEE RESULT BELOW Name: FAUSTINO MORALES : [address]: Carl Bowden MD Acct: [id number] Unit: [id number] AGE: 77 Location: ED Re01/26/18 SEX: M Status: DEP ER SPEC: [id number] MARIJA: 01/26[birth year]18-[address] [facility] [address]: Carl Bowden MD REQ: [id number] RECD: 01/26/18 STATUS: COMP OTHR DR: Smiley Loyd MD _ SOURCE: URINE [facility]: ORDERED: Urine Culture Procedure Result Reported Site Urine Culture Final 01/27/18- 1709 ML No Growth (<1,000 CFU/mL) * ML - Main Lab . END OF REPORT DEPARTMENT OF PATHOLOGY, [address] [place] [address] Jeyson Lloyd M.D. Director [facility] # [id number] 2 Relative blood cell counts (%) should [...] approximately 13% higher for people identified as -Danish. 5 LDL-C is now calculated using the Jac-Spain calculation, which is a validated novel method providing better accuracy than the Friedewald equation in the estimation of LDL-C. Jac SS et al.SUBHA.2013;310(19):2619-7636 Desirable range <100 mg/dL for primary prevention; <70 mg/dL for patients with CHD or diabetic patients with >or=2 CHD risk factors. For additional information, please refer to http://SupplyFrame.[employer]/faq/KSF445(This link is being provided for informational/educational purposes [...] approximately 13% higher for people identified as -Danish. 11 LDL-C is now calculated using the Jac-Spain calculation, which is a validated novel method providing better accuracy than the Friedewald equation in the estimation of LDL-C. Jac SS et al.SUBHA.2013;310(19):4945-0857 (http://Supp[employer]Frame.[employer].OneTwoTrip/faq/HZG688) Desirable range <100 mg/dL for patients with [...] approximately 13% higher for people identified as -Danish. 19 Because ethnic data is not always [...] 0.03 ng/mL Not supportive of diagnosis of [place] 0.03 - 0.50 ng/mL Indeterminate: suggest serial studies if clinically indicated. Greater than 0.5 ng/mL Consistent with diagnosis of [place] 21 CORRECTING 22 [facility] Severe Sepsis and Septic Shock Management [...] 0.03 ng/mL Not supportive of diagnosis of [place] 0.03 - 0.50 ng/mL Indeterminate: suggest serial studies if clinically indicated. Greater than 0.5 ng/mL Consistent with diagnosis of [place] 26 CORRECTING 27 Acute inflammation: >10.00 28 [...] Garces, 2015. Pediatric Reference Intervals, 7th Ed, [facility] Press, 2011. 31 GLUCOSE REFERENCE RANGE BASED ON FASTING SPECIMEN. 32 The upper reference limit for Creatinine is approximately 13% higher for people identified as -Danish. 33 LDL-CHOLESTEROL RISK CATEGORY* GOAL VERY HIGH [...] 0.03 ng/mL Not supportive of diagnosis of [place] 0.03 - 0.50 ng/mL Indeterminate: suggest serial studies if clinically indicated. Greater than 0.5 ng/mL Consistent with diagnosis of [place] 38 Acute inflammation: >10.00 39 CEE IN ED NOTIFIED NEED TO COLLECT NARVAEZ TUBE 1705 40 GLUCOSE REFERENCE RANGE BASED ON FASTING SPECIMEN. 41 The upper reference limit for Creatinine is approximately 13% higher for people identified as -Danish. 42 LDL-CHOLESTEROL RISK CATEGORY* GOAL VERY HIGH [...] approximately 13% higher for people identified as -Danish. 48 LDL-CHOLESTEROL RISK CATEGORY* GOAL VERY HIGH [...] approximately 13% higher for people identified as -Danish. 51 LDL-CHOLESTEROL RISK CATEGORY* GOAL VERY HIGH [...] approximately 13% higher for people identified as -Danish. 56 LDL-CHOLESTEROL RISK CATEGORY* GOAL VERY HIGH [...] FOR RACE, IF THE PATIENT RACE IS -PARAGUAYAN, THE GFR ESTIMATE MUST BE MULTIPLIED BY [...] FOR RACE, IF THE PATIENT'S RACE IS -PARAGUAYAN, THE GFR ESTIMATE MUST BE MULTIPLIED BY [...] INTERCHANGEABLY. THIS ASSAY WAS PERFORMED USING THE [employer] CHEMILUMINESCENCE METHOD. Procedures Date Code Description Status 06/22/2017 29141 EKG-Tracing & Report Completed 07/05/2016 78201 EKG-Tracing & Report Completed 06/30/2016 28910 Non-Invcorrotid/Comp /Bilat Study Completed 06/30/2016 42174 Echocardiography Completed 07/10/2015 29559 EKG-Tracing & Report Completed 07/08/2015 06581 Non-Invcorrotid/Comp /Bilat Study Completed 07/08/2015 95889 Echocardiography Completed 06/27/2014 01220 EKG-Tracing & Report Completed 06/26/2014 32492 Holter Monitor Office Completed 06/25/2014 56684 Non-Invcorrotid/Comp /Bilat Study Completed 06/25/2014 51344 Echocardiography Completed 06/27/2013 53050 EKG-Tracing & Report Completed 06/25/2013 68145 Echocardiography Completed 06/25/2013 46712 Non-Invcorrotid/Comp /Bilat Study Completed 07/06/2012 23341 Non-Invcorrotid/Comp /Bilat Study Completed 07/06/2012 35984 Echocardiography Completed 07/05/2012 69396 EKG-Tracing & Report Completed 06/30/2011 33435 Non-Invcorrotid/Comp /Bilat Study Completed 06/30/2011 47729 Echocardiography Completed 06/30/2011 36222 EKG-Tracing & Report Completed 06/17/2010 91577 Non-Invcorrotid/Comp /Bilat Study Completed 06/17/2010 72703 Echocardiography Completed 06/16/2010 85048 Holter Monitor Office Completed 06/16/2010 62087 EKG-Tracing & Report Completed 06/12/2009 01256 Holter Monitor Office Completed 06/12/2009 35819 EKG-Tracing & Report Completed 06/10/2009 08923 Echocardiography Completed 06/10/2009 36681 Non-Invcorrotid/Comp /Bilat Study Completed 08/07/2008 38995 EKG-Tracing & Report Completed 07/30/2008 60975 Non-Invcorrotid/Comp /Bilat Study Completed 07/30/2008 02189 Doppler/ECHO Completed 07/30/2008 53349 ECHO-2D W/Wo M-Mode Completed 01/30/2008 51418 PFT Evaluation Completed 08/01/2007 20961 EKG-Tracing & Report Completed 07/27/2007 30431 Non-Invcorrotid/Comp /Bilat Study Completed 07/27/2007 36967 Doppler Color Flow Velocity Completed 07/27/2007 72476 Doppler/ECHO Completed 07/27/2007 89108 ECHO-2D W/Wo M-Mode Completed 08/03/2006 46041 EKG-Tracing & Report Completed 08/03/2006 87847 ECHO-2D W/Wo M-Mode Completed 08/03/2006 64348 Doppler/ECHO Completed 08/03/2006 96174 Doppler Color Flow Velocity Completed 08/03/2006 14185 Non-Invcorrotid/Comp /Bilat Study Completed 11/15/2005 10622 Spirometry Graphic Record/Max Voluntary Vent Completed 08/06/2005 61295 Spirometry Graphic Record/Max Voluntary Vent Completed 08/06/2005 74648 PVR-Atrerial Study Completed 08/06/2005 41083 Holter Monitor Office Completed 08/06/2005 67996 EKG-Tracing & Report Completed 08/04/2005 35041 Non-Invcorrotid/Comp /Bilat Study Completed 08/04/2005 53515 Doppler Color Flow Velocity Completed 08/04/2005 54323 Doppler/ECHO Completed 08/04/2005 00319 ECHO-2D W/Wo M-Mode Completed 06/23/2005 50436 Spirometry Graphic Record/Max Voluntary Vent Completed Encounters Type Date Location Provider Dx Diagnosis Office Visit 01/02/2018 Main Office Smiley Loyd M.D. E78.2 Mixed hyperlipidemia 10:30a I11.9 Hypertensive heart disease without heart failure Office Visit 07/06/2017 11:30a Main Office Smiley Loyd E78.2 Mixed hyperlipidemia Bel[place] I11.9 Hypertensive heart disease without heart failure Office Visit 06/22/2017 3:30p Main Office Smiley Loyd J02.9 Acute pharyngitis, M.D. unspecified Office Visit 04/07/2017 10:45a Main Office Smiley Loyd, L03.114 Cellulitis of left M.D. upper limb Office Visit 01/10/2017 10:30a Main Office Smiley Loyd E78.5 Hyperlipidemia, M.D. unspecified I25.10 Athscl heart disease of [place] coronary artery w/o ang pctrs I11.9 Hypertensive heart disease without heart failure N40.0 Benign prostatic hyperplasia without lower urinry tract symp M54.16 Radiculopathy, lumbar region Office Visit 09/20/2016 2:30p Main Office Smiley Loyd J02.0 Streptococcal M.D. pharyngitis Office Visit 07/12/2016 11:00a Main Office Smiley Loyd E78.5 Hyperlipidemia, M.D. unspecified I34.0 Nonrheumatic mitral (valve) insufficiency I25.10 Athscl heart disease of [place] coronary artery w/o ang pctrs I11.9 Hypertensive [...] M.D. unspecified I25.10 Athscl heart disease of [place] coronary artery w/o ang pctrs I11.9 Hypertensive heart disease without heart failure Office Visit 07/16/2015 1:30p Main Office Smiley Loyd E78.5 Hyperlipidemia, M.D. unspecified I25.10 Athscl heart disease of [place] coronary artery w/o ang pctrs I11.9 Hypertensive heart disease without heart failure M15.9 Polyosteoarthritis, unspecified Z23 Encounter for immunization Office Visit 01/21/2015 1:45p Main Office Smiley Loyd M.D. 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 Unspec 414.01 Coronary Atherosclerosis [place] 402.10 Hypertensive Heart Disease Benign W/O Heart Failure Office Visit 07/08/2014 2:00p Main Office Smiley Loyd 272.4 Hyperlipidemia Other M.D. Unspec 414.01 Coronary Atherosclerosis [place] 402.10 Hypertensive Heart Disease Benign W/O Heart Failure V04.81 Need For Prophylactic Vaccination & Inoculation/Influenza V03.82 Streptococcus Pneumoniae Vaccination Spec Other Office Visit 04/10/2014 11:45a Main Office Smiley Loyd 460.00 Upper Respiratory M.D. Infection 461.9 Sinusitis Acute Unspec Office Visit 01/14/2014 11:30a Main Office Smiley Loyd 414.01 Coronary M.D. Atherosclerosis [place] 402.10 Hypertensive Heart Disease Benign W/O Heart Failure 272.4 Hyperlipidemia Other Unspec Office Visit 07/11/2013 11:30a Main Office Smiley Loyd M.D. 424.0 Mitral Valve Disorder 414.01 Coronary Atherosclerosis [place] 402.10 Hypertensive Heart Disease Benign W/O Heart Failure 272.4 Hyperlipidemia Other Unspec Office Visit 04/19/2013 1:30p Main Office Smiley Loyd M.D. 462 Pharyngitis Acute V04.81 Need For Prophylactic Vaccination & Inoculation/Influenza Office Visit 01/08/2013 10:30a Main Office Smiley Loyd 272.4 Hyperlipidemia Other M.D. Unspec 414.01 Coronary Atherosclerosis [place] 402.10 Hypertensive Heart Disease Benign W/O Heart Failure Office Visit 07/10/2012 10:30a Main Office Smiley Loyd 272.4 Hyperlipidemia Other M.D. Unspec 424.0 Mitral Valve Disorder 414.01 Coronary Atherosclerosis [place] 402.10 Hypertensive Heart Disease Benign W/O Heart Failure Office Visit 06/06/2012 1:45p Main Office Smiley Loyd 599.70 Hematuria M.D. Office Visit 05/25/2012 10:30a Main Office Smiley Loyd 465.8 Upper Respiratory M.D. Infections Acute Other Multiple Sites 305.1 Tobacco Use Disorder Office Visit 01/10/2012 10:45a Main Office Smiley Gauss, 272.4 Hyperlipidemia Other M.D. Unspec 414.01 Coronary Atherosclerosis [place] 402.10 Hypertensive Heart Disease Benign W/O Heart Failure 715.90 Degenerative Joint Disease Genlzd Or Localzd Site Unspec 682.90 Cellulitis Office Visit 07/07/2011 10:30a Main Office Smiley Loyd, 272.4 Hyperlipidemia Other M.D. Unspec 414.01 Coronary Atherosclerosis [place] 274.90 Gout 402.10 Hypertensive Heart Disease Benign W/O Heart Failure 715.90 Degenerative Joint Disease Genlzd Or Localzd Site Unspec 682.90 Cellulitis V70.0 Examination General Medical Routine AT Health Care Facility Office Visit 04/01/2011 11:00a Main Office Smiley Loyd M.D. 682.90 Cellulitis 274.90 Gout 272.4 Hyperlipidemia Other Unspec 414.01 Coronary Atherosclerosis [place] 402.10 Hypertensive Heart Disease Benign W/O Heart Failure 715.90 Degenerative Joint Disease Genlzd Or Localzd Site Unspec V04.81 Need For Prophylactic Vaccination & Inoculation/Influenza Office Visit 03/23/2011 1:45p Main Office Ambrocio Lynn MD 682.90 Cellulitis 272.4 Hyperlipidemia Other Unspec GENERAL General Office Visit 12/28/2010 10:30a Main Office Smiley Loyd, 272.4 Hyperlipidemia Other M.D. Unspec 414.01 Coronary Atherosclerosis [place] 402.10 Hypertensive Heart Disease Benign W/O Heart Failure 715.90 Degenerative Joint Disease Genlzd Or Localzd Site Unspec Office Visit 06/29/2010 10:30a Main Office Smiley Loyd, 272.4 Hyperlipidemia Other M.D. Unspec 414.01 Coronary Atherosclerosis [place] 402.10 Hypertensive Heart Disease Benign W/O Heart Failure 715.90 Degenerative Joint Disease Genlzd Or Localzd Site Unspec V04.81 Need For Prophylactic Vaccination & Inoculation/Influenza Office Visit 12/25/2009 10:45a Main Office Smiley Loyd 272.4 Hyperlipidemia Other M.D. Unspec 414.01 Coronary Atherosclerosis [place] Office Visit 06/26/2009 10:30a Main Office Smiley Loyd, 272.4 Hyperlipidemia Other M.D. Unspec 414.01 Coronary Atherosclerosis [place] 402.10 Hypertensive Heart Disease Benign W/O Heart Failure Office Visit 12/26/2008 11:00a Main Office Smiley Loyd, 272.4 Hyperlipidemia Other M.D. Unspec 414.01 Coronary Atherosclerosis [place] 402.10 Hypertensive Heart Disease Benign W/O Heart Failure Office Visit 08/15/2008 10:30a Main Office Smiley Loyd 272.4 Hyperlipidemia Other M.D. Unspec 414.01 Coronary Atherosclerosis [place] 402.10 Hypertensive Heart Disease Benign W/O Heart Failure 462 Pharyngitis Acute Office Visit 02/21/2008 11:30a Main Office Smiley Loyd M.D. 496 Chronic Obstructive Pulmonary Disease 414.01 Coronary Atherosclerosis [place] 402.10 Hypertensive Heart Disease Benign W/O Heart Failure 272.4 Hyperlipidemia Other Unspec 272.40 Hyperlipidemia Office Visit 02/01/2008 10:45a Main Office Smliey Loyd M.D. 274.9 Gout Unspec Office Visit 08/15/2007 10:30a Main Office Smiley Loyd M.D. V15.82 History Personal Tobacco Use 414.01 Coronary Atherosclerosis [place] 402.10 Hypertensive Heart Disease Benign W/O Heart Failure 272.40 Hyperlipidemia Office Visit 02/14/2007 10:15a Main Office Smiley Loyd 402.10 Hypertensive Heart M.D. Disease Benign W/O Heart Failure 272.40 Hyperlipidemia 530.81 Esophageal Reflux Office Visit 10/19/2006 1:30p Main Office Smiley Loyd M.D. 462 Pharyngitis Acute Office Visit 08/17/2006 10:15a Main Office Smiley Loyd M.D. 272.40 Hyperlipidemia 414.01 Coronary Atherosclerosis [place] 402.10 Hypertensive Heart Disease Benign W/O Heart Failure 496 Chronic Obstructive Pulmonary Disease V15.82 History Personal Tobacco Use 305.1 Tobacco Use Disorder 460.00 Upper Respiratory Infection Office Visit 04/13/2006 10:45a Main Office Smiley Loyd 569.89 Intestine Disorders M.D. Other Office Visit 02/15/2006 10:00a Main Office Smiley Loyd 414.01 Coronary M.D. Atherosclerosis [place] 496 Chronic Obstructive Pulmonary Disease 272.40 Hyperlipidemia Office Visit 11/15/2005 10:00a Main Office Smiley Loyd M.D. 496 Chronic Obstructive Pulmonary Disease 272.40 Hyperlipidemia 414.01 Coronary Atherosclerosis [place] Office Visit 08/17/2005 10:30a Main Office Smiley Loyd M.D. 272.40 Hyperlipidemia 496 Chronic Obstructive Pulmonary Disease 414.01 Coronary Atherosclerosis [place] Office Visit 05/20/2005 11:00a Main Office Paramjit Porras 496 Chronic Obstructive MD Evert Pulmonary Disease Office Visit 12/24/2004 10:15a Main Office Smiley Loyd, 414.01 Coronary M.D. Atherosclerosis [place] 272.40 Hyperlipidemia 715.90 Degenerative Joint Disease Genlzd Or Localzd Site Unspec Office Visit 10/28/2004 11:45a Main Office Smliey Loyd, 414.01 Coronary M.D. Atherosclerosis [place] Office Visit 07/27/2004 10:30a Main Office Smiley Loyd, 462 Pharyngitis Acute M.D. Office Visit 06/25/2004 11:00a Main Office Smiley Loyd, 414.01 Coronary M.D. Atherosclerosis [place] 530.81 Esophageal Reflux 272.40 Hyperlipidemia Plan of Treatment Future Appointment(s):06/26/2018 12:30 pm - Ultrasound at Main [id number]/28/2018 8:30 am - Nurse at Main [id number]/10/2018 10:30 am - Smiley Loyd M.D. at Main Office
[2018-05-21 11:03] LABS: INR 1.28 (0.77-1.02)
[2018-05-21 11:05] LABS: EGFR Non-African American 11.9 (>60)
--- NOTE | 2018-05-21 11:10 | RAD ---
INDICATION: Shortness of breath and abdominal pain. COMPARISON: Comparison is made with a prior chest x-ray study from April 17, 2016. TECHNIQUE: A portable view of the chest was obtained. FINDINGS: Cardiac and mediastinal contours appear to be within normal limits. There is diffuse prominence of the interstitial markings and small bilateral pleural effusions. IMPRESSION: FINDINGS SUGGESTIVE OF CONGESTIVE HEART FAILURE.
[2018-05-21 11:21] LABS: Urine Appearance Clear; Urine Blood Negative (Negative); Urine Color Amber; Urine Ketones Negative (Negative); Urine Protein Negative (Negative); Urine Red Blood Cell Absent (Absent); Urine Specific Gravity 1.006 (1.010-1.030); Urine Urobilinogen Negative (Negative); Urine White Blood Cell Trace(0-5/hpf) (Absent)
--- NOTE | 2018-05-21 13:11 | RAD ---
INDICATION: Bilateral lower abdominal pain for 1 month. COMPARISON: Comparison is made with a prior CT of the abdomen and pelvis from February 27, 2016. TECHNIQUE: A CT scan of the abdomen and pelvis was performed without intravenous and with oral contrast. Contiguous axial sections were obtained from the lung bases through the symphysis pubis. Images were reconstructed in the coronal and sagittal planes. FINDINGS: LUNG BASES: There are mild to moderate size bilateral pleural effusions and associated dependent infiltrates suggestive of atelectasis. LIVER: The liver is normal in size. There are 2 small hypodense lesions present in the inferior portion of the liver measuring up to 1.2 cm in size which are unchanged from the prior exam and therefore consistent with a benign process. GALLBLADDER: There are gallstones present. No gallbladder wall thickening or pericholecystic fluid is seen. BILE DUCTS: No intra or extrahepatic ductal distention is seen. SPLEEN: The spleen is normal in size without significant focal abnormality. PANCREAS: The pancreas is normal in size. No ductal distention or calcifications are seen. ADRENAL GLANDS: The adrenal glands are normal in size. KIDNEYS: The kidneys are normal in size. There is a 2.5 cm left renal cyst which is better seen on the prior contrast enhanced study and unchanged. No renal calculi are seen. There is bilateral mild to moderate grade hydronephrosis with dilatation of the calyces, renal pelvises and ureters to the level of the urinary bladder. The urinary bladder is markedly distended. The urinary bladder wall is mildly thickened diffusely. In addition the prostate gland is markedly enlarged measuring 7.1 cm in transverse dimension. AORTA: The aorta is normal in caliber with moderate calcific plaque present. LYMPH NODES: No significantly enlarged lymph nodes are seen. BOWEL: The stomach, small and large bowel appear nondistended. The appendix appears to be within normal limits. There are scattered diverticula within the colon. There is no evidence for diverticulitis or colitis. PERITONEUM: No free intraperitoneal air or fluid is seen. BONES: There is a mild scoliosis convex toward the left side and moderate diffuse degenerative disc disease throughout the lumbar spine. There is a 1 cm sclerotic lesion within the left femoral head which is unchanged from the prior study. IMPRESSION: 1. SMALL TO MODERATE SIZE BILATERAL PLEURAL EFFUSIONS. 2. MARKEDLY DISTENDED URINARY BLADDER AND MILD TO MODERATE GRADE BILATERAL HYDRONEPHROSIS WHICH APPEARS SECONDARY TO A MARKEDLY ENLARGED PROSTATE GLAND. THERE IS ALSO DIFFUSE THICKENING OF THE WALL OF THE URINARY BLADDER WHICH IS LIKELY SECONDARY TO HYPERTROPHY AND CHRONIC OUTLET OBSTRUCTION. 3. CHOLELITHIASIS WITHOUT EVIDENCE FOR ACUTE CHOLECYSTITIS.
[2018-05-21] MEDS ORDERED: Lidocaine 2% JELLY* 10 ML JELLY TOPICAL ONE (13:13)
[2018-05-21] MEDS ORDERED: Lidocaine 2% JELLY* 6 ML JELLY TOPICAL ONE (13:20)
[2018-05-21] MEDS ORDERED: Morphine INJ* 4 MG/ML 1 ML SYRINGE (NEW SYRINGE VERSION) IV ONE (13:40)
[2018-05-21] MEDS ORDERED: Magnesium Sulfate IV* 3 GM in NS 0.9% 100 ML* 100 ML IVPB ONE (14:08)
[2018-05-21] MEDS ORDERED: Morphine INJ* 4 MG/ML 1 ML SYRINGE (NEW SYRINGE VERSION) IV PRN (14:29)
[2018-05-21] MEDS ORDERED: hydrALAZINE IV* 20 MG/ML VIAL IV SLOW PU PRN ×2 (14:32→19:16)
[2018-05-21] MEDS: Metoprolol Tartrate TAB* 50 mg PO SCH ×2 (16:10→19:01)
[2018-05-21] MEDS ORDERED: Nicotine GUM* 2 MG PO PRN (17:50)
[2018-05-21] MEDS: Acetaminophen TAB* 325 MG PO PRN (19:46)
[2018-05-21] MEDS: Morphine INJ* 4 MG/ML 1 ML SYRINGE (NEW SYRINGE VERSION) IV PRN ×2 (19:46→23:44)
[2018-05-21] MEDS: amLODIPine TAB* 5 MG PO SCH (19:46)
[2018-05-21] MEDS: Senna TAB PO SCH (19:46)
[2018-05-21] MEDS: Heparin VIAL(*) 5000 UNITS/ML VIAL (FIVE THOUSAND) SUBCUT SCH (23:08)
--- NOTE | 2018-05-21 23:59 | HP ---
CC: Dr. Smiley Loyd; Dr. Albarado, Urology Department, [facility] * HISTORY AND PHYSICAL: DATE OF ADMISSION: 05/21/18 PRIMARY CARE PROVIDER: Smiley Loyd MD CHIEF COMPLAINT: Lower abdominal pain, shortness of breath, leg swelling. HISTORY OF PRESENT ILLNESS: Faustino Cyr is a 77-year-old male with history of hypertension, coronary artery disease and BPH who presented to the hospital complaining of shortness of breath of breath and inability to lie flat for the past 10 days. Ten days ago, he was prescribed Augmentin for possibility of bronchitis by his primary care provider. He has also noted bilateral lower extremity swelling. He also noted increased abdominal girth and lower abdominal cramps that had been going for the past 1 month, had intensified. He also had been constipated. He was evaluated on 04/01/18 at [facility] for hematuria. At that point, he stated that he had CT scan of the abdomen with contrast. He also was noted to have 350 L of urine residual and he was referred Dr. Albarado. Dr. Albarado started the patient on finasteride on 04/06/18 and on 04/25/18, performed cystoscopy as per patient "looked good." The patient describes the abdominal pain as "cramping." He stated that he occasionally when he drank coffee, it would improve the abdominal pain. He has noted urinary frequency, but that has been a chronic problem. He stated that he gained approximately 10 pounds of weight in the past 1 month. Also, 1 month ago, he was in [place] for his daughter's wedding. The patient's creatinine is 4.8 and he had bladder outlet obstruction noted on abdominal CT. A 16-gauge coude was placed by Dr. Lauren in the emergency department. The patient immediately had a large volume urine output so far approximately 1700 mL. Currently, he has problems with bladder spasms when the Brody catheter got unclamped. He is going to be admitted with a diagnosis of acute bladder outlet obstruction and acute renal failure. PAST MEDICAL HISTORY: 1. History of BPH. 2. Hypertension. 3. Dyslipidemia. 4. 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 MEDICATIONS AT HOME: Includes: 1. Flomax 0.4 mg daily. 2. Metoprolol tartrate 25 mg b.i.d. 3. Finasteride 5 mg daily. 4. Aspirin 325 mg daily. 5. Zocor 40 mg daily. 6. Polyethylene glycol 1 packet daily. 7. Phenazopyridine 200 mg 3 times a day. 8. Protonix 40 mg daily. 9. Augmentin 875 mg b.i.d. started 10 days ago. FAMILY HISTORY: Positive for mother with history of breast cancer, who in her 60s. Father has a history of Parkinson's and bone cancer and also in his 60s. SOCIAL HISTORY: The patient has history of smoking. He smokes anywhere from half to a pack a day and he started when he was 17 years old. He drinks a beer a day. He denies any drug use. 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 He is and his , Chely , is his surrogate. REVIEW OF SYSTEMS: Please see history of present illness. In addition to the above mentioned, the patient had complained of proximal nocturnal dyspnea for approximately 10 days. All the remaining 12 systems were reviewed with the patient and were otherwise negative. PHYSICAL EXAMINATION GENERAL: The patient is a pleasant 77-year-old male, who is not in acute distress. Alert, awake, and oriented x3. VITAL SIGNS: Blood pressure of 198/106, please note the patient is in significant amount of discomfort due to Brody placement during that time, heart rate of 62 and regular, respiratory rate 24, oxygen saturation 93% on room air, temperature of 98.4. HEENT: Head atraumatic, normocephalic. Eyes: Pupils are equal and reactive to light and accommodation. Oropharynx is clear. Mucosa moist. NECK: Supple. Positive for JVD bilaterally. No adenopathy noted. RESPIRATORY: Crackles at bilateral bases. CARDIOVASCULAR: Regular rate and rhythm. No murmur. ABDOMEN: Soft, minimal tender in the suprapubic area with no rebound, no guarding. Bowel sounds are present in all 4 quadrants. EXTREMITIES: There is trace bilateral pedal edema. Pulses +2 bilaterally. There is no clubbing and no cyanosis. NEURO EVALUATION: Speech clear. Cranial nerves II through XII grossly intact. Motor strength is 5/5 bilaterally. PSYCHIATRIC EVALUATION: Oriented x3 with no evidence of anxiety or depression. DIAGNOSTIC STUDIES/LAB DATA: Showed urinalysis with urine specific gravity of 1.006, positive for nitrites, otherwise negative for esterase and bacteria. CBC: White blood cell count of 12.3, hemoglobin of 12.8, hematocrit of 38. Sodium was 141, potassium 5.0, chloride 111, carbon dioxide 22, BUN 45, creatinine 4.8. Liver function tests were unremarkable. C-reactive protein of 46, magnesium of 1.5, brain natriuretic peptide was 858. CT of the abdomen, pelvis obtained today. Impression: "[id number] sized bilateral pleural effusions. Markedly distended urinary bladder and mild- to- moderate grade bilateral hydronephrosis, which appears secondary to markedly enlarged prostate. There is also diffuse thickening of the wall of the urinary bladder, which is likely secondary to hypertrophy and chronic outlet obstruction. "Dialysis without evidence for acute cholecystitis." Portable chest x-ray. Impression: "Findings suggestive of congestive heart failure." The patient's EKG showed sinus bradycardia with a heart rate of 56 beats per minute with flattening of T-waves in lead III and aVF, otherwise unremarkable. ASSESSMENT AND PLAN: 1. The patient is suffering from acute renal failure due to a bladder outlet obstruction by markedly enlarged prostate. The obstruction was released by placing catheter in the emergency department. At this point, the patient is at risk for obstructive diuresis. He already received 2 L of intravenous fluids in the emergency department and his urinary output was approximately 1700 mL. At this point, I am going to replace his urinary output at half of the rate of his IV fluids. That means for every liter that patient outputs, he is going to get a 500 mL of IV fluids in replacement. He may require more and he is going to be hemodynamically monitored. The lower IV fluid replacement is due to the patient is also experiencing congestive heart failure. 2. The patient's congestive heart failure, which is now acute likely diastolic and likely due to a combination of also bladder outlet obstruction and renal failure. Due to likely post obstructive over diuresis, I am not going to institute any diuretics at this point. I will continue monitoring strict intake and output measurements at this point. 3. For the patient's hypertension, his outpatient medications are going to be continued. 4. For history of enlarged prostate, the patient's Flomax and finasteride are going to be continued. PSA is not going to be checked due to Brody placement at this point. The patient has history of recent PSA being checked by his urologist at [facility]. 5. For DVT prophylaxis, the patient is at high risk and he is going to be placed on heparin subcutaneously. 6. The patient's code status is full and his surrogate decision maker is . 7. The patient's hypomagnesium, we are going to replace with IV magnesium and later on p.o. TIME SPENT: Approximately 65 minutes were spent on the admission of his this patient, more than half that time was spent [id number] with the patient during the interview and physical exam. [id number]/[facility] #: [id number] LUCIAN
--- NOTE | 2018-05-22 00:23 | CONS ---
CC: Smiley Loyd MD; Dr. Jaqueline Albarado, Department of Urology at [facility] * UROLOGY CONSULTATION: DATE OF CONSULT: 05/21/18 REQUESTING PHYSICIAN: Dr. Charisse Lauren, Emergency Department. DIAGNOSES: 1. Urinary retention. 2. Acute renal failure with bilateral hydronephrosis secondary to urinary retention. HISTORY OF PRESENT ILLNESS: Faustino Cyr Jr. is a 77-year-old gentleman who has had longstanding symptoms related to benign prostatic hypertrophy. He has been seeing his urologist, Dr. Albarado, in [place] for the last several years and has initially been on Flomax 0.4 mg a day and was recently also started on finasteride 5 mg daily. He states that about a month ago, he started noticing worsening voiding symptoms and some lower abdominal pain and had an evaluation done at that time also because of some hematuria and the evaluation included a cystoscopy, which confirmed bleeding from an enlarged prostate. This is when finasteride was added in an effort to reduce the prostate size and vascularity. The patient states at that time, his postvoid residual was about 300 to 350 cc. When evaluated in the emergency room, he had a residual 4000 cc and his creatinine had increased to over 4. Brody catheter 16-Portuguese coude was placed with return of about 1200 cc of urine and at the present time, the catheter was clamped when I examined him, but I suspect that he is certainly at risk for postobstructive diuresis. PAST MEDICAL HISTORY: Significant for significant for coronary artery disease and gastroesophageal reflux. MEDICATIONS: On admission: 1. Metoprolol 25 mg twice a day. 2. Finasteride 5 mg daily. 3. Aspirin 325 mg daily. 4. Augmentin 875 mg twice a day. 5. Flomax 0.4 mg daily. 6. Zocor 40 mg daily. 7. Pantoprazole 40 mg daily. ALLERGIES: No known drug allergies. REVIEW OF SYSTEMS: He is otherwise in excellent health. There is no history of diabetes mellitus or any other major systemic illness. He denies any chest pain or shortness of breath. PHYSICAL EXAM: Reveals a pleasant elderly gentleman, who is alert and oriented. He is hypertensive with a blood pressure of 219/104; heart rate of 71 per minute, regular; respirations 24 per minute; oxygen saturation is 92% on room air. Cardiovascular Exam: Regular rate and rhythm. S1, S2. Lungs are clear bilaterally. Abdomen is soft with distended bladder (Brody is currently clamped) and tenderness over the suprapubic area. Testicles are descended bilaterally. Phallus is circumcised with a normal meatus. A 16-Portuguese Brody is in place with clear urine in the drainage bag. Rectal exam was done just prior to my evaluation by the emergency room physician, who reported an enlarged prostate without nodularity. DIAGNOSTIC STUDIES/LAB DATA: Review of labs reveals a white count of 3, hemoglobin and hematocrit 12.8 and 38 with a platelet count of 202. Sodium is 141, potassium is 5.0, BUN and creatinine are 45 and 4.8 respectively. I reviewed the imaging studies and the CT scan reveals a 2.5 cm left renal cyst. There is [id number] bilateral hydronephrosis and hydroureter secondary to a distended bladder and a markedly enlarged prostate. PLAN: I had a detailed discussion with the patient and his family. I think that he should be admitted to monitor for postobstructive diuresis and will need to have fluid replacement done based on his urine output (replaced at a rate of two-thirds per cc/cc with lactated Ringer's) and I also discussed the long-term management, which would consist of doing urodynamic studies to assess detrusor contractility probably followed by transurethral resection of prostate. I also discussed the management with Dr. Lauren and discussed the fluid replacement issue. I am available if needed for any followup consultation, but since the patient is already established with Dr. Albarado who is an excellent urologist, I strongly recommended that the patient continue his relationship with Dr. Albarado and contact his office upon discharge for appointment with him, which likely I think would lead to a transurethral resection of prostate in the near future. [id number]/[facility] #: [id number] MTDD
[2018-05-22] MEDS: Acetaminophen TAB* 325 MG PO PRN (01:48)
[2018-05-22] MEDS: Morphine INJ* 4 MG/ML 1 ML SYRINGE (NEW SYRINGE VERSION) IV PRN (04:00)
[2018-05-22] MEDS: Heparin VIAL(*) 5000 UNITS/ML VIAL (FIVE THOUSAND) SUBCUT SCH ×3 (05:35→21:28)
[2018-05-22 05:46] LABS: ABS Basophils 0.1 10^3/ul (0-0.2); ABS Eosinophils 0.6 10^3/ul (0-0.6); ABS Lymphocytes 1.9 10^3/ul (1.0-4.8); ABS Monocytes 0.8 10^3/ul (0-0.8); ABS Neutrophils 7.5 10^3/ul (1.5-7.7); ABS Nucleated RBC 0 10^3/ul; Eosinophil % 5.2 % (0-6); Hematocrit 39 % (42-52); Hemoglobin 13.1 g/dl (14.0-18.0); Lymphocyte % 17.8 % (25-47); Mean Corpuscular HGB Conc 34 g/dl (31-36); Mean Corpuscular Hemoglobin 30 pg (27-31); Mean Corpuscular Volume 88 fL (80-94); Mean Platelet Volume 9.7 um3 (7.4-10.4); Nucleated Red Blood Cells % 0; Platelet Count 197 10^3/ul (150-450); Red Blood Count 4.38 10^6/ul (4.00-5.40); Red Cell Distribution Width 14 % (10.5-15); White Blood Count 10.9 10^3/ul (3.5-10.8)
[2018-05-22 06:05] LABS: EGFR Non-African American 30.4 (>60)
[2018-05-22] MEDS: amLODIPine TAB* 5 MG PO SCH (08:04)
[2018-05-22] MEDS: Senna TAB PO SCH ×2 (08:04→21:28)
[2018-05-22] MEDS: Aspirin TAB* 325 MG PO SCH (08:04)
[2018-05-22] MEDS: Metoprolol Tartrate TAB* 50 mg PO SCH ×2 (08:04→21:27)
[2018-05-22] MEDS: Tamsulosin CAP* 0.4 MG PO SCH (08:41)
--- NOTE | 2018-05-22 11:20 | PN ---
Subjective Date of Service: 05/22/18 Interval History: Patient reports he feels "much much better compared to yesterday" reporting his abdominal pain is resolved and prostate pressure is resolved. Denies any hematuria. Denies any pain. No fever or chills. Objective Active Medications: Acetaminophen (Tylenol Tab*) 650 mg PO Q4H PRN PRN Reason: FEVER/PAIN Last Admin: 05/22/18 01:48 Dose: 650 mg Amlodipine Besylate (Norvasc Tab*) 5 mg PO DAILY [facility] Last Admin: 05/22/18 08:04 Dose: 5 mg Aspirin (Aspirin Tab*) 325 mg PO DAILY [facility] Last Admin: 05/22/18 08:04 Dose: 325 mg Finasteride (Proscar Tab*) 5 mg PO DAILY [facility] Heparin Sodium (Porcine) (Heparin Vial(*)) 5,000 units SUBCUT Q8HR [facility] Last Admin: 05/22/18 05:35 Dose: 5,000 units Hydralazine HCl (Apresoline Iv*) 10 mg IV SLOW PU Q6H PRN PRN Reason: SBP>180 Metoprolol Tartrate (Lopressor Tab*) 25 mg PO BID [facility] Last Admin: 05/22/18 08:04 Dose: 25 mg Morphine Sulfate (Morphine Inj (Syringe)*) 4 mg IV Q4H PRN PRN Reason: PAIN Last Admin: 05/22/18 04:00 Dose: 4 mg Nicotine Polacrilex (Nicotine Gum*) 2 mg PO Q2H PRN PRN Reason: CRAVING Senna (Senokot Tab*) 1 tab PO BID [facility] Last Admin: 05/22/18 08:04 Dose: 1 tab Tamsulosin HCl (Flomax Cap*) 0.4 mg PO DAILY [facility] Last Admin: 05/22/18 08:41 Dose: 0.4 mg Vital Signs - 8 hr 05/22/18 05/22/18 05/22/18 03:57 04:00 05:40 Temperature 97.6 F Pulse Rate 59 Respiratory 20 18 18 Rate Blood Pressure (mmHg) O2 Sat by Pulse 92 Oximetry 05/22/18 05/22/18 07:14 07:52 Temperature 97.8 F Pulse Rate 62 Respiratory 18 16 Rate Blood Pressure 175/67 (mmHg) O2 Sat by Pulse 89 Oximetry Oxygen Devices in Use Now: Nasal Cannula Appearance: 77 yo male sitting up in bed in NAD, A+O x3 Eyes: No Scleral Icterus, PERRLA Ears/Nose/Mouth/Throat: NL Teeth, Lips, Gums, Mucous Membranes Moist Neck: NL Appearance and Movements; NL JVP Respiratory: Symmetrical Chest Expansion and Respiratory Effort, Clear to Auscultation Cardiovascular: NL Sounds; No Murmurs; No JVD, RRR, No Edema Abdominal: NL Sounds; No Tenderness; No Distention Extremities: No Edema, No Clubbing, Cyanosis Skin: No Rash or Ulcers, No Nodules or Sclerosis Neurological: Alert and Oriented x 3, NL Sensation, NL Gait, NL Muscle Strength and Tone Lines/Tubes/Other Access: Clean, Dry and Intact Mesa - draining light yellow urine, Clean, Dry and Intact Peripheral IV Nutrition: Taking PO's Result Diagrams: 05/22/18 05:27 05/22/18 05:27 Microbiology and Other Data: Microbiology 05/21/18 12:24 Cryptosporidium/Giardia - Final Stool Neg Cryptosporidium/Giardia 05/21/18 12:17 Stool Gross Appearance - Final Stool C. difficile DNA Amplification - Final 027 Presumptive NEGATIVE Toxigenic C.diff NEGATIVE 05/21/18 12:17 Stool Gross Appearance - Final Stool Stool Lactoferrin - Final Rotavirus Antigen - Final Negative Rotavirus 05/21/18 10:26 Stool Occult Blood (JUN) - Final Stool Assess/Plan/Problems-Billing Assessment: 77 yo male with a PMH HTN, CAD, BPH who presented to the emergency department c/o SOB and inability to lie flat for the past 10 days, increased LE edema with recent hx of bronchitis treated with Augmentin. Recent hospitalization at [facility] 04/06/18-04/25/18 for hematuria. Patient was found to have a creatinine 4.8 and bladder outlet obstruction on abdominal CT. - Patient Problems (1) Bladder outlet obstruction Comment: - 2/2 to markedly emlarged prostate. Obstruction released by placing mesa in ER. CT showing moderate bilateral hydronephrosis and hydroureter secondary to distended bladder and large prostate Appreciate urology consult - recommended replaced at a rate of 2/3 per cc/cc with LR. - 10 L urine out since admission - continue to monitor closely and replace per protocol. - creatinine improving. - Strict I&Os - Repeat BMP now to check electrolytes (2) Acute renal failure Comment: - improving creatine 4.8 on admission down to 2.13 (3) Acute CHF Comment: - possible diastolic CHF - mild fluid overload in LE, and pleural effusions noted in lungs (lost 10 lbs since admission). O2 sat 90% on RA - doesnt know basleine O2 sat (hx of smoking x 50 years). SOB has resolved. - Obtain TTE (4) Electrolyte abnormality Comment: - replace magneisum - repeat BMP this afetrnoon - Recheck in am (5) BPH (benign prostatic hyperplasia) Comment: - Enlarge prostate - follows with Dr. Albarado in [place] - he will need close f/u after discharge and may require a TURP. - continue finesteride (6) HTN (hypertension) Comment: - continue home dose norvasc, metoprolol, prn hydralazine (7) DVT prophylaxis Comment: HSQ (8) Full code status Status and Disposition: inpatient. Home when medical stable.
[2018-05-22] MEDS ORDERED: Magnesium Sulfate 2 GM IV* 2 GM/50 ML BAG IVPB ONE (15:16)
[2018-05-22 15:41] LABS: EGFR Non-African American 39.8 (>60)
--- NOTE | 2018-05-22 16:22 | ECHO ---
Patient: ANGELI MORALES [facility] Rec#: [id number] : 1940 Date: 05/22/2018 Age: 77y Height: 183 cm / 72.0 in Weight: 90.86 kg / 200.3 lbs Sex: M BSA: 2.13 Room#: 433 Type: Inpatient Referring: Alyssia Decker Reading: Dallas Velazquez MD Novelty Candy Maker: Kiley Kennedy RDCS CC: Smiley Loyd MD Transthoracic Echocardiogram Indication: Congestive heart failure BP: 175/67 HR: 64 Rhythm: NSR with PACs Findings History: HTN, CAD, smoker. Technical Comments: The study quality is fair. Completed at 1610. Left Ventricle: The left ventricular chamber size is normal. Mild to moderate concentric left ventricular hypertrophy is observed. Left ventricular systolic function is at the lower limits of normal. The estimated ejection fraction is 50-55%. There is septal flattening of the interventricular septum consistent with right ventricular volume or pressure overload. There is no consistent Doppler evidence of clinically significant diastolic dysfunction. Left Atrium: The left atrium is moderately dilated. Right Ventricle: Moderator Band present. The right ventricle is mildly dilated. The right ventricular global systolic function is normal. Right Atrium: The right atrium is moderately dilated. Aortic Valve: The aortic valve is trileaflet. The aortic valve leaflets are mildly thickened. There is a trace of aortic regurgitation. There is no evidence of aortic stenosis. Mitral Valve: There is mitral annular calcification. The mitral valve leaflets are mildly thickened. There is trace to mild mitral regurgitation. There is no evidence of mitral stenosis. Tricuspid Valve: The tricuspid valve leaflets are normal. There is trace tricuspid regurgitation. Unable to estimate the right ventricular systolic pressure. There is no tricuspid stenosis. Pulmonic Valve: The pulmonic valve appears normal. There is a trace pulmonic regurgitation. There is no pulmonic stenosis. Pericardium: There is no significant pericardial effusion. A pericardial fat pad is visualized. Aorta: There is no dilatation of the ascending aorta. There is no dilatation of the aortic arch. There is no dilation of the aortic root. Pulmonary Artery: The main pulmonary artery appears normal. Venous: The inferior vena cava is dilated. There is a greater than 50% respiratory change in the inferior vena cava dimension. Summary: There was not any prior study for comparison. Conclusions Left ventricular systolic function is at the lower limits of normal. The estimated ejection fraction is 50-55%. There is septal flattening of the interventricular septum consistent with right ventricular volume or pressure overload. The right ventricle is mildly dilated. The aortic valve leaflets are mildly thickened. There is a trace of aortic regurgitation. There is trace to mild mitral regurgitation. There is trace tricuspid regurgitation. Unable to estimate the right ventricular systolic pressure. There is no significant pericardial effusion. Measurements Name Value Normal Range RVIDd (AP) 2D 3.3 cm (0.9 - 2.6) RVDdMajor (2D) 4.9 cm (2.2 - 4.4) RAd ISD 4CH 5.8 cm (3.4 - 4.9) RA (A4C)W 4.7 cm (2.9 - 4.6) IVSd (2D) 1.3 cm (0.6 - 1) LVPWd (2D) 1.4 cm (0.6 - 1) LVIDd (2D) 5.4 cm (3.6 - 5.4) LVIDs (2D) 3.7 cm - LV FS (2D) 32 % (25 - 45) Aortic Annulus 2.3 cm (1.4 - 2.6) Ao root diameter (2D) 3 cm (2.1 - 3.5) Ascending Ao 2.9 cm (2.1 - 3.4) Aortic arch 2.6 cm (1.8 - 3.4) LA dimension (AP) 2D 5.1 cm (2.3 - 3.8) LAd ISD 4CH 5.8 cm (2.9 - 5.3) LA ISD 4CH W 5.1 cm (2.5 - 4.5) Name Value Normal Range LA ESV BP (A/L) index 43 ml/m2 - Name Value Normal Range MV E-wave Vmax 0.7 m/sec - MV deceleration time 197 msec - MV A-wave Vmax 0.9 m/sec - MV E:A ratio 0.8 ratio - LV septal e' Vmax 0.08 m/sec - LV lateral e' Vmax 0.08 m/sec - LV E:e' septal ratio 8.75 ratio - LV E:e' lateral ratio 8.75 ratio - Name Value Normal Range AV Vmax 1.4 m/sec - AV VTI 29.9 cm - AV peak gradient 8 mmHg - AV mean gradient 4 mmHg - LVOT Vmax 1.1 m/sec - LVOT VTI 20.2 cm - LVOT peak gradient 5 mmHg - LVOT mean gradient 2 mmHg - LUTHER Vmax 0.8 m/sec - Name Value Normal Range IVC diameter 2.2 cm - Name Value Normal Range PV Vmax 1.1 m/sec - PV peak gradient 5 mmHg -
[2018-05-22] MEDS: Finasteride TAB* 5 MG PO SCH (21:27)
[2018-05-23] MEDS ORDERED: LACTATED RINGERS IV ONE (04:00)
[2018-05-23] MEDS: Heparin VIAL(*) 5000 UNITS/ML VIAL (FIVE THOUSAND) SUBCUT SCH ×3 (05:15→20:16)
[2018-05-23] MEDS: Tamsulosin CAP* 0.4 MG PO SCH (08:47)
[2018-05-23] MEDS: Aspirin TAB* 325 MG PO SCH (08:47)
[2018-05-23] MEDS: Senna TAB PO SCH ×2 (08:47→20:16)
[2018-05-23] MEDS: amLODIPine TAB* 5 MG PO SCH (08:47)
[2018-05-23] MEDS: Metoprolol Tartrate TAB* 50 mg PO SCH ×2 (08:47→20:16)
[2018-05-23] MEDS: Finasteride TAB* 5 MG PO SCH (08:48)
--- NOTE | 2018-05-23 11:44 | PN ---
Subjective Date of Service: 05/23/18 Interval History: . Patient reports he continues to feel better. He reports he is continuing to have bladder spasms when the mesa in unclamped. Denies abdominal pain. No fevers or chills. No CP/SOB. Objective Active Medications: Acetaminophen (Tylenol Tab*) 650 mg PO Q4H PRN PRN Reason: FEVER/PAIN Last Admin: 05/22/18 01:48 Dose: 650 mg Amlodipine Besylate (Norvasc Tab*) 5 mg PO DAILY [facility] Last Admin: 05/23/18 08:47 Dose: 5 mg Aspirin (Aspirin Tab*) 325 mg PO DAILY [facility] Last Admin: 05/23/18 08:47 Dose: 325 mg Finasteride (Proscar Tab*) 5 mg PO DAILY [facility] Last Admin: 05/23/18 08:48 Dose: 5 mg Heparin Sodium (Porcine) (Heparin Vial(*)) 5,000 units SUBCUT Q8HR [facility] Last Admin: 05/23/18 05:15 Dose: 5,000 units Hydralazine HCl (Apresoline Iv*) 10 mg IV SLOW PU Q6H PRN PRN Reason: SBP>180 Metoprolol Tartrate (Lopressor Tab*) 25 mg PO BID [facility] Last Admin: 05/23/18 08:47 Dose: 25 mg Morphine Sulfate (Morphine Inj (Syringe)*) 4 mg IV Q4H PRN PRN Reason: PAIN Last Admin: 05/22/18 04:00 Dose: 4 mg Nicotine Polacrilex (Nicotine Gum*) 2 mg PO Q2H PRN PRN Reason: CRAVING Senna (Senokot Tab*) 1 tab PO BID [facility] Last Admin: 05/23/18 08:47 Dose: 1 tab Tamsulosin HCl (Flomax Cap*) 0.4 mg PO DAILY [facility] Last Admin: 05/23/18 08:47 Dose: 0.4 mg Vital Signs - 8 hr 05/23/18 05/23/18 07:19 09:55 Temperature 97.9 F Pulse Rate 69 Respiratory 18 20 Rate Blood Pressure 165/75 (mmHg) O2 Sat by Pulse 93 Oximetry Oxygen Devices in Use Now: Nasal Cannula Appearance: 77 yo male A+O x3 sitting up in bed NAD Eyes: No Scleral Icterus, PERRLA Ears/Nose/Mouth/Throat: NL Teeth, Lips, Gums, Mucous Membranes Moist Neck: NL Appearance and Movements; NL JVP Respiratory: Clear to Auscultation Cardiovascular: NL Sounds; No Murmurs; No JVD, RRR, No Edema Abdominal: NL Sounds; No Tenderness; No Distention Extremities: No Edema, No Clubbing, Cyanosis Skin: No Rash or Ulcers, No Nodules or Sclerosis Neurological: Alert and Oriented x 3, NL Sensation, NL Muscle Strength and Tone Lines/Tubes/Other Access: Clean, Dry and Intact Peripheral IV Nutrition: Taking PO's Result Diagrams: 05/23/18 14:05 05/23/18 14:05 Microbiology and Other Data: Microbiology 05/21/18 12:24 Cryptosporidium/Giardia - Final Stool Neg Cryptosporidium/Giardia 05/21/18 12:17 Stool Gross Appearance - Final Stool C. difficile DNA Amplification - Final 027 Presumptive NEGATIVE Toxigenic C.diff NEGATIVE 05/21/18 12:17 Stool Gross Appearance - Final Stool Stool Lactoferrin - Final Rotavirus Antigen - Final Negative Rotavirus 05/21/18 10:26 Stool Occult Blood (JUN) - Final Stool Assess/Plan/Problems-Billing Assessment: 77 yo male with a PMH HTN, CAD, BPH who presented to the emergency department c/o SOB and inability to lie flat for the past 10 days, increased LE edema with recent hx of bronchitis treated with Augmentin. Recent hospitalization at [facility] 04/06/18-04/25/18 for hematuria. Patient was found to have a creatinine 4.8 and bladder outlet obstruction on abdominal CT. - Patient Problems (1) Bladder outlet obstruction Comment: - 2/2 to markedly enlarged prostate. Obstruction released by placing mesa in ER. CT showing moderate bilateral hydronephrosis and hydroureter secondary to distended bladder and large prostate, ARF - Creatinine trending down Appreciate urology consult - spoke again over phone today - recommended starting Vesicare and unclamped mesa, may use warm pad over bladder. Should not continue to clamp mesa as it increases risk of UTI. Continue Vesicare daily - Strict I&Os - monitor output closely - Repeat BMP in am (2) Acute renal failure Comment: - improving (3) Acute CHF Comment: - Resolving - possible diastolic CHF - mild fluid overload in LE, and pleural effusions noted in lungs (lost 10 lbs since admission). O2 sat 90% on RA - doesnt know basleine O2 sat (hx of smoking x 50 years). SOB has resolved. Suspect secondry to urinary obstruction - TTE LVEF 50-55% - showing some volume overload - patient has lost weight and continues to diurese. Hold any diuretics. (4) Electrolyte abnormality Comment: - replace magneisum - repeat BMP & mg+ in am (5) BPH (benign prostatic hyperplasia) Comment: - Enlarge prostate - follows with Dr. Albarado in [place] - he will need close f/u after discharge and may require a TURP. - continue finesteride (6) HTN (hypertension) Comment: - continue home dose norvasc, metoprolol, prn hydralazine (7) DVT prophylaxis Comment: HSQ (8) Full code status Status and Disposition: inpatient. Home when medical stable.
[2018-05-23] MEDS ORDERED: CMCS Solifenacin(NF) 5 MG TAB PO ONE (13:00)
[2018-05-23 14:11] LABS: ABS Basophils 0.1 10^3/ul (0-0.2); ABS Eosinophils 0.5 10^3/ul (0-0.6); ABS Lymphocytes 1.7 10^3/ul (1.0-4.8); ABS Monocytes 0.8 10^3/ul (0-0.8); ABS Neutrophils 8.1 10^3/ul (1.5-7.7); ABS Nucleated RBC 0 10^3/ul; Eosinophil % 4.6 % (0-6); Hematocrit 40 % (42-52); Hemoglobin 13.5 g/dl (14.0-18.0); Mean Corpuscular HGB Conc 34 g/dl (31-36); Mean Corpuscular Hemoglobin 30 pg (27-31); Mean Corpuscular Volume 88 fL (80-94); Mean Platelet Volume 9.2 um3 (7.4-10.4); Nucleated Red Blood Cells % 0; Platelet Count 226 10^3/ul (150-450); Red Blood Count 4.55 10^6/ul (4.00-5.40); Red Cell Distribution Width 14 % (10.5-15); White Blood Count 11.2 10^3/ul (3.5-10.8)
[2018-05-23 14:33] LABS: EGFR Non-African American 55.3 (>60)
[2018-05-23] MEDS ORDERED: Magnesium Sulf 4 GM/100 ML IV* 4,000 MG/100 ML BAG IVPB ONE (14:41)
[2018-05-23] MEDS: Acetaminophen TAB* 325 MG PO PRN (21:45)
[2018-05-24] MEDS: Heparin VIAL(*) 5000 UNITS/ML VIAL (FIVE THOUSAND) SUBCUT SCH ×2 (05:39→13:56)
[2018-05-24 05:45] LABS: ABS Basophils 0.1 10^3/ul (0-0.2); ABS Eosinophils 0.7 10^3/ul (0-0.6); ABS Lymphocytes 1.9 10^3/ul (1.0-4.8); ABS Monocytes 0.8 10^3/ul (0-0.8); ABS Neutrophils 7.8 10^3/ul (1.5-7.7); ABS Nucleated RBC 0 10^3/ul; Eosinophil % 5.9 % (0-6); Hematocrit 40 % (42-52); Hemoglobin 13.5 g/dl (14.0-18.0); Lymphocyte % 16.8 % (25-47); Mean Corpuscular HGB Conc 34 g/dl (31-36); Mean Corpuscular Hemoglobin 30 pg (27-31); Mean Corpuscular Volume 88 fL (80-94); Nucleated Red Blood Cells % 0.1; Platelet Count 236 10^3/ul (150-450); Red Blood Count 4.54 10^6/ul (4.00-5.40); Red Cell Distribution Width 13 % (10.5-15); White Blood Count 11.2 10^3/ul (3.5-10.8)
[2018-05-24 06:06] LABS: EGFR Non-African American 59.6 (>60)
[2018-05-24] MEDS: Finasteride TAB* 5 MG PO SCH (08:46)
[2018-05-24] MEDS: Metoprolol Tartrate TAB* 50 mg PO SCH (08:46)
[2018-05-24] MEDS: Tamsulosin CAP* 0.4 MG PO SCH (08:46)
[2018-05-24] MEDS: Senna TAB PO SCH (08:46)
[2018-05-24] MEDS: Aspirin TAB* 325 MG PO SCH (08:46)
[2018-05-24] MEDS: amLODIPine TAB* 5 MG PO SCH (08:47)
[2018-05-24] MEDS ORDERED: amLODIPine TAB* 5 MG PO SCH (09:00)
[2018-05-24] MEDS ORDERED: CMCS Solifenacin(NF) 5 MG TAB PO SCH (09:00)
--- NOTE | 2018-05-24 14:15 | DCNOTE ---
Subjective Date of Service: 05/24/18 Interval History: Patient reports he feels "great" and is ready to go home. He reports his SOB, and LE edema has competently resolved. He feels comfortable going home with the mesa and is happy to have VNS. No fevers or chills Discharge plan was discussed with the patient Objective Active Medications: Acetaminophen (Tylenol Tab*) 650 mg PO Q4H PRN PRN Reason: FEVER/PAIN Last Admin: 05/23/18 21:45 Dose: 650 mg Amlodipine Besylate (Norvasc Tab*) 10 mg PO DAILY [facility] Aspirin (Aspirin Tab*) 325 mg PO DAILY [facility] Last Admin: 05/24/18 08:46 Dose: 325 mg Finasteride (Proscar Tab*) 5 mg PO DAILY [facility] Last Admin: 05/24/18 08:46 Dose: 5 mg Heparin Sodium (Porcine) (Heparin Vial(*)) 5,000 units SUBCUT Q8HR [facility] Last Admin: 05/24/18 13:56 Dose: 5,000 units Hydralazine HCl (Apresoline Iv*) 10 mg IV SLOW PU Q6H PRN PRN Reason: SBP>180 Metoprolol Tartrate (Lopressor Tab*) 25 mg PO BID [facility] Last Admin: 05/24/18 08:46 Dose: 25 mg Morphine Sulfate (Morphine Inj (Syringe)*) 4 mg IV Q4H PRN PRN Reason: PAIN Last Admin: 05/22/18 04:00 Dose: 4 mg Nicotine Polacrilex (Nicotine Gum*) 2 mg PO Q2H PRN PRN Reason: CRAVING Senna (Senokot Tab*) 1 tab PO BID [facility] Last Admin: 05/24/18 08:46 Dose: 1 tab Solifenacin (Vesicare(Nf)) 10 mg PO DAILY [facility] Last Admin: 05/24/18 11:20 Dose: 10 mg Tamsulosin HCl (Flomax Cap*) 0.4 mg PO DAILY [facility] Last Admin: 05/24/18 08:46 Dose: 0.4 mg Vital Signs - 8 hr 05/24/18 05/24/18 05/24/18 07:29 08:00 09:32 Temperature 98.0 F Pulse Rate 65 Respiratory 16 16 Rate Blood Pressure 152/88 178/78 (mmHg) O2 Sat by Pulse 95 Oximetry Oxygen Devices in Use Now: Nasal Cannula Appearance: 77 yo male A+ox3 in NAD Eyes: No Scleral Icterus, PERRLA Ears/Nose/Mouth/Throat: NL Teeth, Lips, Gums Neck: NL Appearance and Movements; NL JVP Respiratory: Symmetrical Chest Expansion and Respiratory Effort, Clear to Auscultation Cardiovascular: NL Sounds; No Murmurs; No JVD, RRR, No Edema Abdominal: NL Sounds; No Tenderness; No Distention Extremities: No Edema, No Clubbing, Cyanosis Skin: No Rash or Ulcers, No Nodules or Sclerosis Neurological: Alert and Oriented x 3, NL Sensation, NL Gait, NL Muscle Strength and Tone Lines/Tubes/Other Access: Clean, Dry and Intact Peripheral IV Nutrition: Taking PO's Result Diagrams: 05/24/18 05:30 05/24/18 05:30 Microbiology and Other Data: Microbiology 05/21/18 12:24 Cryptosporidium/Giardia - Final Stool Neg Cryptosporidium/Giardia 05/21/18 12:17 Stool Gross Appearance - Final Stool C. difficile DNA Amplification - Final 027 Presumptive NEGATIVE Toxigenic C.diff NEGATIVE 05/21/18 12:17 Stool Gross Appearance - Final Stool Stool Lactoferrin - Final Rotavirus Antigen - Final Negative Rotavirus 05/21/18 10:26 Stool Occult Blood (JUN) - Final Stool Assess/Plan/Problems-Billing Assessment: 77 yo male with a PMH HTN, CAD, BPH who presented to the emergency department c/o SOB and inability to lie flat for the past 10 days, increased LE edema with recent hx of bronchitis treated with Augmentin. Recent hospitalization at [facility] 04/06/18-04/25/18 for hematuria. Patient was found to have a creatinine 4.8 and bladder outlet obstruction on abdominal CT. - Patient Problems (1) Bladder outlet obstruction Comment: - 2/2 to markedly enlarged prostate. Obstruction released by placing mesa in ER. Experineced post obstruction diuresing. Now resolved. Was replaced with LR at a ratio of 2/3rd per ml. - CT showing moderate bilateral hydronephrosis and hydroureter secondary to distended bladder and large prostate, ARF - Creatinine trending down Appreciate urology consult - Continue Vesicare daily. follow up with urologist - medication side effectes reviewed with patient (2) Acute renal failure Comment: - improving (3) Acute CHF Comment: - Resolving - possible diastolic CHF - mild fluid overload in LE, and pleural effusions noted in lungs (lost 18 lbs since admission). O2 sat 95% on RA - DC O2 - TTE LVEF 50-55% - showing some volume overload - (4) Electrolyte abnormality Comment: - resolved (5) BPH (benign prostatic hyperplasia) Comment: - Enlarge prostate - follows with Dr. Albarado in [place] - he will need close f/u after discharge and may require a TURP. - continue finesteride, flomax (6) HTN (hypertension) Comment: - continue home dose norvasc, metoprolol (7) DVT prophylaxis Comment: HSQ (8) Full code status Status and Disposition: inpatient. Home today
[2018-05-24 16:42] VITALS: BP 155/58
--- NOTE | 2018-05-25 08:25 | DS ---
CC: Dr. Smiley Loyd * DISCHARGE SUMMARY: DATE OF ADMISSION: 05/21/18 DATE OF DISCHARGE: 05/24/18 PROVIDER: Lacey Nicole NP ATTENDING PHYSICIAN: Dr. Samayoa * (report dictated by Lacey Nicole NP). PRIMARY CARE PROVIDER: Dr. Smiley Loyd. UROLOGIST: Dr. Jaqueline Albarado, Department of Urology at [facility] in [place]. DISCHARGE DIAGNOSES: 1. Urinary retention with bladder outlet obstruction with secondary acute renal failure with bilateral hydronephrosis. 2. Benign prostatic hypertrophy. 3. Hypomagnesium. 4. Tobacco abuse. SECONDARY DIAGNOSES: 1. History of coronary artery disease. 2. History of gastroesophageal reflux disease. HISTORY OF PRESENT ILLNESS AND HOSPITAL COURSE: Please see history and physical by Dr. Mikala Blum for full admission details; but in summary, this is a 77-year- old male with a past medical history of longstanding symptoms related to benign prostatic hypertrophy; in which, he follows with his urologist , Dr. Albarado, in [place], for the last several years and was initially started on Flomax and recently also started on finasteride. He reports approximately 1 month ago, he started noticing worsening voiding symptoms and some lower abdominal discomfort and evaluation was done at that time also due to some hematuria and he underwent an evaluation with cystoscopy, which confirmed bleeding from an enlarged prostate. At that time, finasteride was added in an effort to reduce the prostate size and vascularity. He presented to the emergency department on 05/21/18 with complaint of lower abdominal pain, shortness of breath, and leg swelling. He underwent a CAT scan, which showed bilateral hydronephrosis with a markedly distended urinary bladder, which all appeared secondary to markedly enlarged prostate as well as thickening of the wall of the urinary bladder, which is likely secondary to hypertrophy and chronic outlet obstruction. He was admitted to the hospitalist service. On admission, he had a Brody catheter placed and over the first 24 hours, he had 10L of urine out and this was replaced with IV fluids based on a rate of two- thirds per cc with Lactated Ringer's. Initially, his Brody catheter was clamped due to the patient was having significant bladder spasms and eventually this was able to be unclamped; however, he required initiation of VESIcare and recommendation from the urologist. The patient has lost approximately 18 pounds throughout his hospitalization. His lower abdomen as well as lower extremity edema has resolved completely. On admission, he also had noted small- to-moderate sized bilateral pleural effusions; in which, he was requiring oxygen for O2 sats around 90%, this was able to be weaned off, currently on room air he is 95%. He underwent a transthoracic echocardiogram, which showed left ventricular ejection fraction of 50% to 55%. Echocardiogram showed LVEF 50 % to 55% with some septal flattening of the interventricular septum consistent with a right ventricular volume or pressure overload. This echocardiogram was done on his second day of admission. It was thought that he possibly had some mild diastolic failure; however, this was all thought to be secondary to his urinary retention and has resolved only with placing the Brody catheter relieving the obstruction. Today on discharge, the patient reports that he feels "great." Our plan is for visiting nurse service and close followup with his urologist, Dr. Albarado and primary care provider. He is going to be discharged home with the Brody catheter. He does have some very light mild noted hematuria, thought to be secondary to his significant BPH. It was discussed with the patient that if he has any worsening signs of hematuria, pain, shortness of breath, fevers, or chills to immediately notify his physician or return to the emergency department. His hemoglobin and hematocrit have remained stable throughout the hospitalization. In regards to his acute renal failure, his creatinine was 4.80 on admission, down to 1.19 today. He had noted hypomagnesium; in which, he was given multiple replacements of IV magnesium and today his magnesium was 2.0. The patient's urine culture was negative, no growth. As well, he had a stool culture, which was negative for cryptosporidium and giardia as well as negative for C. diff and negative for rotavirus. Stool for occult blood was negative. The patient has been mildly hypertensive throughout the hospitalization and was started on Norvasc 5 mg p.o. daily, which was increased to 10 mg p.o. daily on discharge. He has been continued on metoprolol tartrate 25 mg p.o. b.i.d. DISCHARGE MEDICATIONS: 1. MiraLAX 1 pack p.o. daily. 2. Phenazopyridine 200 mg p.o. t.i.d. 3. Metoprolol tartrate 25 mg p.o. b.i.d. 4. Finasteride 5 mg p.o. daily. 5. Aspirin 325 mg p.o. daily. 6. Flomax 0.4 mg p.o. daily. 7. Simvastatin 40 mg p.o. daily. 8. Protonix 40 mg p.o. daily. 9. Norvasc 10 mg p.o. daily. 10. VESIcare 10 mg p.o. daily. 11. Nicotine gum 2 mg p.o. q.2 hours p.r.n. DISCHARGE PLAN: 1. Follow up with urologist, Dr. Jaqueline Albarado within 7 to 10 days. The patient was instructed that he need to make this appointment himself. 2. Follow up with Dr. Smiley Loyd within 3 to 5 days. 3. The patient has been discharged home with visiting nurse service with a Brody catheter. 4. Tobacco cessation. The patient reports he desires to quit smoking and requests being sent home with nicotine gum. He was also encouraged to call the [place] [address] hotline for quitting smoking as well as supportive treatment through his primary care provider. TIME SPENT: Approximately 60 minutes was spent on this discharge. LACEY NICOLE NP [id number]/[facility] #: [id number] LUCIAN
[2018-05-25] MEDS ORDERED: amLODIPine TAB* 5 MG PO SCH (09:00)
== END 2018-05-24 18:20 | disposition home health service (06) | DRG 682 ==
LOC: ED 09:40 → SSU 14:29 → MEDTELE 16:50
PROVIDERS: ADMIT Internal Medicine; ATTEND Internal Medicine
PROC: 0T9B70Z Drainage of Bladder with Drainage Device, Via Natural or Artificial Opening (ICD-10-PCS; principal; 2018-05-21)
DX: N17.9 Acute kidney failure, unspecified (principal); I50.31 Acute diastolic (congestive) heart failure; N13.8 Other obstructive and reflux uropathy; N40.1 Benign prostatic hyperplasia with lower urinary tract symptoms; N13.30 Unspecified hydronephrosis; I10 Essential (primary) hypertension; K21.9 Gastro-esophageal reflux disease without esophagitis; M10.9 Gout, unspecified; M41.9 Scoliosis, unspecified; F17.210 Nicotine dependence, cigarettes, uncomplicated; R33.8 Other retention of urine; E78.5 Hyperlipidemia, unspecified; I25.10 Atherosclerotic heart disease of native coronary artery without angina pectoris; R00.1 Bradycardia, unspecified; E83.42 Hypomagnesemia; N28.1 Cyst of kidney, acquired; R31.9 Hematuria, unspecified; K64.4 Residual hemorrhoidal skin tags; Z95.5 Presence of coronary angioplasty implant and graft; Z82.49 Family history of ischemic heart disease and other diseases of the circulatory system; Z80.3 Family history of malignant neoplasm of breast; Z88.0 Allergy status to penicillin; Z72.89 Other problems related to lifestyle; I25.2 Old myocardial infarction; Z88.8 Allergy status to other drugs, medicaments and biological substances; Z80.8 Family history of malignant neoplasm of other organs or systems; Z82.0 Family history of epilepsy and other diseases of the nervous system; Z79.82 Long term (current) use of aspirin
CPT/HCPCS: 36415; 71045; 74176; 80048; 80051; 80053; 81003; 81015; 82140; 82150; 82272; 82550; 83605; 83630; 83690; 83735; 83880; 84484; 85025; 85610; 85730; 86140; 87045; 87046; 87077; 87086; 87177; 87209; 87328; 87329; 87425; 87493; 87899; 93005; 93306; 99284; 99406; A9270-GY; J0360; J1644; J2270; J3475

== ENCOUNTER 2020-05-22 02:14 | Inpatient (IN) ==
[2020-05-22 03:10] LABS: ABS Basophils 0.1 10^3/ul (0-0.2); ABS Eosinophils 0.2 10^3/ul (0-0.6); ABS Monocytes 1.1 10^3/ul (0-0.8); ABS Neutrophils 13.4 10^3/ul (1.5-7.7); Eosinophil % 1.1 %; Hematocrit 39 % (42-52); Hemoglobin 12.8 g/dL (14.0-18.0); Lymphocyte % 6.1 %; Mean Corpuscular HGB Conc 33 g/dL (31-36); Mean Corpuscular Hemoglobin 26 pg (27-31); Mean Corpuscular Volume 79 fL (80-94); Platelet Count 196 10^3/uL (150-450); Red Cell Distribution Width 17 % (10-15); White Blood Count 15.7 10^3/uL (3.5-10.8)
[2020-05-22 03:15] LABS: INR 1.38 (0.82-1.09)
[2020-05-22] MEDS ORDERED: NS 0.9% 1000 ml BAG 1,000 ML IV ONE (03:17)
[2020-05-22 03:21] LABS: ALT 23 U/L (7-52); AST 35 U/L (13-39); Albumin 3.3 g/dL (3.2-5.2); Alkaline Phosphatase 71 U/L (34-104); Anion Gap 8 mmol/L (2-11); BUN/Creatinine Ratio 19.2 (8-20); Blood Urea Nitrogen 20 mg/dL (6-24); CO2 Carbon Dioxide 21 mmol/L (22-32); Calcium 8.4 mg/dL (8.6-10.3); Chloride 105 mmol/L (101-111); EGFR African American 83.8 (>60); EGFR Non-African American 69.3 (>60); Globulin 3.2 g/dL (2-4); Glucose 162 mg/dL (70-100); Potassium 3.5 mmol/L (3.5-5.0); Sodium 134 mmol/L (135-145); Total Protein 6.5 g/dL (6.4-8.9)
[2020-05-22] MEDS ORDERED: Iohexol 350 (CONTRAST) 500 ML MDV IV ONE (03:34)
[2020-05-22 03:39] LABS: Troponin I 13.49 ng/mL (<0.03)
[2020-05-22] MEDS ORDERED: Heparin - STEMI 5,000 UNITS/ML 1 ml VIAL IV ONE ×2 (04:08→04:17)
[2020-05-22] MEDS ORDERED: Furosemide 40 mg/4 ml IV VIAL IV ONE (04:19)
[2020-05-22] MEDS ORDERED: VERAPAMIL 2.5 MG/ML 2 ML VIAL ** 5 mg/2 ml ONE (04:43)
[2020-05-22] MEDS ORDERED: fentaNYL 100 mcg/2 ml 50 MCG/ML VIAL ONE (04:43)
[2020-05-22] MEDS ORDERED: Heparin 1,000 UNIT/ML 10 ml (10,000 UNITS) CATHLAB/DIALYSIS ONE (04:43)
[2020-05-22] MEDS ORDERED: Midazolam 5 mg/5 ml VIAL 1 mg/ml 5 ml VIAL (5 mg) ONE (04:43)
[2020-05-22] MEDS ORDERED: Heparin 2 UNITS/ML 1000 mls 2,000 ML IV ONE (04:43)
[2020-05-22] MEDS ORDERED: Iohexol 350 (CONTRAST) 200 ML MDV IV ONE ×3 (04:44→06:03)
[2020-05-22] MEDS ORDERED: Lidocaine 1% VIAL 10 MG/ML VIAL ONE (04:44)
[2020-05-22] MEDS ORDERED: nitroGLYCERIN DRIP 25,000 MCG/250 ML BTL ONE (04:44)
[2020-05-22 04:47] LABS: Influenza A Molecular Negative (Negative); Influenza B Molecular Negative (Negative)
[2020-05-22] MEDS ORDERED: NS 0.9% 1000 ml BAG 1,000 ML IV SCH (05:15)
[2020-05-22] MEDS ORDERED: Eptifibatide IV (Load dose) 2 MG/ML 10 ml VIAL ONE (05:48)
[2020-05-22] MEDS ORDERED: Heparin DRIP 25,000 UNITS BAG 25,000 UNITS/500 ML BAG IV SCH (07:00)
[2020-05-22 07:44] LABS: INR 1.42 (0.82-1.09)
[2020-05-22 07:50] LABS: Anion Gap 7 mmol/L (2-11); BUN/Creatinine Ratio 18.3 (8-20); Blood Urea Nitrogen 19 mg/dL (6-24); CO2 Carbon Dioxide 23 mmol/L (22-32); Calcium 8.4 mg/dL (8.6-10.3); Chloride 104 mmol/L (101-111); EGFR African American 83.8 (>60); EGFR Non-African American 69.3 (>60); Glucose 136 mg/dL (70-100); Potassium 3.5 mmol/L (3.5-5.0); Sodium 134 mmol/L (135-145)
[2020-05-22 08:41] LABS: Activated Partial Thrombo Time 105.4 seconds (26.0-38.0)
[2020-05-22] MEDS: Heparin DRIP 25,000 UNITS BAG 25,000 UNITS/500 ML BAG IV SCH (09:09)
[2020-05-22 10:29] LABS: Cholesterol 116 mg/dL; HDL Cholesterol 28.4 mg/dL; LDL Cholesterol 73 mg/dL; Triglycerides 74 mg/dL
[2020-05-22] MEDS ORDERED: Potassium Chlor 20 meq TAB.ER PO ONE (14:53)
[2020-05-22] MEDS ORDERED: Albuterol/Ipratropium NEB.SOL (2.5/0.5 MG) 3 ML NEB.SOLN INH PRN (15:15)
[2020-05-22] MEDS ORDERED: Furosemide 20 mg/2 ml IV VIAL IV ONE (15:17)
[2020-05-22 16:14] LABS: Troponin I 17.39 ng/mL (<0.03)
[2020-05-22] MEDS ORDERED: Perflutren Lipid Microsphere 3 ML VIAL ONE (16:28)
[2020-05-22] MEDS: Heparin 5000 UNITS/ML 1 mL VIAL IV SCH ×2 (16:32→23:40)
[2020-05-22 16:34] LABS: Troponin I 14.54 ng/mL (<0.03)
[2020-05-22 21:02] LABS: Troponin I 18.18 ng/mL (<0.03)
[2020-05-23] MEDS: Heparin DRIP 25,000 UNITS BAG 25,000 UNITS/500 ML BAG IV SCH (05:35)
[2020-05-23 06:09] LABS: ABS Basophils 0.1 10^3/ul (0-0.2); ABS Eosinophils 0.5 10^3/ul (0-0.6); ABS Lymphocytes 1.6 10^3/ul (1.0-4.8); ABS Monocytes 1.2 10^3/ul (0-0.8); ABS Neutrophils 9.7 10^3/ul (1.5-7.7); Eosinophil % 4.1 %; Hematocrit 35 % (42-52); Hemoglobin 11.8 g/dL (14.0-18.0); Lymphocyte % 12.5 %; Mean Corpuscular HGB Conc 34 g/dL (31-36); Mean Corpuscular Hemoglobin 27 pg (27-31); Mean Corpuscular Volume 79 fL (80-94); Mean Platelet Volume 8.8 fL (7.4-10.4); Platelet Count 211 10^3/uL (150-450); Red Blood Count 4.46 10^6 /uL (4.18-5.48); Red Cell Distribution Width 17 % (10-15); White Blood Count 13.1 10^3/uL (3.5-10.8)
[2020-05-23 06:44] LABS: BUN/Creatinine Ratio 21.8 (8-20); Blood Urea Nitrogen 22 mg/dL (6-24); CO2 Carbon Dioxide 21 mmol/L (22-32); Calcium 8.4 mg/dL (8.6-10.3); Chloride 105 mmol/L (101-111); EGFR African American 86.7 (>60); EGFR Non-African American 71.6 (>60); Glucose 120 mg/dL (70-100); Sodium 134 mmol/L (135-145)
[2020-05-23 07:02] LABS: Anion Gap 8 mmol/L (2-11)
[2020-05-23] MEDS: Heparin 5000 UNITS/ML 1 mL VIAL IV SCH (07:13)
[2020-05-23] MEDS: NS 0.9% 1000 ml BAG 1,000 ML IV SCH ×2 (07:13→14:06)
[2020-05-23 08:54] LABS: Troponin I 12.72 ng/mL (<0.03)
[2020-05-23] MEDS ORDERED: fentaNYL 100 mcg/2 ml 50 MCG/ML VIAL ONE (11:39)
[2020-05-23] MEDS ORDERED: Midazolam 5 mg/5 ml VIAL 1 mg/ml 5 ml VIAL (5 mg) ONE (11:39)
[2020-05-23] MEDS ORDERED: Lidocaine 1% VIAL 10 MG/ML VIAL ONE (11:39)
[2020-05-23] MEDS ORDERED: Heparin 2 UNITS/ML 1000 mls 2,000 ML IV ONE (11:39)
[2020-05-23] MEDS ORDERED: Iohexol 350 (CONTRAST) 200 ML MDV IV ONE ×2 (11:40→12:09)
[2020-05-23] MEDS ORDERED: nitroGLYCERIN DRIP 25,000 MCG/250 ML BTL ONE (12:09)
[2020-05-23 12:12] LABS: Troponin I 10.42 ng/mL (<0.03)
[2020-05-23 12:18] LABS: Magnesium 1.8 mg/dL (1.9-2.7); Potassium Redraw 3.7 mmol/L (3.5-5.0)
[2020-05-23] MEDS ORDERED: Heparin 1,000 UNIT/ML 10 ml (10,000 UNITS) CATHLAB/DIALYSIS ONE (12:29)
[2020-05-23] MEDS ORDERED: Morphine 2 MG/ML SYRINGE IV ONE (14:41)
[2020-05-23] MEDS ORDERED: Lactated Ringers 1000 ml BAG 1,000 ML IV SCH (19:00)
[2020-05-23] MEDS ORDERED: Magnesium Sulfate 2 gm BAG 2 GM/50 ML BAG IVPB ONE (22:24)
[2020-05-24 04:50] LABS: ABS Basophils 0.1 10^3/ul (0-0.2); ABS Eosinophils 0.5 10^3/ul (0-0.6); ABS Lymphocytes 1.4 10^3/ul (1.0-4.8); Eosinophil % 3.9 %; Hematocrit 36 % (42-52); Hemoglobin 11.7 g/dL (14.0-18.0); Lymphocyte % 11.4 %; Mean Corpuscular HGB Conc 33 g/dL (31-36); Mean Corpuscular Hemoglobin 26 pg (27-31); Mean Corpuscular Volume 79 fL (80-94); Platelet Count 231 10^3/uL (150-450); Red Blood Count 4.52 10^6 /uL (4.18-5.48); Red Cell Distribution Width 18 % (10-15); White Blood Count 11.9 10^3/uL (3.5-10.8)
[2020-05-24 05:06] LABS: Albumin 3.2 g/dL (3.2-5.2); BUN/Creatinine Ratio 18.8 (8-20); Calcium 8.4 mg/dL (8.6-10.3); EGFR African American 91.9 (>60); Globulin 3.1 g/dL (2-4); HDL Cholesterol 21.3 mg/dL; Magnesium 2.1 mg/dL (1.9-2.7); Potassium 3.9 mmol/L (3.5-5.0); Total Bilirubin 0.8 mg/dL (0.2-1.0); Total Protein 6.3 g/dL (6.4-8.9)
[2020-05-24] MEDS: Nicotine PATCH 21 MG/24 HR PATCH TRANSDERM SCH ×2 (08:19→09:02)
[2020-05-24] MEDS ORDERED: Influenza VAC *QUAD* 2020-21* 0.5 ML SYRINGE IM ONE (09:00)
[2020-05-24] MEDS ORDERED: Furosemide 40 mg/4 ml IV VIAL IV SLOW PU ONE (11:18)
[2020-05-24] MEDS ORDERED: Potassium Chloride LIQUID 20 MEQ/15 ML LIQUID PO ONE (16:34)
[2020-05-24] MEDS: SPIRIVA Respimat (tiotropium) 2.5 mcg/inh Inhaler INH SCH (17:18)
[2020-05-24] MEDS: Senna TAB 8.6 mg TAB PO PRN (21:36)
[2020-05-25] MEDS: Nicotine PATCH 21 MG/24 HR PATCH TRANSDERM SCH (08:52)
[2020-05-25] MEDS: SPIRIVA Respimat (tiotropium) 2.5 mcg/inh Inhaler INH SCH (09:52)
[2020-05-25] MEDS: Senna TAB 8.6 mg TAB PO PRN (11:46)
[2020-05-25 12:20] LABS: Anion Gap 6 mmol/L (2-11); Blood Urea Nitrogen 21 mg/dL (6-24); CO2 Carbon Dioxide 23 mmol/L (22-32); Calcium 8.8 mg/dL (8.6-10.3); Chloride 108 mmol/L (101-111); EGFR African American 82.9 (>60); EGFR Non-African American 68.5 (>60); Glucose 138 mg/dL (70-100); Magnesium 2.2 mg/dL (1.9-2.7); Potassium 4.1 mmol/L (3.5-5.0); Sodium 137 mmol/L (135-145)
[2020-05-25 12:32] LABS: % Iron Saturation 8 % (15-55); Iron < 20 ug/dL (50-212); Total Iron Binding Capacity 260 mcg/dL (250-450); Transferrin 186 mg/dL (203-362); Unsaturated Iron Binding < 245 ug/dL
[2020-05-25 12:52] LABS: Ferritin 183.2 ng/mL (24-336)
[2020-05-25] MEDS ORDERED: Iron Sucrose 200 MG in NS 0.9% 100 ml BAG 100 ML IVPB ONE (13:43)
[2020-05-25] MEDS ORDERED: Enoxaparin 40 MG/0.4 ML SYR SUBCUT SCH (14:00)
[2020-05-25] MEDS ORDERED: Furosemide 40 mg/4 ml IV VIAL IV ONE (17:34)
[2020-05-26 06:13] LABS: ABS Basophils 0.1 10^3/ul (0-0.2); ABS Eosinophils 0.7 10^3/ul (0-0.6); ABS Lymphocytes 1.8 10^3/ul (1.0-4.8); ABS Neutrophils 8.8 10^3/ul (1.5-7.7); Eosinophil % 5.7 %; Hematocrit 37 % (42-52); Hemoglobin 12.4 g/dL (14.0-18.0); Lymphocyte % 14.3 %; Mean Corpuscular HGB Conc 33 g/dL (31-36); Mean Corpuscular Hemoglobin 26 pg (27-31); Mean Corpuscular Volume 79 fL (80-94); Mean Platelet Volume 8.7 fL (7.4-10.4); Platelet Count 266 10^3/uL (150-450); Red Blood Count 4.74 10^6 /uL (4.18-5.48); Red Cell Distribution Width 17 % (10-15); White Blood Count 12.3 10^3/uL (3.5-10.8)
[2020-05-26 06:31] LABS: BUN/Creatinine Ratio 22.4 (8-20); Calcium 8.5 mg/dL (8.6-10.3); EGFR African American 81.1 (>60); Potassium 3.8 mmol/L (3.5-5.0)
[2020-05-26] MEDS: Nicotine PATCH 21 MG/24 HR PATCH TRANSDERM SCH (08:02)
[2020-05-26 11:44] VITALS: BP 107/58
== END 2020-05-26 11:58 | disposition home or self-care (01) | DRG 246 ==
LOC: ED 02:14 → CHICATH 04:56 → ICU 06:50 → MEDTELE 05-24 20:43
PROVIDERS: ATTEND Internal Medicine Cardiovascular Disease